=== PATIENT | male | born 1950 | race Caucasian/White ===

== ENCOUNTER 2018-04-01 16:00 | Inpatient (IN) | payer MEDICARE ==
[~2018-04-01] VITALS: Ht 182.9 cm; Wt 113.4 kg
[2018-04-01 19:28] VITALS: BP 130/56; BMI 34.0
--- NOTE | 2018-04-01 21:45 | NUR ---
PATIENT ORDER FOR TRAMADOL FOR PAIN ENTERED. PHARMACIST ADRIEN NOTIFIED OF ORDER. TRAMADOL TO BE PLACED IN PIXIS. NOVOLOG TO BE DELIVERED.
--- NOTE | 2018-04-01 22:15 | NUR ---
PATIENT MEDICATIONS HERE. PATIENT GIVEN TRAMADOL FOR BACK,HANDS & BUTT PAIN. PATIENT HAD SECOND LOOSE BM. PATIENT CLEANED & ORDERED MEDICATION APPLIED TO BUTTOCKS. PATIENT TOLERATED IT WELL. CALL LIGHT WITHIN REACH. WILL CONTINUE TO MONITOR.
--- NOTE | 2018-04-01 23:00 | NUR ---
PATIENT RECEIVED SITTING UP IN BED WATCHING TV. PATIENT ON CONTACT ISOLATION FOR CDIFF. PATIENT ASSESSMENT & VITAL SIGNS DONE. PATIENT ALANIZ CATHETER PATENT WITH DARK YELLOW URINE. PATIENT HAD NO C/O PAIN OR DISTRESS. PATIENT BED LOW. PATIENT HAS LEFT BKA. RIGHT 5 TOES AMPUTATION YEARS AGO. PATIENT ALERT & ORIENTED. PATIENT ABLE TO VOICE HIS NEEDS. WILL CONTINUE TO MONITOR.
--- NOTE | 2018-04-02 02:11 | NUR ---
PATIENT EYES CLOSED. RESPIRATIONS 18 & EVEN. BED LOW. CALL LIGHT WITHIN REACH. WILL CONTINUE TO MONITOR.
--- NOTE | 2018-04-02 02:41 | NUR ---
RESTING IN BED. INCONTINENCE CARE GIVEN. NOTED SHEERING ON BUTTOCKS. ALANIZ PATENT. NO ACUTE DISTRESS NOTED.
[2018-04-02 06:35] LABS: BASOPHILS 0.6 % (0-2); EOSINOPHILS 2.2 % (0-7); HEMATOCRIT 33.3 % (42.0-54.0); HEMOGLOBIN 11.3 g/dL (13.5-17.5); IMMATURE GRANULOCYTES 0.7 % (0-5); LYMPHOCYTES 32.4 % (15-50); MCH 28.5 pg (26.0-34.0); MCHC 33.9 g/dL (31.0-37.0); MCV 83.9 fL (80.0-100.0); MEAN PLATELET VOLUME 8.8 fL (7.4-10.4); NEUTROPHILS 49.1 % (40-80); PLATELET COUNT 190 10x3/uL (130-400); RBC 3.97 10x6/uL (4.20-6.10); RDW 14.2 % (11.5-14.5); WBC 7.1 10x3/uL (4.8-10.8)
[2018-04-02 06:38] LABS: ANION GAP 14.6 mmol/L (8-16); CALCIUM 7.5 mg/dL (8.5-10.1); CARBON DIOXIDE 26.1 mmol/L (21.0-32.0); CREATININE - SERUM 2.5 mg/dL (0.6-1.3); POTASSIUM - SERUM 3.7 mmol/L (3.5-5.1)
--- NOTE | 2018-04-02 07:04 | NUR ---
RESTING QUIETLY IN BED. CALL LIGHT IN REACH. BED IN LOWEST POSITION.
[2018-04-02 07:23] LABS: APPEARANCE TURBID (CLEAR); BACTERIA MANY /hpf (NONE SEEN); BILIRUBIN NEGATIVE (NEGATIVE); COLOR YELLOW (YELLOW); EPITHELIAL CELLS 0-5 /hpf (0-5); GLUCOSE NEGATIVE (NEGATIVE); KETONE NEGATIVE (NEGATIVE); MUCUS <1+ /lpf (NONE SEEN); NITRITE POSITIVE (NEGATIVE); PROTEIN 1+ mg/dL (NEGATIVE); RED CELLS - URINE 0-5 /hpf (0-5); SPECIFIC GRAVITY 1.015 (1.005-1.020); YEAST >1+ /hpf (NONE SEEN)
[2018-04-02 07:24] LABS: AMORPHOUS SEDIMENT <1+ /lpf (NONE SEEN); GRANULAR CAST OCC /lpf (NONE SEEN)
--- NOTE | 2018-04-02 07:38 | NUR ---
PT RESTING QUIETLY. CL IN REACH. NO SIGNS OF DISTRESS OR PAIN. PT ALANIZ INTACT, URINE WNL. PT ON ISOLATION FOR CDIFF. RESP EVEN AND UNLABORED. BED IN LOW POSITION. SIDE RAILS X2. WCTM
[2018-04-02 08:00] VITALS: BP 159/90
--- NOTE | 2018-04-02 10:30 | NUR ---
PT COMPLAINING OF N/V ALL MORNING. ZOFRAN ORDERED. WILL CHECK BACK IN 30 MIN. PT ALSO COMPLAINING OF DIARRHEA. CL IN REACH. PT LYING IN BED. DENIES ANY FURTHER NEEDS.
[2018-04-02 11:59] VITALS: Ht 182.9 cm; Wt 113.4 kg
--- NOTE | 2018-04-02 14:32 | NUR ---
PT ATE SOME LUNCH. INSULIN HELD DUE TO NOT EATING TODAY. PT STILL COMPLAINING OF N/V. CL IN REACH. PT SITTING UP ON SIDE OF BED. WILL CONTINUE TO MONITOR.
--- NOTE | 2018-04-02 17:44 | NUR ---
PT SITTING UP IN BED. CL IN REACH. PT DENIES NEEDS OR PAIN. ZOFRAN HELPED LAST DOSE THAT WAS GIVEN. PT STATES HE FEELS BETTER. INSULIN HAS BEEN HELD ALL DAY DUE TO LACK OF EATING. WILL CONTINUE TO MONITOR.
[2018-04-02 18:45] VITALS: BP 169/79
--- NOTE | 2018-04-02 20:58 | NUR ---
PATIENT STATED THAT HE HASNT HAD ANYTHING TO EAT FOR MOST OF THE DAY. PATIENTS BLOOD SUGAR WAS 153 AND INSULIN WAS HELD DUE TO PATIENT STILL NOT EATING AND HAD EXPERIENCED N/V EARLIER TODAY. WCTM.
--- NOTE | 2018-04-02 21:58 | NUR ---
PATIENTS DRESSING REMOVED AND WOUND ASSESSED AND CLEANED. NEW DRESSING APPLIED USING ADPATIC, 4 X 4"S, CURLIX AND TAPE. PATIENT TOLERATED PROCEDURE. ERICKA.
--- NOTE | 2018-04-02 23:32 | NUR ---
PATIENT CLEANED OF INCONTINENT BM. MEDICATION APPLIED TO BUTTOCKS. PATIENT REPOSITIONED FOR COMFORT. CALL LIGHT IN REACH. BED IN LOWEST POSITION.
--- NOTE | 2018-04-03 00:22 | NUR ---
PATIENT ASLEEP WITH EYES CLOSED. HOB AT 35 DEGREES. RESPIRATIONS EVEN. NO SIGNS OF DISTRESS. CALL LIGHT IN REACH. BED IN LOWEST POSITION.
--- NOTE | 2018-04-03 00:55 | NUR ---
PATIENT CLEANED OF INCONTINENT BM. GENTLY CLEANED PATIENTS BUTTOCKS WITH WARM WIPES AND PATIENT COMPLAINED AND TOLD ME TO JUST NOT WIPE HIM. I EXPLAINED TO PATIENT THAT IT WAS NOT GOOD FOR STOOL TO STAY ON THE SKIN BECAUSE IT CAUSES SKIN BREAKDOWN. PATIENT UNDERSTOOD AND I CONTINUED TO WIPE PATIENTS BUTTOCKS AND FOLLOWED WITH CAMO ON REDDENED AREAS.
--- NOTE | 2018-04-03 01:39 | NUR ---
PATIENT ASLEEP WITH EYES CLOSED LAYING IN SUPINE POSITION. HOB AT 35 DEGREES. RESPIRATIONS EVEN. NO SIGNS OF DISTRESS. CALL LIGHT IN REACH. WCTM.
--- NOTE | 2018-04-03 03:50 | NUR ---
PATIENT CLEANED ON INCONTINENT URINE. COMPLETE LINEN CHANGE. PATIENTS SCROTUM SACK WAS EXTREMELY RED. MOMO APPLIED. PATIENT REPOSITIONED FOR COMFORT. CALL LIGHT IN REACH. BED IN LOWEST POSITION.
--- NOTE | 2018-04-03 04:19 | NUR ---
PATIENT ASLEEP WITH EYES CLOSED. HOB AT 30 DEGREES. RESPIRATIONS EVEN. NO SIGNS OF DISTRESS. CALL LIGHT IN REACH. BED IN LOWEST POSITION. SIDE RAILS UP X 2.
--- NOTE | 2018-04-03 05:41 | NUR ---
WHEN IN PATIENTS ROOM TO CHECK BLOOD SUGAR AND ASK PATIENT HOW HE WAS DOING HE CURSED AT ME AND TOLD " NOT WORTH A GODDAMN BECAUSE I HAVE BEEN LAYING IN SHIT FOR MORE THAN AN HOUR." I ASKED HIM WHY HE DIDNT PRESS HIS CALL LIGHT WHICH WAS ON HIS CHEST? HE REPLIED " IT WOULDNT MATTER IF I CALLED YOU NURSES WOULDNT ANSWER IT ANYWAY." I THEN WENT AND GOT THE CHARGE NURSE TO SEE IF MAYBE SHE COULD MAKE PATIENT HAPPY, SHE WAS NOT ABLE TO MAKE HIM HAPPY EITHER. CLEANED PATIENT OF INCONTINENT BM AND REMINDED HIM IF HE NEEDS HELP TO PLEASE USE THE CALL LIGHT.
[2018-04-03 08:00] VITALS: BP 141/80
--- NOTE | 2018-04-03 08:39 | NUR ---
NURSE IN ROOM. TAKING MEDS. NO CHANGE IN ASSESSMENT.
[2018-04-03 09:24] LABS: BASOPHILS 0.3 % (0-2); EOSINOPHILS 2.1 % (0-7); HEMOGLOBIN 11.6 g/dL (13.5-17.5); IMMATURE GRANULOCYTES 0.8 % (0-5); LYMPHOCYTES 25.6 % (15-50); MCH 28.4 pg (26.0-34.0); MCHC 34.1 g/dL (31.0-37.0); MCV 83.3 fL (80.0-100.0); MEAN PLATELET VOLUME 8.9 fL (7.4-10.4); MONOCYTES 13.4 % (2-11); NEUTROPHILS 57.8 % (40-80); PLATELET COUNT 169 10x3/uL (130-400); RBC 4.08 10x6/uL (4.20-6.10); WBC 6.6 10x3/uL (4.8-10.8)
[2018-04-03 09:33] LABS: CALCIUM 7.2 mg/dL (8.5-10.1); CARBON DIOXIDE 25.2 mmol/L (21.0-32.0); CREATININE - SERUM 2.4 mg/dL (0.6-1.3); POTASSIUM - SERUM 3.2 mmol/L (3.5-5.1)
--- NOTE | 2018-04-03 10:29 | NUR ---
PHYSICAL THERAPIST IN ROOM. WORKING WITH PATIENT IN ROOM. ALL LINENS ON BED CHANGED WHILE PATIENT SITTING UP
--- NOTE | 2018-04-03 15:53 | NUR ---
PATIENT CONTINUES IN CONTACT ISOLATION FOR C-DIFF. PATIENT HAS HAD LOOSE STOOLS X6 TODAY
--- NOTE | 2018-04-03 16:44 | NUR ---
WOUND CARE CONSULT PUT IN FOR RIGHT LEG STASIS ULCERS
--- NOTE | 2018-04-03 19:09 | NUR ---
PATIENT IS RESTING IN HIS BED. HE DENIES ANY NEEDS. BED IS DOWN LOW WITH SIDE RAILS UP X2. CALL LIGHT IS IN REACH.
[2018-04-03 19:30] VITALS: BP 150/78
--- NOTE | 2018-04-03 21:00 | NUR ---
PATIENT IS RESTING IN HIS BED. VITAL SIGNS ARE STABLE. BED IS DOWN LOW WITH SIDE RAILS UP X2. CALL LIGHT IN REACH.
--- NOTE | 2018-04-04 00:05 | NUR ---
PATIENT IS SLEEPING. BED IS DOWN LOW WITH SIDE RAILS UP X2. CALL LIGHT IS IN REACH.
--- NOTE | 2018-04-04 04:07 | NUR ---
PATIENT IS SLEEPING. BED IS DOWN LOW WITH SIDE RAILS UP X2. CALL LIGHT IS IN REACH.
[2018-04-04 08:00] VITALS: BP 133/77; BP 139/75
--- NOTE | 2018-04-04 08:00 | NUR ---
PATIENT REMAINS IN CONTACT ISOLATION FOR C-DIFF. ALERT/ORIENT, CALL LIGHT WITHIN REACH. VOICES NO NEEDS AT THIS TIME. WILL CONTINUE WITH PLAN OF CARE
--- NOTE | 2018-04-04 10:11 | NUR ---
PATIENT INCONT OF STOOL. VERY LOOSE BOWEL MOVEMENT. BOTTOM IS VERY RED, PETER CARE GIVEN AND MOMO CREAM APPLIED. PATIENT HAS A CHRONIC ALANIZ CATH DUE TO RETENTION.
--- NOTE | 2018-04-04 13:00 | NUR ---
PATIENT IS A TOTAL ASST DUE TO LBKA, RIGHT FOOT HAS ALL FIVE TOES AMPUTATED. RIGHT CALF HAS STASIS ULCERS. DRESSING IS C/D/I TO AREA
--- NOTE | 2018-04-04 19:14 | NUR ---
PATIENT IS RESTING IN HIS BED. HE REQUEST SOME COLD APPLESAUCE. NO OTHER NEEDS VOICED. BED IS DOWN LOW WITH SIDE RAILS UP X2. CALL LIGHT IS IN REACH.
--- NOTE | 2018-04-04 20:28 | NUR ---
REST IN BED, CALL LIGHT IN REACH.
[2018-04-04 22:46] VITALS: BP 165/87
--- NOTE | 2018-04-05 02:05 | NUR ---
REST QUIETLY IN BED, CALL LIGHT IN REACH.
[2018-04-05 08:22] VITALS: BP 159/80
--- NOTE | 2018-04-05 08:24 | NUR ---
PATIENT ALERT AND ORIENTED. ATE ONLY 10% OF BREAKFAST. STATES HE IS NOT REALLY HUNGRY. HELD LEVAMIR PER PATIENT REQUEST DUE TO BLOOD GLUCOSE BEING 134. CALMOSEPTINE APPLIED TO EXCORIATED BUTTOCKS. RESTING QUIETLY AT THIS TIME WILL CONTINUE TO MONITOR.
--- NOTE | 2018-04-05 10:13 | NUR ---
PATIENT COMPLAINED OF PAIN TO BACK AND HANDS. MEDICATAED WITH PRN ULTRAM. DR PEREZ ORDERED 2 NEW ANTIBIOTICS AND QUESTRAN. STATES HE DOES NOT WANT TO BE FILLED WITH ANTIBOITICS AND WANTS TO TALK TO DR. PEREZ. REFUSED TO TAKE QUESTRAN BECAUSE HE SAYS IT WILL MAKE HIM THROW UP. WANTS TO WAIT AND START FLAGYL AT 15:00 BECAUSE HE ALREADY TOOK 2 ANTIBIOTICS AND HIS STOMACH IS "CHURNING". NOTE LEFT FOR DR. PEREZ ABOUT ANTIBIOTICS.
--- NOTE | 2018-04-05 12:17 | NUR ---
PATIENT C/O NAUSEA. MEDICATED WITH PRN ZOFRAN BUT DID NOT HELP. PATIENT HAD SMALL EMESIS. NOON MEDS HELD. REFUSED TO EAT LUNCH. SITTING UP IN WHEELCHAIR. STATES "THIS THROWING UP EVERYTIME I MOVE HAS GOT TO STOP." ORDERED STEPHON TAYLOR FROM [employer] PATIENT THINKS THIS MIGHT HELP SETTLE HIS STOMACH.
--- NOTE | 2018-04-05 19:01 | NUR ---
PATIENT C/O NAUSEA. STATES HE CANNOT TAKE ZOFRAN AT THIS TIME. WOULD LIKE TO TRY SOME ICE CUBES. BED IS DOWN LOW WITH SIDE RAILS UP X2. CALL LIGHT IS IN REACH.
[2018-04-05 19:30] VITALS: BP 153/85
--- NOTE | 2018-04-05 19:41 | NUR ---
PATIENT C/O NAUSEA, BEING TOO HOT, FEELING VERTIGO. BLOOD SUGAR AND VITAL SIGNS CHECKED AND ARE STABLE. BED IS DOWN LOW WITH SIDE RAILS UP X2. CALL LIGHT IS IN REACH. PATIENT INFORMED THAT NURSE WILL PAGE MD FOR ANXIETY MED ORDER.
--- NOTE | 2018-04-05 23:40 | NUR ---
PATIENT IS RESTING IN HIS BED. C/O NAUSEA BUT STATES HE CANNOT TAKE ZOFRAN AT THIS TIME. BED IS DOWN LOW WITH SIDE RAILS UP X2. CALL LIGHT IS IN REACH.
--- NOTE | 2018-04-06 00:09 | NUR ---
PATIENT IS SLEEPING. BED IS DOWN LOW WITH SIDE RAILS UP X2. CALL LIGHT IS IN REACH.
--- NOTE | 2018-04-06 04:06 | NUR ---
PATIENT IS SLEEPING. BED IS DOWN LOW WITH SIDE RAILS UP X2. BED ALARM ACTIVATED AND CALL LIGHT IN REACH.
[2018-04-06 07:11] LABS: BASOPHILS 0.8 % (0-2); EOSINOPHILS 2.7 % (0-7); HEMATOCRIT 33.4 % (42.0-54.0); HEMOGLOBIN 11.4 g/dL (13.5-17.5); IMMATURE GRANULOCYTES 1.3 % (0-5); LYMPHOCYTES 36.3 % (15-50); MCH 28.6 pg (26.0-34.0); MCHC 34.1 g/dL (31.0-37.0); MCV 83.7 fL (80.0-100.0); MEAN PLATELET VOLUME 9.3 fL (7.4-10.4); MONOCYTES 15.5 % (2-11); NEUTROPHILS 43.4 % (40-80); PLATELET COUNT 167 10x3/uL (130-400); RBC 3.99 10x6/uL (4.20-6.10); RDW 13.9 % (11.5-14.5); WBC 6.4 10x3/uL (4.8-10.8)
[2018-04-06 07:32] LABS: ANION GAP 13.8 mmol/L (8-16); CALCIUM 7.3 mg/dL (8.5-10.1); CARBON DIOXIDE 27.4 mmol/L (21.0-32.0); POTASSIUM - SERUM 3.2 mmol/L (3.5-5.1)
--- NOTE | 2018-04-06 07:52 | NUR ---
PATIENT AWAKE AND ALERT THIS MORNING. SITTING UP IN BED TRYING TO EAT SOME BREAKFAST. STATES THAT NAUSEA IS STILL PRESENT AND THAT HE HAD A BAD NIGHT. SO FAR ONLY ABLE TO EAT A FEW BITES OF CEREAL.
[2018-04-06 08:00] VITALS: BP 151/83
--- NOTE | 2018-04-06 15:58 | NUR ---
PATIENT AGREED TO GET UP FOR A SHOWER AFTER MUCH ENCOURAGEMENT. STATES HE FEELS ALOT BETTER AFTER SHOWER. NAUSEA IS GONE. ATE SOME APPLESAUCE AND DRANK A SPRITE WITHOUT VOMITING. DR. PEREZ IN TO SEE PATIENT. SAID HE WAS GOING TO HOLD OFF OF FLAGYL FOR NOW BECAUSE HE THOUGHT IT WAS MAKING HIM SICK. PATIENT UP FOR THERAPY AT THIS TIME. WILL CONTINUE TO MONITOR.
[2018-04-06 19:00] VITALS: BP 146/78
--- NOTE | 2018-04-06 19:14 | NUR ---
RESTING IN BED AWAKE AND ALERT. STATES HE HAD A LOT OF NAUSEA TODAY BUT DOESNT HAVE IT NOW. STATES HE DOESNT WANT HS MEDICATIONS. REMAINS ON CONTACT ISOLATION. CALL LIGHT IN REACH.
--- NOTE | 2018-04-07 01:15 | NUR ---
RESTING IN BED WITH EYES CLOSED. NO DISTRESS NOTED. CALL LIGHT IN REACH.
--- NOTE | 2018-04-07 06:02 | NUR ---
RESTING IN BED. CORBIN MOSCOSO. AGREED TO TAKE HIS PROAMITINE THIS AM. BLOOD SUGAR 151, SLIDING SCALE GIVEN. REPOSITIONED FOR COMFORT.
[2018-04-07] MEDS ORDERED: ACIDOPHILUS-PE1 EACH PO (06:23)
[2018-04-07] MEDS ORDERED: XARELTO15 MG PO (06:26)
[2018-04-07] MEDS ORDERED: LEVEMIR IN100 UNITS/ (06:27)
[2018-04-07] MEDS ORDERED: MUPIROCIN22 GM TOPICAL (06:30)
[2018-04-07] MEDS ORDERED: NYSTATIN1 PWD (06:31)
[2018-04-07] MEDS ORDERED: MIDODRINE HCL5 MG (06:33)
[2018-04-07] MEDS ORDERED: ULTRAM50 MG PO (06:34)
[2018-04-07] MEDS ORDERED: XANAX0.5 MG PO (06:35)
--- NOTE | 2018-04-07 07:48 | NUR ---
PT REPOSITIONED AND IS SITTING UP IN BED FOR BREAKFAST, DENIES NEEDS. WCTM.
[2018-04-07 08:00] VITALS: BP 135/68
--- NOTE | 2018-04-07 13:20 | NUR ---
Nutrition Follow Up: Pt stated that his N/V had improved but he was still experiencing some. He said that he felt hungry and had eaten some lunch. Pt requested more soup and milk. Pt refused supplements at this time stating that they gave him diarrhea. RD encouraged pt to increase po intake as able to maintain strength, promote healing, etc. RD ordered pt more soup and milk per his request. Diet: ADA PO Intake: 30% meal avg BM: 04/07/18 Labs reviewed - Glucose continues elevated Meds noted including Questran Rec continue current diet. Will continue to honor food preferences within ADA diet. RD following.
--- NOTE | 2018-04-07 19:47 | NUR ---
AWAKE AND ALERT. TALKING ON PHONE. STATES HE HAD SOME NAUSEA TODAY BUT RIGHT NOW HE FEELS OK. CORBIN MOSCOSO. CONTACT ISOLATION IN PLACE. NO DISTRESS NOTEED.
[2018-04-07 19:49] VITALS: BP 141/79
--- NOTE | 2018-04-08 00:53 | NUR ---
MEDICATED FOR PAIN IN BACK. REPOSITIONED FOR COMFORT.
--- NOTE | 2018-04-08 06:08 | NUR ---
QUIET HOURS. RESTING IN BED WITH NO DISTRESS NOTED. ALANIZ PATENT. REFUSED PO MEDS. ACCUCHECK DONE AND RESULTS 149.
[2018-04-08 07:31] VITALS: BP 138/73
--- NOTE | 2018-04-08 10:44 | NUR ---
LAYING IN BED WATCHING TV. CALL LIGHT IN REACH
--- NOTE | 2018-04-08 14:05 | NUR ---
WORKING WITH THERAPY IN [place].
--- NOTE | 2018-04-08 19:50 | NUR ---
RESTING IN BED. AWAKE AND ALERT. ALANIZ PATENT. DRESSING INTACT TO LLE. RESPIRATIONS UNLABORED. CALL LIGHT IN REACH.
[2018-04-08 19:56] VITALS: BP 134/83
--- NOTE | 2018-04-09 02:16 | NUR ---
RESTING IN BED WITH NO DISTRESS NOTED. CALL LIGHT IN REACH.
[2018-04-09 07:30] VITALS: BP 149/83
[2018-04-09 08:35] LABS: BASOPHILS 0.3 % (0-2); EOSINOPHILS 3.9 % (0-7); HEMATOCRIT 30.6 % (42.0-54.0); HEMOGLOBIN 10.4 g/dL (13.5-17.5); IMMATURE GRANULOCYTES 0.9 % (0-5); LYMPHOCYTES 32.4 % (15-50); MCH 28.6 pg (26.0-34.0); MCV 84.1 fL (80.0-100.0); MEAN PLATELET VOLUME 9.6 fL (7.4-10.4); MONOCYTES 13.1 % (2-11); NEUTROPHILS 49.4 % (40-80); PLATELET COUNT 165 10x3/uL (130-400); RBC 3.64 10x6/uL (4.20-6.10); RDW 14.3 % (11.5-14.5); WBC 5.9 10x3/uL (4.8-10.8)
[2018-04-09 09:04] LABS: ANION GAP 15.4 mmol/L (8-16); CALCIUM 7.6 mg/dL (8.5-10.1); CARBON DIOXIDE 26.2 mmol/L (21.0-32.0); CREATININE - SERUM 1.7 mg/dL (0.6-1.3); POTASSIUM - SERUM 3.6 mmol/L (3.5-5.1)
--- NOTE | 2018-04-09 11:15 | NUR ---
PATIENT ADMITTED TO [facility]HAB FROM [facility]. DISCHARGE PLANS ARE FOR PATIENT TO RETURN HOME HE LIVES WITH HIS MOTHER. WILL CONTINUE TO FOLLOW WITH PATIENT AND WILL ASSIST WITH DISCHARGE NEEDS.
--- NOTE | 2018-04-09 15:33 | NUR ---
RESTING QUIETLY IN BED WATCHING TV. INCONT OF STOOL. NO DIARRHEA NOTED. FC PATENT WITH CLOUDY URINE NOTED. STILL REFUSING MOST OF HIS MEDS.
[2018-04-09 19:41] VITALS: BP 137/78
--- NOTE | 2018-04-09 19:43 | NUR ---
AWAKE AND ALERT. SKIN WARM AND DRY. STATES HE FEELS A LITTLE BETTER TODAY. DRESSING INTACT TO RIGHT LOWER EXTREMITY. DRESSING TO BUTOCKS INTACT. ALANIZ PATENT. CONTINUES CONTACT ISOLATION. NO DISTRESS NOTED.
--- NOTE | 2018-04-10 03:33 | NUR ---
RESTING IN BED WITH NO DISTRESS NOTED. RESPIRATIONS UNLABORED.
[2018-04-10 08:00] VITALS: BP 165/96
--- NOTE | 2018-04-10 10:00 | NUR ---
SITTING UP IN BED WATCHING TV. DENIES NEEDS OR C/O. F/C PATENT WITH CLOUDY URINE. CALL LIGHT IN REACH
--- NOTE | 2018-04-10 16:30 | NUR ---
EYES CLOSED, RESP EFFORT NON LABORED. STAYS ON BACK IN BED. NURSE ENCOURAGES HIM TO LAY ON HIS SIDE AND OR ROLL SIDE/SIDE.
[2018-04-10 19:44] VITALS: BP 146/79
--- NOTE | 2018-04-10 19:44 | NUR ---
GREETED PATIENT AND INTRODUCED MYSELF HIS NURSE FOR THE EVENING. PATIENT STATED THAT HE HAD A BM AND NEEDED TO BE CLEANED UP. PATIENT CLEANED FROM INCONTINENT BM AND NEW MEPIPLEX CUSHION APPLIED TO COCCYX. PATIENT DENIES ANY PAIN OR ANY FURTHER NEEDS AT THIS TIME. CALL LIGHT IN REACH. BED IN LOWEST POSITION.
--- NOTE | 2018-04-10 23:00 | NUR ---
PATIENTS DRESSING REMOVED ON LOWER RIGHT CALF. WOUNDS ASSESSED AND MEDICATION ADMINISTERED PRIOR TO NEW DRESSING. ADAPTIC APPLIED TO WOUNDS AND THEN COVERED WITH 4X4 AND COVERED WITH CURLIX TO SECURE. PATIENT TOLERATED PROCEDURE, BUT DID COMPLAIN THAT THE DRESSING HADNT BEEN CHANGED SINCE LAST THURSDAY. THERE WAS NO INITIAL OR DATE ON OLD DRESSING THAT WAS REMOVED. PATIENT DENIES ANY FURTHER NEEDS AT THIS TIME. CALL LIGHT IN REACH. BED IN LOWEST POSITION.
--- NOTE | 2018-04-11 01:05 | NUR ---
PATIENT CLEANED OF INCONTINENT SOFT FORMED BM. CALL LIGHT IN REACH. BED IN LOWEST POSITION.
--- NOTE | 2018-04-11 02:09 | NUR ---
ADMINISTERED PRN ULTRAM FOR LOWER BACK PAIN 9/10 ON 0-10 PAIN SCALE. LEILA.
--- NOTE | 2018-04-11 02:59 | NUR ---
PATIENT ASLEEP WITH EYES CLOSED LAYING IN SUPINE POSITION. HOB AT 30 DEGREES. CALL LIGHT IN REACH. BED IN LOWEST POSITION. RESPIRATIONS EVEN. NO SIGNS OF DISTRESS.
--- NOTE | 2018-04-11 04:45 | NUR ---
PATIENT AWAKE LAYING IN BED IN SUPINE POSITION. STATES THAT HIS BACK IS STILL HURTING, I EXPLAINED TO HIM THAT HE WOULDNT BE ABLE TO TAKE ANOTHER ULTRAM UNTIL 0607. I ASKED HIM IF HE WOULD LIKE FOR ME TO MAKE A NOTE TO DR. PEREZ ABOUT POSSIBLY CHANGING HIS PAIN MEDICATION, HE REPLIED "NO, IT WILL BE FINE JUST THE WAY IT IS."
--- NOTE | 2018-04-11 10:30 | NUR ---
RESIDENT AWAKE AND ALERT THIS MORNING. NO COMPLAINTS OF PAIN OR DISCOMFORT. ATE 90% OF BREAKFAST. RESTING IN BED, WATCHING TV. WILL CONTINUE TO MONITOR.
[2018-04-11 11:06] VITALS: BP 135/74
--- NOTE | 2018-04-11 13:27 | NUR ---
ATE 100% OF LUNCH. NO C/O NAUSEA AT THIS TIME. WILL CONTINUE TO MONITOR.
[2018-04-11 19:30] VITALS: BP 147/90
--- NOTE | 2018-04-11 19:30 | NUR ---
GREETED PATIENT AND INTRODUCED MYSELF. PATIENT IS LAYING IN BED WATCHING TV. DENIES ANY NEEDS AT THIS TIME.
--- NOTE | 2018-04-11 22:00 | NUR ---
PATIENTS DRESSING REMOVED ON LOWER RIGHT CALF. WOUNDS ASSESSED AND MEDICATION APPLIED PRIOR TO NEW DRESSING. ADAPTIC APPLIED TO COVER WOUNDS, FOLLOWED WITH 4 X 4 AND CURLIX AND TAPE TO SECURE. PATIENT TOLERATED PROCEDURE. PATIENT DENIES ANY FURTHER NEEDS AT THIS TIME. CALL LIGHT IN REACH. BED IN LOWEST POSITION.
--- NOTE | 2018-04-11 23:49 | NUR ---
PATIENT ASLEEP WITH EYES CLOSED LAYING IN SUPINE POSITION. HOB AT 30 DEGREES. RESPIRATIONS EVEN. NO SIGNS OF DISTRESS. CALL LIGHT IN REACH. BED IN LOWEST POSITION.
--- NOTE | 2018-04-12 00:43 | NUR ---
PATIENT CLEANED OF INCONTINENT BM IN ENTIRE SCROTAL, RECTAL & PETER AREA. COMPLETE BED CHANGE WAS NEEDED. USED WARM WATER AND SOAP TO CLEAN PATIENT, WIPES WERE NOT EFFECTIVE. PATIENT MODERATELY UNCOMFORTABLE DURING CLEANING AND WAS MOANING WHILE CLEANING. ERICKA.
--- NOTE | 2018-04-12 02:00 | NUR ---
PATIENT ASLEEP WITH EYES CLOSED. NO SIGNS OF DISTRESS. CALL LIGHT IN REACH
[2018-04-12 07:38] LABS: BASOPHILS 0.6 % (0-2); EOSINOPHILS 3.9 % (0-7); HEMOGLOBIN 10.4 g/dL (13.5-17.5); IMMATURE GRANULOCYTES 0.7 % (0-5); LYMPHOCYTES 27.4 % (15-50); MCH 28.2 pg (26.0-34.0); MCHC 33.5 g/dL (31.0-37.0); MEAN PLATELET VOLUME 9.7 fL (7.4-10.4); MONOCYTES 13.8 % (2-11); NEUTROPHILS 53.6 % (40-80); RBC 3.69 10x6/uL (4.20-6.10); RDW 14.2 % (11.5-14.5); WBC 6.7 10x3/uL (4.8-10.8)
[2018-04-12 07:40] LABS: PLATELET COUNT 204 10x3/uL (130-400)
[2018-04-12 07:46] LABS: ANION GAP 17.2 mmol/L (8-16); CARBON DIOXIDE 22.8 mmol/L (21.0-32.0); CREATININE - SERUM 1.6 mg/dL (0.6-1.3)
[2018-04-12 07:58] VITALS: BP 140/73
--- NOTE | 2018-04-12 10:29 | NUR ---
SITTING UP IN BED WATCHING TV. DENIES PAIN. DSG TO RLE IN PLACE. F/C IN PLACE WITH CLOUDY URINE. CALL LIGHT IN REACH.
--- NOTE | 2018-04-12 12:29 | NUR ---
STATES HE DOES NOT WANT HIS LUNCH, A FEW BITES SOURED ON HIS STOMACH. NO EMESIS NOTED IN BUCKET. DECLINED ANYTHING ELSE TO EAT OR DRINK.
[2018-04-12 19:00] VITALS: BP 136/72
--- NOTE | 2018-04-12 19:27 | NUR ---
RESTING IN BED. RESPIRATIONS UNLABORED. STATES HE HAD AN INCONTINENT BM. REFUSES TO USE BEDPAN. ALANIZ PATENT DRAINING NGHIA URINE. CALL LIGHT IN REACH.
--- NOTE | 2018-04-13 00:07 | NUR ---
RESTING IN BED. INCONTINENCE CARE GIVEN FOR BM. NO ACUTE DISTRESS NOTED.
[2018-04-13 08:00] VITALS: BP 149/86
--- NOTE | 2018-04-13 08:00 | NUR ---
SHIFT ASSMT COMPLETED.BREAKFAST GIVEN.DRSG INTACT TO RT STUMP.CL IN REACH.
--- NOTE | 2018-04-13 14:13 | NUR ---
Nutrition Follow Up: Pt was asleep at the time of RD visit. Interview deferred at this time. Noted pt has previously refused supplements. Diet: ADA PO Intake: 64% meal avg BM: 04/13/18 Labs reviewed - Glucose elevated Meds noted including Questran Rec continue current diet. Will continue to honor food preferences. RD following.
[2018-04-13 20:00] VITALS: BP 157/81
--- NOTE | 2018-04-13 20:05 | NUR ---
RESTING IN BED WITH RESPIRATIONS UNLABORED. NO C/O PAIN. ALANIZ PATENT. NO DISTRESS NOTED.
--- NOTE | 2018-04-14 01:34 | NUR ---
RESTING IN BED WITH NO DISTRESS NOTED. CORBIN PATENT. CALL LIGHT IN REACH.
--- NOTE | 2018-04-14 04:03 | NUR ---
RESTING IN BED WITH NO DISTRESS NOTED. RESPIRATIONS UNLABORED.
--- NOTE | 2018-04-14 06:10 | NUR ---
QUIET HOURS. BLOOD SUGAR 148. NO NEEDS VOICED. NO DISTRESS NOTED.
[2018-04-14 07:35] LABS: BASOPHILS 0.7 % (0-2); EOSINOPHILS 4.5 % (0-7); HEMATOCRIT 30.2 % (42.0-54.0); HEMOGLOBIN 10.4 g/dL (13.5-17.5); IMMATURE GRANULOCYTES 0.9 % (0-5); LYMPHOCYTES 32.6 % (15-50); MCH 29.1 pg (26.0-34.0); MCHC 34.4 g/dL (31.0-37.0); MCV 84.4 fL (80.0-100.0); MEAN PLATELET VOLUME 9.3 fL (7.4-10.4); MONOCYTES 16.6 % (2-11); NEUTROPHILS 44.7 % (40-80); PLATELET COUNT 221 10x3/uL (130-400); RBC 3.58 10x6/uL (4.20-6.10); RDW 14.3 % (11.5-14.5); WBC 6.9 10x3/uL (4.8-10.8)
[2018-04-14 07:51] LABS: ANION GAP 15.1 mmol/L (8-16); CALCIUM 7.9 mg/dL (8.5-10.1); CREATININE - SERUM 1.6 mg/dL (0.6-1.3); POTASSIUM - SERUM 4.1 mmol/L (3.5-5.1)
[2018-04-14 08:00] VITALS: BP 127/69
--- NOTE | 2018-04-14 08:00 | NUR ---
SHIFT ASSMT COMPLETED.DENIES NEEDS.
--- NOTE | 2018-04-14 12:00 | NUR ---
EATING LUNCH.DENIES NEEDS.
--- NOTE | 2018-04-14 16:00 | NUR ---
DEJON THERAPY.CL IN REACH.
[2018-04-14 19:00] VITALS: BP 102/63
--- NOTE | 2018-04-14 19:37 | NUR ---
PATIENT CLEANED OF INCONTINENT BM. CAMO AND NEW MEPILEX CUSHION APPLIED TO REDDENED AREAS. CALL LIGHT IN REACH.
--- NOTE | 2018-04-14 19:45 | NUR ---
GREETED PATIENT AND INTRODUCED MYSELF HIS PATIENT FOR THE EVENING. PATIENT SAID HE HAD WALKED ABOUT 50 FEET TODAY WITH HIS PROTHESIS. I TOLD PATIENT THAT WAS GOOD TO MAKE PROGRESS. DENIES ANY NEEDS AT THIS TIME. CALL LIGHT IN REACH.
--- NOTE | 2018-04-14 19:53 | RHP ---
PATIENT: VIRA HOLLAND MEDICAL RECORD: [id number] ACCOUNT: [id number] LOCATION:[id number] : 54 ADMISSION DATE: 04/01/18 REHABILITATION HISTORY AND PHYSICAL EXAMINATION POST ADMISSION PHYSICIAN EXAMINATION DATE OF ADMISSION: 04/01/2018. ADMITTING DIAGNOSIS: Disuse myopathy. HISTORY OF PRESENT ILLNESS: The patient is a 67-year-old gentleman who is admitted secondary to long medical history of multiple hospitalizations for the last 4-5 months. He has been in the [facility] since 03/10/2018 secondary to sepsis, UTI and C. diff. He has also completed IV antibiotic therapy. He has a remote history of a left BKA with prosthesis. He recently had to have resized and fitted due to weight loss and had improper fitting. He has just, in the past week, felt well enough and strong enough to be getting around his prosthesis and began to ambulate some. He has continued to have increasing bowel movements. He lives at home with his mom, where he has been her caregiver actually in the evenings and she has caregivers during the day. He is moderately independent with mobility and ADLs with the use of prosthesis. He has had a Smith since August secondary to urinary retention that stressed his bladder out. He is able to do all Smith catheter care himself. He currently has proximal muscle weakness with difficulty rising from bed to chair, continues to have multiple BMs daily after completing his medical regimen for CDT. He has got weakness and impaired mobility. He is having some problems with wound care, high fall risk and self-care deficits. These are all barriers to discharge home. Currently mod assist to total assist for mobility and set up for max assist for ADLs. He plans to be able to return home at his prior level of functioning or better if possible. COMORBIDITIES: In this patient include sepsis, C. diff, diabetic, acute kidney injury, chronic AFib, diastolic congestive heart failure, venous stasis, dermatitis, hypertension, and hypokalemia. PAST MEDICAL HISTORY: Significant for AFib, CHF, diabetes, hypertension, MRSA, peripheral neuropathy, tobacco use, and current smokeless tobacco user. PAST SURGICAL HISTORY: Includes amputation of the first, second, and third toes of his right foot, transmetatarsal amputation of his right foot, left BKA, appendectomy, I&D of the skin, skin debridements, excision of pressure ulcers, and right upper arm and elbow pain. ALLERGIES: HYDROCODONE. CURRENT MEDICATIONS: Include Zofran 4 mg q.4 hours p.r.n. nausea and vomiting, Bactroban to apply topically as needed, Xarelto 15 mg daily, Levemir 20 mg with breakfast, potassium 20 mEq daily, triamterene 5 mg t.i.d., tramadol 50 mg q.4 hours p.r.n., sliding scale with Humalog, nystatin powder topically t.i.d., and lactobacillus 1 tab t.i.d. HABITS: Does have a history of tobacco use, mainly smokeless at this time. FAMILY HISTORY: Noncontributory. HISTORY AND PHYSICAL [id number] VIRA HOLLAND SOCIAL HISTORY: The patient hopes to return back home and get back to his prior level of function and be able to take care of his mother in the evenings. REVIEW OF SYSTEMS: GENERAL: Does complain of weakness and fatigue. HEENT: Denies cold, cough, or congestion. CARDIOVASCULAR: Denies chest pain. PHYSICAL EXAMINATION: VITAL SIGNS: Stable, afebrile. GENERAL: An elderly gentleman in no acute distress, alert on exam. HEENT: Normocephalic and atraumatic. Mucosa moist. NECK: Supple. No lymphadenopathy. LUNGS: Clear at this time. HEART: Irregular rate and rhythm. ABDOMEN: Benign. EXTREMITIES: No clubbing, cyanosis or edema. Does have a noted ynria-fry-[id number] amputation and a transmetatarsal amputation of the other foot. NEUROLOGIC: Does have proximal muscle weakness. LABORATORY DATA: His admit UA was 2+ blood, positive for nitrites, many bacteria. His white count 7.1, H&H of 11 and 33, and platelet count is 190. Sodium is 138, potassium 3.7, BUN and creatinine of 20 and 2.5, and blood sugar is noted to be 129. ASSESSMENT: This is a 67-year-old gentleman admitted to the rehab with a working diagnosis of disuse myopathy. The patient has potential to make improvement. We instituted the following multidisciplinary therapies include, but not limited to physical, occupational, respiratory, speech, nutritional services, prosthetics and orthotics. Given his current medical condition, risk of further complications, rehabilitation services cannot be provided at a low level of care such as longterm facility. PLAN: 1. Admit to [facility] rehab for intensive inpatient therapy to include the following disciplines: A. Physical therapy to improve gait, all transfer skills and bed mobility to a modified independent level. B. Occupational therapy to improve activities of daily living to a modified independent level. C. Case management to assist with discharge planning and placement options. D. Nutrition to assist with nutritional needs. E. Rehabilitation nursing to assist with modifying the patient's underlying medical conditions and to assist with any type of bowel or bladder management. 2. The patient's current medication and medical care will be continued. 3. The patient will be placed on standard fall precautions. 4. We will continue on Xarelto for his AFib and place him on some Macrobid until I get his cultures back from his urine. I will see again in the a.m. TRANSINT:[id number] Voice Confirmation ID: [id number] DOCUMENT ID: [id number] 04/12/2018 Edited for raymond HOLGUIN. CHELSIE notes whether there has been none or any medical/functional change since admission: HISTORY AND PHYSICAL [id number] VIRA HOLLAND - No chance since preadmission screen. CHELSIE attests patient continues to be appropriate for IRF: - Continues to be appropriate. YESSENIA PEREZ MD at 1953 CC: [id number] DICTATION DATE: 04/02/18 1054 [address] GENERAL CAR SUPERVISOR: 04/02/18 1140 ADM IN [place] [id number] [place] [address]
--- NOTE | 2018-04-14 23:00 | NUR ---
PATIENT ASLEEP WITH EYES CLOSED. RESPIRATIONS EVEN. NO SIGNS OF DISTRESS. CALL LIGHT IN REACH.
--- NOTE | 2018-04-15 03:54 | NUR ---
PATIENT ASLEEP WITH EYES CLOSED LAYING IN SUPINE POSITION. HOB AT 35 DEGREES. RESPIRATIONS EVEN. NO SIGNS OF DISTRESS. CALL LIGHT IN REACH.
--- NOTE | 2018-04-15 07:45 | NUR ---
SITTING UP BED WATCHING TV. DENIES PAIN OR NEEDS. F/C PATENT WITH CLOUDY URINE NOTED. CALL LIGHT IN REACH.
[2018-04-15 08:00] VITALS: BP 149/70
--- NOTE | 2018-04-15 12:36 | NUR ---
SITTING UP IN BED FOR LUNCH. IS ANXIOUS TO DC TOMORROW. STILL INCONT OF BOWEL. CALL LIGHT IN REACH
--- NOTE | 2018-04-15 15:47 | NUR ---
SITTING UP IN BED WATCHING TV. DSG IN PLACE TO RLE. ENCOURAGED HIM TO STAY OFF HIS BUTTOCKS, SO FAR HE HAS STAYED ON HIS BUTTOCKS MOST OF THE TIME.
[2018-04-15 19:00] VITALS: BP 148/66
--- NOTE | 2018-04-15 20:06 | NUR ---
PT WATCHING BALLGAME, NO NEEDS NOTED FLUIDS AND CALL LIGHT WITHIN REACH
--- NOTE | 2018-04-16 01:12 | NUR ---
PATIENT EYES CLOSED. RESPIRATIONS 18 & EVEN. ALANIZ PATENT WITH DARK YELLOW COLOR URINE. BED LOW. ALARM ON. CALL LIGHT WITHIN REACH. WILL CONTINUE TO MONITOR.
[2018-04-16 06:05] LABS: BASOPHILS 0.8 % (0-2); EOSINOPHILS 4.5 % (0-7); HEMATOCRIT 28.9 % (42.0-54.0); HEMOGLOBIN 9.9 g/dL (13.5-17.5); IMMATURE GRANULOCYTES 0.8 % (0-5); LYMPHOCYTES 36.2 % (15-50); MCH 28.9 pg (26.0-34.0); MCHC 34.3 g/dL (31.0-37.0); MCV 84.5 fL (80.0-100.0); MEAN PLATELET VOLUME 9.3 fL (7.4-10.4); MONOCYTES 15.5 % (2-11); NEUTROPHILS 42.2 % (40-80); PLATELET COUNT 206 10x3/uL (130-400); RBC 3.42 10x6/uL (4.20-6.10); RDW 14.2 % (11.5-14.5); WBC 6.2 10x3/uL (4.8-10.8)
[2018-04-16 06:21] LABS: CALCIUM 8.2 mg/dL (8.5-10.1); CARBON DIOXIDE 22.5 mmol/L (21.0-32.0); CREATININE - SERUM 1.6 mg/dL (0.6-1.3); POTASSIUM - SERUM 4.5 mmol/L (3.5-5.1)
--- NOTE | 2018-04-16 10:55 | NUR ---
SITTING IN WC IN ROOM GATHERING UP ITEMS TO PACK AND GO HOME. DSG CHANGED TO HIS RLE. F/C STILL PRODUCING CLOUDY URINE. CALL LIGHT IN REACH
[2018-04-16 10:58] VITALS: BP 126/63
--- NOTE | 2018-04-16 11:47 | NUR ---
PATIENT DISCHARGING HOME TODAY WITH FAMILY. [facility] WILL RESUME CARE AT HOME. NO NEW DME NEEDED AT THIS TIME. DR. GOMEZ 04/23/18 @ 10:00. PATIENT CHOICE FORM FOR HOME HEALTH AND [facility] FORMS SIGNED AND FILED IN CHART. DISCHARGE INSTRUCTIONS WITH [facility]IM DATA FAXED TO PCP AND TO HOME HEALTH.
--- NOTE | 2018-04-16 13:07 | NUR ---
DC FROM FLOOR WITH ALL PERSONAL BELONGINGS. HE IS CATCHING SCAT BUS AT FRONT OF HOSPITAL TO TAKE HIM HOME. REVIEWED ALL MEDS AND F/U APPTS. WILL CALL HIS MEDS IN TO HIS PHARMACY.
== END 2018-04-16 16:34 | disposition home health service (06) | DRG 91 ==
LOC: D.REHAB 16:00
PROVIDERS: ADMIT Emergency Medicine
DX: G72.89 Other specified myopathies (principal); A41.9 Sepsis, unspecified organism; R65.21 Severe sepsis with septic shock; I50.30 Unspecified diastolic (congestive) heart failure; N17.9 Acute kidney failure, unspecified; I11.0 Hypertensive heart disease with heart failure; B96.89 Other specified bacterial agents as the cause of diseases classified elsewhere; E87.6 Hypokalemia; I87.2 Venous insufficiency (chronic) (peripheral); I48.2 Chronic atrial fibrillation; E11.9 Type 2 diabetes mellitus without complications; Z72.0 Tobacco use; R53.1 Weakness; Z89.512 Acquired absence of left leg below knee; R33.9 Retention of urine, unspecified; I95.9 Hypotension, unspecified

== ENCOUNTER 2019-01-07 13:54 | Outpatient (CLI) | payer MEDICARE ==
[~2019-01-07] VITALS: Ht 182.9 cm; Wt 119.5 kg
[~2019-01-07 13:54] MED LIST: ACIDOPHILUS-PE1 EACH PO; LEVEMIR IN100 UNITS/; MIDODRINE HCL5 MG; MUPIROCIN22 GM TOPICAL; NYSTATIN1 PWD; ULTRAM50 MG PO; XANAX0.5 MG PO; XARELTO15 MG PO
[2019-01-07 15:03] VITALS: BP 116/70; Ht 182.9 cm; Wt 119.5 kg
--- NOTE | 2019-01-07 15:11 | NUR ---
1515 PT ARRIVED IN PERSONAL WHEELCHAIR THAT HAS A HIGH BACK. PT DOES NOT WANT TO BE TRANSFERRED INTO HOSPITAL BED. STATES HE IS COMFORTABLE IN SITTING IN WHEELCHAIR. BEDSIDE TABLE AND CALL LIGHT NEXT TO PATIENT.
--- NOTE | 2019-01-07 16:29 | NUR ---
PATIENT SITTING UP IN WHEELCHAIR, WISHES TO REMAIN IN CHAIR DUE TO DIFFICULTIES WITH TRANSFERRING, RIGHT ARM PICC LINE INFUSING PRBC'S AT 200 CC/HR, RATE INCREASED TO 250 CC/HR AT THIS TIME. DENIES ANY COMPLAINTS OR UNTOWARD SYMPTOMS
== END 2019-01-07 19:16 | disposition home or self-care (01) ==
LOC: D.OPS 13:54
PROVIDERS: ATTEND Family Medicine
DX: D50.9 Iron deficiency anemia, unspecified (principal)

== ENCOUNTER 2019-03-04 14:42 | Inpatient (IN) | payer MEDICARE ==
[~2019-03-04] VITALS: Ht 180.3 cm; Wt 110.2 kg
[2019-03-04] VITALS (7 sets, daily range): BP systolic 89–153; BP diastolic 35–77
--- NOTE | ~2019-03-04 | HEMODYNAMI ---
PATIENT:VIRA HOLLAND MEDICAL RECORD: [id number] : 54 LOCATION:D.[id number] ADMISSION DATE: 03/05/19 Generatedon:03/15/201913:29 Patient name: VIRA HOLLAND Patient #: [id number] SSN: : 1950 Date of study: 03/15/2019 Page: Of Hemodynamic Procedure Report Patient Data Patient Demographics Procedure consent was obtained First Name: VIRA Gender: Male Last Name: : 1950 Patient #: [id number] Age: 68 year(s) Race: Unknown Additional ID: [id number] Contact details [address]: [address] [place] [address] State: [place] City: [place] Zip code: [address] Past Medical History Allergies: No known allergies Admission Admission Data Admission Date: 03/05/2019 Admission Time: 0:44 Room #: 2215 Procedure Procedure Types Cath Procedure Peripheral Cath Diagnostic Procedure Abd/Extremity Extremities Right Lower Ext Arterio Procedure Description Procedure Date Procedure Date: 03/15/2019 Procedure Start Time: 12:07 Procedure Staff Name Function Vic Laboy MD Performing Physician Saniya Adamson RT Monitor Jean Duffy RT Scrub Meli Durant RN Nurse Procedure Data Cath Procedure Fluoroscopy Diagnostic fluoroscopy Total fluoroscopy Time: time: 15.3 min 15.3 min Diagnostic fluoroscopy Total fluoroscopy dose: 706 dose: 706 mGy mGy Contrast Material Contrast Material Type Amount (ml) Isovue 300 165 Diagnostic catheters Device Type Used For End Catheter Placement Merit ULTRA BOLUS FLUSH 5Fr 65CM catheter ([id number]) Merit Impress COBRA 2 5Fr 65CM catheter ([id number]) Procedure Medications Medication Administration Route Dosage Heparin Flush Bag added to field 3 bags (1000units/500ml NS) Lidocaine 1% added to field 20 Versed I.V. 1 mg Fentanyl I.V. 50 mcg Versed I.V. 1 mg Fentanyl I.V. 50 mcg Heparin Bolus I.V. 5000 units Fentanyl I.V. 50 mcg Versed I.V. 1 mg Versed I.V. 1 mg Fentanyl I.V. 50 mcg Hemodynamics Rest Heart Rate: 68 (bpm) Snapshots Pre Cath Intra NCS Post Cath Vital Signs Time Heart Resp SPO2 etCO2 NIBP (mmHg) Rhythm Pain Sedation Rate (ipm) (%) (mmHg) Status Level (bpm) 11:51:20 99 10.6 146/67(106) NSR 0 (11) 10(A) , No pain 11:55:40 68 19 98 1.5 143/77(115) NSR 0 (11) 10(A) , No pain 11:59:58 68 25 99 0 145/80(117) NSR 0 (11) 10(A) , No pain 12:04:18 68 15 99 12.1 143/77(115) NSR 0 (11) 10(A) , No pain 12:08:38 67 16 97 26.5 138/75(117) NSR 0 (11) 8(A) , No pain 12:13:00 68 6 98 21.2 146/64(112) NSR 0 (11) 8(A) , No pain 12:17:23 73 15 95 0 135/72(107) NSR 0 (11) 8(A) , No pain 12:21:37 74 20 96 0 126/73(98) NSR 0 (11) 8(A) , No pain 12:25:55 73 16 97 17.4 123/68(99) NSR 0 (11) 8(A) , No pain 12:30:09 73 18 98 2.2 122/68(95) NSR 0 (11) 8(A) , No pain 12:34:23 73 19 96 0.7 126/67(102) NSR 0 (11) 8(A) , No pain 12:38:41 72 19 96 0.7 121/64(98) NSR 0 (11) 8(A) , No pain 12:42:55 68 19 97 9.8 121/66(100) NSR 0 (11) 8(A) , No pain 12:47:09 70 19 97 10.6 127/69(101) NSR 0 (11) 8(A) , No pain 12:51:25 71 19 97 25 131/69(104) NSR 0 (11) 8(A) , No pain 12:55:41 73 21 96 14.4 134/76(108) NSR 0 (11) 8(A) , No pain 12:59:59 74 20 98 18.9 141/74(113) NSR 0 (11) 8(A) , No pain 13:04:19 73 21 97 13.6 134/75(109) NSR 0 (11) 8(A) , No pain 13:08:35 73 21 97 13.6 133/76(108) NSR 0 (11) 8(A) , No pain 13:12:51 72 20 96 136/75(108) NSR 0 (11) 8(A) , No pain 13:17:50 73 7 97 1.5 Measuring NSR 0 (11) 8(A) , No pain 13:17:56 73 6 96 28.1 142/79(115) NSR 0 (11) 8(A) , No pain 13:22:16 70 10 96 11.3 148/78(113) NSR 0 (11) 8(A) , No pain 13:26:36 70 17 97 0 140/80(111) NSR 0 (11) 8(A) , No pain Medications Time Medication Route Dose Verified Delivered Reason Notes Effe ctiveness by by 12:00:57 Heparin Flush added 3 M J Long M J Long used for Bag to bags MD DE LA CRUZ procedure (1000units/500ml field NS) 12:01:08 Lidocaine 1% added 20ml M J Long M J Long for local to vial MD DE LA CRUZ anesthetic field 12:06:06 Versed I.V. 1 mg M J Long Meli for MD Bhargav RAJAN sedation 12:06:16 Fentanyl I.V. 50 M J Long Meli for magdalene Durant RN sedation 12:09:50 Versed I.V. 1 mg M J Long Meli for MD Bhargav RAJAN sedation 12:09:57 Fentanyl I.V. 50 M J Long Meli for magdalene Durant RN sedation 12:35:25 Heparin Bolus I.V. 5000 M J Long Meli Per units MD Bhargav RAJAN physician 12:37:50 Fentanyl I.V. 50 M J Long Meli for magdalene Durant RN sedation 12:38:01 Versed I.V. 1 mg Vic Garrison for MD Durant RN sedation 13:11:12 Versed I.V. 1 mg Vic Garrison for MD Durant RN sedation 13:11:26 Fentanyl I.V. 50 M Bang Garrison for [facility] [place] Durant RN sedation Procedure Log Time Note 11:22:00 Use device set IR Diagnostic 11:22:02 Tegaderm 4 x 4 (1626W) opened to sterile field. 11:22:03 Sterile Angiographic Pack opened to sterile field. 11:22:04 Bag Decanter (2002S) opened to sterile field. 11:22:04 ACIST Manifold (49927) opened to sterile field. 11:22:05 ACIST Hand Control (65739) opened to sterile field. 11:22:05 ACIST Syringe (69625) opened to sterile field. 11:22:35 DOC .035 wire (Z94892) opened to sterile field. 11:22:36 MICROPUNCTURE 4FR Cook (V09510) opened to sterile field. 11:22:37 SHEATH 5FR Valier (UDP717) opened to sterile field. 11:22:37 TUBING Contrast Injection High Pressure (WMU763W) opened to sterile field. 11:31:29 Time tracking: Regular hours (M-F 7:00 - 5:00) 11:32:26 Plan of Care:Hemodynamics will remain stable., Cardiac rhythm will remain stable., Comfort level will be maintained., Respiratory function will remain adequate., Patient/ family verbilizes understanding of procedure., Procedure tolerated without complication., Recovers from procedure without complications.. 11:32:36 Patient received from Med/Surg to IR Alert and oriented. Tansferred to table in Supine position. 11:32:40 Signed procedure consent form obtained from patient. 11:32:42 Correct patient and procedure confirmed by team. 11:32:48 H&P Date Dictated: 03/15/2019 Within 30 days and on chart.. 11:32:51 Pre-procedure instructions explained to patient. 11:32:51 Pre-op teaching completed and patient verbalized understanding. 11:32:54 Family in waiting room. 11:32:56 Patient NPO since Midnight. 11:33:22 Patient allergic to No known allergies 11:33:30 Is the patient allergic to Iodine/contrast media? No. 11:34:22 Is patient on blood thinner?Yes,D/C ON 03/14/19 11:35:02 Patient diabetic? Yes. 11:35:05 If diabetic: On Metformin? No 11:35:07 - 11:35:08 ----Pre-sedation anethsthesia assessment.---- 11:35:11 Previous problem with sedation/anesthesia? No ? 11:35:13 Snore? Yes 11:35:15 Sleep apnea? No 11:35:19 Deviated septum? No 11:35:22 Opens mouth fully? Yes 11:35:24 Sticks out tongue? Yes 11:35:29 Airway obstruction? No ? 11:35:33 Dentures? No ? 11:35:43 IV patent on arrival in right hand with D5/.45%NaCl at [facility]. 11:35:53 Left groin area was prepped with chlora-prep and draped in sterile fashion 11:49:20 Pre procedure: right dorsailis pedis pulse Doppler 11:49:25 Pre procedure: right posterior tibial pulse Doppler 11:49:29 - 11:49:43 A [employer] ULTRA BOLUS FLUSH 5Fr 65CM catheter ([id number]) was advanced over the wire and used for . 11:50:06 Vital chart was started 12:00:57 Heparin Flush Bag (1000units/500ml NS) 3 bags added to field was administered by Vic Laboy MD; used for procedure; Verbal order read back and verified. 12:01:08 Lidocaine 1% 20ml vial added to field was administered by Vic Laboy MD; for local anesthetic; Verbal order read back and verified. 12:03:31 - 12:03:39 Physician arrived 12:03:40 --------ALL STOP TIME OUT------ 12:03:41 Final Timeout: patient, procedure, and site verified with staff and physician. All members of the team are in agreement. 12:06:06 Versed 1 mg I.V. was administered by Meli Durant RN; for sedation; Verbal order read back and verified. 12:06:16 Fentanyl 50 mcg I.V. was administered by Meli Durant RN; for sedation ; Verbal order read back and verified. 12:06:52 Fire Safety Assessment: A--An alcohol-based skin anteseptic being used preoperatively., C--Open oxygen or nitrous oxide is being used. 12:07:06 2) 60-89 Mildly reduced kidney function, and other findings (as for stage 1) point to kidney disease. 12:07:13 Procedure started. 12:07:13 Full Disclosure recording started 12:07:19 Local anesthetic to left femerol artery with Lidocaine 1% by Vic Laboy MD.INITIAL ACCESS ONLY 12:07:34 Baseline sample Acquired. 12:07:39 - 12:09:50 Versed 1 mg I.V. was administered by Meli Durant RN; for sedation; Verbal order read back and verified. 12:09:57 Fentanyl 50 mcg I.V. was administered by Meli Durant RN; for sedation ; Verbal order read back and verified. 12:12:40 Arterial access obtained using ultrasound guidance. 12:12:59 JONES 260 wire (J54211) opened to sterile field. 12:14:45 TORQUE DEVICE PLASTIC .038 ( TD01) opened to sterile field. 12:14:51 GLIDE WIRE ANGLE 180cm (AP3120) opened to sterile field. 12:16:39 GLIDE CATHETER 5FR COBRA 65cm (CG502) opened to sterile field. 12:21:07 A Merit Impress COBRA 2 5Fr 65CM catheter ([id number]) was advanced over the wire and used for . 12:23:18 SHEATH 6FR Destination (RSR01) opened to sterile field. 12:35:25 Heparin Bolus 5000 units I.V. was administered by Meli Durant RN; Per physician; Verbal order read back and verified. 12:37:20 CHOICE PT Extra Support J 300cm guide wire ([id number]) opened to steril e field. 12:37:39 CXI Catheter 90cm (A23513) opened to sterile field. 12:37:47 Hawkone Medium Atherectomy System (H1-M) opened to sterile field. 12:37:50 Fentanyl 50 mcg I.V. was administered by Meli Durant RN; for sedation ; Verbal order read back and verified. 12:38:01 Versed 1 mg I.V. was administered by Meli Durant RN; for sedation; Verbal order read back and verified. 12:49:43 INFLATOR BasixTOUCH (BK8137) opened to sterile field. 12:50:25 Inflate balloon Inflation number: 1 A IN.PACT Admiral 5 x 80 x 130 DCB Balloon ([id number]) was prepped and advanced across the Undefined1 , then inflated. 12:58:56 Inflate balloon Inflation number: 1 A CHOCOLATE 3.0 x 40 x 150 balloon ([id number]) was prepped and advanced across the Undefined2 , then inflated. 13:11:12 Versed 1 mg I.V. was administered by Meli Durant RN; for sedation; Verbal order read back and verified. 13:11:26 Fentanyl 50 mcg I.V. was administered by Meli Durant RN; for sedation ; Verbal order read back and verified. 13:13:22 SHEATH 6FR Valier (OOV356) opened to sterile field. 13:13:46 EXOSEAL 6Fr (EX600) opened to sterile field. 13:20:10 Procedure ended.(Physican Out) 13:20:29 Fluoroscopy time 15.30 minutes. 13:20:33 Fluoroscopy dose: 706 mGy 13:20:33 Flurop Dose total: 706 13:20:37 Contrast amount:Isovue 300 165ml. 13:20:40 Procedure and supply charges have been captured, reviewed, submitted an d are correct. 13:28:33 Post Procedure Pulses reassessed and unchanged 13:28:38 Report given to Med/Surg. 13:29:05 Vital chart was stopped Intervention Summary Intervention Notes Time ActionType Lesion and Equipment Used Action# Pressure Duration Attributes 12:50:25 Inflate Undefined1 IN.PACT Admiral 5 1 0 00:00 balloon x 80 x 130 DCB Balloon ([id number]) 12:58:56 Inflate Undefined2 CHOCOLATE 3.0 x 1 0 00:00 balloon 40 x 150 balloon ([id number]) Device Usage Item Name Manufacture Quantity Catalog Number Hospital Part Current Minimal Lot# / Charge Number Stock Stock Serial# Code Tegaderm 4 x 4 3M 1 1626W [id number] 413067 344450 5 (1626W) Sterile Cardinal 1 [id number] 182920 401690 5 Angiographic Pack Health Bag Decanter Microtek 1 2001S 300841 56667 756023 5 (2002S) Medical Inc. ACIST Manifold Acist 1 16598 456186 475069 503768 5 (53036) Medical Systems Inc ACIST Hand Acist 1 81068 978246 946056 151439 5 Control (84424) Medical Systems Inc ACIST Syringe Acist 1 62258 949094 468739 502195 20 (79093) Medical Systems Inc DOC .035 wire Cook Medical 1 B76321 402187 194617 5 (Q05432) MICROPUNCTURE 4FR Cook Medical 1 O63425 494452 059390 620213 5 Cook (B41626) SHEATH 5FR Terumo 1 IUK380 944042 718735 531760 5 Valier (JMW040) TUBING Contrast Merit 1 WTY286A 880299 989999 824503 5 Injection High Medical Pressure (AQV502V) Merit ULTRA BOLUS Merit 1 [id number] 984831 629985 5 FLUSH 5Fr 65CM Medical catheter ([id number]) JONES 260 wire Cook Medical 1 T16090 875706 43331 162796 5 (R66877) TORQUE DEVICE Hines 1 TD01 506842 150780 961878 5 PLASTIC .038 ( Scientific TD01) GLIDE WIRE ANGLE Terumo 1 LE2688 351267 627779 280585 5 180cm (DN1184) GLIDE CATHETER Terumo 1 CG502 314276 560609 5 5FR COBRA 65cm (CG502) Merit Impress Merit 1 [id number] 241534 600539 419560 5 COBRA 2 5Fr 65CM Medical catheter ([id number]) SHEATH 6FR Terumo 1 RSR01 431197 90431 981614 5 Destination (RSR01) CHOICE PT Extra Hines 1 [id number] 02987320181005 223077 5 Support J 300cm Scientific guide wire ([id number]) CXI Catheter 90cm Cook Medical 1 L55491 782156 555316 280796 5 (M16000) Hawkone Medium Medtronic 1 H1-M 728890 2856747 3 5 Atherectomy System (H1-M) INFLATOR Merit 1 IZ1307 047016 930287 058886 5 BasixTOUCH Medical (HP9020) IN.PACT Admiral 5 Medtronic 1 [id number] 589811 223694 366806 5 x 80 x 130 DCB Balloon ([id number]) CHOCOLATE 3.0 x Medtronic 1 [id number] 344276 384716 579736 5 40 x 150 balloon O ([id number]) TW SHEATH 6FR Terumo 1 STW227 871423 487666 847227 40 Valier (GXE692) EXOSEAL 6Fr Cardinal 1 EX600 993695 642939 465123 10 (EX600) Health Signature Audit [place] Stage Time Signature Unsigned Intra-Procedure 03/15/2019 Saniya Adamson 1:29:02 PM RT(R) [facility] [address] [place] [address]
[2019-03-04 15:51] LABS: INR 1.64 (0.85-1.17); PROTIME 18.8 SECONDS (11.6-15.0)
[2019-03-04 15:52] LABS: APTT 45.7 SECONDS (22.8-39.4)
[2019-03-04 15:58] LABS: BASOPHILS 0.2 % (0-2); EOSINOPHILS 2.1 % (0-7); HEMATOCRIT 24.5 % (42.0-54.0); HEMOGLOBIN 7.7 g/dL (13.5-17.5); IMMATURE GRANULOCYTES 0.3 % (0-5); LYMPHOCYTES 17.3 % (15-50); MCH 26.6 pg (26.0-34.0); MCHC 31.4 g/dL (31.0-37.0); MCV 84.5 fL (80.0-100.0); MEAN PLATELET VOLUME 8.1 fL (7.4-10.4); MONOCYTES 11.9 % (2-11); NEUTROPHILS 68.2 % (40-80); WBC 8.9 10x3/uL (4.8-10.8)
[2019-03-04 15:59] LABS: PLATELET COUNT 264 10x3/uL (130-400)
[2019-03-04 16:01] LABS: CALC OSMOLALITY 270 mosm/kg (275-300); CARBON DIOXIDE 21.5 mmol/L (21.0-32.0); CHLORIDE - SERUM 104 mmol/L (98-107); GLUCOSE 99 mg/dL (74-106); POTASSIUM - SERUM 4.5 mmol/L (3.5-5.1); SODIUM 134 mmol/L (136-145); UREA NITROGEN 22 mg/dL (7-18); eGFR NON AFRICAN AMERICAN 79 mL/min (90-120)
[2019-03-04 16:08] LABS: KETONE - SERUM NEGATIVE (NEGATIVE)
[2019-03-04 16:17] LABS: ALBUMIN 1.9 g/dL (3.4-5.0); ALKALINE PHOSPHATASE 222 U/L (46-116); ALT (SGPT) 12 U/L (10-68); CKMB 1.4 U/L (0.0-3.6); CREATINE KINASE 82 UL (21-232); PROTEIN - SERUM 5.7 g/dL (6.4-8.2)
[2019-03-04 16:21] LABS: TROPONIN-I < 0.017 ng/mL (0.000-0.060)
--- NOTE | 2019-03-04 18:14 | NUR ---
SKIN BREAKDOWN ON BUTTOCKS, LEE THIGHS, GROIN
--- NOTE | 2019-03-04 18:16 | NUR ---
OCCULT STOOL IS POSITIVE
--- NOTE | 2019-03-04 18:45 | NUR ---
BLOOD CONSENT SIGNED
--- NOTE | 2019-03-04 19:55 | NUR ---
ADMINISTERING BLOOD. CHECKED WITH 2ND RN FLAVIO RAJAN
[2019-03-04 20:03] LABS: HEMOGLOBIN 7.3 g/dL (13.5-17.5)
--- NOTE | 2019-03-04 20:25 | NUR ---
INFORMATION GIVEN TO LATHA AT [facility] CALL CENTER FOR TRANSFER.
--- NOTE | 2019-03-04 22:20 | NUR ---
STARTED 2ND IV ADMINISTRATION
--- NOTE | 2019-03-04 23:14 | NUR ---
BEDSIDE REPORT TO SATINDER MENA
--- NOTE | 2019-03-04 23:55 | NUR ---
BLOOD INFUSION COMPLETE, BLOOD TO BE DRAWN AT 0000 TO RECHECK H&H.
[2019-03-05] VITALS (7 sets, daily range): BP systolic 95–115; BP diastolic 45–59; BMI 33.9
[2019-03-05 00:25] LABS: HEMATOCRIT 27.4 % (42.0-54.0); HEMOGLOBIN 8.7 g/dL (13.5-17.5)
[2019-03-05 06:44] LABS: ALBUMIN 1.7 g/dL (3.4-5.0); ALKALINE PHOSPHATASE 197 U/L (46-116); ALT (SGPT) 9 U/L (10-68); BILIRUBIN - TOTAL 0.83 mg/dL (0.2-1.3); CALC OSMOLALITY 271 mosm/kg (275-300); CALCIUM 7.6 mg/dL (8.5-10.1); CARBON DIOXIDE 19.5 mmol/L (21.0-32.0); CHLORIDE - SERUM 106 mmol/L (98-107); GLUCOSE 80 mg/dL (74-106); POTASSIUM - SERUM 4.3 mmol/L (3.5-5.1); PROTEIN - SERUM 5.4 g/dL (6.4-8.2); SODIUM 135 mmol/L (136-145); UREA NITROGEN 22 mg/dL (7-18); eGFR NON AFRICAN AMERICAN 79 mL/min (90-120)
--- NOTE | 2019-03-05 08:00 | NUR ---
ASSESSMENT PER FLOW SHEET. PT IS WITHOUT DISTRESS.CALL LIGHT IN REACH
[2019-03-05 08:03] LABS: BASOPHILS 0.5 % (0-2); EOSINOPHILS 1.9 % (0-7); HEMATOCRIT 25.6 % (42.0-54.0); HEMOGLOBIN 8.2 g/dL (13.5-17.5); IMMATURE GRANULOCYTES 0.5 % (0-5); LYMPHOCYTES 22.4 % (15-50); MCH 27.2 pg (26.0-34.0); MONOCYTES 12.9 % (2-11); NEUTROPHILS 61.8 % (40-80); PLATELET COUNT 221 10x3/uL (130-400); RBC 3.01 10x6/uL (4.20-6.10); RDW 14.7 % (11.5-14.5); WBC 8.4 10x3/uL (4.8-10.8)
[2019-03-05 12:31] LABS: HEMATOCRIT 26.2 % (42.0-54.0); HEMOGLOBIN 8.4 g/dL (13.5-17.5)
--- NOTE | 2019-03-05 16:42 | NUR ---
PT HAS BEEN YELLING OUT TODAY. HE DOES NOT PUSH CALL BUTTON. YELLS AT STAFF AND VERY DEMANDING.REFUSES TO TURN TO GET OFF BOTTOM.ALSO REFUSED STAT LOCK TO HOLD CATHETER IN PLACE.I SECURED ALANIZ TUBING WITH A PIECE OF PRIMAPORE TAPE.16 ROMANIAN ALANIZ INSERTED WITH NUT ROASTER HELPER.URINE TO LAB ORDERED
[2019-03-05 17:03] LABS: APPEARANCE CLOUDY (CLEAR); BILIRUBIN NEGATIVE (NEGATIVE); COLOR YELLOW (YELLOW); GLUCOSE NEGATIVE (NEGATIVE); KETONE NEGATIVE (NEGATIVE); NITRITE POSITIVE (NEGATIVE); PROTEIN TRACE mg/dL (NEGATIVE); UROBILINOGEN NORMAL (NORMAL)
[2019-03-05 17:04] LABS: BACTERIA MODERATE /hpf (NEGATIVE); RED CELLS - URINE 0-5 /hpf (0-5); WHITE CELLS - URINE 0-5 /hpf (NEGATIVE)
[2019-03-05 17:05] LABS: AMORPHOUS SEDIMENT <1+ /lpf (NONE SEEN)
--- NOTE | 2019-03-05 19:15 | NUR ---
BEDSIDE REPORT RECEIVED. PATIENT RESTING WITH EYES CLOSED WHEN ENTERING THE ROOM. NOT WEARING NASAL CANNULA, REAPPLIED. PATIENT DENIES PAIN AT THIS TIME. LEFT LOWER EXTREMETY AMPUTATION, DRESSED. RIGHT SIDE AMPUTATION, DRESSED. BED SORES AND OTHER CHRONIC ISSUES NOTED IN ASSESSMENT. DIMINISHED LUNG SOUNDS IN BILATERAL LOWER LOBES. RIGHT AC THAT IS SALINE LOCKED. LEFT FOREARM SALINE LOCKED. CALL LIGHT IN REACH. DENIES FURTHER NEEDS AT THIS TIME. CPOC.
--- NOTE | 2019-03-05 21:00 | NUR ---
ADMINISTERED HS MEDICATIONS. PROVIDED PUDDING HS SNACK. DENIES FURTHER NEEDS. CALL LIGHT IN REACH. CPOC.
[2019-03-06 00:30] VITALS: BP 126/56
--- NOTE | 2019-03-06 02:19 | NUR ---
RESTING WITH NO SIGNS OR SYMPTOMS OF DISTRESS AT THIS TIME. CPOC.
--- NOTE | 2019-03-06 03:00 | NUR ---
I have reviewed this patient and I concur with the Shift Assessment completed by the Licensed Practical Nurse today this shift.
[2019-03-06 05:16] VITALS: BP 110/58
[2019-03-06 05:57] LABS: BASOPHILS 0.6 % (0-2); EOSINOPHILS 3.7 % (0-7); HEMATOCRIT 26.7 % (42.0-54.0); HEMOGLOBIN 8.7 g/dL (13.5-17.5); IMMATURE GRANULOCYTES 0.7 % (0-5); LYMPHOCYTES 27.3 % (15-50); MCH 27.5 pg (26.0-34.0); MCHC 32.6 g/dL (31.0-37.0); MCV 84.5 fL (80.0-100.0); MEAN PLATELET VOLUME 8.2 fL (7.4-10.4); MONOCYTES 13.9 % (2-11); NEUTROPHILS 53.8 % (40-80); PLATELET COUNT 213 10x3/uL (130-400); RBC 3.16 10x6/uL (4.20-6.10); RDW 14.8 % (11.5-14.5)
[2019-03-06 06:16] LABS: ALBUMIN 1.5 g/dL (3.4-5.0); ANION GAP 14.4 mmol/L (8-16); BILIRUBIN - TOTAL 0.46 mg/dL (0.2-1.3); CALCIUM 7.5 mg/dL (8.5-10.1); CARBON DIOXIDE 19.9 mmol/L (21.0-32.0); CREATININE - SERUM 1.1 mg/dL (0.6-1.3); POTASSIUM - SERUM 4.3 mmol/L (3.5-5.1); PROTEIN - SERUM 5.4 g/dL (6.4-8.2)
--- NOTE | 2019-03-06 07:20 | NUR ---
PT IS RESTING IN BED WITH EYES CLOSED. RESPIRATIONS ARE EVEN AND UNLABORED. PT IS EASILY AROUSED WITH VERBAL STIMULATION. PT IS AAO X 4 UPON AROUSAL. PT DENIES PRESENCE OF PAIN/N/V AT THIS TIME. MULTIPLE WOUNDS NOTED TO COCCYX/BUTTOCKS/SCROTUM. DRESSINGS TO BILATERAL LOWER EXTREMITIES WITH MODERATE AMOUNT OF GREEN DRAINAGE NOTED. LOWER EXTREMITY WOUNDS ARE MALODOROUS. ALANIZ CATHETER NOTED AND DRAINING WITHOUT DIFFICULTY. PT IS REFUSING TO REPOSITION IN BED. PT IS REFUSING AN ATTEMPT FOR AIRBED. PT IS REFUSING A EGG CRATE PADDING AT THIS TIME. PIV TO RIGHT AC IS SALINE LOCKED AND FLUSHES WITHOUT DIFFICULTY. PIV TO LEFT FA IS SALINE LOCKED AND FLUSHES WITHOUT DIFFICULTY. PT WITH RIGHT TOE AMPUTATION X 5. PT WITH LEFT BKA. BED IS IN THE LOWEST POSITION. CALL LIGHT AND BEDSIDE TABLE ARE WITHIN REACH. SIDE RAILS X 2. PT DENIES FURTHER NEEDS. WILL CONT TO MONITOR.
[2019-03-06 08:40] VITALS: BP 130/63
--- NOTE | 2019-03-06 09:40 | NUR ---
PT ENCOURAGED TO REPOSITION IN BED. PT IS REFUSING REPOSITIONING AT THIS TIME. PT IS REFUSING ATTEMPT FORTO REQUEST AIR MATTRESS. PT IS REFUSING EGG CRATE MATTRESS PADDING AT THIS TIME. PT INFORMED OF IMPORTANCE OF REPOSITIONING IN BED TO ASSIST WITH WOUND HEALING. PT VERBALIZES UNDERSTANDING. PT DENIES FURTHER NEEDS. BED IS IN THE LOWEST POSITION. CALL LIGHT AND BEDSIDE TABLE ARE WITHINR EACH. SIDE RAILS X 2. WILL CONT TO MONITOR.
--- NOTE | 2019-03-06 11:39 | NUR ---
PT ENCOURAGED TO REPOSITION IN BED. PT IS REFUSING REPOSITIONING AT THIS TIME. PT IS REFUSING ATTEMPT FORTO REQUEST AIR MATTRESS. PT IS REFUSING EGG CRATE MATTRESS PADDING AT THIS TIME. PT INFORMED OF IMPORTANCE OF REPOSITIONING IN BED TO ASSIST WITH WOUND HEALING. PT VERBALIZES UNDERSTANDING. PT DENIES FURTHER NEEDS. BED IS IN THE LOWEST POSITION. CALL LIGHT AND BEDSIDE TABLE ARE WITIHN REACH. SIDE RAILS X 2. WILL CONT TO MONITOR.
[2019-03-06 13:49] VITALS: BP 126/60
--- NOTE | 2019-03-06 14:20 | NUR ---
DAVI HARP APRN AT BEDSIDE. VERBAL ORDERS RECD ARE TRAMADOL 50MG PO Q4 HOURS PRN FOR PAIN. CHANGE DRESSINGS TO BILATERAL LOWER EXTREMITIES Q SHIFT AND PRN. PLACE PT ON EGG CRATE MATTRESS PAD AND CONTINUE TO ATTEMPT REPOSITIONING. ALLOW FOR PAIN MEDICATION TO TAKE EFFECT PRIOR TO REDRESSING WOUNDS. WILL PLACE ORDERS AND ADMINISTER ANALGESIA. SEE EMAR.
--- NOTE | 2019-03-06 15:41 | NUR ---
PT C/O PAIN TO LEFT STUMP DESCRIBED SHARP AND SHOOTING. DAVI HARP APRN NOTIFIED. TELEPHONE ORDERS RECD ARE FOR MORPHINE 2MG IV Q4 HOURS PRN. WILL PLACE ORDERS.
--- NOTE | 2019-03-06 16:20 | NUR ---
BILATERAL LOWER EXTREMITY DRESSINGS CHANGED PER ORDER FROM DAVI HARP APRN. PT WITH PAIN 10/10 AND DID NOT TOLERATE DRESSING CHANGE WELL. PT STATES "I CANT HANDLE ANY MORE AT ALL. JUST FINISH AND STOP". BIALTERAL LOWER EXTREMITY WOUNDS ARE MALODOROUS. ADAPTIQ AND 4X4 AND KERLIX USED FOR DRESSING CHANGE. PT ENCOURAGED TO REPOSITION IN BED. PT IS REFUSING AT THIS TIME. BED IS IN THE LOWEST POSITION. CALL LIGHT AND BEDSIDE TABLE ARE WITHIN REACH. SIDE RAILS X 2. PT DENIES FURTHER NEEDS. WILL CONT TO MONITOR.
--- NOTE | 2019-03-06 19:15 | NUR ---
PATIENT ALERT AND ORIENTED. COMPLAINTS OF PAIN TO BOTTOM. REFUSES REPOSITIONING. ASKING FOR TRAMADOL AND MORPHINE. PROVIDED WITH TRAMAOL AT THIS TIME. ADMINISTERED WITH NO PROBLEMS. CALL LIGHT IN REACH.
[2019-03-06 19:30] VITALS: BP 130/54
--- NOTE | 2019-03-06 19:30 | NUR ---
ASSESSMENT PER FLOWSHEET.
--- NOTE | 2019-03-06 21:00 | NUR ---
PROVIDED WITH HS SNACK. TOLERATED WELL.
[2019-03-07 00:30] VITALS: BP 126/57
--- NOTE | 2019-03-07 01:55 | NUR ---
REQUESTED PAIN MEDICINE SEEVRAL TIMES THROUGH NIGHT SO FAR. ADMINSITERED PER ORDER. PATIENT SLEEPING WITH NO DISTRESS NOTED AT THIS TIME. CPOC.
--- NOTE | 2019-03-07 03:00 | NUR ---
I have reviewed this patient and I concur with the Shift Assessment completed by the Licensed Practical Nurse today this shift.
[2019-03-07 05:00] VITALS: BP 120/54
[2019-03-07 06:17] LABS: ALBUMIN 1.5 g/dL (3.4-5.0); ALKALINE PHOSPHATASE 220 U/L (46-116); BILIRUBIN - TOTAL 0.42 mg/dL (0.2-1.3); CALC OSMOLALITY 270 mosm/kg (275-300); CALCIUM 7.6 mg/dL (8.5-10.1); CARBON DIOXIDE 20.4 mmol/L (21.0-32.0); CHLORIDE - SERUM 105 mmol/L (98-107); GLUCOSE 133 mg/dL (74-106); POTASSIUM - SERUM 4.2 mmol/L (3.5-5.1); PROTEIN - SERUM 5.5 g/dL (6.4-8.2); SODIUM 133 mmol/L (136-145); UREA NITROGEN 22 mg/dL (7-18); eGFR NON AFRICAN AMERICAN 79 mL/min (90-120)
[2019-03-07 06:18] LABS: ALT (SGPT) 14 U/L (10-68)
[2019-03-07 06:26] LABS: BASOPHILS 0.5 % (0-2); EOSINOPHILS 5.8 % (0-7); HEMATOCRIT 26.1 % (42.0-54.0); HEMOGLOBIN 8.3 g/dL (13.5-17.5); IMMATURE GRANULOCYTES 0.6 % (0-5); LYMPHOCYTES 29.1 % (15-50); MCHC 31.8 g/dL (31.0-37.0); MEAN PLATELET VOLUME 8.5 fL (7.4-10.4); MONOCYTES 13.6 % (2-11); NEUTROPHILS 50.4 % (40-80); RBC 3.07 10x6/uL (4.20-6.10); RDW 14.8 % (11.5-14.5)
[2019-03-07 06:30] LABS: PLATELET COUNT 262 10x3/uL (130-400)
[2019-03-07 08:45] VITALS: BP 136/76
--- NOTE | 2019-03-07 11:36 | NUR ---
MEDICATED WIOOTH PRN PAIM MEDS FOR C/O GENERALIZED PAIN. C/L IN REACH AT BEDSIDE
[2019-03-07 13:23] VITALS: BP 107/63
--- NOTE | 2019-03-07 14:38 | NUR ---
I have reviewed this patient and I concur with the Shift Assessment completed by the Licensed Practical Nurse today this shift.
[2019-03-07 16:46] VITALS: BP 114/58
[2019-03-07 19:30] VITALS: BP 130/68
--- NOTE | 2019-03-07 19:30 | NUR ---
PT SITTING UP IN BED WITHOUT DISTRESS, AOX4. DENIES PAIN OR NEEDS. CL IN REACH, WILL CTM
--- NOTE | 2019-03-07 20:34 | NUR ---
OT NOTE: PT COMPLETED POSITIONIN WITH MAX A FOR LE. PT COMPLETED BUE AROM AXS. THANK YOU, BEVERLEY MALAGON
--- NOTE | 2019-03-07 21:30 | NUR ---
FSBS 122, NO COVERAGE PER SS. OFFERED SNACK, PT GIVEN SUGAR FREE ICE CREAM AND OVIDIO CRACKERS. DENIES OTHER NEEDS. WILL CTM
[2019-03-08 00:30] VITALS: BP 131/71
[2019-03-08 05:00] VITALS: BP 153/79
[2019-03-08 07:32] LABS: EOSINOPHILS 8.3 % (0-7); HEMATOCRIT 27.9 % (42.0-54.0); HEMOGLOBIN 8.9 g/dL (13.5-17.5); LYMPHOCYTES 27.2 % (15-50); MCH 27.2 pg (26.0-34.0); MCHC 31.9 g/dL (31.0-37.0); MCV 85.3 fL (80.0-100.0); MEAN PLATELET VOLUME 7.8 fL (7.4-10.4); NEUTROPHILS 51.5 % (40-80); PLATELET COUNT 253 10x3/uL (130-400); RBC 3.27 10x6/uL (4.20-6.10); RDW 14.6 % (11.5-14.5)
[2019-03-08 07:44] LABS: ALBUMIN 1.6 g/dL (3.4-5.0); ALKALINE PHOSPHATASE 285 U/L (46-116); BILIRUBIN - TOTAL 0.41 mg/dL (0.2-1.3); CALC OSMOLALITY 276 mosm/kg (275-300); CALCIUM 8.3 mg/dL (8.5-10.1); CHLORIDE - SERUM 107 mmol/L (98-107); CREATININE - SERUM 0.8 mg/dL (0.6-1.3); GLUCOSE 121 mg/dL (74-106); POTASSIUM - SERUM 4.7 mmol/L (3.5-5.1); PROTEIN - SERUM 5.9 g/dL (6.4-8.2); SODIUM 137 mmol/L (136-145); UREA NITROGEN 18 mg/dL (7-18); eGFR NON AFRICAN AMERICAN > 90 mL/min (90-120)
[2019-03-08 07:45] LABS: ALT (SGPT) 18 U/L (10-68)
[2019-03-08 07:53] LABS: WBC 5.9 10x3/uL (4.8-10.8)
[2019-03-08 08:05] VITALS: BP 125/69
--- NOTE | 2019-03-08 11:15 | NUR ---
PATIENT WOUNDS NOTED AND CLEANED UP AT THIS TIME BY RN, WCN, AND INSTALLATION SUPERVISOR. PATIENT TOLERATED WITH MODERATE PAIN. DOESNT WANT PAIN MEDS AT THIS TIME. WOUNDS TO BUTTOCKS CLEANED WITH WOUND GRANITE BLOCK PAVER AND BUTTPASTE PLACED, ALSO ON TESTICLES ANDHIPS. RLE CLEANED AND DRESSED PER WOUND CARE NURSE. ASSISTED ON DRESSING AT THIS TIME. PATIENT BED CHANGED AND NEW GOWN PLACED. CALL LIGHT WITHIN REACH.
--- NOTE | 2019-03-08 11:53 | NUR ---
Admitted to [facility] with numerous skin issues. He was "recently" discharged from rehab at [facility]. 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 Right and left buttocks and coccyx have many red raw areas (stage 2 pressure injuries) and the left hip has several stage 2 pressure injuries. The scrotum has raw open areas. Pt states that he has been using boudroux's butt cream on all of these areas including perineal area. The entire circumference of the right lower leg is red, peeling and raw. Skin is macerated and has a large serous drainage with musty odor. All toes on right foot have been amputated. Left BKA (approx 1 year ago) has a 7cm x 7cm red/raw area on tip. Large amount of serous drainage noted. Recommendations: Daily cleaning with MicroK wound cleanser to all open areas. Calmoseptine cream for perineal area, buttocks, hips and coccyx. Right lower leg and left stump - after cleansing with Micro K, pat dry and cover with adaptic, abd pads and secure with kerlix. Turn/reposition q 2 hours. Keep right leg elevated and heel bridged. Wound care will continue monitoring.
[2019-03-08 12:27] VITALS: BP 136/72
--- NOTE | 2019-03-08 14:40 | MORECARE ---
CASE MANAGEMENT DISCHARGE SUMMARY PATIENT: VIRA HOLLAND UNIT: [id number] ADM DATE: 03/05/19 AGE: 68 : 52 SEX: M ROOM/BED: D.2215 AUTHOR: DAVIDA ORTEGA PHYSICIAN: REFERRING PHYSICIAN: BRUNILDA STARR MD DATE OF SERVICE: 03/08/19 Discharge Plan Patient Name: VIRA HOLLAND [facility] [facility] 1950 Planned Disposition: Fpc Facility Anticipated Discharge Date: Discharge Date: Expected LOS: Initial Reviewer: [email or web address] Initial Review Date: 03/04/2019 Generated: 03/08/19 3:39 pm Patient Name: VIRA HOLLAND Page [phone] at 1440 All edits/amendments must be made on the electronic document DICTATION DATE: 03/08/191438 GEL COAT SPRAYER: TEGAN 03/08/19 143 RPT#: [id number] DC DATE: STATUS: ADM IN [facility] [address] [place] [address] END OF REPORT
--- NOTE | 2019-03-08 14:49 | MORECARE ---
CASE MANAGEMENT DISCHARGE SUMMARY PATIENT: VIRA HOLLAND UNIT: [id number] ADM DATE: 03/05/19 AGE: 68 : 52 SEX: M ROOM/BED: D.2215 AUTHOR: JORDANDOC PHYSICIAN: REFERRING PHYSICIAN: BRUNILDA STARR MD DATE OF SERVICE: 03/08/19 Discharge Plan Patient Name: VIRA HOLLAND Facility: [facility]:[place] : 1950 Planned Disposition: Usp Facility Anticipated Discharge Date: Discharge Date: Expected LOS: Initial Reviewer: [email or web address] Initial Review Date: 03/04/2019 Generated: 03/08/19 3:49 pm Comments DCP- Discharge Planning Updated by [email or web address]: Sita Mcneill on 03/08/19 1:[address] Patient Name: VIRA HOLLAND Admission Status: ER Accout number: [id number] Admission Date: 03-05-2019 : 1950 Admission Diagnosis: Attending: TAPAN Current LOS: 3 Anticipated DC Date: Planned Disposition: Usp Facility Primary Insurance: MEDICARE A & B Discharge Planning Comments: CM met with patient to complete initial dc planning assessment. CM educated patient on the CM role and verbal consent given by patient to complete assessment. Patient lives at home . At discharge patient would like to go back to [facility] and feels this is a safe discharge. CM discussed availability of home health, rehab services, and medical equipment. He stated that he is current wit [facility]. He has a [facility], hospital bed with a trapeze bar, wheelchair, at home. He also stated that he was just discharged from [facility] not too long ago and stated that he has already contacted them. LORENZO obtained for [facility] for DME. Placed in chart. I will send the referral to [facility] to see if he could be accepted again. Patient denied known discharge needs at this time. CM will continue to follow and will assist as needed with dc plans/needs. Facing Cutting Machine Operator: Sita Mcneill DCPIA - Discharge Planning Initial Assessment Updated by [id number]: Sita Mcneill on 03/08/19 2:39 pm * Is the patient Alert and Oriented? Yes * How many steps to enter\exit or inside your home? * PCP DR GOMEZ * Pharmacy [facility] [address] * Preadmission Environment Home Alone * ADLs Independent * Equipment Bedside Commode Hospital Bed Trapeze Wheelchair Wound Supplies * List name and contact numbers for known caregivers / representatives who currently or will assist patient after discharge: JOCELINE HOLLAND (SISTER) [phone] * Verbal permission to speak to the caregivers and representatives has been obtained from the patient. N/A * Community resources currently utilized Home Health * Please name any agencies selected above. [facility] * Additional services required to return to the preadmission environment? Yes * Can the patient safely return to the preadmission environment? No * Has this patient been hospitalized within the prior 30 days at any hospital? Yes Coverage Notice Reviewer: [email or web address] Soren Mcneill Notice Issued Date-Time: 03/08/2019 9:25 Notice Type: Patient Choice Letter Notice Delivered To: Patient Relationship to Patient: Crm Analyst Name: Delivery Method: HAND - Hand Delivered Dee Days: Prior Verbal Notification: Recipient Understood Notice: Yes Recipient Signature: Yes Med Rec Note Co-signed by Attending: Coverage Notice Comment: [facility] D[facility] Last DP export: 03/08/19 1:40 p Patient Name: VIRA HOLLAND Page [phone] at 1449 All edits/amendments must be made on the electronic document DICTATION DATE: 03/08/191447 PRODUCT MANAGEMENT SPECIALIST: TEGAN 03/08/191447 RPT#: [id number] DC DATE: STATUS: ADM IN [facility] [address] [place] [address] END OF REPORT
--- NOTE | 2019-03-08 14:58 | MORECARE ---
CASE MANAGEMENT DISCHARGE SUMMARY PATIENT: VIRA HOLLAND UNIT: [id number] ADM DATE: 03/05/19 AGE: 68 : 52 SEX: M ROOM/BED: D.2215 AUTHOR: JORDANDOC PHYSICIAN: REFERRING PHYSICIAN: BRUNILDA STARR MD DATE OF SERVICE: 03/08/19 Discharge Plan Patient Name: VIRA HOLLAND Facility: [facility]:[place] : 1950 Planned Disposition: Residential Facility Anticipated Discharge Date: Discharge Date: Expected LOS: Initial Reviewer: [email or web address] Initial Review Date: 03/04/2019 Generated: 03/08/19 3:58 pm Comments DCP- Discharge Planning Updated by [email or web address]: Sita Mcneill on 03/08/19 1:[address] Patient Name: VIRA HOLLAND Admission Status: ER Accout number: [id number] Admission Date: 03-05-2019 : 1950 Admission Diagnosis: Attending: TAPAN Current LOS: 3 Anticipated DC Date: Planned Disposition: Residential Facility Primary Insurance: MEDICARE A & B Discharge Planning Comments: CM met with patient to complete initial dc planning assessment. CM educated patient on the CM role and verbal consent given by patient to complete assessment. Patient lives at home . At discharge patient would like to go back to [facility] and feels this is a safe discharge. CM discussed availability of home health, rehab services, and medical equipment. He stated that he is current wit [facility]. He has a [facility], hospital bed with a trapeze bar, wheelchair, at home. He also stated that he was just discharged from [facility] not too long ago and stated that he has already contacted them. LORENZO obtained for [facility] for DME. Placed in chart. I will send the referral to [facility] to see if he could be accepted again. Patient denied known discharge needs at this time. CM will continue to follow and will assist as needed with dc plans/needs. Crm Dynamics Developer: Sita Mcneill DCPIA - Discharge Planning Initial Assessment Updated by [email or web address]: Sita Mcneill on 03/08/19 2:39 pm * Is the patient Alert and Oriented? Yes * How many steps to enter\exit or inside your home? * PCP DR GOMEZ * Pharmacy [facility] [address] * Preadmission Environment Home Alone * ADLs Independent * Equipment Bedside Commode Hospital Bed Trapeze Wheelchair Wound Supplies * List name and contact numbers for known caregivers / representatives who currently or will assist patient after discharge: JOCELINE HOLLAND (SISTER) [phone] * Verbal permission to speak to the caregivers and representatives has been obtained from the patient. N/A * Community resources currently utilized Home Health * Please name any agencies selected above. [facility] * Additional services required to return to the preadmission environment? Yes * Can the patient safely return to the preadmission environment? No * Has this patient been hospitalized within the prior 30 days at any hospital? Yes External Providers External Provider: [facility] Next Contact Date: Service Request Date: Service Type: Resolution: Reviewer: Comments: Coverage Notice Reviewer: [id number] Soren Mcneill Notice Issued Date-Time: 03/08/2019 9:25 Notice Type: Patient Choice Letter Notice Delivered To: Patient Relationship to Patient: Group Work Program Aide Name: Delivery Method: HAND - Hand Delivered Dee Days: Prior Verbal Notification: Recipient Understood Notice: Yes Recipient Signature: Yes Med Rec Note Co-signed by Attending: Coverage Notice Comment: [facility] DME Last DP export: 03/08/19 1:49 p Patient Name: VIRA HOLLAND Page [phone] at 1458 All edits/amendments must be made on the electronic document DICTATION DATE: 03/08/191457 RETAIL SALES PROFESSIONAL: TEGAN 03/08/198 RPT#: [id number] DC DATE: STATUS: ADM IN [facility] [address] [place] [address] END OF REPORT
--- NOTE | 2019-03-08 15:40 | MORECARE ---
CASE MANAGEMENT DISCHARGE SUMMARY PATIENT: VIRA HOLLAND UNIT: [id number] ADM DATE: 03/05/19 AGE: 68 : 52 SEX: M ROOM/BED: D.2215 AUTHOR: JORDANDOC PHYSICIAN: REFERRING PHYSICIAN: BRUNILDA STARR MD DATE OF SERVICE: 03/08/19 Discharge Plan Patient Name: VIRA HOLLAND Facility: [facility]:[place] : 1950 Planned Disposition: Long-Term Facility Anticipated Discharge Date: Discharge Date: Expected LOS: Initial Reviewer: [email or web address] Initial Review Date: 03/04/2019 Generated: 03/08/19 4:39 pm Comments DCP- Discharge Planning Updated by [email or web address]: Sita Mcneill on 03/08/19 2:[address] REFERRAL SENT TO [facility] SPOKE WITH BETTY DCP- Discharge Planning Updated by [email or web address]: Sita Mcneill on 03/08/19 1:[address] Patient Name: VIRA HOLLAND Admission Status: ER Accout number: [id number] Admission Date: 03-05-2019 : 1950 Admission Diagnosis: Attending: TAPAN Current LOS: 3 Anticipated DC Date: Planned Disposition: Long-Term Facility Primary Insurance: MEDICARE A & B Discharge Planning Comments: CM met with patient to complete initial dc planning assessment. CM educated patient on the CM role and verbal consent given by patient to complete assessment. Patient lives at home . At discharge patient would like to go back to [facility] and feels this is a safe discharge. CM discussed availability of home health, rehab services, and medical equipment. He stated that he is current wit [facility]. He has a [facility], hospital bed with a trapeze bar, wheelchair, at home. He also stated that he was just discharged from [facility] not too long ago and stated that he has already contacted them. LORENZO obtained for [facility] for DME. Placed in chart. I will send the referral to [facility] to see if he could be accepted again. Patient denied known discharge needs at this time. CM will continue to follow and will assist as needed with dc plans/needs. Automobile Service Station Mechanic: Sita Mcneill DCPIA - Discharge Planning Initial Assessment Updated by [email or web address]: Sita Mcneill on 03/08/19 2:39 pm * Is the patient Alert and Oriented? Yes * How many steps to enter\exit or inside your home? * PCP DR GOMEZ * Pharmacy [facility] [address] * Preadmission Environment Home Alone * ADLs Independent * Equipment Bedside Commode Hospital Bed Trapeze Wheelchair Wound Supplies * List name and contact numbers for known caregivers / representatives who currently or will assist patient after discharge: JOCELINE HOLLAND (SISTER) [phone] * Verbal permission to speak to the caregivers and representatives has been obtained from the patient. N/A * Community resources currently utilized Home Health * Please name any agencies selected above. [facility] * Additional services required to return to the preadmission environment? Yes * Can the patient safely return to the preadmission environment? No * Has this patient been hospitalized within the prior 30 days at any hospital? Yes Coverage Notice Reviewer: [id number] - Sita Mcneill Notice Issued Date-Time: 03/08/2019 9:25 Notice Type: Patient Choice Letter Notice Delivered To: Patient Relationship to Patient: Polishing Machine Operator Name: Delivery Method: HAND - Hand Delivered Dee Days: Prior Verbal Notification: Recipient Understood Notice: Yes Recipient Signature: Yes Med Rec Note Co-signed by Attending: Coverage Notice Comment: [facility]EP[facility] DME Last DP export: 03/08/19 1:58 p Patient Name: VIRA HOLLAND Page [phone] at 1540 All edits/amendments must be made on the electronic document DICTATION DATE: 03/08/19 153 SLURRY BLENDER: TEGAN 03/08/19 153 RPT#: [id number] DC DATE: STATUS: ADM IN [facility] [address] [place] [address] END OF REPORT
[2019-03-08 16:03] VITALS: BP 129/77
--- NOTE | 2019-03-08 18:45 | NUR ---
PATIENT IN BED WITH IV INTACT. NO COMPLAINTS OR SIGNS OF DISTRESS. CALL LIGHT WITHIN REACH.
[2019-03-08 19:30] VITALS: BP 159/73
--- NOTE | 2019-03-08 19:40 | NUR ---
PT SITTING UP IN BED WITHOUT DISTRESS, AOX4. IV RIGHT HAND SL. REQUESTED AND GIVEN MORPHINE FOR PAIN IN BUTTOCKS AND LEGS. DENIES OTHER NEEDS. CL IN REACH, WILL CTM
[2019-03-09 00:30] VITALS: BP 164/71
[2019-03-09 05:00] VITALS: BP 160/64
[2019-03-09 05:01] LABS: BASOPHILS 0.5 % (0-2); EOSINOPHILS 8.2 % (0-7); HEMATOCRIT 28.9 % (42.0-54.0); HEMOGLOBIN 9.1 g/dL (13.5-17.5); IMMATURE GRANULOCYTES 0.9 % (0-5); LYMPHOCYTES 30.5 % (15-50); MCH 26.8 pg (26.0-34.0); MCHC 31.5 g/dL (31.0-37.0); MCV 85.3 fL (80.0-100.0); MONOCYTES 13.7 % (2-11); NEUTROPHILS 46.2 % (40-80); PLATELET COUNT 260 10x3/uL (130-400); RBC 3.39 10x6/uL (4.20-6.10); RDW 14.7 % (11.5-14.5); WBC 5.7 10x3/uL (4.8-10.8)
[2019-03-09 05:07] LABS: ALBUMIN 1.6 g/dL (3.4-5.0); ALKALINE PHOSPHATASE 279 U/L (46-116); ALT (SGPT) 16 U/L (10-68); BILIRUBIN - TOTAL 0.39 mg/dL (0.2-1.3); CALC OSMOLALITY 278 mosm/kg (275-300); CALCIUM 7.8 mg/dL (8.5-10.1); CARBON DIOXIDE 22.8 mmol/L (21.0-32.0); CHLORIDE - SERUM 106 mmol/L (98-107); CREATININE - SERUM 0.9 mg/dL (0.6-1.3); GLUCOSE 126 mg/dL (74-106); POTASSIUM - SERUM 4.4 mmol/L (3.5-5.1); SODIUM 138 mmol/L (136-145); UREA NITROGEN 14 mg/dL (7-18); eGFR NON AFRICAN AMERICAN 90 mL/min (90-120)
--- NOTE | 2019-03-09 08:00 | NUR ---
PATIENT IN BED WITH EYES CLOSED RESTING QUIETLY. CALL LIGHT WITHIN REACH.
[2019-03-09 08:11] VITALS: BP 131/69
--- NOTE | 2019-03-09 10:00 | NUR ---
WAS TOLD BY CANE BURNER PATIENTS IV NEEDS REMOVED. STATED SHE WOULD LET ME KNOW IF NEW ONE NEEDS TO BE RESTARTED. PATIENT ONLY RECIEVING MORPHINE IV AND MAYBE GOING TO A FACILITY TODAY.
--- NOTE | 2019-03-09 10:08 | NUR ---
NUTRITION F/U PT TOLERATING DIABETIC DIET WITH 100% INTAKE BREAKFAST THIS AM. WILL CONTINUE TO PROVIDE DIET, MONITOR PO INTAKE. RD FOLLOWING
--- NOTE | 2019-03-09 11:00 | NUR ---
PATIENT IV REMOVED WITH CATH TIP INTACT.
[2019-03-09 12:15] VITALS: BP 148/88
--- NOTE | 2019-03-09 14:00 | NUR ---
PATIENT DOPPLER COMPLETE DRESSING TO RLE CHANGED ORDERED. WOUND CARE TO BUTTOCKS AND HIP DONE EARLIER. PATIENT TOLERATED WITH SMALL AMOUNT OF PAIN. WENT AND SPOKE WITH TAMI AGAIN ABOUT PATIENTS PAIN MEDS AND ABOUT IV. NEW ORDERS RECIEVED AND CARRIED OUT.
--- NOTE | 2019-03-09 14:10 | NUR ---
Dressing to right lower leg removed for Dr. Locke's assessment. The wounds are less macerated and there is no odor present. Leg still has edema. Dr. Locke has ordered a doppler and a surgical consult. Wound care will continue monitoring.
[2019-03-09 16:09] VITALS: BP 143/81
--- NOTE | 2019-03-09 18:45 | NUR ---
PATIENT ASKED WHEN CAN HAVE PAIN AGAIN. EXPLAINED HE COULD HAVE NORCO AT 2000 AND ULTRAM ANY TIME. STATED HE WOULD WAIT FOR NORCO. IN BED WITH CALL LIGHT WITHIN REACH. CORBIN MCHUGH. REPORT GIVEN TO NIGHT NURSE.
[2019-03-09 20:02] VITALS: Ht 180.3 cm; Wt 110.2 kg
[2019-03-09 21:57] VITALS: BP 110/67
--- NOTE | 2019-03-09 23:30 | NUR ---
RESUMED CARE OF THIS PT AT THIS TIME. PT LYING IN BED. ALERT AND ORIENTED X4. RESP EVEN AND NONLABORED. TELEMETRY SHOWS AFIB WITH RATE OF 114. REQUESTS ICE CREAM. SR ELEVATED X2. CL IN REACH. NO DISTRESS.
[2019-03-10 02:42] VITALS: BP 88/52
[2019-03-10 06:49] VITALS: BP 120/71
[2019-03-10 07:18] LABS: ALBUMIN 1.6 g/dL (3.4-5.0); ALKALINE PHOSPHATASE 298 U/L (46-116); ALT (SGPT) 16 U/L (10-68); BILIRUBIN - TOTAL 0.32 mg/dL (0.2-1.3); CALC OSMOLALITY 275 mosm/kg (275-300); CALCIUM 8.1 mg/dL (8.5-10.1); CARBON DIOXIDE 22.4 mmol/L (21.0-32.0); CHLORIDE - SERUM 106 mmol/L (98-107); CREATININE - SERUM 0.9 mg/dL (0.6-1.3); GLUCOSE 160 mg/dL (74-106); POTASSIUM - SERUM 4.3 mmol/L (3.5-5.1); PROTEIN - SERUM 5.9 g/dL (6.4-8.2); SODIUM 136 mmol/L (136-145); UREA NITROGEN 15 mg/dL (7-18); eGFR NON AFRICAN AMERICAN 90 mL/min (90-120)
--- NOTE | 2019-03-10 08:13 | NUR ---
LYING IN BED,WITHOUT NEEDS. CONG HAS GIVEN PAIN MEDS ORDERED.DOOR OPEN
--- NOTE | 2019-03-10 08:37 | NUR ---
PERFOR MED PT CARE AND CLEANED PT UP, APPLIED BACTROBAN OINTMENT TO BACKSIDE WELL BUTT PASTE, PT IS VERY EXCORIATED ALL OVER BACK END. CONMTINUE WITH PLAN OF CARE
[2019-03-10 08:38] LABS: HEMATOCRIT 28.8 % (42.0-54.0); HEMOGLOBIN 9.5 g/dL (13.5-17.5); MCH 27.6 pg (26.0-34.0); MCV 83.7 fL (80.0-100.0); MEAN PLATELET VOLUME 7.9 fL (7.4-10.4); PLATELET COUNT 261 10x3/uL (130-400); RBC 3.44 10x6/uL (4.20-6.10); WBC 6.3 10x3/uL (4.8-10.8)
[2019-03-10 09:32] VITALS: BP 119/66
--- NOTE | 2019-03-10 10:00 | NUR ---
PAGEYareli AND SPOKE TO DR COLON IN REGARDS TO ORDER FOR STANDING REFLUX EXAMINATION PER DR COLON IF UNABLE TO DO OK TO CANCEL. PT HAS LEFT BKA ND RT UKLCERS AND DRESSINGS UNABLE TO STAND PT IS A TOTAL. CONTINUE WITH PLAN OF CARE
[2019-03-10 14:02] VITALS: BP 117/63
[2019-03-10 14:39] LABS: ANISOCYTOSIS OCC; EOSINOPHILS 3 % (0-7); LYMPHOCYTES 25 % (15-50); MONOCYTES 18 % (2-11); NEUTROPHILS 53 % (40-80); PLATELET ESTIMATE NORMAL
[2019-03-10 18:48] VITALS: BP 111/60
[2019-03-10 20:00] VITALS: BP 128/69
--- NOTE | 2019-03-10 23:45 | NUR ---
PT RESTING IN BED. EYES CLOSED. NO SIGNS OF DISTRESS. BREATHING EVEN AND UNLABORED. NO IV SITE. LUNG SOUNDS CLEAR. BOWEL SOUNDS ACTIVE. BUTTOCKS GROIN REDDNESS SCABS ABD SORES. OPEN TO AIR. OLD LT BKA. RT LEG SCABS SORES. DRESSING CLEAN DRY AND INTACT. WILL CONTINUE PLAN OF CARE. CALL LIGHT IN REACH. BED LOWERED AND LOCKED. BED RAILS UP X2.
[2019-03-11] VITALS: BP 126/65
--- NOTE | 2019-03-11 02:09 | NUR ---
I have reviewed this patient and I concur with the Shift Assessment completed by the Licensed Practical Nurse today this shift.
[2019-03-11 04:00] VITALS: BP 124/69
[2019-03-11 07:07] LABS: CALC OSMOLALITY 283 mosm/kg (275-300); CALCIUM 7.8 mg/dL (8.5-10.1); CARBON DIOXIDE 24.6 mmol/L (21.0-32.0); CHLORIDE - SERUM 109 mmol/L (98-107); CREATININE - SERUM 0.9 mg/dL (0.6-1.3); GLUCOSE 132 mg/dL (74-106); POTASSIUM - SERUM 4.2 mmol/L (3.5-5.1); SODIUM 141 mmol/L (136-145); UREA NITROGEN 15 mg/dL (7-18); eGFR NON AFRICAN AMERICAN 90 mL/min (90-120)
[2019-03-11 07:23] LABS: BASOPHILS 0.7 % (0-2); EOSINOPHILS 7.7 % (0-7); HEMATOCRIT 27.6 % (42.0-54.0); HEMOGLOBIN 8.7 g/dL (13.5-17.5); IMMATURE GRANULOCYTES 1.5 % (0-5); LYMPHOCYTES 34.1 % (15-50); MCH 26.8 pg (26.0-34.0); MCHC 31.5 g/dL (31.0-37.0); MCV 84.9 fL (80.0-100.0); MEAN PLATELET VOLUME 8.2 fL (7.4-10.4); PLATELET COUNT 250 10x3/uL (130-400); RBC 3.25 10x6/uL (4.20-6.10); RDW 14.5 % (11.5-14.5); WBC 6.1 10x3/uL (4.8-10.8)
--- NOTE | 2019-03-11 07:33 | NUR ---
ALERT AND ORIENTED. LUNGS CLEAR BILATERALLY. HEART SOUNDS S1 AND S2 HEARD IN ALL MCCANN. BOWEL SOUNDS ACTIVE X 4. LEFT BKA NOTED. DRSG TO STUMP C/D/I. MULTIPLE STAGE 2 PU NOTED TO BUTTOCKS. RLE WOUND WITH DRSG C/D/I. TELEMETRY IN PLACE. BED LOW. CALL BRAVO AND PERSONAL ITEMS IN REACH. WILL CONTINUE TO MONITOR.
--- NOTE | 2019-03-11 07:52 | NUR ---
PATIENT REFUSING TO BE TURNED TO HAVE WOUND CARE PERFORMED TO BOTTOM D/T "THROWING UP." VOMITING NOT WITNESSED BY NURSE. ALSO REFUSING IV AT THIS TIME FOR CT. STATES "I WILL LET YOU KNOW WHEN I'M READY." FARHAN NORMAN NOTIFIED. FARHAN ALSO STATES OK TO CHANGE PATIENT'S ZOFRAN TO PO. ATTEMPTED TO CALL CT TWICE WITH NO ANSWER.
--- NOTE | 2019-03-11 08:09 | NUR ---
SPOKE WITH LETICIA TRAINING AND DEVELOPMENT MANAGER WHO STATES PATIENT HR CURRENTLY 140 SINUS TACH. FARHAN NORMAN NOTIFIED.
[2019-03-11 08:12] VITALS: BP 120/72
--- NOTE | 2019-03-11 09:00 | NUR ---
PATIENT REFUSES DRSG CHANGES AT THIS TIME. WILL ATTEMPT LATER TODAY.
[2019-03-11 09:01] LABS: CKMB 0.4 U/L (0.0-3.6); CREATINE KINASE 17 UL (21-232); MAGNESIUM - SERUM 1.3 mg/dL (1.8-2.4); THYROID STIMULATING HORMONE 4.36 uIU/mL (0.36-3.74); TROPONIN-I < 0.017 ng/mL (0.000-0.060)
--- NOTE | 2019-03-11 09:11 | NUR ---
WOUND CARE PERFORMED TO BUTTOCKS AND PATIENT CLEANED FROM BM. IV SITED TO LEFT WRIST WITH 20 GUAGE AND ONE ATTEMPT.
--- NOTE | 2019-03-11 10:01 | NUR ---
DIGOXIN AND BETAPACE GIVEN PER ORDER. HR 143. WILL CONTINUE TO MONITOR.
--- NOTE | 2019-03-11 10:15 | NUR ---
HR DECREASED TO 110.
--- NOTE | 2019-03-11 10:50 | NUR ---
PATIENT GIVEN PRN XANAX PER REQUEST PRIOR TO CT. TAKEN FOR CT.
--- NOTE | 2019-03-11 11:25 | NUR ---
IV INFILTRATED DURING CT TO LEFT WRIST. PATIENT REFUSES NEW IV.
--- NOTE | 2019-03-11 11:27 | NUR ---
PATIENT HR 90.
--- NOTE | 2019-03-11 11:42 | NUR ---
PATIENT REFUSES NEW IV TO GET SECOND DOSE OF DIGOXIN. EKG SHOWS [address] FANNY AVILEZ[address] FARHAN NORMAN NOTIFIED.
--- NOTE | 2019-03-11 11:56 | NUR ---
SPOKE WITH DR ECSOBEDO WHO STATES WILL PUT IN PO HEART RATE MEDICATION D/T REFUSING IV.
--- NOTE | 2019-03-11 12:46 | NUR ---
ORDER IN FOR BETAPACE 120MG BID D/T BY DR ESCOBEDO D/T PATIENT REFUSING IV FOR IV DIGOXIN. ALREADY GAVE PATIENT 80MG BETAPACE THIS MORNING AT 0956. SPOKE WITH JULIO IN DR ESCOBEDO'S OFFICE TO ASK IF SHOULD START NEXT DOSE OR GIVE 120MG BETAPACE. STATES GIVE 120MG BETAPACE NOW.
--- NOTE | 2019-03-11 13:07 | NUR ---
IN BED EATING LUNCH. DENIES NEEDS. WILL CONTINUE TO MONITOR.
[2019-03-11 13:11] VITALS: BP 111/58
--- NOTE | 2019-03-11 14:57 | NUR ---
DRESSING TO RIGHT LEG REMOVED. WOUNDS CLEANSED WITH MICRO CLEANSE AND COVERED WITH ADAPTIC, ABD PADS AND WRAPPED WITH KERLIX. LEFT STUMP CLEANSED WITH MICROCLEANSE AND COVERED WITH ADAPTIC, ABD PAD AND WRAPPED WITH KERLIX. RIGHT LEG IS LESS EDEMATOUS TODAY AND PT IS NOT COMPLAINING OF MUCH PAIN. WOUND CARE CONTINUES TO MONITOR.
--- NOTE | 2019-03-11 15:31 | MORECARE ---
CASE MANAGEMENT DISCHARGE SUMMARY PATIENT: VIRA HOLLAND UNIT: [id number] ADM DATE: 03/05/19 AGE: 68 : 52 SEX: M ROOM/BED: D.2215 AUTHOR: JORDANDOC PHYSICIAN: REFERRING PHYSICIAN: BRUNILDA STARR MD DATE OF SERVICE: 03/11/19 Discharge Plan Patient Name: VIRA HOLLAND Facility: [facility]:[place] : 1950 Planned Disposition: [facility]sp Facility Anticipated Discharge Date: Discharge Date: Expected LOS: Initial Reviewer: [email or web address] Initial Review Date: 03/04/2019 Generated: 03/11/19 4:31 pm Comments DCP- Discharge Planning Updated by [email or web address]: Sita Mcneill on 03/11/19 2:[address] [facility]IENT [facility] WHEN HE IS STABLE FOR DISCHARGE. I SPOKE WITH BETTY DCP- Discharge Planning Updated by [id number]: Sita Mcneill on 03/08/19 2:[address] REFERRAL SENT TO [facility] SPOKE WITH BETTY DCP- Discharge Planning Updated by [email or web address]: Sita Mcneill on 03/08/19 1:[address] Patient Name: VIRA HOLLAND Admission Status: ER Accout number: [id number] Admission Date: 03-05-2019 : 1950 Admission Diagnosis: Attending: TAPAN Current LOS: 3 Anticipated DC Date: Planned Disposition: [facility] Facility Primary Insurance: MEDICARE A & B Discharge Planning Comments: CM met with patient to complete initial dc planning assessment. CM educated patient on the CM role and verbal consent given by patient to complete assessment. Patient lives at home . At discharge patient would like to go back to [place] and feels this is a safe discharge. CM discussed availability of home health, rehab services, and medical equipment. He stated that he is current wit [facility]. He has a [facility], hospital bed with a trapeze bar, wheelchair, at home. He also stated that he was just discharged from [facility] not too long ago and stated that he has already contacted them. LORENZO obtained for [facility] for DME. Placed in chart. I will send the referral to [facility] to see if he could be accepted again. Patient denied known discharge needs at this time. CM will continue to follow and will assist as needed with dc plans/needs. Monitor Car Operator: Sita Mcneill DCPIA - Discharge Planning Initial Assessment Updated by [email or web address]: Sita Mcneill on 03/08/19 2:39 pm * Is the patient Alert and Oriented? Yes * How many steps to enter\exit or inside your home? * PCP DR GOMEZ * Pharmacy [facility] [address] * Preadmission Environment Home Alone * ADLs Independent * Equipment Bedside [facility] Bed Trapeze Wheelchair Wound Supplies * List name and contact numbers for known caregivers / representatives who currently or will assist patient after discharge: JOCELINE HOLLAND (SISTER) [phone] * Verbal permission to speak to the caregivers and representatives has been obtained from the patient. N/A * Community resources currently utilized Home Health * Please name any agencies selected above. [facility] * Additional services required to return to the preadmission environment? Yes * Can the patient safely return to the preadmission environment? No * Has this patient been hospitalized within the prior 30 days at any hospital? Yes Coverage Notice Reviewer: [id number] - Sita Mcneill Notice Issued Date-Time: 03/08/2019 9:25 Notice Type: Patient Choice Letter Notice Delivered To: Patient Relationship to Patient: Sales Secretary Name: Delivery Method: HAND - Hand Delivered Dee Days: Prior Verbal Notification: Recipient Understood Notice: Yes Recipient Signature: Yes Med Rec Note Co-signed by Attending: Coverage Notice Comment: [facility] ZEPEDA DME Last DP export: 03/08/19 2:40 p Patient Name: VIRA HOLLAND Page [phone] at 1531 All edits/amendments must be made on the electronic document DICTATION DATE: 03/11/191530 BEEF CATTLE GRAZIER: TEGAN 03/11/191530 RPT#: [id number] DC DATE: STATUS: ADM IN [facility] [address] [place] [address] END OF REPORT
--- NOTE | 2019-03-11 19:15 | NUR ---
PATIENT ALERT AND ORIENTED WHEN ENTERING THE ROOM. PATIENT HAS A LEFT WRIST IV THAT IS CURRENTLY SALINE LOCKED. APPEARS PATENT UPON INSPECTION WITHOUT REDNESS OR SWELLING TO THE INSERTION SITE. PATIENT WEARING TELE MONITOR. CURRENTLY SINUS RHYTHM. BILATERAL LUNG SOUNDS CLEAR TO AUSCULTATION. ASSISTED CLIENT WITH BOWEL MOVEMENT. PATIENT PASSED VERY LARGE BOWEL MOVEMENT. APPLIED OINTMENT TO BUTTOCKS WELL BARRIER CREAM. PATIENT DENIES FURTHER NEEDS AT THIS TIME. CPOC.
[2019-03-11 20:00] VITALS: BP 93/59
--- NOTE | 2019-03-11 21:45 | NUR ---
HS SNACK PROVIDED. DENIES OVIDIO CRACKERS BUT REQUESTS VANILLA PUDDING. PROVIDED.
[2019-03-12] VITALS: BP 97/54
[2019-03-12 04:00] VITALS: BP 119/60
--- NOTE | 2019-03-12 04:29 | NUR ---
I have reviewed this patient and I concur with the Shift Assessment completed by the Licensed Practical Nurse today this shift.
[2019-03-12 05:02] LABS: BASOPHILS 0.6 % (0-2); EOSINOPHILS 7.6 % (0-7); HEMATOCRIT 29.2 % (42.0-54.0); HEMOGLOBIN 9.2 g/dL (13.5-17.5); IMMATURE GRANULOCYTES 1.1 % (0-5); LYMPHOCYTES 28.8 % (15-50); MCH 26.9 pg (26.0-34.0); MCHC 31.5 g/dL (31.0-37.0); MCV 85.4 fL (80.0-100.0); MEAN PLATELET VOLUME 7.9 fL (7.4-10.4); MONOCYTES 9.6 % (2-11); NEUTROPHILS 52.3 % (40-80); PLATELET COUNT 215 10x3/uL (130-400); RBC 3.42 10x6/uL (4.20-6.10); RDW 14.6 % (11.5-14.5); WBC 6.6 10x3/uL (4.8-10.8)
[2019-03-12 05:24] LABS: CALC OSMOLALITY 277 mosm/kg (275-300); CALCIUM 7.9 mg/dL (8.5-10.1); CARBON DIOXIDE 25.7 mmol/L (21.0-32.0); CHLORIDE - SERUM 105 mmol/L (98-107); GLUCOSE 153 mg/dL (74-106); MAGNESIUM - SERUM 1.3 mg/dL (1.8-2.4); POTASSIUM - SERUM 4.6 mmol/L (3.5-5.1); SODIUM 137 mmol/L (136-145); UREA NITROGEN 16 mg/dL (7-18); eGFR NON AFRICAN AMERICAN 79 mL/min (90-120)
--- NOTE | 2019-03-12 06:10 | NUR ---
PATIENT HAS DONE WELL THROUGH OUT NIGHT. REMAINED FEVER FREE AND ON ROOM AIR WITH NO SUPPLEMENTAL OXYGEN NEEDED. LUNG SOUNDS WITH ONLY SLIGHT WHEEZING BILATERALLY. IMPROVEMENT FROM BEGINNING OF SHIFT. PATIENT HAS HAD MORE CONGESTION THIS AM THAN BEGINNING OF SHIFT BUT RESOLVES EASILY WITH NASAL SUCTIONING. PATIENT TOLERATES WELL. DOES NOT APPEAR TO DISTRESS IN ANY. VITAL SIGNS REMAIN STABLE. MOTHER REMAINS IN ROOM. CONTINUOUS MONITORING REMAINS IN EFFECT. CPOC.
--- NOTE | 2019-03-12 08:00 | NUR ---
PT RESTING IN BED. NO SIGNS OF DISTRESS. IV TO LEFT WRIST PATENT NO REDNESS OR TENDERNESS. ON TELEMETRY 65 SR. HAS ALANIZ NO KINKS PATENT. HAS SORES TO BUTTOCKS/ COCCYX. WOUNDS TO BOTH LOWER EXTERMETIES STUMPS. MEDICATIONS APPLIED TO AREA. DENIES ANY FURTHER NEED AT THIS TIME. CALL LIGHT IN REACH. BED LOW POSITION. NO FAMILY AT BEDSIDE AT THIS TIME.
[2019-03-12 08:18] VITALS: BP 97/70
[2019-03-12 13:11] VITALS: BP 111/56
[2019-03-12 17:09] VITALS: BP 125/63
--- NOTE | 2019-03-12 18:00 | NUR ---
I have reviewed this patient and I concur with the Shift Assessment completed by the Licensed Practical Nurse today this shift.
[2019-03-12 20:00] VITALS: BP 105/47
[2019-03-13] VITALS: BP 121/57
[2019-03-13 04:00] VITALS: BP 116/64
[2019-03-13 06:44] LABS: BASOPHILS 0.5 % (0-2); EOSINOPHILS 8.6 % (0-7); HEMOGLOBIN 9.1 g/dL (13.5-17.5); IMMATURE GRANULOCYTES 1.2 % (0-5); LYMPHOCYTES 33.4 % (15-50); MCH 26.6 pg (26.0-34.0); MCHC 31.4 g/dL (31.0-37.0); MCV 84.8 fL (80.0-100.0); MEAN PLATELET VOLUME 8.2 fL (7.4-10.4); MONOCYTES 11.1 % (2-11); NEUTROPHILS 45.2 % (40-80); PLATELET COUNT 232 10x3/uL (130-400); RBC 3.42 10x6/uL (4.20-6.10); RDW 14.5 % (11.5-14.5); WBC 5.9 10x3/uL (4.8-10.8)
[2019-03-13 06:55] LABS: CALC OSMOLALITY 279 mosm/kg (275-300); CALCIUM 8.2 mg/dL (8.5-10.1); CHLORIDE - SERUM 107 mmol/L (98-107); GLUCOSE 137 mg/dL (74-106); POTASSIUM - SERUM 4.4 mmol/L (3.5-5.1); SODIUM 138 mmol/L (136-145); UREA NITROGEN 19 mg/dL (7-18); eGFR NON AFRICAN AMERICAN 79 mL/min (90-120)
--- NOTE | 2019-03-13 07:10 | NUR ---
PT RESTING IN BED. NO SIGNS OF DISTRESS. IV TO LEFT WRIST PATENT NO REDNESS OR TENDERNESS. HAS ALANIZ NO KINKS PATENT. ON TELEMETRY 64 SR. HAS SORES TO BOTTOM AND PERNIAL AREA ALONG WITH SORES ON LOWER EXT. DRESSING CLEAN AND INTACT. DENIES ANY FURTHER NEED AT THIS TIME. CALL LIGHT IN REACH. BED LOW POSITION. NO FAMILY AT BEDSIDE AT THIS TIME.
[2019-03-13 08:04] VITALS: BP 127/64
[2019-03-13 12:28] VITALS: BP 137/71
--- NOTE | 2019-03-13 14:51 | NUR ---
I have reviewed this patient and I concur with the Shift Assessment completed by the Licensed Practical Nurse today this shift.
[2019-03-13 16:57] VITALS: BP 147/83
--- NOTE | 2019-03-13 19:30 | NUR ---
PT HAD LARGE LOOSE STOOL IN BEDPAN DURING ROUNDS. ASSISTED XIOMY COLLIER IN CLEANING PT AND CHANGING PADS. APPLIED BARRIER CREAM TO EXCORIATED BUTTOCKS AND SCROTUM. NO OTHER NEEDS. WILL REASSESS AND CONTINUE TO MONITOR.
[2019-03-13 20:00] VITALS: BP 137/71
--- NOTE | 2019-03-14 00:30 | NUR ---
DRESSING TO LEFT STUMP CAME OFF DURING REPOSITIONING. REDRESSED WITH ADAPTIC AND KERLIX. NO OTHER NEEDS. WILL CONTINUE TO MONITOR.
[2019-03-14 04:00] VITALS: BP 115/61
[2019-03-14 06:04] LABS: BASOPHILS 0.8 % (0-2); EOSINOPHILS 7.6 % (0-7); HEMATOCRIT 28.3 % (42.0-54.0); IMMATURE GRANULOCYTES 0.8 % (0-5); LYMPHOCYTES 33.7 % (15-50); MCH 26.9 pg (26.0-34.0); MCHC 31.8 g/dL (31.0-37.0); MCV 84.5 fL (80.0-100.0); MEAN PLATELET VOLUME 8.4 fL (7.4-10.4); MONOCYTES 10.2 % (2-11); NEUTROPHILS 46.9 % (40-80); PLATELET COUNT 225 10x3/uL (130-400); RBC 3.35 10x6/uL (4.20-6.10); RDW 14.4 % (11.5-14.5); WBC 5.9 10x3/uL (4.8-10.8)
[2019-03-14 06:14] LABS: CALC OSMOLALITY 283 mosm/kg (275-300); CALCIUM 7.5 mg/dL (8.5-10.1); CHLORIDE - SERUM 107 mmol/L (98-107); CREATININE - SERUM 0.9 mg/dL (0.6-1.3); GLUCOSE 175 mg/dL (74-106); POTASSIUM - SERUM 4.5 mmol/L (3.5-5.1); SODIUM 139 mmol/L (136-145); UREA NITROGEN 17 mg/dL (7-18); eGFR NON AFRICAN AMERICAN 90 mL/min (90-120)
--- NOTE | 2019-03-14 07:10 | NUR ---
PT RESTING IN BED. NO SIGNS OF DISTRESS. IV TO LEFT WRIST PATENT NO REDNESS OR TENDERNESS. HAS REDENDED AREA TO BUTTOCKS, PERINAL AREA, AND BOTH LEGS. DRESSING CLEAN AND INTACT. DENIES ANY FURTHER NEED AT THIS TIME. CALL LIGHT IN REACH. BED LOW POSITION. NO FAMILY AT BEDSIDE AT THIS TIME.
[2019-03-14 08:27] VITALS: BP 123/65
[2019-03-14 12:03] VITALS: BP 112/58
--- NOTE | 2019-03-14 12:51 | NUR ---
I have reviewed this patient and I concur with the Shift Assessment completed by the Licensed Practical Nurse today this shift.
[2019-03-14 17:04] VITALS: BP 113/61; BP 120/52
[2019-03-15] VITALS (12 sets, daily range): BP systolic 117–150; BP diastolic 62–78
--- NOTE | 2019-03-15 02:13 | NUR ---
PT RESTING IN BED. EYES CLOSED. NO SIGNS OF DISTRESS. BREATHING EVEN AND UNLABORED. LUNG SOUNDS CLEAR. BOWEL SOUNDS ACTIVE. GROIN AREA REDNESS. BUTTOCKS STAGE 2 WOUNDS. REDNESS. LT LEG BKA. RT LEG DRESSING CLEAN DRY AND INTACT. ALANIZ IN PLACE. CLEAN DRY AND INTACT. WILL CONTINUE PLAN OF CARE. CALL LIGHT IN REACH. BED LOWERED AND LOCKED. BED RAILS UPX2.
--- NOTE | 2019-03-15 05:49 | NUR ---
I have reviewed this patient and I concur with the Shift Assessment completed by the Licensed Practical Nurse today this shift.
[2019-03-15 06:25] LABS: BASOPHILS 0.9 % (0-2); EOSINOPHILS 7.5 % (0-7); HEMATOCRIT 29.8 % (42.0-54.0); HEMOGLOBIN 9.4 g/dL (13.5-17.5); IMMATURE GRANULOCYTES 1.2 % (0-5); LYMPHOCYTES 34.8 % (15-50); MCH 26.8 pg (26.0-34.0); MCHC 31.5 g/dL (31.0-37.0); MCV 84.9 fL (80.0-100.0); MONOCYTES 9.6 % (2-11); PLATELET COUNT 246 10x3/uL (130-400); RBC 3.51 10x6/uL (4.20-6.10); RDW 14.5 % (11.5-14.5); WBC 5.8 10x3/uL (4.8-10.8)
[2019-03-15 06:34] LABS: CALC OSMOLALITY 281 mosm/kg (275-300); CALCIUM 8.1 mg/dL (8.5-10.1); CARBON DIOXIDE 24.7 mmol/L (21.0-32.0); CHLORIDE - SERUM 108 mmol/L (98-107); GLUCOSE 132 mg/dL (74-106); POTASSIUM - SERUM 4.9 mmol/L (3.5-5.1); SODIUM 139 mmol/L (136-145); UREA NITROGEN 18 mg/dL (7-18); eGFR NON AFRICAN AMERICAN 79 mL/min (90-120)
[2019-03-15 06:37] LABS: APTT 45.3 SECONDS (22.8-39.4); INR 1.14 (0.85-1.17); PROTIME 14.1 SECONDS (11.6-15.0)
--- NOTE | 2019-03-15 06:50 | NUR ---
ALERT AND ORIENTED, RESTING IN BED WITH EYES OPEN. NO C/O PAIN. NO S/S OF ACUTE DISTRESS NOTED. NPO AT THIS TIME, SCHEDULED FOR ARTERIOGRAM THIS AM. WOUNDS TO BLE AND BUTTOCKS, DRESSING C/D/I. LEFT BKA, OLD WITH DRESSING C/D/I. ACHS. ALANIZ CATHETER, CHRONIC. ON TELEMETRY SR. DENIES ANY NEEDS AT THIS TIME. CALL LIGHT IN REACH. WILL CONTINUE TO MONITOR.
--- NOTE | 2019-03-15 11:55 | NUR ---
I have reviewed this patient and I concur with the Shift Assessment completed by the Licensed Practical Nurse today this shift.
--- NOTE | 2019-03-15 13:40 | NUR ---
Nutrition follow-up: Pt NPO for procedure today PO intake has been ~75% of most meals Labs reviewed Wt: 243# +BM RDN will continue to monitor patients progress. Following.
--- NOTE | 2019-03-15 13:51 | NUR ---
RECEIVED PATIENT FROM IR. DRESSING TO LEFT GROIN. VITALS STABLE. NO C/O PAIN. NO S/S OF ACUTE DISTRESS NOTED. DENIES ANY NEEDS AT THIS TIME. CALL LIGHT IN REACH. WILL CONTINUE TO MONITOR.
--- NOTE | 2019-03-15 17:49 | NUR ---
ALERT AND ORIENTED, SITTING UP IN BED EATING SUPPER. NO C/O PAIN. NO S/S OF ACUTE DISTRESS NOTED. DENIES ANY NEEDS AT THIS TIME. CALL LIGHT IN REACH. WILL CONTINUE TO MONITOR.
--- NOTE | 2019-03-15 21:00 | NUR ---
FSBS 167 PT REFUSED INSULIN AT THIS TIME.
[2019-03-16] VITALS: BP 115/62
--- NOTE | 2019-03-16 01:30 | NUR ---
PT RESTING IN BED. EYES CLOSED. NO SIGNS OF DISTRESS. BREATHING EVEN AND UNLABORED. IV SITE LT FA DRESSING CLEAN DRY AND INTACT. NO SIGNS OF INFECTION OR INFULTRATION. BOWEL SOUNDS ACTIVE. LUNG SOUNDS CLEAR. TEL MONITOR ON 63 NORMAL SINUS. LT BKA DRESSING CLEAN DRY AND INTACT. RT LEG DRESSING CLEAN DRY AND INTACT. ALANIZ IN PLACE. REDDNESS TO GROIN AND BUTTOCKS. RT FOOT TOES AMPUTATED. WILL CONTINUE PLAN OF CARE. CALL LIGHT IN REACH. BED LOWERED AND LOCKED. BED RAILS UPX1.
[2019-03-16 04:00] VITALS: BP 116/64
[2019-03-16 04:43] LABS: BASOPHILS 0.7 % (0-2); EOSINOPHILS 6.5 % (0-7); HEMATOCRIT 28.4 % (42.0-54.0); IMMATURE GRANULOCYTES 1.2 % (0-5); MCH 26.7 pg (26.0-34.0); MCHC 31.7 g/dL (31.0-37.0); MCV 84.3 fL (80.0-100.0); MEAN PLATELET VOLUME 8.3 fL (7.4-10.4); MONOCYTES 11.1 % (2-11); NEUTROPHILS 47.5 % (40-80); PLATELET COUNT 235 10x3/uL (130-400); RBC 3.37 10x6/uL (4.20-6.10); RDW 14.5 % (11.5-14.5); WBC 5.9 10x3/uL (4.8-10.8)
[2019-03-16 05:05] LABS: ALBUMIN 1.8 g/dL (3.4-5.0); ALKALINE PHOSPHATASE 283 U/L (46-116); ALT (SGPT) 23 U/L (10-68); BILIRUBIN - TOTAL 0.32 mg/dL (0.2-1.3); CALC OSMOLALITY 276 mosm/kg (275-300); CALCIUM 7.9 mg/dL (8.5-10.1); CARBON DIOXIDE 25.9 mmol/L (21.0-32.0); CHLORIDE - SERUM 105 mmol/L (98-107); GLUCOSE 120 mg/dL (74-106); POTASSIUM - SERUM 4.4 mmol/L (3.5-5.1); SODIUM 137 mmol/L (136-145); UREA NITROGEN 17 mg/dL (7-18); eGFR NON AFRICAN AMERICAN 79 mL/min (90-120)
--- NOTE | 2019-03-16 07:10 | NUR ---
ALERT AND ORIENTED, RESTING IN BED. NO C/O PAIN. NO S/S OF ACUTE DISTRESS NOTED. POD #1 ARTERIOGRAM, DRESSING C/D/I. ALANIZ CATHETER PRESENT. DRESSING TO BLE, C/D/I. ON TELEMETRY 65 SR. IV TO RIGHT HAND, SL. SITE PATENT WITHOUT REDNESS OR SWELLING. DENIES ANY NEEDS AT THIS TIME. CALL LIGHT IN REACH. WILL CONTINUE TO MONITOR.
--- NOTE | 2019-03-16 07:29 | NUR ---
I have reviewed this patient and I concur with the Shift Assessment completed by the Licensed Practical Nurse today this shift.
[2019-03-16 09:48] VITALS: BP 96/51
--- NOTE | 2019-03-16 11:01 | NUR ---
I have reviewed this patient and I concur with the Shift Assessment completed by the Licensed Practical Nurse today this shift.
[2019-03-16 13:23] VITALS: BP 114/61
--- NOTE | 2019-03-16 13:52 | NUR ---
REMOVED DRESSINGS TO BLE. APPLIED ADAPTIC, ABD PAD, AND WRAPPED WITH KERLEX TO LLE. CLEANED WOUND TO RLE, APPLIED ADAPTIC, ABD PAD, AND WRAPPED WITH KERLEX. PER PHYSICIAN ORDER ON WOUND CARE.
[2019-03-16 16:59] VITALS: BP 102/56
--- NOTE | 2019-03-16 20:00 | NUR ---
ALERT RESTING IN BED, DENIES PAIN OR NEEDS AT THIS TIME, HAD LARGE BM X 2 WITHIN LAST 30 MIN, SEE ASSESSMENT, CALL LIGHT IN REACH
[2019-03-16 21:19] VITALS: BP 102/51
[2019-03-17 01:43] VITALS: BP 135/58
[2019-03-17 06:35] VITALS: BP 119/63
[2019-03-17 06:42] LABS: BASOPHILS 0.8 % (0-2); EOSINOPHILS 6.6 % (0-7); HEMATOCRIT 28.9 % (42.0-54.0); HEMOGLOBIN 9.1 g/dL (13.5-17.5); LYMPHOCYTES 34.9 % (15-50); MCH 26.6 pg (26.0-34.0); MCHC 31.5 g/dL (31.0-37.0); MCV 84.5 fL (80.0-100.0); MEAN PLATELET VOLUME 8.5 fL (7.4-10.4); MONOCYTES 12.4 % (2-11); NEUTROPHILS 44.3 % (40-80); PLATELET COUNT 247 10x3/uL (130-400); RBC 3.42 10x6/uL (4.20-6.10); RDW 14.8 % (11.5-14.5); WBC 5.9 10x3/uL (4.8-10.8)
[2019-03-17 07:13] LABS: ALBUMIN 1.8 g/dL (3.4-5.0); ALKALINE PHOSPHATASE 275 U/L (46-116); ALT (SGPT) 22 U/L (10-68); BILIRUBIN - TOTAL 0.34 mg/dL (0.2-1.3); CALC OSMOLALITY 281 mosm/kg (275-300); CALCIUM 8.2 mg/dL (8.5-10.1); CARBON DIOXIDE 26.6 mmol/L (21.0-32.0); CHLORIDE - SERUM 108 mmol/L (98-107); GLUCOSE 122 mg/dL (74-106); POTASSIUM - SERUM 4.3 mmol/L (3.5-5.1); PROTEIN - SERUM 6.1 g/dL (6.4-8.2); SODIUM 140 mmol/L (136-145); UREA NITROGEN 19 mg/dL (7-18); eGFR NON AFRICAN AMERICAN 79 mL/min (90-120)
--- NOTE | 2019-03-17 08:00 | NUR ---
ASSESSMENT PER FLOW SHEET. PT IS WITHOUT DISTRESS.CALL LIGHT IN REACH
[2019-03-17 08:40] VITALS: BP 102/73
--- NOTE | 2019-03-17 10:40 | EC ---
PATIENT:VIRA HOLLAND DATE OF SERVICE: 03/05/19 SEX: M MEDICAL RECORD: [id number] DATE OF : [birth year] LOCATION:D.MS [facility] AGE OF PATIENT: 68 ADMISSION DATE: 03/05/19 REFERRING PHYSICIAN: INTERPRETING PHYSICIAN: REJI BRADFORD MD ECHOCARDIOGRAM REPORT ECHO CHARGES 4 ECHO COMPLETE Date: 03/11/19 CLINICAL DIAGNOSIS: A-FIB ECHOCARDIOGRAPHIC MEASUREMENTS (adult normal given) AC root (d.<3.7cm) 3.8 cm LV Septum d (<1.2 cm> 1.2 cm Valve Excursion 1.3 cm LV Septum (systole) 1.6 cm Left Atria (s.<4.0cm> 5.0 cm LVPW d(<1.2cm) 1.2 cm RV (d.<2.3cm) 3.9 cm LVPW (sytole) 1.7 cm LV diastole(<5.6CM) 5.9 cm MV E-F(>70mm/sec) cm LV systole 4.2 cm LVOT Diameter 2.1 cm MV exc.(>10mm) cm Est.ejection fraction (50-75%) % DOPPLER: LVIT cm/sec A 52.0 cm/sec E 79.0 cm/sec LA cm/sec RVSP 35.2 mmHg LVOT 91.0 cm/sec AOP1/2T m/s Asc. Ao 122 cm/sec RVOT 64.0 cm/sec RA cm/sec PA 121 cm/sec AV Gradient Peak 6.0 mmHg AV Mean 2.8 mmHg AV Area 2.3 cm MV Gradient Peak 3.5 mmHg MV Mean 1.2 mmHg MV Area cm COMMENTS: Sports Writer: Sunni CRUZ Electromechanical Assembly Technician: 1 Dr. Bradford TAPE# PACS Pericardial Effusion N DATE OF SERVICE: 03/11/2019 FINDINGS: 1. Left ventricular chamber size is mildly dilated. Left ventricular systolic function is mildly reduced in the 40% range. 2. Left atrium is enlarged at 5.0 cm. Right atrium and right ventricular chamber sizes are moderately dilated. 3. Valvular structures have normal structure and motion. 4. Doppler interrogation reveals trace mitral regurgitation, moderate tricuspid regurgitation, no other valvular insufficiency or stenosis. Pulmonary systolic ECHOCARDIOGRAM REPORT [id number] VIRA HOLLAND pressure is estimated at 35 mmHg. 5. No evidence of pericardial effusion or left ventricular thrombus. TRANSINT:[id number] Voice Confirmation ID: [id number] DOCUMENT ID: [id number] REJI BRADFORD MD at 1040 CC: [id number] DICTATION DATE: 03/11/191656 TUBE ROOM SUPERVISOR: 03/11/192035 ADM IN [facility] [address] [place] [address]
[2019-03-17] MEDS ORDERED: BETAPACE 120 M120 MG PO (11:46)
[2019-03-17] MEDS ORDERED: FLORAJEN3 CAPS460 MG PO (11:47)
[2019-03-17] MEDS ORDERED: PROTONIX40 MG PO (11:47)
[2019-03-17] MEDS ORDERED: MUCINEX600 MG PO (11:47)
[2019-03-17] MEDS ORDERED: CALMOSEPTINE OI71 GM TOPICAL (11:47)
[2019-03-17] MEDS ORDERED: TESSALON PERLE100 MG PO (11:47)
--- NOTE | 2019-03-17 12:19 | MORECARE ---
CASE MANAGEMENT DISCHARGE SUMMARY PATIENT: VIRA HOLLAND UNIT: [id number] ADM DATE: 03/05/19 AGE: 68 : 52 SEX: M ROOM/BED: D.2215 AUTHOR: DAVIDA ORTEGA PHYSICIAN: REFERRING PHYSICIAN: BRUNILDA STARR MD DATE OF SERVICE: 03/17/19 Discharge Plan Patient Name: VIRA HOLLAND Facility: [facility]:[place] : 1950 Planned Disposition: Senior Care Facility Anticipated Discharge Date: Discharge Date: Expected LOS: Initial Reviewer: [email or web address] Initial Review Date: 03/04/2019 Generated: 03/17/19 1:19 pm Comments DCP- Discharge Planning Updated by [email or web address]: Sita Mcneill on 03/17/19 11:[address] PATIENT TO BE DICHARGED TODAY TO [facility] IN A SKILLED BED. THEY WILL PROVIDE TRANSPORTATION. IMM SERVED AND EXPLAINED. BRUNILDA WITH [facility] WILL CALL ME BACK WITH A FRONT END WEB DESIGNER TIME DCP- Discharge Planning Updated by [email or web address]: Sita Mcneill on 03/11/19 2:[address] PATIENT WILL BE ACCEPTED BACK TO [facility] WHEN HE IS STABLE FOR DISCHARGE. I SPOKE WITH BETTY DCP- Discharge Planning Updated by [email or web address]: Sita Mcneill on 03/08/19 2:[address] REFERRAL SENT TO [facility] SPOKE WITH BETTY DCP- Discharge Planning Updated by [id number]: Sita Mcneill on 03/08/19 1:[address] Patient Name: VIRA HOLLAND Admission Status: ER Accout number: [id number] Admission Date: 03-05-2019 : 1950 Admission Diagnosis: Attending: TAPAN Current LOS: 3 Anticipated DC Date: Planned Disposition: Senior Care Facility Primary Insurance: MEDICARE A & B Discharge Planning Comments: CM met with patient to complete initial dc planning assessment. CM educated patient on the CM role and verbal consent given by patient to complete assessment. Patient lives at home . At discharge patient would like to go back to [facility] and feels this is a safe discharge. CM discussed availability of home health, rehab services, and medical equipment. He stated that he is current wit [facility]. He has a [facility], hospital bed with a trapeze bar, wheelchair, at home. He also stated that he was just discharged from [facility] not too long ago and stated that he has already contacted them. LORENZO obtained for [facility] for DME. Placed in chart. I will send the referral to [facility] to see if he could be accepted again. Patient denied known discharge needs at this time. CM will continue to follow and will assist as needed with dc plans/needs. Staff Attorney: Sita Mcneill DCPIA - Discharge Planning Initial Assessment Updated by [id number]: Sita Mcneill on 03/08/19 2:39 pm * Is the patient Alert and Oriented? Yes * How many steps to enter\exit or inside your home? * PCP DR GOMEZ * Pharmacy [facility] [address] * Preadmission Environment Home Alone * ADLs Independent * Equipment Bedside [employer] Hospital Bed Trapeze Wheelchair Wound Supplies * List name and contact numbers for known caregivers / representatives who currently or will assist patient after discharge: JOCELINE HOLLAND (SISTER) [phone] * Verbal permission to speak to the caregivers and representatives has been obtained from the patient. N/A * Community resources currently utilized Home Health * Please name any agencies selected above. [employer] [facility], [facility] * Additional services required to return to the preadmission environment? Yes * Can the patient safely return to the preadmission environment? No * Has this patient been hospitalized within the prior 30 days at any hospital? Yes Coverage Notice Reviewer: [id number] Soren Mcneill Notice Issued Date-Time: 03/08/2019 9:25 Notice Type: Patient Choice Letter Notice Delivered To: Patient Relationship to Patient: Steel Hanger Name: Delivery Method: HAND - Hand Delivered Dee Days: Prior Verbal Notification: Recipient Understood Notice: Yes Recipient Signature: Yes Med Rec Note Co-signed by Attending: Coverage Notice Comment: LORENZO ZEPEDA DME Reviewer: [id number] Soren Mcneill Notice Issued Date-Time: 03/17/2019 12:10 Notice Type: IM Discharge Notice Notice Delivered To: Patient Relationship to Patient: Steel Hanger Name: Delivery Method: HAND - Hand Delivered Dee Days: Prior Verbal Notification: Recipient Understood Notice: Yes Recipient Signature: Yes Med Rec Note Co-signed by Attending: Coverage Notice Comment: Last DP export: 03/11/19 2:31 p Patient Name: VIRA HOLLAND Page [phone] at 1219 All edits/amendments must be made on the electronic document DICTATION DATE: 03/17/191218 PIPE PULLER: TEGAN 03/17/191218 RPT#: [id number] DC DATE: STATUS: ADM IN [facility] [address] [place] [address] END OF REPORT
[2019-03-17] MEDS ORDERED: HYDROCODON-ACE1 EA10 PO (12:26)
[2019-03-17 13:00] VITALS: BP 127/67
--- NOTE | 2019-03-17 13:35 | MORECARE ---
CASE MANAGEMENT DISCHARGE SUMMARY PATIENT: VIRA HOLLAND UNIT: [id number] ADM DATE: 03/05/19 AGE: 68 : 52 SEX: M ROOM/BED: D.2215 AUTHOR: DAVIDA ORTEGA PHYSICIAN: REFERRING PHYSICIAN: BRUNILDA STARR MD DATE OF SERVICE: 03/17/19 Discharge Plan Patient Name: VIRA HOLLAND Facility: [facility]:[place] : 1950 Planned Disposition: Jail Facility Anticipated Discharge Date: Discharge Date: Expected LOS: Initial Reviewer: [email or web address] Initial Review Date: 03/04/2019 Generated: 03/17/19 2:35 pm Comments DCP- Discharge Planning Updated by [id number]: Sita Mcneill on 03/17/19 12:[address] PER DISCHARGE ORDERS, PATIENT WILL BE TRANSPORTED VIA EMS DCP- Discharge Planning Updated by [id number]: Sita Mcneill on 03/17/19 11:[address] PATIENT TO BE DICHARGED TODAY TO [facility] IN A SKILLED BED. THEY WILL PROVIDE TRANSPORTATION. IMM SERVED AND EXPLAINED. BRUNILDA WITH [facility] WILL CALL ME BACK WITH A EYELET RIVETER TIME DCP- Discharge Planning Updated by [id number]: Sita Mcneill on 03/11/19 2:[address] PATIENT WILL BE ACCEPTED BACK TO [facility] WHEN HE IS STABLE FOR DISCHARGE. I SPOKE WITH BETTY DCP- Discharge Planning Updated by [id number]: Sita Mcneill on 03/08/19 2:[address] REFERRAL SENT TO [facility] SPOKE WITH BETTY DCP- Discharge Planning Updated by [id number]: Sita Mcneill on 03/08/19 1:[address] Patient Name: VIRA HOLLAND Admission Status: ER Accout number: [id number] Admission Date: 03-05-2019 : 1950 Admission Diagnosis: Attending: TAPAN Current LOS: 3 Anticipated DC Date: Planned Disposition: Jail Facility Primary Insurance: MEDICARE A & B Discharge Planning Comments: CM met with patient to complete initial dc planning assessment. CM educated patient on the CM role and verbal consent given by patient to complete assessment. Patient lives at home . At discharge patient would like to go back to [facility] and feels this is a safe discharge. CM discussed availability of home health, rehab services, and medical equipment. He stated that he is current wit [facility]. He has a [facility], hospital bed with a trapeze bar, wheelchair, at home. He also stated that he was just discharged from [facility] not too long ago and stated that he has already contacted them. LORENZO obtained for [facility] for DME. Placed in chart. I will send the referral to [facility] to see if he could be accepted again. Patient denied known discharge needs at this time. CM will continue to follow and will assist as needed with dc plans/needs. Media Reconciliation Specialist: Sita Mcneill DCPIA - Discharge Planning Initial Assessment Updated by [email or web address]: Sita Mcneill on 03/08/19 2:39 pm * Is the patient Alert and Oriented? Yes * How many steps to enter\exit or inside your home? * PCP DR GOMEZ * Pharmacy [facility] [address] * Preadmission Environment Home Alone * ADLs Independent * Equipment [facility] Bed Trapeze Wheelchair Wound Supplies * List name and contact numbers for known caregivers / representatives who currently or will assist patient after discharge: JOCELINE HOLLAND (SISTER) [phone] * Verbal permission to speak to the caregivers and representatives has been obtained from the patient. N/A * Community resources currently utilized Home Health * Please name any agencies selected above. [facility] * Additional services required to return to the preadmission environment? Yes * Can the patient safely return to the preadmission environment? No * Has this patient been hospitalized within the prior 30 days at any hospital? Yes Coverage Notice Reviewer: [email or web address] Soren Mcneill Notice Issued Date-Time: 03/08/2019 9:25 Notice Type: Patient Choice Letter Notice Delivered To: Patient Relationship to Patient: Academic Support Specialist Name: Delivery Method: HAND - Hand Delivered Dee Days: Prior Verbal Notification: Recipient Understood Notice: Yes Recipient Signature: Yes Med Rec Note Co-signed by Attending: Coverage Notice Comment: LORENZO ZEPEDA DME Reviewer: [id number] Soren Mcneill Notice Issued Date-Time: 03/17/2019 12:10 Notice Type: IM Discharge Notice Notice Delivered To: Patient Relationship to Patient: Academic Support Specialist Name: Delivery Method: HAND - Hand Delivered Dee Days: Prior Verbal Notification: Recipient Understood Notice: Yes Recipient Signature: Yes Med Rec Note Co-signed by Attending: Coverage Notice Comment: Last DP export: 03/17/19 11:19 Patient Name: VIRA HOLLAND Page [phone] at 1335 All edits/amendments must be made on the electronic document DICTATION DATE: 03/17/191334 BALANCER: TEGAN 03/17/19 1335 RPT#: [id number] DC DATE: STATUS: ADM IN [facility] [address] [place] [address] END OF REPORT
--- NOTE | 2019-03-17 15:52 | NUR ---
REPORT TO [facility].
--- NOTE | 2019-03-17 16:30 | NUR ---
[facility] BECAUSE IT WILL BE TO LATE FOR HIM TO ARRIVE. WAIT ON [facility] TRANSPORT 2-3 HOURS .
[2019-03-17 16:45] VITALS: BP 133/63
--- NOTE | 2019-03-17 19:25 | NUR ---
RESTING IN BED WITH TELEVISION ON, ABLE TO VOICE ALL NEEDS. DRESSING TO RLE IS CLEAN DRY AND INTACT. DRESSING TO LEFT GROIN IS INTACT. ALANIZ IS PATENT WITH DARK YELLOW URINE DRAINING TO CDS. SHOWS NO S/S OF ANY ACUTE DISTRESS. WILL NOTE ANY CHANGE.
[2019-03-17 20:00] VITALS: BP 116/70
--- NOTE | 2019-03-18 00:38 | NUR ---
COMPLAINTS OF HEADACHE, NURSE ATTEMPTED TO CHANGE ENVIRONMENT WITH LIGHTING AND NOISE, WOULD NOT COMPLY, PAIN MEDICATION GIVEN. WILL NOTE ANY CHANGE.
[2019-03-18 04:00] VITALS: BP 125/66
[2019-03-18 04:48] LABS: BASOPHILS 1.1 % (0-2); EOSINOPHILS 6.3 % (0-7); HEMATOCRIT 28.6 % (42.0-54.0); HEMOGLOBIN 9.1 g/dL (13.5-17.5); IMMATURE GRANULOCYTES 1.1 % (0-5); LYMPHOCYTES 37.1 % (15-50); MCH 26.7 pg (26.0-34.0); MCHC 31.8 g/dL (31.0-37.0); MCV 83.9 fL (80.0-100.0); MEAN PLATELET VOLUME 8.3 fL (7.4-10.4); MONOCYTES 10.3 % (2-11); NEUTROPHILS 44.1 % (40-80); PLATELET COUNT 239 10x3/uL (130-400); RBC 3.41 10x6/uL (4.20-6.10); RDW 14.7 % (11.5-14.5); WBC 5.5 10x3/uL (4.8-10.8)
[2019-03-18 05:31] LABS: ALBUMIN 1.9 g/dL (3.4-5.0); ANION GAP 11.5 mmol/L (8-16); BILIRUBIN - TOTAL 0.3 mg/dL (0.2-1.3); CALCIUM 8.3 mg/dL (8.5-10.1); CARBON DIOXIDE 24.7 mmol/L (21.0-32.0); CREATININE - SERUM 1.1 mg/dL (0.6-1.3); POTASSIUM - SERUM 4.2 mmol/L (3.5-5.1); PROTEIN - SERUM 6.2 g/dL (6.4-8.2)
[2019-03-18 08:02] VITALS: BP 119/64
--- NOTE | 2019-03-18 09:00 | NUR ---
LEFT UNIT WITH [facility] FOR TRANSPORT TO [facility]
--- NOTE | 2019-03-18 10:10 | MORECARE ---
CASE MANAGEMENT DISCHARGE SUMMARY PATIENT: VIRA HOLLAND UNIT: [id number] ADM DATE: 03/05/19 AGE: 68 : 52 SEX: M ROOM/BED: D.2215 AUTHOR: JORDAN,DOC PHYSICIAN: REFERRING PHYSICIAN: BRUNILDA STARR MD DATE OF SERVICE: 03/18/19 Discharge Plan Patient Name: VIRA HOLLAND Facility: [facility]:[place] : 1950 Planned Disposition: Long-Term Facility Anticipated Discharge Date: Discharge Date: 03/18/2019 Expected LOS: Initial Reviewer: [id number] Initial Review Date: 03/04/2019 Generated: 03/18/19 11:10 am Comments DCP- Discharge Planning Updated by [id number]: Sita Mcneill on 03/18/19 9:[address] Patient did not discharge on 03/17 as expected. [facility] was too busy and could not get to him till the evening. [facility] called and stated that they would not accept him that late and to arrange transportation for AM. Patient was discharged today to [facility] this morning to a skilled bed via [facility] DCP- Discharge Planning Updated by [id number]: Sita Mcneill on 03/17/19 12:[address] PER DISCHARGE ORDERS, PATIENT WILL BE TRANSPORTED VIA EMS DCP- Discharge Planning Updated by [email or web address]: Sita Mcneill on 03/17/19 11:[address] PATIENT TO BE DICHARGED TODAY TO [facility] IN A SKILLED BED. THEY WILL PROVIDE TRANSPORTATION. IMM SERVED AND EXPLAINED. BRUNILDA WITH [facility] WILL CALL ME BACK WITH A WELLNESS GUIDE TIME DCP- Discharge Planning Updated by [id number]: Sita Mcneill on 03/11/19 2:[address] PATIENT WILL BE ACCEPTED BACK TO [facility] WHEN HE IS STABLE FOR DISCHARGE. I SPOKE WITH BETTY DCP- Discharge Planning Updated by [id number]: Sita Mcneill on 03/08/19 2:[address] REFERRAL SENT TO [facility] SPOKE WITH BETTY DCP- Discharge Planning Updated by [email or web address]: Sita Mcneill on 03/08/19 1:[address] Patient Name: VIRA HOLLAND Admission Status: ER Accout number: [id number] Admission Date: 03-05-2019 : 1950 Admission Diagnosis: Attending: TAPAN Current LOS: 3 Anticipated DC Date: Planned Disposition: Long-Term Facility Primary Insurance: MEDICARE A & B Discharge Planning Comments: CM met with patient to complete initial dc planning assessment. CM educated patient on the CM role and verbal consent given by patient to complete assessment. Patient lives at home . At discharge patient would like to go back to [facility] and feels this is a safe discharge. CM discussed availability of home health, rehab services, and medical equipment. He stated that he is current wit [facility]. He has a [facility], hospital bed with a trapeze bar, wheelchair, at home. He also stated that he was just discharged from [facility] not too long ago and stated that he has already contacted them. LORENZO obtained for [facility] for DME. Placed in chart. I will send the referral to [facility] to see if he could be accepted again. Patient denied known discharge needs at this time. CM will continue to follow and will assist as needed with dc plans/needs. Canceling Machine Operator: Sita Mcneill DCPIA - Discharge Planning Initial Assessment Updated by [id number]: Sita Mcneill on 03/08/19 2:39 pm * Is the patient Alert and Oriented? Yes * How many steps to enter\exit or inside your home? * PCP DR GOMEZ * Pharmacy [facility] [address] * Preadmission Environment Home Alone * ADLs Independent * Equipment [facility] Trapeze Wheelchair Wound Supplies * List name and contact numbers for known caregivers / representatives who currently or will assist patient after discharge: JOCELINE HOLLAND (SISTER) [phone] * Verbal permission to speak to the caregivers and representatives has been obtained from the patient. N/A * Community resources currently utilized Home Health * Please name any agencies selected above. [employer] [facility] * Additional services required to return to the preadmission environment? Yes * Can the patient safely return to the preadmission environment? No * Has this patient been hospitalized within the prior 30 days at any hospital? Yes Coverage Notice Reviewer: [id number] - Sita Mcneill Notice Issued Date-Time: 03/08/2019 9:25 Notice Type: Patient Choice Letter Notice Delivered To: Patient Relationship to Patient: Thermit Welding Machine Operator Name: Delivery Method: HAND - Hand Delivered Dee Days: Prior Verbal Notification: Recipient Understood Notice: Yes Recipient Signature: Yes Med Rec Note Co-signed by Attending: Coverage Notice Comment: [facility]ANIT[facility] Reviewer: [id number] Soren Mcneill Notice Issued Date-Time: 03/17/2019 12:10 Notice Type: IM Discharge Notice Notice Delivered To: Patient Relationship to Patient: Thermit Welding Machine Operator Name: Delivery Method: HAND - Hand Delivered Dee Days: Prior Verbal Notification: Recipient Understood Notice: Yes Recipient Signature: Yes Med Rec Note Co-signed by Attending: Coverage Notice Comment: Last DP export: 03/17/19 12:35 Patient Name: VIRA HOLLAND Page [phone] at 1010 All edits/amendments must be made on the electronic document DICTATION DATE: 03/18/19 1010 DENTURE WAXER: TEGAN 03/18/19 1010 RPT#: [id number] DC DATE:03/18/19 STATUS: DIS IN [facility] [address] [place] [address] END OF REPORT
--- NOTE | 2019-03-20 13:51 | MORECARE ---
CASE MANAGEMENT DISCHARGE SUMMARY PATIENT: VIRA HOLLAND UNIT: [id number] ADM DATE: 03/05/19 AGE: 68 : [birth year] SEX: M ROOM/BED: D.2215 AUTHOR: JORDAN,DOC PHYSICIAN: REFERRING PHYSICIAN: BRUNILDA STARR MD DATE OF SERVICE: 03/20/19 Discharge Plan Patient Name: VIRA HOLLAND Facility: [facility]:[place] : 1950 Planned Disposition: Detention Facility Anticipated Discharge Date: Discharge Date: 03/18/2019 Expected LOS: Initial Reviewer: [id number] Initial Review Date: 03/04/2019 Generated: 03/20/19 2:51 pm Comments DCP- Discharge Planning Updated by [id number]: Sita Mcneill on 03/18/19 9:[address] Patient did not discharge on 03/17 as expected. [facility] was too busy and could not get to him till the evening. [facility] called and stated that they would not accept him that late and to arrange transportation for AM. Patient was discharged today to [facility] this morning to a skilled bed via [facility] DCP- Discharge Planning Updated by [email or web address]: Sita Mcneill on 03/17/19 12:[address] PER DISCHARGE ORDERS, PATIENT WILL BE TRANSPORTED VIA EMS DCP- Discharge Planning Updated by [id number]: Sita Mcneill on 03/17/19 11:[address] PATIENT TO BE DICHARGED TODAY TO [facility] IN A SKILLED BED. THEY WILL PROVIDE TRANSPORTATION. IMM SERVED AND EXPLAINED. BRUNILDA WITH [facility] WILL CALL ME BACK WITH A CLINICAL BIOSTATISTICS DIRECTOR TIME DCP- Discharge Planning Updated by [email or web address]: Sita Mcneill on 03/11/19 2:[address] PATIENT WILL BE ACCEPTED BACK TO [facility] WHEN HE IS STABLE FOR DISCHARGE. I SPOKE WITH BETTY DCP- Discharge Planning Updated by [id number]: Sita Mcneill on 03/08/19 2:[address] REFERRAL SENT TO [facility] SPOKE WITH BETTY DCP- Discharge Planning Updated by [id number]: Sita Mcneill on 03/08/19 1:[address] Patient Name: VIRA HOLLAND Admission Status: ER Accout number: [id number] Admission Date: 03-05-2019 : 1950 Admission Diagnosis: Attending: TAPAN Current LOS: 3 Anticipated DC Date: Planned Disposition: Detention Facility Primary Insurance: MEDICARE A & B Discharge Planning Comments: CM met with patient to complete initial dc planning assessment. CM educated patient on the CM role and verbal consent given by patient to complete assessment. Patient lives at home . At discharge patient would like to go back to [facility] and feels this is a safe discharge. CM discussed availability of home health, rehab services, and medical equipment. He stated that he is current wit [facility]. He has a [facility], hospital bed with a trapeze bar, wheelchair, at home. He also stated that he was just discharged from [facility] not too long ago and stated that he has already contacted them. LORENZO obtained for [facility] for DME. Placed in chart. I will send the referral to [facility] to see if he could be accepted again. Patient denied known discharge needs at this time. CM will continue to follow and will assist as needed with dc plans/needs. Glass Or Mirror Inspector: Sita Mcneill DCPIA - Discharge Planning Initial Assessment Updated by [email or web address]: Sita Mcneill on 03/08/19 2:39 pm * Is the patient Alert and Oriented? Yes * How many steps to enter\exit or inside your home? * PCP DR GOMEZ * Pharmacy [facility] [address] * Preadmission Environment Home Alone * ADLs Independent * [facility] Bed Trapeze Wheelchair Wound Supplies * List name and contact numbers for known caregivers / representatives who currently or will assist patient after discharge: JOCELINE HOLLAND (SISTER) [phone] * Verbal permission to speak to the caregivers and representatives has been obtained from the patient. N/A * Community resources currently utilized Home Health * Please name any agencies selected above. [facility] * Additional services required to return to the preadmission environment? Yes * Can the patient safely return to the preadmission environment? No * Has this patient been hospitalized within the prior 30 days at any hospital? Yes Coverage Notice Reviewer: [id number] - Sita Mcneill Notice Issued Date-Time: 03/08/2019 9:25 Notice Type: Patient Choice Letter Notice Delivered To: Patient Relationship to Patient: Corn Breeder Name: Delivery Method: HAND - Hand Delivered Dee Days: Prior Verbal Notification: Recipient Understood Notice: Yes Recipient Signature: Yes Med Rec Note Co-signed by Attending: Coverage Notice Comment: LORENZO SEEMAKIKE SANFORD DUANE DANITZA Reviewer: [id number] Soren Mcneill Notice Issued Date-Time: 03/17/2019 12:10 Notice Type: IM Discharge Notice Notice Delivered To: Patient Relationship to Patient: Corn Breeder Name: Delivery Method: HAND - Hand Delivered Dee Days: Prior Verbal Notification: Recipient Understood Notice: Yes Recipient Signature: Yes Med Rec Note Co-signed by Attending: Coverage Notice Comment: Last DP export: 03/18/19 9:10 Patient Name: VIRA HOLLAND Page [phone] at 1351 All edits/amendments must be made on the electronic document DICTATION DATE: 03/20/19 1351 JUNIOR SYSTEMS ENGINEER: TEGAN 03/20/19 1351 RPT#: [id number] DC DATE:03/18/19 STATUS: DIS IN [facility] [address] [place] [address] END OF REPORT
== END 2019-03-18 09:07 | DRG 981 ==
LOC: D.ER 14:42 → D.MS 18:22
PROVIDERS: Emergency Medicine; Family Medicine; Internal Medicine Nephrology; Radiology Vascular & Interventional Radiology; ADMIT Family Medicine; ATTEND Family Medicine
PROC: 04CM3ZZ Extirpation of Matter from Right Popliteal Artery, Percutaneous Approach (ICD-10-PCS; 2019-03-15)
PROC: 047K3Z1 Dilation of Right Femoral Artery using Drug-Coated Balloon, Percutaneous Approach (ICD-10-PCS; 2019-03-15)
PROC: 047M3Z1 Dilation of Right Popliteal Artery using Drug-Coated Balloon, Percutaneous Approach (ICD-10-PCS; 2019-03-15)
PROC: 047P3Z1 Dilation of Right Anterior Tibial Artery using Drug-Coated Balloon, Percutaneous Approach (ICD-10-PCS; 2019-03-15)
PROC: 047T3Z1 Dilation of Right Peroneal Artery using Drug-Coated Balloon, Percutaneous Approach (ICD-10-PCS; 2019-03-15)
PROC: 04CK3ZZ Extirpation of Matter from Right Femoral Artery, Percutaneous Approach (ICD-10-PCS; principal; 2019-03-15 11:30)
DX: D64.9 Anemia, unspecified (principal); E43 Unspecified severe protein-calorie malnutrition; R53.2 Functional quadriplegia; T83.511A Infection and inflammatory reaction due to indwelling urethral catheter, initial encounter; I48.20 Chronic atrial fibrillation, unspecified; R19.7 Diarrhea, unspecified; B96.89 Other specified bacterial agents as the cause of diseases classified elsewhere; E86.0 Dehydration; E11.65 Type 2 diabetes mellitus with hyperglycemia; I95.9 Hypotension, unspecified; Z79.01 Long term (current) use of anticoagulants; M19.90 Unspecified osteoarthritis, unspecified site; M54.9 Dorsalgia, unspecified; E66.9 Obesity, unspecified; Z68.33 Body mass index [BMI] 33.0-33.9, adult; N40.0 Benign prostatic hyperplasia without lower urinary tract symptoms; R19.5 Other fecal abnormalities; Z89.512 Acquired absence of left leg below knee; E11.51 Type 2 diabetes mellitus with diabetic peripheral angiopathy without gangrene; E11.622 Type 2 diabetes mellitus with other skin ulcer; I83.019 Varicose veins of right lower extremity with ulcer of unspecified site

== ENCOUNTER 2019-04-16 04:16 | Inpatient (IN) | payer MEDICARE ==
[2019-04-16] VITALS (17 sets, daily range): BP systolic 84–100; BP diastolic 42–57
[~2019-04-16] VITALS: Ht 180.3 cm; Wt 117.2 kg
--- NOTE | ~2019-04-16 | CN ---
PATIENT NAME:VIRA HOLLAND MEDICAL RECORD: [id number] : [birth year] LOCATION:[facility].[id number] ADMIT DATE: 04/16/19 ACCOUNT: [id number] CONSULTING PHYSICIAN: CHRIS CRAFT MD REFERRING PHYSICIAN: ROCIO FAITH MD DATE OF CONSULTATION: 04/16/2019 CONSULT REQUESTING PHYSICIAN: Dr. Faith. REASON FOR CONSULTATION: Septic shock, mental status changes. HISTORY OF PRESENT ILLNESS: Mr. Holland is a 68-year-old gentleman who was recently discharged from the hospital. He is living alone. The EMS was called for the severe pain. Now, the patient is very lethargic and confused. The history was taken by talking to the nursing staff as well as to Dr. Faith. On evaluation in the ER, it was found out the patient is hypotensive, leukocytosis and he has a pressure sore and he is in teued-fz-keblxxl renal failure. The patient was admitted to the ICU. Now, he is very lethargic. The patient does respond, but he is confused. REVIEW OF SYSTEMS: As in history of present illness. PAST MEDICAL HISTORY: 1. Diabetes mellitus. 2. Peripheral vascular disease. 3. Arthritis. 4. History of diarrhea. 5. History of urinary tract infection. 6. Chronic back pain. PAST SURGICAL HISTORY: 1. He has appendectomy. 2. Amputation of right toes, left below-knee amputation. 3. Urinary retention status post catheter placement. ALLERGIES: No known drug allergy. MEDICATIONS: On [employer] is reviewed. PERSONAL AND SOCIAL HISTORY: The patient is an ex-smoker. He is a nondrinker. FAMILY HISTORY: Significant for diabetes and hypertension. PHYSICAL EXAMINATION: GENERAL: Now, the patient is lying in bed. He is not in acute distress. VITAL SIGNS: The blood pressure is 92 to 114/51, pulse is 85, respiration is 24, temperature 98.4, and SPO2 is 93% on 4 liters nasal cannula. HEENT: Conjunctivae are pink. Sclerae are not icteric. NECK: Supple, no JVD. CHEST: There are bibasilar crackles. No wheezing. HEART: Rate and rhythm is regular, normal sound, no murmur. ABDOMEN: Soft. Bowel sounds present. No hepatosplenomegaly. RECTAL: Deferred. EXTREMITIES: He has a below-knee amputation. He has amputation of the right toes. He has severe cellulitis bilaterally. He is also having perianal CONSULT REPORT [id number] VIRA HOLLAND cellulitis. CENTRAL NERVOUS SYSTEM: There is no obvious cranial nerve abnormality, but the patient is very weak and lethargic. IMAGING: Chest radiograph, there is a worsening of bilateral lower lobe airspace disease, possible atelectasis, possible pneumonia. LABORATORY DATA: CBC; the WBC 15.4, hemoglobin 8.5, hematocrit 26.4, the platelet count 304. Chemistry; sodium 132, potassium 4.8, BUN is 59, creatinine 1.8, glucose 152. AST is 27, ALT is 18, alkaline phosphatase 229. Troponin is less than 0.017. CK is 52, albumin is 2.6. ABG; the pH is 7.36, pCO2 is 39.5, the pO2 is 64, bicarbonate of 22.3. IMPRESSION: 1. Acute hypoxic respiratory failure. 2. Bilateral pneumonia, most likely hospital-acquired pneumonia with recent hospitalization. 3. Congestive heart failure with chronic systolic dysfunction. 4. Septic shock. 5. Urinary tract infection. 6. Hypotension. 7. Leukocytosis. 8. Acute kidney injury secondary to acute tubular necrosis. 9. Severe grade III pressure sore. 10. Cellulitis of the lower extremity. 11. Ex-smoker, suspect chronic obstructive pulmonary disease. 12. Acute mental status changes most likely secondary to metabolic encephalopathy and sepsis. 13. Hypoalbuminemia. 14. Chronic atrial fibrillation, on Xarelto. 15. Hyponatremia. RECOMMENDATION: 1. Gentle IV fluid resuscitation. 2. Levophed to keep the systolic blood pressure above 90. 3. Start vancomycin, Zosyn and Levaquin to cover for gram-positive as well as gram-negative bacteremia. 4. Central line placement. 5. Albuterol/ipratropium nebulizer. 6. Supplemental oxygen. 7. BiPAP if required. 8. Surgery consult. 9. Wound care consult. Discussed in length with Dr. Faith and nursing staff. Thank you for involving me in the care of Mr. Holland. The critical care time is 55 minutes. TRANSINT:[id number] Voice Confirmation ID: [id number] DOCUMENT ID: [id number] CONSULT REPORT [id number] VIRA HOLLAND MUSHTAQ MD CC: [id number] DICTATION DATE: 04/16/19 1254 CAN SLIDER: 04/16/19 1537 ADM IN [facility] [address] [place] [id number]
[~2019-04-16 04:16] MED LIST changes: +BETAPACE 120 M120 MG PO; +CALMOSEPTINE OI71 GM TOPICAL; +FLORAJEN3 CAPS460 MG PO; +HYDROCODON-ACE1 EA10 PO; +MUCINEX600 MG PO; +PROTONIX40 MG PO; +TESSALON PERLE100 MG PO
[2019-04-16 04:58] LABS: BASOPHILS 0.3 % (0-2); EOSINOPHILS 0.6 % (0-7); HEMATOCRIT 26.4 % (42.0-54.0); HEMOGLOBIN 8.5 g/dL (13.5-17.5); IMMATURE GRANULOCYTES 0.3 % (0-5); LYMPHOCYTES 11.8 % (15-50); MCH 25.3 pg (26.0-34.0); MCHC 32.2 g/dL (31.0-37.0); MCV 78.6 fL (80.0-100.0); MEAN PLATELET VOLUME 8.2 fL (7.4-10.4); MONOCYTES 10.4 % (2-11); NEUTROPHILS 76.6 % (40-80); RBC 3.36 10x6/uL (4.20-6.10); WBC 15.4 10x3/uL (4.8-10.8)
[2019-04-16 05:01] LABS: PLATELET COUNT 304 10x3/uL (130-400)
[2019-04-16 05:07] LABS: INR 1.71 (0.85-1.17); PROTIME 19.9 SECONDS (11.6-15.0)
[2019-04-16 05:08] LABS: APTT 38.4 SECONDS (22.8-39.4)
[2019-04-16 05:20] LABS: CALC OSMOLALITY 284 mosm/kg (275-300); CALCIUM 8.5 mg/dL (8.5-10.1); CARBON DIOXIDE 23.1 mmol/L (21.0-32.0); CHLORIDE - SERUM 99 mmol/L (98-107); CREATININE - SERUM 1.8 mg/dL (0.6-1.3); GLUCOSE 152 mg/dL (74-106); POTASSIUM - SERUM 4.8 mmol/L (3.5-5.1); SODIUM 132 mmol/L (136-145); UREA NITROGEN 59 mg/dL (7-18); eGFR NON AFRICAN AMERICAN 40 mL/min (90-120)
[2019-04-16 05:29] LABS: ALBUMIN 2.6 g/dL (3.4-5.0); ALKALINE PHOSPHATASE 229 U/L (46-116); ALT (SGPT) 18 U/L (10-68); BILIRUBIN - TOTAL 0.94 mg/dL (0.2-1.3); CREATINE KINASE 52 UL (21-232); LIPASE 200 U/L (73-393); PRO BNP 4991 pg/mL (0-125); PROTEIN - SERUM 7.1 g/dL (6.4-8.2); THYROID STIMULATING HORMONE 2.67 uIU/mL (0.36-3.74)
[2019-04-16 05:33] LABS: C-REACTIVE PROTEIN 19.5 mg/dL (0.0-0.9); TROPONIN-I < 0.017 ng/mL (0.000-0.060)
[2019-04-16 05:45] LABS: APPEARANCE CLOUDY (CLEAR); COLOR YELLOW (YELLOW)
[2019-04-16 05:46] LABS: BACTERIA MANY /hpf (NEGATIVE); BILIRUBIN NEGATIVE (NEGATIVE); EPITHELIAL CELLS RARE /hpf (0-5); GLUCOSE NEGATIVE (NEGATIVE); KETONE NEGATIVE (NEGATIVE); NITRITE NEGATIVE (NEGATIVE); PROTEIN 1+ mg/dL (NEGATIVE); RED CELLS - URINE 25-50 /hpf (0-5); UROBILINOGEN NORMAL (NORMAL); WHITE CELLS - URINE >50 /hpf (NEGATIVE)
--- NOTE | 2019-04-16 06:03 | NUR ---
BRITTANIE BOOT REMOVED TO RLE WOUND TO LATERAL LE 3X8CM NOTED STAGE 2. REPORT GIVEN TO LE SUN RN
--- NOTE | 2019-04-16 07:00 | NUR ---
BEDSIDE REPORT RECEIVED. SHIFT ASSESSMENT COMPLETED, ADMISSION ASSESSMENT COMPLETED. NOTIFIED ABOUT HYPOTENSION, NEW ORDERS RECEIVED. UNABLE TO GET ADMISSION HISTORY FROM PT, PT CONFUSED. WILL CONT TO MONITOR.
--- NOTE | 2019-04-16 09:00 | NUR ---
NEW ORDERS RECEIVED FROM . WILL CONT TO MONITOR.
--- NOTE | 2019-04-16 11:00 | NUR ---
REASSESSMENT COMPLETED PER FLOWSHEET, SEE FLOWSHEET FOR INFORMATION. AT BEDSIDE, NO NEW ORDERS RECEIVED. WILL CONT TO MONITOR.
--- NOTE | 2019-04-16 13:00 | NUR ---
PT IN BED RESTING WITH EYES CLOSED. WILL CONT TO MONITOR.
--- NOTE | 2019-04-16 15:00 | NUR ---
RESSESSMENT COMPLETED PER FLOWSHEET, SEE FLOWSHEET FOR INFORMATION. AT BEDSIDE INSERTING CVL. PT TOLERATED WELL. WILL CONT TO MONITOR.
--- NOTE | 2019-04-16 17:00 | NUR ---
CALLED PHARMACY TO GET TRIPLE ABX OINTMENT AT 1620, NO OINTMENT RECEIVED. WILL CONT TO MONITOR.
--- NOTE | 2019-04-16 18:00 | NUR ---
PT REFUSED WOUND CLEANING AND TO LET ME ASSESS CATHETER. PT STATED "LEAVE MY LEGS AND MY PETER ALONE" ASHKAN RAJAN WITNESSED. REPLACED LINEN UNDER PT BECAUSE HE HAD A BM, PT WOULD NOT LET ME DRESS PRESSURE ULCER ON BUTTOCK. PT ALSO REFUSED A NEW GOWN STATING "THATS ONE LESS THING I HAVE TO DEAL WITH" WILL CONT TO MONITOR.
--- NOTE | 2019-04-16 19:00 | NUR ---
PT IS RESTING IN BED WITH EYES CLOSED. VITAL SIGNS ARE STABLE. BED IS LOW, SIDE RAILX2, CALL LIGHT IS WITHIN REACH. WILL CONITNUE TO MONITOR
--- NOTE | 2019-04-16 20:52 | NUR ---
VISITED WITH PT AND INFOMRED HIM THAT I HAVE ORDERS TO OBTAIN WOUND CULTURES FROM HIS BOTTOM, GROIN, AND LEG. I TOLD HIM THIS MEANS I HAVE TO USE A STICK LIKE A COTTON SWAB AND SWAB THE AREAS. HE SHOCK HIS HEAD AND SAID OK. I ASKED IF HE WOULD LIKE ME TO GIVE HIM HIS MORPHINE ORDERED FOR PAIN BEFORE I DO THIS TO HELP PREVENT PAIN. HE VOCALIZED "PLEASE YES". WILL GET MED ORDERED. PT VITALS ARE STABLE AT THIS TIME. BED IS LOW,SIDE RAILSX2,CALL LIGHT WIHTIN REACH. WILL CONITNUE TO MONITOR
--- NOTE | 2019-04-16 21:30 | NUR ---
WENT INTO PATIENT ROOM TO ADMINISTER ANTIBIOTIC OITMENT TO WOUNDS ORDERED. I ALSO NOTICED AT THIS TIME THAT HIS ALANIZ CATHETOR BAG WAS EMPTY. WHEN PULLED BACK PT COVERS, HIS SHEET AND GOWN WAS SATURATED IN URINE ALONG WITH HIS GROIN AREA. I IRRIGATED CATHETOR WITH 3X10ML FLUSHED ONE AT A TIME. AFTER 3RD FLUSH HIS TUBE STARTED DRANING HEAVY SEDAMENT DARK YELLOW URINE. PT DID NOT C/O OF PAIN DURING IRRIGATION. I DABBED GROIN AREA WITH CLEANGIN WIPES DUE TO SEVERE EXCOREATION AND PLACED MOISTURE WICKING DRESSING BETWEEN GROIN AND SCROTOM BILAT. PT TOLERATED THIS WELL. I ALSO ROLLED PT AND REPLACED CHUCKS PAD UNDERNEATH PT. I TOO PROPPED RIGHT LEG ONTO TWO PILLOWS AND ELEVATED THE RIGHT HEAL OFF THE BED. PT TOLERATED ALL OF THIS WELL DUE TO GIVING HIM PAIN MEDICATION BEFORE HAND. VITALS ARE STABLE AT THIS TIME. BED IS LOW,SIDE RAILSX2,CALL LIGHT WIHTIN REACH. WILL CONTINUE TO MONITOR
--- NOTE | 2019-04-16 22:32 | NUR ---
PT IS RESTING IN BED WITH EYES CLOSED. VITAL SIGNS ARE STBALE. BED IS LOW,SIDE RAILSX2,CALL LIGHT WIHTIN REACH.WILL CONTINUE TO MONITOR
[2019-04-17] VITALS (23 sets, daily range): BP systolic 88–111; BP diastolic 49–70
--- NOTE | 2019-04-17 00:39 | NUR ---
PT IS RESTING IN BED WITH EYES CLOSED. VITAL SIGNS ARE STABLE. BED IS LOW,SIDE RAILSX2,CALL LIGHT WITHIN REACH. WILL CONITNUE TO MONITOR
--- NOTE | 2019-04-17 02:30 | NUR ---
WHILE CHECKING ON PT, PT IS AWAKE AND ASK IF HE CAN HAVE A "SPRIT". I VOCALIZED YES I WILL GET YOU ONE. AT THIS TIME I ALSO REPLACED MOISTURE WICKING DRESSING BETWEEN PT GROIN AND LEGS BILAT. PT TOLERATED WELL. ALANIZ CATHETOR SHOW NO S/S OF LEAKING AROUND THE MEATUS AND IS DRAINING FINE. I ALSO ASKED IF I COULD PROP HIS RIGHT LEG DIFFERENTLY, HE VOCALIZED "YES". WHEN TRYING TO REPOSTION HE YELLED OUT IN PAIN "NO NO NO, STOP THAT". I STOPED. I ASKED IF I GAVE HIM SOME PAIN MEDICINE AND LET IT HAVE SOME TIME TO WORK IF I COULD TRY AGAIN. HE VOCALIZED "YES". WILL GIVE PAIN MEDICATION ORDERED FOR PAIN PRN. CHECK MAR. BED IS LOW, SIDE RAILSX2, CALL LIGHT WITHIN REACH. WILL CONITNUE TO MONITOR
--- NOTE | 2019-04-17 03:23 | NUR ---
RESUMED TO SEE IF PT WAS READY TO ALLOW ME TO REPOSITION HIS RIGHT LEG. HE VOCALIZED "YES". I USED A WEDGE PILLOW TO BRACE RIGHT OUTER KNEE AND UPPER LEG TO HOLD LEG UP STRAIGHT, BC HIS LEG NATURALLY FALLS TO THE LATER PART. THIS IS WHERE HIS 3X8CM PRESSURE ULCER IS. I THEN PROPPED HIS FOOT UP WITH A ROLLED BLANKET ON THE LATERAL PARK OF THE RIGHT FOOT. HIS LEG HAS A PILLOW UNDERNEATH IT ALLOWING THE RIGHT HEAL TO BE ELEVATED OFF THE BED. THIS POSITION HAS ALLOWED FOR HIS RIGHT LATERAL LEG TO BE FREE OF TOUCHING THE BED. PT TOLERATED WELL AND VOCALIZED"IT WASNT BAD, THANK YOU FOR TAKING SO MUCH CARE OF ME, YOU HAVE DONE SUCH A BETTER JOB THAN EARLY TODAYS SHIFT, I APPRECIATE YOU". I VOCALIZED I WAS HAPPY TO HELP HIM GET BETTER AND I AM GLAD ID DID NOT HURT SO BADLY AND THAT THIS WILL HELP HIS LEG HEAL. PT ALSO VOCALIZED AT THIS TIME IF HE COULD HAVE SOME ICE. I PROVIDED HIM WITH A CUP OF ICE. NO OTHER NEEDS AT THIS TIME. VITAL ARE STABLE. BED IS LOW,SIDE RAILSX2, CALL LIGHT WIHTIN REACH. WILL CONTINUE TO MONITOR
[2019-04-17 05:15] LABS: BASOPHILS 0.2 % (0-2); EOSINOPHILS 0.7 % (0-7); HEMATOCRIT 25.5 % (42.0-54.0); IMMATURE GRANULOCYTES 0.2 % (0-5); LYMPHOCYTES 9.5 % (15-50); MCH 24.6 pg (26.0-34.0); MCHC 31.4 g/dL (31.0-37.0); MCV 78.5 fL (80.0-100.0); MEAN PLATELET VOLUME 7.9 fL (7.4-10.4); MONOCYTES 9.2 % (2-11); NEUTROPHILS 80.2 % (40-80); PLATELET COUNT 244 10x3/uL (130-400); RBC 3.25 10x6/uL (4.20-6.10); WBC 10.8 10x3/uL (4.8-10.8)
[2019-04-17 05:25] LABS: ALBUMIN 2.3 g/dL (3.4-5.0); BILIRUBIN - TOTAL 0.87 mg/dL (0.2-1.3); CALCIUM 8.2 mg/dL (8.5-10.1); CARBON DIOXIDE 24.4 mmol/L (21.0-32.0); CREATININE - SERUM 1.6 mg/dL (0.6-1.3); PROTEIN - SERUM 6.5 g/dL (6.4-8.2)
--- NOTE | 2019-04-17 05:25 | NUR ---
NOTICED THAT PT HR IS A.FIB WITH RVR. NOTIFIED AT THIS TIME. HE VOCALIZED TO GIVE SOTALOL 80MG PO AT THIS TIME AND IF NOT CONVERTED IN 30 MINUTES TO CALL BACK.
[2019-04-17 05:35] LABS: ANION GAP 11.6 mmol/L (8-16)
--- NOTE | 2019-04-17 05:37 | NUR ---
CALLED MECHANIC AND WELDER TO INFORM HER THAT WE DO NOT HAVE SOTALOL IN OUR PIKSIS ORDERED NOW BY DR.SKETAS Main. SHE VOCALIZED SHE WOULD HAVE TO SEE WHAT PIKSIS IT IS IN AND BRING IT TO ME
--- NOTE | 2019-04-17 05:48 | NUR ---
CHEMIST BIOLOGICAL BROUGHT SOTALOL AT THIS TIME
--- NOTE | 2019-04-17 06:22 | NUR ---
CALLED BACK AT THIS TIME ORDERED. PT IS STILL IN A.FIB C RVR AND SYMPTOMATIC STATING "I FEEL LIKE I CANT BREATH". OXYGEN SATUTAION IS 96% ON 6L HIGH FLOW. T.O. TO GIVE 10MG OF CARDIAZEM AND TITRATE NEEDED. T.O. READ BACK CORRECT. WILL START THIS NO ORDERED.
--- NOTE | 2019-04-17 06:50 | NUR ---
ASKED PT HOW HE IS FEELING, VOCALIZES "IM FEELING BETTER". HR IS AT 115 A.FIB WITH RVR STILL. BP IS 109/63. CARDIAZEM DRIP IS GOING AT 10MG/H AT THIS TIME. WILLCONTINUE TO MONITOR. NO OTHER DISCOMFORTS VOICED AT THIS TIME. BED IS LOW,SIDE RAILSX2, CALL LIGHT WIHTIN REACH.
--- NOTE | 2019-04-17 08:10 | NUR ---
PT REFUSED BREAKFAST STATING HE WAS NOT HUNGRY AND THAT HE ONLY WANTED SPRITE AND WATER. WILL CONTINUE TO ALSO OFFER DIET. VSS. WILL CONTINUE PLAN OF CARE.
--- NOTE | 2019-04-17 08:20 | NUR ---
PT USED CALL LIGHT STATING HE FELT LIKE HE WAS HAVING TROUBLE BREATHING. OXYGEN SATURATION NOTED 93-96% ON 6L VIA HIGH FLOW NC. HEART RATE TRENDING 104-121 AFIB. PT PALE IN COLOR TO FACE. DR FAITH ON UNIT ROUNDING ON PT. ORDERS RECIEVED. WILL CONTINUE TO CLOSELY OBSERVE.
[2019-04-17 09:10] LABS: CKMB 0.7 U/L (0.0-3.6); CREATINE KINASE 74 UL (21-232); TROPONIN-I < 0.017 ng/mL (0.000-0.060)
--- NOTE | 2019-04-17 10:10 | NUR ---
WILL ADMIN DIGOXIN WHEN RECIEVE CLARIFICATION FROM CORN DETASSELER MACHINE OPERATOR.
--- NOTE | 2019-04-17 10:39 | NUR ---
PT COMPLAINT OF FEELING BURNING AT URINARY CATHETER SITE. ALANIZ FLUSHED USING SALINE ALSO NOTED THERE IS NO LEAKING OF URINE AT CATHETER SITE. ALANIZ CARE PROVIDED. DR FAITH NOTIFIED OF THIS, ORDERS RECIEVED. VSS. WILL CONTINUE PLAN OF CARE.
--- NOTE | 2019-04-17 12:26 | NUR ---
UP IN BED AWAKE AT THIS TIME. VSS. NO ACUTE DISTRESS NOTED. WILL CONTINUE PLAN OF CARE.
--- NOTE | 2019-04-17 14:03 | NUR ---
PT C/O FEELING ANXIOUS STATING HE TAKES XANAX AT HOME AND REQUESTS THAT TO BE RESTARTED. DR FAITH NOTIFIED. ORDERS RECEIVED.
--- NOTE | 2019-04-17 16:26 | NUR ---
PT COMPLAINT OF DISCOMFORT AT THIS TIME STATING HE WANTED TO HEAD OF BED ELEVATED. ATTEMPTED TO TURN PT, HE REFUSED STATING HE DID NOT WANT US TO TURN HIM AT ALL. PT ALSO REFUSED [facility] BATH STATED "I DO NOT WANT TO BE MESSED WITH." WILL CONTINUE TO OFFER PT TO BE CLEANED UP AND REPOSITIONINGS. WILL CONTINUE PLAN OF CARE.
[2019-04-17 17:08] LABS: ANION GAP 13.1 mmol/L (8-16); CALCIUM 8.1 mg/dL (8.5-10.1); CARBON DIOXIDE 23.6 mmol/L (21.0-32.0); CREATININE - SERUM 1.7 mg/dL (0.6-1.3); POTASSIUM - SERUM 3.7 mmol/L (3.5-5.1)
--- NOTE | 2019-04-17 18:47 | NUR ---
NO ACUTE DISTRESS NOTED. PT REFUSED REPOSITIONING AND BATH. VSS. CALL LIGHT IN REACH. WILL CONTINUE PLAN OF CARE.
[2019-04-18] VITALS (17 sets, daily range): BP systolic 91–124; BP diastolic 53–73; BMI 35.4
[2019-04-18 05:56] LABS: % SATURATION 7 % (15-55); IRON 12 ug/dl (35-150); TOTAL IRON BIND CAPACITY 160 ug/dl (260-445); UNSAT IRON BIND CAPACITY 148 ug/dl (150-375)
[2019-04-18 06:12] LABS: BASOPHILS 0.3 % (0-2); EOSINOPHILS 2.1 % (0-7); HEMATOCRIT 22.7 % (42.0-54.0); IMMATURE GRANULOCYTES 0.3 % (0-5); LYMPHOCYTES 17.5 % (15-50); MCH 24.8 pg (26.0-34.0); MCHC 32.2 g/dL (31.0-37.0); MCV 77.2 fL (80.0-100.0); MEAN PLATELET VOLUME 8.2 fL (7.4-10.4); MONOCYTES 11.3 % (2-11); NEUTROPHILS 68.5 % (40-80); PLATELET COUNT 279 10x3/uL (130-400); RBC 2.94 10x6/uL (4.20-6.10); RDW 14.1 % (11.5-14.5); WBC 9.2 10x3/uL (4.8-10.8)
[2019-04-18 06:15] LABS: ALBUMIN 2.4 g/dL (3.4-5.0); ANION GAP 13.6 mmol/L (8-16); BILIRUBIN - TOTAL 0.63 mg/dL (0.2-1.3); CALCIUM 8.1 mg/dL (8.5-10.1); CARBON DIOXIDE 23.9 mmol/L (21.0-32.0); CREATININE - SERUM 1.8 mg/dL (0.6-1.3); POTASSIUM - SERUM 3.5 mmol/L (3.5-5.1); PROTEIN - SERUM 6.4 g/dL (6.4-8.2)
[2019-04-18 06:18] LABS: HEMOGLOBIN 7.3 g/dL (13.5-17.5)
--- NOTE | 2019-04-18 07:00 | NUR ---
PT RESTING IN BED, VSS AND WNL. BED ALARM ON. DENIES ANY NEEDS AT THIS TIME, PT ANSWERS ALL QUESTIONS AT THIS TIME, WILL CONT TO FOLLOW POC
--- NOTE | 2019-04-18 09:00 | NUR ---
PT RESTING IN BED, VSS AND WNL. BED ALARM ON. PT ANSWERS ALL QUESTIONS. CALL LIGHT WITHIN REACH. DENIES ANY NEEDS AT THIS TIME, WILL CONT TO FOLLOW POC
--- NOTE | 2019-04-18 10:11 | NUR ---
HERE AND GAVE ORDER TO CHANGE CARDIZEM GTT TO 5ML/HR. PER , PT CAN TRANSFER TO FLOOR. WILL NOTIFY PRIMARY
--- NOTE | 2019-04-18 12:00 | NUR ---
PT RESTING IN BED, VSS AND WNL. BED ALARM ON. CALL LIGHT WITHIN REACH. PT REPOSITIONED. DENIES ANY NEEDS AT THIS TIME, WILL CONT TO FOLLOW POC
--- NOTE | 2019-04-18 12:18 | CN ---
PATIENT NAME:VIRA HOLLAND MEDICAL RECORD: [id number] : 54 LOCATION:[id number] ADMIT DATE: 04/16/19 ACCOUNT: [id number] CONSULTING PHYSICIAN: ROCIO GUERRERO MD REFERRING PHYSICIAN: ROCIO FAITH MD DATE OF CONSULTATION: 04/17/2019 HISTORY OF PRESENT ILLNESS: A 68-year-old gentleman with a history of cardiomyopathy, most recent EF 40%. She has a history of chronic atrial fibrillation, diabetes, status post left BKA with chronic Smith, admitted with probable urosepsis, noted to be in atrial fibrillation with rates quite elevated, started on Cardizem drip. Her rates are improving with hydration and improvement in other sepsis parameters, we were asked to see him with regard to his cardiovascular status. PAST MEDICAL HISTORY: Includes, 1. History of hypertension. 2. Peripheral vascular disease. 3. Cardiomyopathy, last EF 40%. 4. Diabetes mellitus. 5. Gastroesophageal reflux disease. 6. Urinary retention with chronic indwelling Smith. ALLERGIES: None known. MEDICATIONS: Upon admission here include Xarelto 15 mg p.o. every day, sotalol 120 b.i.d., Xanax 0.5 every day, [place] 10/325 q. 4 hours p.r.n., Toradol 50 mg p.o. q. 6 hours p.r.n., Protonix 40 mg every day, insulin per scale. PHYSICAL EXAMINATION: GENERAL: Currently somewhat somnolent, in no acute distress, appears stated age. VITAL SIGNS: Blood pressure 109/63, pulse 115 and irregular. HEENT: Normocephalic, atraumatic. NECK: No bruits are noted. HEART: Irregular, somewhat tachycardic. LUNGS: Prolonged expiratory phase with expiratory wheezes. ABDOMEN: Soft, nontender. EXTREMITIES: Well-healing scar on the left. IMPRESSION: Atrial fibrillation with rapid ventricular response, related to sepsis and current underlying illness. currently on diltiazem drip. We will add digoxin 1 dose IV as well. Check echocardiographic studies to make sure LV function does not worsen. Further recommendations based on above. TRANSINT:[id number] Voice Confirmation ID: [id number] DOCUMENT ID: [id number] CONSULT REPORT [id number] VIRA HOLLAND ROCIO GUERRERO MD at 1218 CC: [id number] DICTATION DATE: 04/17/19 1118 SUPERVISOR MACHINE SETTER: 04/17/19 2139 ADM IN [place] [address] [place] [address]
--- NOTE | 2019-04-18 12:18 | EC ---
PATIENT:VIRA HOLLAND DATE OF SERVICE: 04/16/19 SEX: M MEDICAL RECORD: [id number] DATE OF : 54 LOCATION:[facility] AGE OF PATIENT: 68 ADMISSION DATE: 04/16/19 REFERRING PHYSICIAN: INTERPRETING PHYSICIAN: ROCIO GUERRERO MD ECHOCARDIOGRAM REPORT ECHO CHARGES 5 ECHO LIMITED Date: 04/16/19 CLINICAL DIAGNOSIS: AFIB ECHOCARDIOGRAPHIC MEASUREMENTS (adult normal given) AC root (d.<3.7cm) 0 cm LV Septum d (<1.2 cm> 0 cm Valve Excursion 0 cm LV Septum (systole) 0 cm Left Atria (s.<4.0cm> 0 cm LVPW d(<1.2cm) 0 cm RV (d.<2.3cm) 0 cm LVPW (sytole) 0 cm LV diastole(<5.6CM) 0 cm MV E-F(>70mm/sec) 0 cm LV systole 0 cm LVOT Diameter 0 cm MV exc.(>10mm) 0 cm Est.ejection fraction (50-75%) % DOPPLER: LVIT cm/sec A 0 cm/sec E 0 cm/sec LA 0 cm/sec RVSP 31.7 mmHg LVOT 0 cm/sec AOP1/2T m/s Asc. Ao 0 cm/sec RVOT 0 cm/sec RA 0 cm/sec PA 0 cm/sec AV Gradient Peak 0 mmHg AV Mean 0 mmHg AV Area 0 cm MV Gradient Peak 0 mmHg MV Mean 0 mmHg MV Area cm COMMENTS: Artificial Stone Applicator: James ZAIDA RICCO Bi Application Developer: 3 Dr. Garcia TAPE# PACS Pericardial Effusion N DATE OF SERVICE: Technically limited study includes 2D and color flow Grossly LVH appears present. LV internal dimension is normal. LV mildly globally hypo with EF appears preserved, although mildly reduced at 45% to 50%. Aortic valve is tricuspid. No evidence of stenosis by Doppler interrogation. Left atrium appears mildly dilated. Mitral valve shows no more than trace MR. Right-sided chamber grossly normal. Mild TR. ECHOCARDIOGRAM REPORT [id number] VIRA HOLLAND TRANSINT:[id number] Voice Confirmation ID: [id number] DOCUMENT ID: [id number] ROCIO GUERRERO MD at 1218 CC: [id number] DICTATION DATE: 04/17/19 1140 AUDIOVISUAL AIDS TECHNICIAN: 04/17/19 2323 ADM IN [facility] [address] [id number]
--- NOTE | 2019-04-18 13:08 | NUR ---
Pt has numerous skin issues. 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 He has a left BKA and all toes on right foot have been amputated. Right and left buttocks and coccyx have numerous stage 2 pressure injuries. On the right posterior upper thigh the skin is red and excoriated. Perineal area is red and excoriated as is groin. Right lower leg is red, macerated and has open wounds. This area has a large serous drainage. Current treatment to right leg wounds includes daily cleansing with wound fur dry cleaner hand, patting dry, covering open areas with Adaptic, 4x4s and wrapping with kerlix. Pt uses zinc oxide paste on buttocks, coccyx, perineal area and groin. Wound care recommendations include: -Turning/repositioning every 2 hours -Elevating right leg on pillows with heel bridged. Wound care will continue monitoring.
--- NOTE | 2019-04-18 13:22 | NUR ---
HERE AND TOLD NURSE TO SWITCH PT FROM CARDIZEM GTT TO PO AND PT CAN TRANSFER TO CARDIAC BED ON MED 2.
--- NOTE | 2019-04-18 13:23 | NUR ---
PT RESTING IN BED, VSS AND WNL. BED ALARM ON. PT ANSWERS ALL QUESTIONS. ALANIZ CATHETER NOTED WITH STAT LOCK IN PLACE. DENIES ANY NEEDS AT THIS TIME, WILL CONT TO FOLLOW POC
--- NOTE | 2019-04-18 13:51 | NUR ---
BLOOD CONSENT OBTAINED FROM PT WITH SECOND NURSE WITNESS. 1 UNIT PRBC STARTED. WILL CONT TO FOLLOW POC
--- NOTE | 2019-04-18 15:20 | NUR ---
PT RESTING IN BED, VSS AND WNL. BED ALARM ON. PT ANSWERS ALL QUESTIONS. ALANIZ CATH IN PLACE AND DRAINING. DENIES ANY NEEDS AT THIS TIME, CALL LIGHT WITHIN REACH. WILL CONT TO FOLLOW POC
--- NOTE | 2019-04-18 16:58 | NUR ---
1 UNIT OF PRBC FINISHED INFUSING. VSS. HERE AND SPOKE WITH PT ABOUT PLACING A SUPRA PUBIC CATHETER. PT AGREED. WILL OBTAIN CONSENT. DENIES ANY NEEDS AT THIS TIME, WILL CONT TO FOLLOW POC
--- NOTE | 2019-04-18 18:48 | NUR ---
CONSENTS FOR SUPRAPUBIC CATHETER SIGNED WITH SECOND NURSE WITNESS. ALL QUESTIONS ANSWERED. WILL CONT TO FOLLOW POC
[2019-04-19] VITALS (7 sets, daily range): BP systolic 96–135; BP diastolic 60–80
[2019-04-19 07:13] LABS: BASOPHILS 0.5 % (0-2); EOSINOPHILS 3.4 % (0-7); HEMATOCRIT 26.1 % (42.0-54.0); HEMOGLOBIN 8.3 g/dL (13.5-17.5); IMMATURE GRANULOCYTES 0.8 % (0-5); LYMPHOCYTES 18.4 % (15-50); MCH 24.7 pg (26.0-34.0); MCHC 31.8 g/dL (31.0-37.0); MCV 77.7 fL (80.0-100.0); MEAN PLATELET VOLUME 8.2 fL (7.4-10.4); MONOCYTES 12.9 % (2-11); PLATELET COUNT 292 10x3/uL (130-400); RBC 3.36 10x6/uL (4.20-6.10); RDW 14.2 % (11.5-14.5); WBC 8.4 10x3/uL (4.8-10.8)
[2019-04-19 07:51] LABS: ALBUMIN 2.6 g/dL (3.4-5.0); ANION GAP 12.9 mmol/L (8-16); BILIRUBIN - TOTAL 0.74 mg/dL (0.2-1.3); CARBON DIOXIDE 25.3 mmol/L (21.0-32.0); CREATININE - SERUM 1.8 mg/dL (0.6-1.3); POTASSIUM - SERUM 3.2 mmol/L (3.5-5.1); PROTEIN - SERUM 6.6 g/dL (6.4-8.2)
--- NOTE | 2019-04-19 08:50 | NUR ---
PATIENTS BACKSIDE BUTTOCKS AND UPPERBACK SIGNIFICANTLY BROKEDOWN, RED AND CRUSTY, FLAKEY, OOZING AREAS, DR DRAKE NOTIFIED OF THIS, ALSO FRONT BILATERAL GROIN AREAS BROWN FLAKEY AREAS THAT PEELED OFF UPON CLEANING PATIENT, ALSO NOTED SEVERE BREAKDOWN LEFT BUTTOCK, JAVIER.
--- NOTE | 2019-04-19 09:53 | OP ---
PATIENT NAME: VIRA HOLLAND MEDICAL RECORD: [id number] :54 LOCATION:D. D.2123 ADMISSION DATE:04/16/19 SURGEON: JOY DRAKE MD DATE OF OPERATION: 04/19/2019 SURGEON: Joy Drake MD ANESTHESIA: TIVA by Naomi Webb CRNA DIAGNOSES: Chronic urinary retention, urinary tract infection, urethral erosion. PROCEDURES: Cystoscopy, suprapubic catheter insertion 16-Sao Tomean. FINDINGS: The buttocks, sacral region and perineum are contaminated with feces. His old Smith catheter is encased in feces. There is skin breakdown on the buttocks and the sacrum. There is urethral erosion to the mid urethra. On cystoscopy, the prostate is mildly obstructive. He has single ureteral orifices bilaterally. There are no bladder tumors seen. PROCEDURE: Cystoscopy, suprapubic catheter insertion, 16-Sao Tomean. BLOOD LOSS: None. CLINICAL HISTORY: This is a 68-year-old male with diabetes mellitus and severe cardiovascular disease. He has had bilateral leg amputations, he has had below the knee amputations. He is admitted for urosepsis. Urine is growing Gram-negative rods. He has been in chronic urinary retention since 3 years ago. He was seen by Dr. Marciano Bhakta at [facility]. Dr. Bhakta has been treating him with an indwelling Smith catheter, which is changed monthly by home care nurses. The indwelling catheter has eroded his urethra to the mid urethral level. I discussed the situation with the patient. He comes now to have a suprapubic tube inserted so that the least we can stop further erosion of the urethra. He is already on IV antibiotics on the floor. He was not given any further antibiotics here in the OR. DESCRIPTION OF PROCEDURE: The patient was transferred to the OR table. He was placed into lithotomy position. He was given IV sedation. The skin was in horrible shape. He was cleaned up as best as we could. However, the skin will slough off easily due to inflammation and excoriation. A 17-Sao Tomean cystoscope with 30-degree lens was used for visualization. The prostate is not obstructive. His bladder was entered into. The bladder was distended using normal saline. By palpating on the suprapubic region, I could see with cystoscopy where the anterior bladder wall was going to be targeted. At this point, the skin overlying this point was infiltrated with 1% lidocaine with epinephrine. A stab incision was made using a #11 blade. The trocar and sheath for the suprapubic catheter insertion kit was then inserted. Under direct visualization, we could see the trocar enter into the anterior wall of the bladder. The trocar was then removed, leaving the sheath in place. Through the sheath, we inserted a 16-Sao Tomean catheter. When the catheter was visibly within the bladder, the Smith balloon was inflated. The trocar sheath was then peeled away and removed entirely. We will place a StatLock on the abdomen where the skin is still intact. The patient was then brought back to the recovery room. TRANSINT:[id number] Voice Confirmation ID: [id number] DOCUMENT ID: [id number] OPERATIVE REPORT [id number] VIRA HOLLAND, JOY Larsen MD at 0953 CC: [id number] DICTATION DATE: 04/19/19928 VEGETABLE VENDOR: 04/19/19 0944 ADM IN [facility] [address] [id number]
--- NOTE | 2019-04-19 14:05 | OP ---
PATIENT NAME: VIRA HOLLAND MEDICAL RECORD: [id number] :54 LOCATION:D.M2 D.2123 ADMISSION DATE:04/16/19 SURGEON: RAVINDRA COLON MD DATE OF OPERATION: 04/16/2019 PREOPERATIVE DIAGNOSES: 1. Need for IV access. 2. Sepsis. 3. Sacral decubitus. 4. Peripheral vascular disease, status post bilateral lower extremity amputations. 5. Diabetes mellitus. 6. Congestive heart failure, undifferentiated. 7. Chronic renal insufficiency. POSTOPERATIVE DIAGNOSES: 1. Need for IV access. 2. Sepsis. 3. Sacral decubitus. 4. Peripheral vascular disease, status post bilateral lower extremity amputations. 5. Diabetes mellitus. 6. Congestive heart failure, undifferentiated. 7. Chronic renal insufficiency. PROCEDURE: Right subclavian vein triple-lumen central venous line placement. SURGEON: Ravindra Colon MD REPORT OF PROCEDURE: The patient's right chest was prepped and draped in sterile fashion. A 5 mL of 1% lidocaine was infused into the subcutaneous tissues. A needle was used to cannulate the right subclavian vein. A guidewire was advanced with ease. Over this wire, a dilator was placed followed by the triple lumen catheter. The catheter aspirated nonpulsatile dark blood and flushed easily in all 3 ports. This was sutured into place with 3-0 silk ties and dressed appropriately. COMPLICATIONS: None. CONDITION: Stable. ANESTHESIA: Local. BLOOD LOSS: Minimal. Procedure done in the ICU at the bedside. TRANSINT:[id number] Voice Confirmation ID: [id number] DOCUMENT ID: [id number] OPERATIVE REPORT [id number] JORGEYISELSUSANVIRARAVINDRA GRAHAM MD at 1405 CC: [id number] DICTATION DATE: 04/16/19 1544 STEEL TIER: 04/16/19 1811 ADM IN [address] [place] [address] [place] [address]
--- NOTE | 2019-04-19 18:36 | NUR ---
WITHOUT CHANGES OR DISTRESS NOTED AT THIS TIME.
--- NOTE | 2019-04-19 21:26 | NUR ---
HS MEDS GIVEN WITH FRESH ICE WATER. DRSG TO RIGHT LEG CHANGED USING DANKINS W/D. CLEANSED WOUNDS ON BUTTOCKS, PT DID NOT WANT DANKINS APPLIED TO BUTTOM, STATED THAT IT WOULD STING TOO BAD. LINENS CHANGED, REPOSITIONED IN BED FOR COMFORT, BED LOW, CL IN REACH.
[2019-04-20 01:05] VITALS: BP 105/63
--- NOTE | 2019-04-20 04:36 | NUR ---
RERTING WITH EYES CLOSED, RESPERATIONS EVEN, NO S/S DISTRESS NOTED.
[2019-04-20 04:45] VITALS: BP 105/61
[2019-04-20 06:05] LABS: BASOPHILS 0.4 % (0-2); EOSINOPHILS 4.1 % (0-7); HEMATOCRIT 25.9 % (42.0-54.0); HEMOGLOBIN 8.2 g/dL (13.5-17.5); IMMATURE GRANULOCYTES 1.2 % (0-5); MCH 24.7 pg (26.0-34.0); MCHC 31.7 g/dL (31.0-37.0); MEAN PLATELET VOLUME 8.3 fL (7.4-10.4); NEUTROPHILS 57.3 % (40-80); PLATELET COUNT 273 10x3/uL (130-400); RBC 3.32 10x6/uL (4.20-6.10); RDW 14.2 % (11.5-14.5); WBC 7.2 10x3/uL (4.8-10.8)
[2019-04-20 06:50] LABS: ALBUMIN 2.7 g/dL (3.4-5.0); ANION GAP 12.4 mmol/L (8-16); BILIRUBIN - TOTAL 0.66 mg/dL (0.2-1.3); CARBON DIOXIDE 25.6 mmol/L (21.0-32.0); CREATININE - SERUM 1.5 mg/dL (0.6-1.3); PROTEIN - SERUM 6.6 g/dL (6.4-8.2)
--- NOTE | 2019-04-20 09:52 | MORECARE ---
CASE MANAGEMENT DISCHARGE SUMMARY PATIENT: VIRA HOLLAND UNIT: [id number] ADM DATE: 04/16/19 AGE: 68 : 52 SEX: M ROOM/BED: D.211 AUTHOR: JORDAN,DOC PHYSICIAN: REFERRING PHYSICIAN: ROCIO FAITH MD DATE OF SERVICE: 04/20/19 Discharge Plan Patient Name: VIRA HOLLAND Facility: [facility]:[place] : 1950 Planned Disposition: Home with Home Health Anticipated Discharge Date: Discharge Date: Expected LOS: Initial Reviewer: [email or web address] Initial Review Date: 04/20/2019 Generated: 04/20/19 10:51 am DCPIA - Discharge Planning Initial Assessment Updated by RADHA: Arley Lund on 04/20/19 9:48 am * Is the patient Alert and Oriented? Yes * How many steps to enter\exit or inside your home? RAMP * PCP DR. GOMEZ * Pharmacy [facility] * Preadmission Environment Home Alone * ADLs Independent * Equipment Bedside [facility] Bed Power Chair or Electric Scooter Trapeze Wheelchair * Other Equipment NO MEDICAL EQUIPMENT PROVIDER PREFERENCE * List name and contact numbers for known caregivers / representatives who currently or will assist patient after discharge: JOCELINE HOLLAND, SISTER, * Verbal permission to speak to the caregivers and representatives has been obtained from the patient. N/A * Community resources currently utilized Home Health * Please name any agencies selected above. [facility] REPORTS HAVING WOUND CARE SCHEDULED OUTPATIENT AT [facility]. * Additional services required to return to the preadmission environment? No * Can the patient safely return to the preadmission environment? Yes * Has this patient been hospitalized within the prior 30 days at any hospital? Yes Coverage Notice Reviewer: [email or web address] Lund Notice Issued Date-Time: 04/20/2019 9:00 Notice Type: IM Discharge Notice Notice Delivered To: Patient Relationship to Patient: Barrel Painter Name: Delivery Method: HAND - Hand Delivered Dee Days: Prior Verbal Notification: Recipient Understood Notice: Yes Recipient Signature: Yes Med Rec Note Co-signed by Attending: Coverage Notice Comment: Reviewer: RADHA Lund Notice Issued Date-Time: 04/20/2019 9:00 Notice Type: Patient Choice Letter Notice Delivered To: Patient Relationship to Patient: Barrel Painter Name: Delivery Method: HAND - Hand Delivered Dee Days: Prior Verbal Notification: Recipient Understood Notice: Yes Recipient Signature: Yes Med Rec Note Co-signed by Attending: Coverage Notice Comment: [facility] REFUSES SENIOR CARE / [facility] FACILITY Patient Name: VIRA HOLLAND Page [phone] at 0952 All edits/amendments must be made on the electronic document DICTATION DATE: 04/20/19950 SKIVER SOCK LININGS: TEGAN 04/20/19950 RPT#: [id number] DC DATE: STATUS: ADM IN [facility] [address] [place] [address] END OF REPORT
--- NOTE | 2019-04-20 10:05 | MORECARE ---
CASE MANAGEMENT DISCHARGE SUMMARY PATIENT: VIRA HOLLAND UNIT: [id number] ADM DATE: 04/16/19 AGE: 68 : 52 SEX: M ROOM/BED: D.2111 AUTHOR: JORDAN,DOC PHYSICIAN: REFERRING PHYSICIAN: ROCIO FAITH MD DATE OF SERVICE: 04/20/19 Discharge Plan Patient Name: VIRA HOLLAND Facility: [facility]:[place] : 1950 Planned Disposition: Home with Home Health Anticipated Discharge Date: Discharge Date: Expected LOS: Initial Reviewer: [email or web address] Initial Review Date: 04/20/2019 Generated: 04/20/19 11:04 am Comments DCP- Discharge Planning Updated by [email or web address]: Arley Lund on 04/20/19 8:[address] Patient Name: VIRA HOLLAND Admission Status: ER Accout number: [id number] Admission Date: 04-16-2019 : 1950 Admission Diagnosis:SEPSIS, UNSPECIFIED ORGANISM Attending: IRINEO Current LOS: 4 Anticipated DC Date: Planned Disposition: Home with Home Health Primary Insurance: MEDICARE A & B PLANNED EXTERNAL PROVIDER: [facility] Discharge Planning Comments: CM RECEIVED NOTICE IN MULTIDICIPLINARY TEAM MEETING 04-19-19 THAT PT NEEDS PLACEMENT. CM MET WITH PT IN ROOM TO DISCUSS DISCHARGE PLANNING AND NEEDS. PT REPORTS LIVING AT HOME INDEPENDENTLY AND ALONE; PT REPORTS HIS SISTER LIVES [place]OSS [place] [address] FROM HIS HOME AND HE HAS HELP AT HOME ANY TIME HE NEEDS IT. PT HAS HOSPOITAL BED WITH TRAPEZE, BEDSIDE COMMODE, WALKER, ELECTRIC AND STANDARD WHEELCHAIR. PT HAS NO MEDICAL EQUIPMENT PROVIDER PREFERENCE. PT HAS HOME HEALTH FOR NURSING AND PHYSICAL THERAPY FROM [facility] AND ALSO IS SCHEDULED FOR OUTPATIENT WOUND CARE AT THE [facility] IN [place] ON [address]. CM DISCUSSED DOCTORS OPINION THAT PT IS UNABLE TO CARE FOR HIMSELF AT HOME ALONE AND NEEDS PLACEMENT. PT FEELS HE CAN CONTINUE TO CARE FOR HIMSELF AND CALL HIS SISTER IF ANY NEEDS [place]. PT FEELS THIS IS SAFE AND REFUSED ANY SNF PLACEMENT. CM DISCUSSED POSSIBLE REHAB. PT STATES HE RECENTLY GOT OUT OF [facility] AND IF HE EVER GOES ANYWHERE, IT WILL BE [facility] BUT HE IS NOT GOING ANYWHERE BUT HOME WHEN HE LEAVES THE HOSPITAL. CM DISCUSSED AVAILABILITY OF HOME HEALTH, REHAB SERVICES AND MEDICAL EQUIPMENT. PT DENIES DISCHARGE NEEDS OTHER THAN HOME HEALTH RESUMPTION WITH [facility]. CHOICE SIGNED. PT REPORTS HIS SISTER IS BRINGING PT'S WHEELCHAIR TO HOSPITAL TOMORROW SO THAT PT CAN GET UP AND OUT OF BED WHILE HERE. PT WILL NEED SCAT BUS (MEDICAID) TRANSPORT DO DISCHARGE HOME, PT STATES HE HAS ALREADY TAKEN CARE OF THAT ALSO. IMPORTANT MESSAGE FROM MEDICARE PROVIDED AND EXPLAINED. CM FAXED UPDATE TO [facility] AT [phone]. PT DECLINED PLACEMENT, SNF AND DETENTION FACILITY. PT DENIES NEED OF REHAB PLACEMENT. PT PLANS TO RETURN HOME ALONE WITH FAMILY ASSISTANCE IF NEEDED AND WITH [facility] RESUMPTION. FOR DISCHARGE HOME, FAX DISCHARGE INFORMATION TO [facility] AT [phone], NOTIFY [facility] AT [phone]. CM TO CONTINUE TO FOLLOW AND ASSIST NEEDED. Assembly Line Upholsterer: Arley Lund DCPIA - Discharge Planning Initial Assessment Updated by [email or web address]: Arley Lund on 04/20/19 9:48 am * Is the patient Alert and Oriented? Yes * How many steps to enter\exit or inside your home? RAMP * PCP DR. GOMEZ * Pharmacy [facility] * Preadmission Environment Home Alone * ADLs Independent * Equipment Bedside [facility] Bed Power Chair or Electric Scooter Trapeze Wheelchair * Other Equipment NO MEDICAL EQUIPMENT PROVIDER PREFERENCE * List name and contact numbers for known caregivers / representatives who currently or will assist patient after discharge: JOCELINE HOLLAND, SISTER, * Verbal permission to speak to the caregivers and representatives has been obtained from the patient. N/A * Community resources currently utilized Home Health * Please name any agencies selected above. [facility] REPORTS HAVING WOUND CARE SCHEDULED OUTPATIENT AT [facility] ON [address]. * Additional services required to return to the preadmission environment? No * Can the patient safely return to the preadmission environment? Yes * Has this patient been hospitalized within the prior 30 days at any hospital? Yes Coverage Notice Reviewer: [id number] - Arley Lund Notice Issued Date-Time: 04/20/2019 9:00 Notice Type: IM Discharge Notice Notice Delivered To: Patient Relationship to Patient: Software Support Engineer Name: Delivery Method: HAND - Hand Delivered Dee Days: Prior Verbal Notification: Recipient Understood Notice: Yes Recipient Signature: Yes Med Rec Note Co-signed by Attending: Coverage Notice Comment: Reviewer: [id number] - Arley Lund Notice Issued Date-Time: 04/20/2019 9:00 Notice Type: Patient Choice Letter Notice Delivered To: Patient Relationship to Patient: Software Support Engineer Name: Delivery Method: HAND - Hand Delivered Dee Days: Prior Verbal Notification: Recipient Understood Notice: Yes Recipient Signature: Yes Med Rec Note Co-signed by Attending: Coverage Notice Comment: [facility] REFUSES SNF / DETENTION FACILITY Last DP export: 04/20/19 8:52 a Patient Name: VIRA HOLLAND Page [phone] at 1005 All edits/amendments must be made on the electronic document DICTATION DATE: 04/20/19 1004 NETWORK PRICING CONSULTANT: TEGAN 04/20/19 1004 RPT#: [id number] DC DATE: STATUS: ADM IN [facility] [address] [place] [address] END OF REPORT
--- NOTE | 2019-04-20 10:11 | MORECARE ---
CASE MANAGEMENT DISCHARGE SUMMARY PATIENT: VIRA HOLLAND UNIT: [id number] ADM DATE: 04/16/19 AGE: 68 : 52 SEX: M ROOM/BED: D.2111 AUTHOR: JORDAN,DOC PHYSICIAN: REFERRING PHYSICIAN: ROCIO FAITH MD DATE OF SERVICE: 04/20/19 Discharge Plan Patient Name: VIRA HOLLAND Facility: [facility]:[place] : 1950 Planned Disposition: Home with Home Health Anticipated Discharge Date: Discharge Date: Expected LOS: Initial Reviewer: [email or web address] Initial Review Date: 04/20/2019 Generated: 04/20/19 11:11 am Comments DCP- Discharge Planning Updated by [id number]: Arley Lund on 04/20/19 8:[address] Patient Name: VIRA HOLLAND Admission Status: ER Accout number: [id number] Admission Date: 04-16-2019 : 1950 Admission Diagnosis:SEPSIS, UNSPECIFIED ORGANISM Attending: IRINEO Current LOS: 4 Anticipated DC Date: Planned Disposition: Home with Home Health Primary Insurance: MEDICARE A & B PLANNED EXTERNAL PROVIDER: [facility] Discharge Planning Comments: CM RECEIVED NOTICE IN MULTIDICIPLINARY TEAM MEETING 04-19-19 THAT PT NEEDS PLACEMENT. CM MET WITH PT IN ROOM TO DISCUSS DISCHARGE PLANNING AND NEEDS. PT REPORTS LIVING AT HOME INDEPENDENTLY AND ALONE; PT REPORTS HIS SISTER LIVES [place] [address] FROM HIS HOME AND HE HAS HELP AT HOME ANY TIME HE NEEDS IT. PT HAS HOSPOITAL BED WITH TRAPEZE, BEDSIDE COMMODE, WALKER, ELECTRIC AND STANDARD WHEELCHAIR. PT HAS NO MEDICAL EQUIPMENT PROVIDER PREFERENCE. PT HAS HOME HEALTH FOR NURSING AND PHYSICAL THERAPY FROM [facility] AND ALSO IS SCHEDULED FOR OUTPATIENT WOUND CARE AT THE [facility] IN [place] ON [address]. CM DISCUSSED DOCTORS OPINION THAT PT IS UNABLE TO CARE FOR HIMSELF AT HOME ALONE AND NEEDS PLACEMENT. PT FEELS HE CAN CONTINUE TO CARE FOR HIMSELF AND CALL HIS SISTER IF ANY NEEDS [place]. PT FEELS THIS IS SAFE AND REFUSED ANY SNF PLACEMENT. CM DISCUSSED POSSIBLE REHAB. PT STATES HE RECENTLY GOT OUT OF [facility] AND IF HE EVER GOES ANYWHERE, IT WILL BE [facility] BUT HE IS NOT GOING ANYWHERE BUT HOME WHEN HE LEAVES THE HOSPITAL. CM DISCUSSED AVAILABILITY OF HOME HEALTH, REHAB SERVICES AND MEDICAL EQUIPMENT. PT DENIES DISCHARGE NEEDS OTHER THAN HOME HEALTH RESUMPTION WITH [facility]. CHOICE SIGNED. PT REPORTS HIS SISTER IS BRINGING PT'S WHEELCHAIR TO HOSPITAL TOMORROW SO THAT PT CAN GET UP AND OUT OF BED WHILE HERE. PT WILL NEED SCAT BUS (MEDICAID) TRANSPORT DO DISCHARGE HOME, PT STATES HE HAS ALREADY TAKEN CARE OF THAT ALSO. IMPORTANT MESSAGE FROM MEDICARE PROVIDED AND EXPLAINED. CM FAXED UPDATE TO [facility] AT [phone]. PT DECLINED PLACEMENT, SNF AND HALFWAY FACILITY. PT DENIES NEED OF REHAB PLACEMENT. PT PLANS TO RETURN HOME ALONE WITH FAMILY ASSISTANCE IF NEEDED AND WITH [facility] RESUMPTION. FOR DISCHARGE HOME, FAX DISCHARGE INFORMATION TO [facility] AT [phone], NOTIFY [facility] AT [phone]. CM TO CONTINUE TO FOLLOW AND ASSIST NEEDED. Plant Equipment Engineer: Arley Lund DCPIA - Discharge Planning Initial Assessment Updated by [email or web address]: Arley Lund on 04/20/19 9:48 am * Is the patient Alert and Oriented? Yes * How many steps to enter\exit or inside your home? RAMP * PCP DR. GOMEZ * Pharmacy [facility] ON [address] * Preadmission Environment Home Alone * ADLs Independent * Equipment Bedside [facility] Bed Power Chair or Electric Scooter Trapeze Wheelchair * Other Equipment NO MEDICAL EQUIPMENT PROVIDER PREFERENCE * List name and contact numbers for known caregivers / representatives who currently or will assist patient after discharge: JOCELINE HOLLAND, SISTER, * Verbal permission to speak to the caregivers and representatives has been obtained from the patient. N/A * Community resources currently utilized Home Health * Please name any agencies selected above. [facility] REPORTS HAVING WOUND CARE SCHEDULED OUTPATIENT AT [facility] ON [address]. * Additional services required to return to the preadmission environment? No * Can the patient safely return to the preadmission environment? Yes * Has this patient been hospitalized within the prior 30 days at any hospital? Yes External Providers External Provider: [facility] Next Contact Date: 04/20/2019 Service Request Date: Service Type: Resolution: Reviewer: Comments: Coverage Notice Reviewer: [id number] - Arley Lund Notice Issued Date-Time: 04/20/2019 9:00 Notice Type: IM Discharge Notice Notice Delivered To: Patient Relationship to Patient: Senior Principal Process Engineer Name: Delivery Method: HAND - Hand Delivered Dee Days: Prior Verbal Notification: Recipient Understood Notice: Yes Recipient Signature: Yes Med Rec Note Co-signed by Attending: Coverage Notice Comment: Reviewer: [id number] Soren Lund Notice Issued Date-Time: 04/20/2019 9:00 Notice Type: Patient Choice Letter Notice Delivered To: Patient Relationship to Patient: Senior Principal Process Engineer Name: Delivery Method: HAND - Hand Delivered Dee Days: Prior Verbal Notification: Recipient Understood Notice: Yes Recipient Signature: Yes Med Rec Note Co-signed by Attending: Coverage Notice Comment: [facility] REFUSES SNF / HALFWAY FACILITY Last DP export: 04/20/19 9:05 a Patient Name: VIRA HOLLAND Page [phone] at 1011 All edits/amendments must be made on the electronic document DICTATION DATE: 04/20/19 1011 AUTO DEALERSHIP PORTER: TEGAN 04/20/19 1011 RPT#: [id number] DC DATE: STATUS: ADM IN [facility] [address] [place] [address] END OF REPORT
[2019-04-20 10:38] VITALS: BP 107/56
--- NOTE | 2019-04-20 11:08 | NUR ---
CENTRAL LINE DRESSING CHANGE DONE ORDERED USING STERILE TECHNIQUE. ALL LINES FLUSHED WITH NS USING PULSATING TECHNIQUE. BIOPATCH INTACT, DRSG ADHERED TO SKIN. PT DENIES ANY CURRENT PAIN OR NEEDS CL IN REACH, BED IN LOWEST, SIDE RAILS X2. WILL CTM.
--- NOTE | 2019-04-20 12:33 | NUR ---
PT VERY AGITATED BECAUSE IT WAS DISCUSSED HE MAY BE DISCHARGED. PT STATES "I CANT GO TODAY IT MUST BE THURSDAY OR NOT AT ALL" PT STATES HE CAN TAKE CARE OF HIMSELF BUT NOT UNTIL THURSDAY. HOWEVER EVERYTIME I GO IN HIS ROOM HE STATES HE CANT DO ANYTHING FOR HIMSELF AND HAS BEEN INCONTINENT AND VERY DEPENDENT IN EVERY WAY. PT TALKED TO MANUFACTURING MECHANIC AND WE WILL CONTINUE WITH CURRENT PLAN OF CARE BUT PT IS REFUSING ANY ASSISTANCE OTHER THAN HOME HEALTH BUT STATES HE WILL NOT LEAVE UNTIL THURSDAY.
--- NOTE | 2019-04-20 13:00 | NUR ---
REPLACED PTS POTASSIUM PER ELECTROLYTE PROTOCOL. REDRAW DONE WELL AND SENT TO LAB. WILL AWAIT LAB AND TREAT AGAIN IF NEEDED.
--- NOTE | 2019-04-20 14:49 | NUR ---
Nutrition Follow-up: Pt with multiple wounds. Diet: Regular PO intake: 100% yesterday per record Wt: 254# (04/18) Last BM: 04/20 Labs noted: K+ 3.0, Glu 149, Ca 8.0, Alb 2.7 Meds noted: Reglan, Pepcid, Lasix, Albumin -Change to diabetic diet. -+Glucerna with meals. -Need new wt; noted daily wts ordered. -RD following.
[2019-04-20 15:26] VITALS: BP 113/69
--- NOTE | 2019-04-20 15:48 | NUR ---
PTS REDRAW POTASSIUM 3.5 AND HE WILL NEED TREATED AGAIN PER PROTOCOL HOWEVER HE IS REFUSING STATING THE PILLS ARE GROSS, WHEN I OFFERED VIA IV HE STATES "NO, JUST LEAVE ME ALONE" WILL CONTINUE TEACHING AND TRY TO GET HIM TO TAKE THEM.
--- NOTE | 2019-04-20 17:46 | NUR ---
PT HAS REFUSED TO EAT ALL DAY AND STATES EVERYTHING IS MAKING HIM SICK WITHOUT EVEN TRYING. RAYMOND OFFERED SEVERAL TIMES TO ORDER ANYTHING HE WOULD LIKE AND HE HAS REFUSED. PT FINALLY AGREES TO TRY A GRILLED CHEESE SO I HAVE ORDERED IT AND WILL SEE. NO CURRENT NEEDS.
[2019-04-20 18:25] VITALS: BP 112/64
--- NOTE | 2019-04-20 18:29 | MORECARE ---
CASE MANAGEMENT DISCHARGE SUMMARY PATIENT: VIRA HOLLAND UNIT: [id number] ADM DATE: 04/16/19 AGE: 68 : 52 SEX: M ROOM/BED: D.2111 AUTHOR: JORDAN,DOC PHYSICIAN: REFERRING PHYSICIAN: ROCIO FAITH MD DATE OF SERVICE: 04/20/19 Discharge Plan Patient Name: VIRA HOLLAND Facility: [facility]:[place] : 1950 Planned Disposition: Home with Home Health Anticipated Discharge Date: Discharge Date: Expected LOS: Initial Reviewer: [id number] Initial Review Date: 04/20/2019 Generated: 04/20/19 7:29 pm Comments DCP- Discharge Planning Updated by [email or web address]: Arley Lund on 04/20/19 5:[address] Patient Name: VIRA HOLLAND Encounter No: [id number] : 1950 Primary Insurance: MEDICARE A & B Anticipated DC Date: Planned Disposition: Home DCP follow-up note: CM RECEIVED CALLF CAROL CINTRON FROM [employer], THEY HAVE CONSIDERED PT'S RESUMPTION AND HAVE DECIDED THEY CANNOT RESUME PT'S SITUATION HOME ALONE IS NOT SAFE. THEY HAVE NOT CALLED ADULT PROTECTIVE SERVICES. BEDSIDE NURSE EXPLAINED THIS TO PT WHO STATES "THEY GOT CAUGHT". PT STILL REFUSED ANY PLACEMENT OUTSIDE HIS HOME. PT HAS REPORTED THAT FAMILY WILL BRING WHEELCHAIR FOR HIM TO TAKE THE [facility] MEDICAID BUS HOME AND THEY SHOULD BRING WHEELCHAIR TONIGHT. CM TO CALL [facility] ADULT PROTECTIVE SERVICES. PT PLANS TO RETURN HOME ALONE, MEDICAID BUS TRANPSPORT. HOME HEALTH WILL NOT ACCEPT PT. Arley Lund, CASE MANAGEMENT DCP- Discharge Planning Updated by [email or web address]: Arley Lund on 04/20/19 8:[address] Patient Name: VIRA HOLLAND Admission Status: ER Accout number: [id number] Admission Date: 04-16-2019 : 1950 Admission Diagnosis:SEPSIS, UNSPECIFIED ORGANISM Attending: IRINEO Current LOS: 4 Anticipated DC Date: Planned Disposition: Home with Home Health Primary Insurance: MEDICARE A & B PLANNED EXTERNAL PROVIDER: [employer] Discharge Planning Comments: CM RECEIVED NOTICE IN MULTIDICIPLINARY TEAM MEETING 1-14-20 THAT PT NEEDS PLACEMENT. CM MET WITH PT IN ROOM TO DISCUSS DISCHARGE PLANNING AND NEEDS. PT REPORTS LIVING AT HOME INDEPENDENTLY AND ALONE; PT REPORTS HIS SISTER LIVES [place]OSS [place] [address] FROM HIS HOME AND HE HAS HELP AT HOME ANY TIME HE NEEDS IT. PT HAS HOSPOITAL BED WITH TRAPEZE, BEDSIDE COMMODE, WALKER, ELECTRIC AND STANDARD WHEELCHAIR. PT HAS NO MEDICAL EQUIPMENT PROVIDER PREFERENCE. PT HAS HOME HEALTH FOR NURSING AND PHYSICAL THERAPY FROM [facility] AND ALSO IS SCHEDULED FOR OUTPATIENT WOUND CARE AT THE [facility] IN [place] ON [address]. CM DISCUSSED DOCTORS OPINION THAT PT IS UNABLE TO CARE FOR HIMSELF AT HOME ALONE AND NEEDS PLACEMENT. PT FEELS HE CAN CONTINUE TO CARE FOR HIMSELF AND CALL HIS SISTER IF ANY NEEDS ARISE. PT FEELS THIS IS SAFE AND REFUSED ANY PENITENTIARY PLACEMENT. CM DISCUSSED POSSIBLE REHAB. PT STATES HE RECENTLY GOT OUT OF [place] AND IF HE EVER GOES ANYWHERE, IT WILL BE [place] BUT HE IS NOT GOING ANYWHERE BUT HOME WHEN HE LEAVES THE HOSPITAL. CM DISCUSSED AVAILABILITY OF HOME HEALTH, REHAB SERVICES AND MEDICAL EQUIPMENT. PT DENIES DISCHARGE NEEDS OTHER THAN HOME HEALTH RESUMPTION WITH [facility]. CHOICE SIGNED. PT REPORTS HIS SISTER IS BRINGING PT'S WHEELCHAIR TO HOSPITAL TOMORROW SO THAT PT CAN GET UP AND OUT OF BED WHILE HERE. PT WILL NEED SCAT BUS (MEDICAID) TRANSPORT DO DISCHARGE HOME, PT STATES HE HAS ALREADY TAKEN CARE OF THAT ALSO. IMPORTANT MESSAGE FROM MEDICARE PROVIDED AND EXPLAINED. CM FAXED UPDATE TO [facility] AT [phone]. PT DECLINED PLACEMENT, PENITENTIARY AND SENIOR LIVING FACILITY. PT DENIES NEED OF REHAB PLACEMENT. PT PLANS TO RETURN HOME ALONE WITH FAMILY ASSISTANCE IF NEEDED AND WITH [facility] [employer] [facility] RESUMPTION. FOR DISCHARGE HOME, FAX DISCHARGE INFORMATION TO [facility] [facility] AT [phone], NOTIFY [facility] AT [phone]. CM TO CONTINUE TO FOLLOW AND ASSIST NEEDED. Director Of Spa And Guest Experience: Arley Lund DCPIA - Discharge Planning Initial Assessment Updated by [email or web address]: Arley Lund on 04/20/19 9:48 am * Is the patient Alert and Oriented? Yes * How many steps to enter\\exit or inside your home? RAMP * PCP DR. GOMEZ * Pharmacy [facility] ON [address] * Preadmission Environment Home Alone * ADLs Independent * Equipment Bedside Commode Hospital Bed Power Chair or Electric Scooter Trapeze Wheelchair * Other Equipment NO MEDICAL EQUIPMENT PROVIDER PREFERENCE * List name and contact numbers for known caregivers / representatives who currently or will assist patient after discharge: JOCELINE HOLLAND, SISTER, * Verbal permission to speak to the caregivers and representatives has been obtained from the patient. N/A * Community resources currently utilized Home Health * Please name any agencies selected above. [facility] REPORTS HAVING WOUND CARE SCHEDULED OUTPATIENT AT [facility] ON [address]. * Additional services required to return to the preadmission environment? No * Can the patient safely return to the preadmission environment? Yes * Has this patient been hospitalized within the prior 30 days at any hospital? Yes Coverage Notice Reviewer: [id number] Lund Notice Issued Date-Time: 04/20/2019 9:00 Notice Type: IM Discharge Notice Notice Delivered To: Patient Relationship to Patient: Household Assistant Name: Delivery Method: HAND - Hand Delivered Dee Days: Prior Verbal Notification: Recipient Understood Notice: Yes Recipient Signature: Yes Med Rec Note Co-signed by Attending: Coverage Notice Comment: Reviewer: [id number] Lund Notice Issued Date-Time: 04/20/2019 9:00 Notice Type: Patient Choice Letter Notice Delivered To: Patient Relationship to Patient: Household Assistant Name: Delivery Method: HAND - Hand Delivered Dee Days: Prior Verbal Notification: Recipient Understood Notice: Yes Recipient Signature: Yes Med Rec Note Co-signed by Attending: Coverage Notice Comment: [facility] REFUSES PENITENTIARY / SENIOR LIVING FACILITY Last DP export: 04/20/19 9:11 a Patient Name: VIRA HOLLAND Page [phone] at 1829 All edits/amendments must be made on the electronic document DICTATION DATE: 04/20/191828 CONFIGURATION MANAGER: TEGAN 04/20/191828 RPT#: [id number] DC DATE: STATUS: ADM IN [facility] [address] [place] [address] END OF REPORT
[2019-04-20 21:32] VITALS: BP 115/59
[2019-04-21 03:55] VITALS: BP 103/72
--- NOTE | 2019-04-21 04:06 | NUR ---
I have reviewed this patient and I concur with the Shift Assessment completed by the Licensed Practical Nurse today this shift.
[2019-04-21 05:52] LABS: BASOPHILS 0.3 % (0-2); EOSINOPHILS 5.4 % (0-7); HEMOGLOBIN 8.2 g/dL (13.5-17.5); IMMATURE GRANULOCYTES 1.9 % (0-5); LYMPHOCYTES 23.7 % (15-50); MCH 24.9 pg (26.0-34.0); MCHC 31.5 g/dL (31.0-37.0); MEAN PLATELET VOLUME 8.5 fL (7.4-10.4); MONOCYTES 13.3 % (2-11); NEUTROPHILS 55.4 % (40-80); PLATELET COUNT 246 10x3/uL (130-400); RBC 3.29 10x6/uL (4.20-6.10); RDW 14.5 % (11.5-14.5); WBC 7.4 10x3/uL (4.8-10.8)
[2019-04-21 06:26] LABS: ALBUMIN 2.8 g/dL (3.4-5.0); ANION GAP 13.8 mmol/L (8-16); BILIRUBIN - TOTAL 0.49 mg/dL (0.2-1.3); CALCIUM 8.1 mg/dL (8.5-10.1); CARBON DIOXIDE 23.7 mmol/L (21.0-32.0); CREATININE - SERUM 1.5 mg/dL (0.6-1.3); POTASSIUM - SERUM 3.5 mmol/L (3.5-5.1); PROTEIN - SERUM 6.5 g/dL (6.4-8.2)
--- NOTE | 2019-04-21 07:54 | MORECARE ---
CASE MANAGEMENT DISCHARGE SUMMARY PATIENT: VIRA HOLLAND UNIT: [id number] ADM DATE: 04/16/19 AGE: 68 : 52 SEX: M ROOM/BED: D.2111 AUTHOR: JORDAN,DOC PHYSICIAN: REFERRING PHYSICIAN: ROCIO FAITH MD DATE OF SERVICE: 04/21/19 Discharge Plan Patient Name: VIRA HOLLAND Facility: [facility]:[place] : 1950 Planned Disposition: Home with Home Health Anticipated Discharge Date: Discharge Date: Expected LOS: Initial Reviewer: [id number] Initial Review Date: 04/20/2019 Generated: 04/21/19 8:53 am Comments DCP- Discharge Planning Updated by [id number]: Arley Lund on 04/20/19 5:[address] Patient Name: VIRA HOLLAND Encounter No: [id number] : 1950 Primary Insurance: MEDICARE A & B Anticipated DC Date: Planned Disposition: Home DCP follow-up note: CM RECEIVED CALLF CAROL CINTRON FROM [employer], THEY HAVE CONSIDERED PT'S RESUMPTION AND HAVE DECIDED THEY CANNOT RESUME PT'S SITUATION HOME ALONE IS NOT SAFE. THEY HAVE NOT CALLED ADULT PROTECTIVE SERVICES. BEDSIDE NURSE EXPLAINED THIS TO PT WHO STATES "THEY GOT CAUGHT". PT STILL REFUSED ANY PLACEMENT OUTSIDE HIS HOME. PT HAS REPORTED THAT FAMILY WILL BRING WHEELCHAIR FOR HIM TO TAKE THE [facility] MEDICAID BUS HOME AND THEY SHOULD BRING WHEELCHAIR TONIGHT. CM TO CALL [facility] ADULT PROTECTIVE SERVICES. PT PLANS TO RETURN HOME ALONE, MEDICAID BUS TRANPSPORT. HOME HEALTH WILL NOT ACCEPT PT. Arley Lund, CASE MANAGEMENT DCP- Discharge Planning Updated by [id number]: Arley Lund on 04/20/19 8:[address] Patient Name: VIRA HOLLAND Admission Status: ER Accout number: [id number] Admission Date: 04-16-2019 : 1950 Admission Diagnosis:SEPSIS, UNSPECIFIED ORGANISM Attending: IRINEO Current LOS: 4 Anticipated DC Date: Planned Disposition: Home with Home Health Primary Insurance: MEDICARE A & B PLANNED EXTERNAL PROVIDER: [employer] Discharge Planning Comments: CM RECEIVED NOTICE IN MULTIDICIPLINARY TEAM MEETING 1-14-20 THAT PT NEEDS PLACEMENT. CM MET WITH PT IN ROOM TO DISCUSS DISCHARGE PLANNING AND NEEDS. PT REPORTS LIVING AT HOME INDEPENDENTLY AND ALONE; PT REPORTS HIS SISTER LIVES [place] [address] FROM HIS HOME AND HE HAS HELP AT HOME ANY TIME HE NEEDS IT. PT HAS HOSPOITAL BED WITH TRAPEZE, BEDSIDE COMMODE, WALKER, ELECTRIC AND STANDARD WHEELCHAIR. PT HAS NO MEDICAL EQUIPMENT PROVIDER PREFERENCE. PT HAS HOME HEALTH FOR NURSING AND PHYSICAL THERAPY FROM [facility] AND ALSO IS SCHEDULED FOR OUTPATIENT WOUND CARE AT THE [facility] IN [place] ON [address]. CM DISCUSSED DOCTORS OPINION THAT PT IS UNABLE TO CARE FOR HIMSELF AT HOME ALONE AND NEEDS PLACEMENT. PT FEELS HE CAN CONTINUE TO CARE FOR HIMSELF AND CALL HIS SISTER IF ANY NEEDS ARISE. PT FEELS THIS IS SAFE AND REFUSED ANY LONG TERM PLACEMENT. CM DISCUSSED POSSIBLE REHAB. PT STATES HE RECENTLY GOT OUT OF [place] AND IF HE EVER GOES ANYWHERE, IT WILL BE [place] BUT HE IS NOT GOING ANYWHERE BUT HOME WHEN HE LEAVES THE HOSPITAL. CM DISCUSSED AVAILABILITY OF HOME HEALTH, REHAB SERVICES AND MEDICAL EQUIPMENT. PT DENIES DISCHARGE NEEDS OTHER THAN HOME HEALTH RESUMPTION WITH [facility]. CHOICE SIGNED. PT REPORTS HIS SISTER IS BRINGING PT'S WHEELCHAIR TO HOSPITAL TOMORROW SO THAT PT CAN GET UP AND OUT OF BED WHILE HERE. PT WILL NEED SCAT BUS (MEDICAID) TRANSPORT DO DISCHARGE HOME, PT STATES HE HAS ALREADY TAKEN CARE OF THAT ALSO. IMPORTANT MESSAGE FROM MEDICARE PROVIDED AND EXPLAINED. CM FAXED UPDATE TO [facility] AT [phone]. PT DECLINED PLACEMENT, LONG TERM AND INTERMEDIATE FACILITY. PT DENIES NEED OF REHAB PLACEMENT. PT PLANS TO RETURN HOME ALONE WITH FAMILY ASSISTANCE IF NEEDED AND WITH [facility] RESUMPTION. FOR DISCHARGE HOME, FAX DISCHARGE INFORMATION TO [facility] AT [phone], NOTIFY [facility] AT [phone]. CM TO CONTINUE TO FOLLOW AND ASSIST NEEDED. Strainer Tender: Arley Lund DCPIA - Discharge Planning Initial Assessment Updated by [email or web address]: Arley Lund on 04/20/19 9:48 am * Is the patient Alert and Oriented? Yes * How many steps to enter\\exit or inside your home? RAMP * PCP DR. GOMEZ * Pharmacy [facility] ON [address] * Preadmission Environment Home Alone * ADLs Independent * Equipment Bedside Commode Hospital Bed Power Chair or Electric Scooter Trapeze Wheelchair * Other Equipment NO MEDICAL EQUIPMENT PROVIDER PREFERENCE * List name and contact numbers for known caregivers / representatives who currently or will assist patient after discharge: JOCELINE HOLLAND, SISTER, * Verbal permission to speak to the caregivers and representatives has been obtained from the patient. N/A * Community resources currently utilized Home Health * Please name any agencies selected above. [facility] REPORTS HAVING WOUND CARE SCHEDULED OUTPATIENT AT [facility] ON [address]. * Additional services required to return to the preadmission environment? No * Can the patient safely return to the preadmission environment? Yes * Has this patient been hospitalized within the prior 30 days at any hospital? Yes Coverage Notice Reviewer: [id number] Lund Notice Issued Date-Time: 04/20/2019 9:00 Notice Type: IM Discharge Notice Notice Delivered To: Patient Relationship to Patient: Solution Lead Name: Delivery Method: HAND - Hand Delivered Dee Days: Prior Verbal Notification: Recipient Understood Notice: Yes Recipient Signature: Yes Med Rec Note Co-signed by Attending: Coverage Notice Comment: Reviewer: [id number] Lund Notice Issued Date-Time: 04/20/2019 9:00 Notice Type: Patient Choice Letter Notice Delivered To: Patient Relationship to Patient: Solution Lead Name: Delivery Method: HAND - Hand Delivered Dee Days: Prior Verbal Notification: Recipient Understood Notice: Yes Recipient Signature: Yes Med Rec Note Co-signed by Attending: Coverage Notice Comment: [facility] REFUSES LONG TERM / INTERMEDIATE FACILITY Last DP export: 04/20/19 5:29 p Patient Name: VIRA HOLLAND Page [id number] at 0754 All edits/amendments must be made on the electronic document DICTATION DATE: 04/21/19 075 NAIL TECHNICIAN TEACHER: TEGAN 04/21/19 075 RPT#: [id number] DC DATE: STATUS: ADM IN [facility] [address] [place] [address] END OF REPORT
--- NOTE | 2019-04-21 08:01 | NUR ---
PATIENT IS SITTING UP IN BED, WITH THE LIGHT ON. HE HAS PUSHED THE CALL LIGHT 12 TIMES IN THE LAST 20 MINITUES. WHEN ASKED WHAT HE NEEDS, IT IS SMALL ADJUSTMENTS, HE WILL ASK TO MOVE THE IV POLE TO THE LEFT , OR A LITTLE TO THE RIGHT. HE REPORTS ANXIETY. MONITORING CLOSELY. VITAL SIGNS ARE STABLE. HE IS SITTING UP EATTING BREAKFAST AT THIS TIME.
[2019-04-21 09:48] VITALS: BP 101/59
--- NOTE | 2019-04-21 11:09 | NUR ---
CHANGED DRESSING ON RIGHT CALF FOLLOWING ORDERS WET TO DRY USING DAKINS. CLEANED BEDING THAT WAS SOILED, CHANGED PAD UNDER PATIENT CLEANED BUTTOCK AND APPLIED CALMOSEPTINE. PATIENT IS REPORTING DISCOMFORT. HE WANTS TO TALK WITH THE DR AND WALL SCRAPER ABOUT HIS DISCHARGE. HE STATES " I NEED SOME ONE TO TAKE CARE OF ME ALL THE TIME. I WILL NOT BE COMFORTABLE TO GO HOME. " MEDICATIONS INFUSING ORDERED THROUGH HIS RIGHT SUBCLAVIAN CVL.
--- NOTE | 2019-04-21 12:51 | MORECARE ---
CASE MANAGEMENT DISCHARGE SUMMARY PATIENT: VIRA HOLLAND UNIT: [id number] ADM DATE: 04/16/19 AGE: 68 : [birth year] SEX: M ROOM/BED: D.2111 AUTHOR: JORDAN,DOC PHYSICIAN: REFERRING PHYSICIAN: ROCIO FAITH MD DATE OF SERVICE: 04/21/19 Discharge Plan Patient Name: VIRA HOLLAND Facility: [facility]:[place] : 1950 Planned Disposition: Care Home Facility Anticipated Discharge Date: Discharge Date: Expected LOS: Initial Reviewer: [id number] Initial Review Date: 04/20/2019 Generated: 04/21/19 1:50 pm Comments DCP- Discharge Planning Updated by [id number]: Arley Lund on 04/20/19 5:[address] Patient Name: VIRA HOLLAND Encounter No: [id number] : 1950 Primary Insurance: MEDICARE A & B Anticipated DC Date: Planned Disposition: Home DCP follow-up note: CM RECEIVED CALLF CAROL CINTRON FROM [employer], THEY HAVE CONSIDERED PT'S RESUMPTION AND HAVE DECIDED THEY CANNOT RESUME PT'S SITUATION HOME ALONE IS NOT SAFE. THEY HAVE NOT CALLED ADULT PROTECTIVE SERVICES. BEDSIDE NURSE EXPLAINED THIS TO PT WHO STATES "THEY GOT CAUGHT". PT STILL REFUSED ANY PLACEMENT OUTSIDE HIS HOME. PT HAS REPORTED THAT FAMILY WILL BRING WHEELCHAIR FOR HIM TO TAKE THE [place] MED[place] BUS HOME AND THEY SHOULD BRING WHEELCHAIR TONIGHT. CM TO CALL [facility] ADULT PROTECTIVE SERVICES. PT PLANS TO RETURN HOME ALONE, MEDICAID BUS TRANPSPORT. HOME HEALTH WILL NOT ACCEPT PT. Arley Lund, CASE MANAGEMENT DCP- Discharge Planning Updated by [id number]: Arley Lund on 04/20/19 8:[address] Patient Name: VIRA HOLLAND Admission Status: ER Accout number: [id number] Admission Date: 04-16-2019 : 1950 Admission Diagnosis:SEPSIS, UNSPECIFIED ORGANISM Attending: IRINEO Current LOS: 4 Anticipated DC Date: Planned Disposition: Home with Home Health Primary Insurance: MEDICARE A & B PLANNED EXTERNAL PROVIDER: [employer] Discharge Planning Comments: CM RECEIVED NOTICE IN MULTIDICIPLINARY TEAM MEETING 04-19-19 THAT PT NEEDS PLACEMENT. CM MET WITH PT IN ROOM TO DISCUSS DISCHARGE PLANNING AND NEEDS. PT REPORTS LIVING AT HOME INDEPENDENTLY AND ALONE; PT REPORTS HIS SISTER LIVES [place] [address] FROM HIS HOME AND HE HAS HELP AT HOME ANY TIME HE NEEDS IT. PT HAS HOSPOITAL BED WITH TRAPEZE, BEDSIDE COMMODE, WALKER, ELECTRIC AND STANDARD WHEELCHAIR. PT HAS NO MEDICAL EQUIPMENT PROVIDER PREFERENCE. PT HAS HOME HEALTH FOR NURSING AND PHYSICAL THERAPY FROM [facility] AND ALSO IS SCHEDULED FOR OUTPATIENT WOUND CARE AT THE [facility] IN [place] ON [address]. CM DISCUSSED DOCTORS OPINION THAT PT IS UNABLE TO CARE FOR HIMSELF AT HOME ALONE AND NEEDS PLACEMENT. PT FEELS HE CAN CONTINUE TO CARE FOR HIMSELF AND CALL HIS SISTER IF ANY NEEDS ARISE. PT FEELS THIS IS SAFE AND REFUSED ANY RESIDENTIAL PLACEMENT. CM DISCUSSED POSSIBLE REHAB. PT STATES HE RECENTLY GOT OUT OF [place] AND IF HE EVER GOES ANYWHERE, IT WILL BE [place] BUT HE IS NOT GOING ANYWHERE BUT HOME WHEN HE LEAVES THE HOSPITAL. CM DISCUSSED AVAILABILITY OF HOME HEALTH, REHAB SERVICES AND MEDICAL EQUIPMENT. PT DENIES DISCHARGE NEEDS OTHER THAN HOME HEALTH RESUMPTION WITH [facility] [employer]. CHOICE SIGNED. PT REPORTS HIS SISTER IS BRINGING PT'S WHEELCHAIR TO HOSPITAL TOMORROW SO THAT PT CAN GET UP AND OUT OF BED WHILE HERE. PT WILL NEED SCAT BUS (MEDICAID) TRANSPORT DO DISCHARGE HOME, PT STATES HE HAS ALREADY TAKEN CARE OF THAT ALSO. IMPORTANT MESSAGE FROM MEDICARE PROVIDED AND EXPLAINED. CM FAXED UPDATE TO [facility] AT [phone]. PT DECLINED PLACEMENT, RESIDENTIAL AND ASSISTED FACILITY. PT DENIES NEED OF REHAB PLACEMENT. PT PLANS TO RETURN HOME ALONE WITH FAMILY ASSISTANCE IF NEEDED AND WITH [facility] [facility] RESUMPTION. FOR DISCHARGE HOME, FAX DISCHARGE INFORMATION TO [facility] [facility] AT [phone], NOTIFY [employer] AT [phone]. CM TO CONTINUE TO FOLLOW AND ASSIST NEEDED. Fur Cutting Machine Operator: Arley Lund DCPIA - Discharge Planning Initial Assessment Updated by [email or web address]: Arley Lund on 04/20/19 9:48 am * Is the patient Alert and Oriented? Yes * How many steps to enter\\exit or inside your home? RAMP * PCP DR. GOMEZ * Pharmacy [facility] ON [address] * Preadmission Environment Home Alone * ADLs Independent * Equipment Bedside Commode Hospital Bed Power Chair or Electric Scooter Trapeze Wheelchair * Other Equipment NO MEDICAL EQUIPMENT PROVIDER PREFERENCE * List name and contact numbers for known caregivers / representatives who currently or will assist patient after discharge: JOCELINE HOLLAND, SISTER, * Verbal permission to speak to the caregivers and representatives has been obtained from the patient. N/A * Community resources currently utilized Home Health * Please name any agencies selected above. [facility] REPORTS HAVING WOUND CARE SCHEDULED OUTPATIENT AT [facility] ON [address]. * Additional services required to return to the preadmission environment? No * Can the patient safely return to the preadmission environment? Yes * Has this patient been hospitalized within the prior 30 days at any hospital? Yes Coverage Notice Reviewer: [id number] Lund Notice Issued Date-Time: 04/20/2019 9:00 Notice Type: IM Discharge Notice Notice Delivered To: Patient Relationship to Patient: Water Resource Engineering Specialist Name: Delivery Method: HAND - Hand Delivered Dee Days: Prior Verbal Notification: Recipient Understood Notice: Yes Recipient Signature: Yes Med Rec Note Co-signed by Attending: Coverage Notice Comment: Reviewer: RADHA Lund Notice Issued Date-Time: 04/20/2019 9:00 Notice Type: Patient Choice Letter Notice Delivered To: Patient Relationship to Patient: Water Resource Engineering Specialist Name: Delivery Method: HAND - Hand Delivered Dee Days: Prior Verbal Notification: Recipient Understood Notice: Yes Recipient Signature: Yes Med Rec Note Co-signed by Attending: Coverage Notice Comment: [facility] REFUSES RESIDENTIAL / ASSISTED FACILITY Last DP export: 04/21/19 6:54 a Patient Name: VIRA HOLLAND Page [phone] at 1251 All edits/amendments must be made on the electronic document DICTATION DATE: 04/21/19 1250 ENGRAVER WOOD: TEGAN 04/21/19 1250 RPT#: [id number] DC DATE: STATUS: ADM IN [facility] [address] [place] [address] END OF REPORT
--- NOTE | 2019-04-21 12:58 | MORECARE ---
CASE MANAGEMENT DISCHARGE SUMMARY PATIENT: VIRA HOLLAND UNIT: [id number] ADM DATE: 04/16/19 AGE: 68 : [birth year] SEX: M ROOM/BED: D.2111 AUTHOR: JORDAN,DOC PHYSICIAN: REFERRING PHYSICIAN: ROCIO FAITH MD DATE OF SERVICE: 04/21/19 Discharge Plan Patient Name: VIRA HOLLAND Facility: [facility]:[place] : 1950 Planned Disposition: Assisted Facility Anticipated Discharge Date: Discharge Date: Expected LOS: Initial Reviewer: [id number] Initial Review Date: 04/20/2019 Generated: 04/21/19 1:57 pm Comments DCP- Discharge Planning Updated by [id number]: Arley Lund on 04/21/19 11:[address] Patient Name: VIRA HOLLAND Encounter No: [id number] : 1950 Primary Insurance: MEDICARE A & B Anticipated DC Date: Planned Disposition: Assisted Facility External Planned Provider: [facility], MEDICARE REHAB BED DCP follow-up note: CM RECEIVED REQUEST TO SPEAK TO PT IN ROOM. PT STATES HE IS CONSIDERING HIS OPTIONS AND KNOWS HE NEEDS HELP IN CARING FOR HIM. PT IS CONSIDERING GOING TO [facility] FOR SKILLED REHAB AND POSSIBLE QC LAB TECHNICIAN CARE. CM ASKED PT TO SIGN CONSENT FOR [facility], PT REFUSED AND STATES HE IS JUST THINKING ABOUT IT RIGHT NOW AND WILL LET CM KNOW WHEN HE MAKES A DECISION. CM ADVISED PT THAT CM WILL BE CALLING ADULT PROTECTIVE SERVICES IF PT DOES DECIDE TO GO HOME. PT STATES HE UNDERSTANDS EVERYONE'S CONCERN AND STATES AGAIN THAT HE IS CONSIDERING OPTIONS. PT IS CONSIDERING GOING TO [facility] NURSING AND REHAB AT DISCHARGE. HE IS REFUSING CONSENT TO SEND REFERRAL AT THIS TIME. IF PT GOES HOME, CM WILL CALL ADULT PROTECTIVE SERVICES. MAURICE Kenny DCP- Discharge Planning Updated by [id number]: Arley Lund on 04/20/19 5:[address] Patient Name: VIRA HOLLAND Encounter No: [id number] : 1950 Primary Insurance: MEDICARE A & B Anticipated DC Date: Planned Disposition: Home DCP follow-up note: CM RECEIVED CALLF CAROL CINTRON FROM [email or web address], THEY HAVE CONSIDERED PT'S RESUMPTION AND HAVE DECIDED THEY CANNOT RESUME PT'S SITUATION HOME ALONE IS NOT SAFE. THEY HAVE NOT CALLED ADULT PROTECTIVE SERVICES. BEDSIDE NURSE EXPLAINED THIS TO PT WHO STATES "THEY GOT CAUGHT". PT STILL REFUSED ANY PLACEMENT OUTSIDE HIS HOME. PT HAS REPORTED THAT FAMILY WILL BRING WHEELCHAIR FOR HIM TO TAKE THE [place] MEDICAID BUS HOME AND THEY SHOULD BRING WHEELCHAIR TONIGHT. CM TO CALL [facility] ADULT PROTECTIVE SERVICES. PT PLANS TO RETURN HOME ALONE, MEDICAID BUS TRANPSPORT. HOME HEALTH WILL NOT ACCEPT PT. Arley Lund, CASE MANAGEMENT DCP- Discharge Planning Updated by [id number]: Arley Lund on 04/20/19 8:[address] Patient Name: VIRA HOLLAND Admission Status: ER Accout number: [id number] Admission Date: 04-16-2019 : 1950 Admission Diagnosis:SEPSIS, UNSPECIFIED ORGANISM Attending: IRINEO Current LOS: 4 Anticipated DC Date: Planned Disposition: Home with Home Health Primary Insurance: MEDICARE A & B PLANNED EXTERNAL PROVIDER: [facility] Discharge Planning Comments: CM RECEIVED NOTICE IN MULTIDICIPLINARY TEAM MEETING 04-19-19 THAT PT NEEDS PLACEMENT. CM MET WITH PT IN ROOM TO DISCUSS DISCHARGE PLANNING AND NEEDS. PT REPORTS LIVING AT HOME INDEPENDENTLY AND ALONE; PT REPORTS HIS SISTER LIVES ACROSS THE [address] FROM HIS HOME AND HE HAS HELP AT HOME ANY TIME HE NEEDS IT. PT HAS HOSPOITAL BED WITH TRAPEZE, BEDSIDE COMMODE, WALKER, ELECTRIC AND STANDARD WHEELCHAIR. PT HAS NO MEDICAL EQUIPMENT PROVIDER PREFERENCE. PT HAS HOME HEALTH FOR NURSING AND PHYSICAL THERAPY FROM [facility] AND ALSO IS SCHEDULED FOR OUTPATIENT WOUND CARE AT THE [facility] IN [place] ON [address]. CM DISCUSSED DOCTORS OPINION THAT PT IS UNABLE TO CARE FOR HIMSELF AT HOME ALONE AND NEEDS PLACEMENT. PT FEELS HE CAN CONTINUE TO CARE FOR HIMSELF AND CALL HIS SISTER IF ANY NEEDS ARISE. PT FEELS THIS IS SAFE AND REFUSED ANY [facility] PLACEMENT. CM DISCUSSED POSSIBLE REHAB. PT STATES HE RECENTLY GOT OUT OF [facility] AND IF HE EVER GOES ANYWHERE, IT WILL BE [facility] BUT HE IS NOT GOING ANYWHERE BUT HOME WHEN HE LEAVES THE HOSPITAL. CM DISCUSSED AVAILABILITY OF HOME HEALTH, REHAB SERVICES AND MEDICAL EQUIPMENT. PT DENIES DISCHARGE NEEDS OTHER THAN HOME HEALTH RESUMPTION WITH [facility]. CHOICE SIGNED. PT REPORTS HIS SISTER IS BRINGING PT'S WHEELCHAIR TO HOSPITAL TOMORROW SO THAT PT CAN GET UP AND OUT OF BED WHILE HERE. PT WILL NEED SCAT BUS (MEDICAID) TRANSPORT DO DISCHARGE HOME, PT STATES HE HAS ALREADY TAKEN CARE OF THAT ALSO. IMPORTANT MESSAGE FROM MEDICARE PROVIDED AND EXPLAINED. CM FAXED UPDATE TO [facility] AT [phone]. PT DECLINED PLACEMENT, [facility] AND [facility]. PT DENIES NEED OF REHAB PLACEMENT. PT PLANS TO RETURN HOME ALONE WITH FAMILY ASSISTANCE IF NEEDED AND WITH [facility] RESUMPTION. FOR DISCHARGE HOME, FAX DISCHARGE INFORMATION TO [facility] AT [phone], NOTIFY [facility] AT [phone]. CM TO CONTINUE TO FOLLOW AND ASSIST NEEDED. Child Care Sitter: Arley Lund DCPIA - Discharge Planning Initial Assessment Updated by RADHA: Arley Lund on 04/20/19 9:48 am * Is the patient Alert and Oriented? Yes * How many steps to enter\\exit or inside your home? RAMP * PCP DR. GOMEZ * Pharmacy [facility] ON [facility] * Preadmission Environment Home Alone * ADLs Independent * Equipment Bedside [facility] Bed Power Chair or Electric Scooter Trapeze Wheelchair * Other Equipment NO MEDICAL EQUIPMENT PROVIDER PREFERENCE * List name and contact numbers for known caregivers / representatives who currently or will assist patient after discharge: JOCELINE HOLLAND, SISTER, * Verbal permission to speak to the caregivers and representatives has been obtained from the patient. N/A * Community resources currently utilized Home Health * Please name any agencies selected above. [facility] REPORTS HAVING WOUND CARE SCHEDULED OUTPATIENT AT [facility] [facility]. * Additional services required to return to the preadmission environment? No * Can the patient safely return to the preadmission environment? Yes * Has this patient been hospitalized within the prior 30 days at any hospital? Yes Coverage Notice Reviewer: [id number] Lund Notice Issued Date-Time: 04/20/2019 9:00 Notice Type: IM Discharge Notice Notice Delivered To: Patient Relationship to Patient: Reach Lift Truck Driver Name: Delivery Method: HAND - Hand Delivered Dee Days: Prior Verbal Notification: Recipient Understood Notice: Yes Recipient Signature: Yes Med Rec Note Co-signed by Attending: Coverage Notice Comment: Reviewer: RADHA Lund Notice Issued Date-Time: 04/20/2019 9:00 Notice Type: Patient Choice Letter Notice Delivered To: Patient Relationship to Patient: Reach Lift Truck Driver Name: Delivery Method: HAND - Hand Delivered Dee Days: Prior Verbal Notification: Recipient Understood Notice: Yes Recipient Signature: Yes Med Rec Note Co-signed by Attending: Coverage Notice Comment: [facility] REFUSES [facility] Last DP export: 04/21/19 11:51 a Patient Name: VIRA HOLLAND Page [phone] at 1258 All edits/amendments must be made on the electronic document DICTATION DATE: 04/21/19 1257 FISHERIES OFFICER: TEGAN 04/21/19 1257 RPT#: [id number] DC DATE: STATUS: ADM IN [facility] [address] [place] [address] END OF REPORT
[2019-04-21 13:44] VITALS: BP 95/46
[2019-04-21 17:09] VITALS: BP 98/60
--- NOTE | 2019-04-21 19:30 | NUR ---
PT A/O X4 SITTING UP IN BED. NO S/S OF DISTRESS. VSS. BED LOW CALL LIGHT W/IN REACH. WILL CONTINUE TO MONITOR.
[2019-04-21 20:00] VITALS: BP 133/63
[2019-04-22] VITALS: BP 126/62
[2019-04-22 04:00] VITALS: BP 114/59
--- NOTE | 2019-04-22 04:29 | NUR ---
I have reviewed this patient and I concur with the Shift Assessment completed by the Licensed Practical Nurse today this shift.
--- NOTE | 2019-04-22 08:38 | NUR ---
PATIENT IS AWAKE AND ALERT AND REFUSED TO KEEP HIS OXYGEN ON, EVEN THOUGH HE IS ONLY AT 88% O2 SATURATION. HE IS LOOKING A LITTLE YELLOW TODAY. CALLED [facility] TO REPORT HIS COLOR. HIS SUPRAPUBIC IS STILL DRAINING RUST COLORED URINE. HE HAS SEVERE BREAK DOWN ON HIS COCCYX AND BUTTOCK. THE WOUND ON HIS RIGHT CALF IS DRAINING AND DRESSING CHANGE IS DUE THIS MORNING.
[2019-04-22 09:23] LABS: APTT 50.1 SECONDS (22.8-39.4); INR 1.23 (0.85-1.17); PROTIME 15.4 SECONDS (11.6-15.0)
[2019-04-22 09:24] LABS: ALBUMIN 2.8 g/dL (3.4-5.0); ANION GAP 11.5 mmol/L (8-16); BILIRUBIN - TOTAL 0.48 mg/dL (0.2-1.3); CALCIUM 8.1 mg/dL (8.5-10.1); CARBON DIOXIDE 23.8 mmol/L (21.0-32.0); CREATININE - SERUM 1.4 mg/dL (0.6-1.3); POTASSIUM - SERUM 3.3 mmol/L (3.5-5.1); PROTEIN - SERUM 6.7 g/dL (6.4-8.2)
[2019-04-22 09:46] VITALS: BP 121/76
[2019-04-22 11:12] LABS: BASOPHILS 0.5 % (0-2); EOSINOPHILS 4.6 % (0-7); HEMATOCRIT 26.3 % (42.0-54.0); HEMOGLOBIN 8.3 g/dL (13.5-17.5); IMMATURE GRANULOCYTES 2.6 % (0-5); LYMPHOCYTES 23.1 % (15-50); MCHC 31.6 g/dL (31.0-37.0); MCV 79.2 fL (80.0-100.0); MEAN PLATELET VOLUME 8.6 fL (7.4-10.4); MONOCYTES 12.9 % (2-11); NEUTROPHILS 56.3 % (40-80); PLATELET COUNT 230 10x3/uL (130-400); RBC 3.32 10x6/uL (4.20-6.10); RDW 14.8 % (11.5-14.5); WBC 8.1 10x3/uL (4.8-10.8)
--- NOTE | 2019-04-22 12:23 | NUR ---
CHANGED LININ FROM INCONTINENT BM. APPLIED CREAM AND CLEANSED GROIN AND BUTTOCK . APPLIED MEDIPOR FOAM DRESSING OVER WOUND ON LEFT INNER THIGH BY SCROTAL AREA. JANNETTE WOUND CARE NURSE ASSESSED WOUND AND AGREED TO APPLY THE FOAM DRESSING TO PROTECT THE AREA. CLEANSE WITH WOUND SPRAY BEFORE APPLYING CREAMS AND DRESSING. PATIENT IS EATTING FISH NOW AND WANTS A SECONDTRAY. HE REFUSED THE GLUCERNA AGAIN BECAUSE HE STATES THAT IT GIVES HIM DIARREHA.
--- NOTE | 2019-04-22 13:40 | NUR ---
Nutrition Follow-up: Per chart, PO intake fluctuating but nurse reports pt requested additional lunch tray today; ate 100% this AM. Refusing Glucerna because he says it gives him diarrhea. Noted HOSE OPERATOR geo ordered. Diet: Diabetic, Glucerna TID Wt: 243# (04/22); 241.4# (04/21); 254.2# (04/17) Last BM: 04/22 Labs noted: K+ 3.3, Glu 191, Ca 8.1, Alb 2.8 Meds noted: Lasix, Albumin -D/c Glucerna with meals; continue to offer PRN. -May consider Roger for wound healing. -Monitor wt; noted daily wts ordered. -RD following.
--- NOTE | 2019-04-22 14:30 | NUR ---
DRESSING ON CALF CHANGED. PATIENT TOLERATED.
[2019-04-22 14:56] VITALS: BP 108/64
--- NOTE | 2019-04-22 15:19 | NUR ---
Pt continues to have numerous skin issues. Dr. Grullon has ordered wet to dry dressings using Dakins solution on right leg and buttocks. Pt has not allowed nursing to apply wet to dry dressings on his bottom because "it stings", so calmoseptine cream is being applied for his comfort. The right posterior upper thigh/perineal area is being covered with a mepilex foam dressing for protection and comfort. Pt is on an air overlay mattress. He is being turned/repositioned when he will allow. Personal care is being provided with each incontinent episode. Wound care continues to monitor.
[2019-04-22 16:00] VITALS: BP 89/56
[2019-04-22 20:00] VITALS: BP 114/40
[2019-04-23] VITALS: BP 119/48
[2019-04-23 04:00] VITALS: BP 107/53
--- NOTE | 2019-04-23 07:06 | NUR ---
I have reviewed this patient and I concur with the Shift Assessment completed by the Licensed Practical Nurse today this shift.
[2019-04-23 08:13] LABS: ANION GAP 12.6 mmol/L (8-16); CALCIUM 7.8 mg/dL (8.5-10.1); CARBON DIOXIDE 24.5 mmol/L (21.0-32.0); CREATININE - SERUM 1.4 mg/dL (0.6-1.3); POTASSIUM - SERUM 3.1 mmol/L (3.5-5.1)
[2019-04-23 08:16] LABS: BASOPHILS 0.5 % (0-2); HEMATOCRIT 24.1 % (42.0-54.0); HEMOGLOBIN 7.6 g/dL (13.5-17.5); IMMATURE GRANULOCYTES 2.6 % (0-5); LYMPHOCYTES 26.5 % (15-50); MCH 24.8 pg (26.0-34.0); MCHC 31.5 g/dL (31.0-37.0); MCV 78.5 fL (80.0-100.0); MEAN PLATELET VOLUME 8.3 fL (7.4-10.4); MONOCYTES 10.8 % (2-11); NEUTROPHILS 54.6 % (40-80); PLATELET COUNT 212 10x3/uL (130-400); RBC 3.07 10x6/uL (4.20-6.10); RDW 15.2 % (11.5-14.5); WBC 8.4 10x3/uL (4.8-10.8)
[2019-04-23 08:54] VITALS: BP 105/62
[2019-04-23 12:00] VITALS: BP 126/64
[2019-04-23 16:00] VITALS: BP 104/53
[2019-04-23 17:08] LABS: AEROBE ID Final report (()); RESULT 1 Proteus mirabilis (())
--- NOTE | 2019-04-23 17:42 | NUR ---
PATIENT IS HAVING DRAINAGE FROM HIS BUTTOCK WOUND. DOES NOT TO APPEAR TO BE HIS PENIS. THE LEFT BUTTOCK WOUND IS HEALING NOW THAT WE HAVE BEEN KEEPING THE FOAM DRESSING OVER IT. THE PATIENT WILL ALLOW US TO CHANGE THE DRESSING ON HIS LEG ONLY WHEN HE IS READY. THE SKIN AROUND HIS GROIN AND BUTTOCK ARE GREATLY IMPROVED IN THE LAST THREE DAYS WITH THE USE OF CALMOSEPTINE AND NYSTATIN. HE WILL NOT ALLOW US TO KEEP HIM TURNED OFF HIS BUTT. THE DRAINAGE OFF THE WOUND IS LIGHT YELLOW AND RED. WHEN HE HAS A BM, IT IS LOOSE AND THERE IS NO BLOOD IN THE STOOL. THE DRAINAGE FROM HIS SUPRAPUBIC CATHETER IS BLOODY.
[2019-04-23 20:16] VITALS: BP 104/59
--- NOTE | 2019-04-23 20:54 | NUR ---
INITIAL ROUNDS COMPLETED AT 1915 HRS. NO DISTRESS NOTED. ASSESSMENT COMPLETED AT 2005 HRS. SR PER CM HR 73. ALERT AND ORIENTED TO PERSON, PLACE AND TIME. [place]. LTLSC WITH NS GOING AT TKO. O2 2LNC. LUNGS DIMINISHED IN BASES BILAT. SUPRAPUBIC CATHETER DRAINING BLOODY URINE. SUBRAPUBIC SITE CLEAN,DRY AND INTACT. DAKINS DRESSING TO R CALF COMPLETED AT 1820 HRS. PER DAY SHIFT. SITE CLEAN AND DRY. PATIAL AMPUTATION OF R FOOT NOTED. LBKA NOTED. GROIN AREA RED. SCROTUM SWOLLEN. PT INCONTINENT OF STOOL. INCONTINENT CARE DONE. STAGE 2 TO L INNER BUTTOCKS APPROX 1.5CM X 5CM. AREA CLEANED WITH WOUND DIRECTOR OF INTELLIGENCE AND NEW DRESSING APPLIED. PT REFUSED TO BE TURNED. SPOKE WITH PT AT LENGHT ABOUT NEED TO TURN TO PREVENT ANY FURTHER DECUBITI AND TO ALLOW SORES TO HEAL. PT STILL REFUSED. SR UP X2, CALL LIGHT WITHIN REACH.
--- NOTE | 2019-04-23 22:37 | NUR ---
[facility] CALLED AT 2205 HRS. Praneeth CORADO APN RETURNS CALL AT 2215HRS. INFORMED Praneeth LUCAS APN OF GROSS HEMATURIA WITH CLOTS FROM SUPRAPUBIC CATHETER, DX, OPEN WOUNDS, LAST H&H AND ORDER FOR LOVENOX THIS PM. ORDER RECEIVED TO HOLD PM LOVENOX. CLOT NOTED TO CATHETER ABOVE TUBING FOR ALANIZ BAG. CATHETER FLUSHED WITH 60CC OF STERILE NS WITH PINK URINE RETURN. PT TOLERATED ACTIVITY WELL. WILL CONTINUE TO MONITOR ALANIZ STATUS.
--- NOTE | 2019-04-23 22:57 | NUR ---
PT DECLINES TO BE TURNED AT THIS TIME.
--- NOTE | 2019-04-23 23:54 | NUR ---
PT READJUSTED IN BED. REFUSES TO HAVE PILLOW OR WEDGE UNDERNEATH HIM. ALANIZ DRAINING BLOODY URINE. CALL LIGHT WITHIN REACH.
[2019-04-24 00:12] VITALS: BP 110/58
--- NOTE | 2019-04-24 01:16 | NUR ---
PT RESTING WITH EYES CLOSED. RESP EVEN AND REGULAR. ALANIZ DRAINING SMALL AMOUNTS OF BLOODY URINE. SR UP X2, CALL LIGHT WITHIN REACH.
[2019-04-24 04:03] VITALS: BP 105/54
--- NOTE | 2019-04-24 04:18 | NUR ---
ALANIZ EMPTIED OF 700CC OF BLOODY URINE. PT RESTING WITH EYES CLOSED. RESP EVEN AND REGULAR. SR UP X2, CALL LIGHT WITHIN REACH.
--- NOTE | 2019-04-24 06:15 | NUR ---
VSS THROUGHOUT NIGHT. SR PER CM. PT REFUSED TO BE TURNED THIS AM. REFUSED TO BE TURNED DURING SHIFT. NEEDS MET; WILL CONTINUE TO MONITOR.
[2019-04-24 06:46] LABS: BASOPHILS 0.7 % (0-2); EOSINOPHILS 5.8 % (0-7); IMMATURE GRANULOCYTES 2.3 % (0-5); LYMPHOCYTES 28.7 % (15-50); MCH 24.9 pg (26.0-34.0); MCHC 31.4 g/dL (31.0-37.0); MCV 79.4 fL (80.0-100.0); MEAN PLATELET VOLUME 8.4 fL (7.4-10.4); MONOCYTES 11.8 % (2-11); NEUTROPHILS 50.7 % (40-80); PLATELET COUNT 208 10x3/uL (130-400); RBC 2.77 10x6/uL (4.20-6.10); RDW 15.6 % (11.5-14.5)
[2019-04-24 07:19] LABS: ANION GAP 13.7 mmol/L (8-16); CALCIUM 8.1 mg/dL (8.5-10.1); CARBON DIOXIDE 24.7 mmol/L (21.0-32.0); CREATININE - SERUM 1.4 mg/dL (0.6-1.3); HEMOGLOBIN 6.9 g/dL (13.5-17.5); POTASSIUM - SERUM 3.4 mmol/L (3.5-5.1)
--- NOTE | 2019-04-24 10:11 | NUR ---
PT SP ALANIZ BLEEDING SINCE PRIOR SHIFT. ALANIZ DRAINING NOW BUT DARK BLOODY. LOVENOX HELD WAITING FOR ORDERS. HE HAS BEEN HAVING LEAKAGE EITHER AROUND ALANIZ OR OUT FROM PENIS BECAUSE SHEETS ARE WET.
[2019-04-24 10:48] VITALS: BP 105/54
--- NOTE | 2019-04-24 12:00 | NUR ---
PT STILL WITH BLOODY URINE OUTPUT, SOME CLOTS NOTED. ALSO PER LAB, SPECIMEN FOR CHLAMYDIA/GONHORIA WONT BE SENT OUT TILL THURSDAY EVENING SO THEY DONT WANT SAMPLE TILL TOMORROW.
[2019-04-24 14:25] VITALS: BP 109/56
--- NOTE | 2019-04-24 15:36 | NUR ---
PT'S LINENE CHANGED, DRESSING CHANGED TO RLE, BLOOD TRANSFUSION INITIATED.
--- NOTE | 2019-04-24 19:20 | NUR ---
CONTACT [facility] OBSERVED BED LOW AND LOCKED GAVE PT HIS CALL LIGHT BACK AND NO OTHER NEEDS NOTED BED IS LOW AND LOCKED
[2019-04-24 20:00] VITALS: BP 108/61
[2019-04-25 04:00] VITALS: BP 101/57
[2019-04-25 04:48] LABS: BASOPHILS 0.5 % (0-2); EOSINOPHILS 4.8 % (0-7); HEMATOCRIT 24.9 % (42.0-54.0); HEMOGLOBIN 7.8 g/dL (13.5-17.5); IMMATURE GRANULOCYTES 1.4 % (0-5); LYMPHOCYTES 27.5 % (15-50); MCH 25.3 pg (26.0-34.0); MCHC 31.3 g/dL (31.0-37.0); MCV 80.8 fL (80.0-100.0); MEAN PLATELET VOLUME 8.1 fL (7.4-10.4); MONOCYTES 11.5 % (2-11); NEUTROPHILS 54.3 % (40-80); PLATELET COUNT 167 10x3/uL (130-400); RBC 3.08 10x6/uL (4.20-6.10); RDW 16.1 % (11.5-14.5); WBC 6.6 10x3/uL (4.8-10.8)
--- NOTE | 2019-04-25 04:59 | NUR ---
I have reviewed this patient and I concur with the Shift Assessment completed by the Licensed Practical Nurse today this shift.
[2019-04-25 05:31] LABS: ANION GAP 11.6 mmol/L (8-16); CALCIUM 8.2 mg/dL (8.5-10.1); CARBON DIOXIDE 25.3 mmol/L (21.0-32.0); CREATININE - SERUM 1.3 mg/dL (0.6-1.3); POTASSIUM - SERUM 3.9 mmol/L (3.5-5.1)
[2019-04-25 11:31] LABS: % SATURATION 31 % (15-55); IRON 45 ug/dl (35-150); TOTAL IRON BIND CAPACITY 145 ug/dl (260-445); UNSAT IRON BIND CAPACITY 100 ug/dl (150-375)
[2019-04-25 12:01] VITALS: BP 108/64
--- NOTE | 2019-04-25 13:15 | NUR ---
PT CLEANED AND LINENS CHANGED. DRESSING TO BUTTOCKS AND RLE ALSO CHANGED. STILL NEEDING STOOL SAMPLE. PT POSITIONED FOR COMFORT.
[2019-04-25 16:24] VITALS: Ht 180.3 cm; Wt 117.2 kg
--- NOTE | 2019-04-25 19:11 | NUR ---
RESTING WITH EYES CLOSED RESP EVEN AND UNLOBERED BED LOW AND LOCKED CALL LIGHT WITH PT SP ALANIZ TO GRAVITY STILL BLOODY
[2019-04-25 20:16] VITALS: BP 121/60
[2019-04-26 04:50] LABS: BASOPHILS 0.7 % (0-2); EOSINOPHILS 4.8 % (0-7); HEMATOCRIT 27.5 % (42.0-54.0); HEMOGLOBIN 8.6 g/dL (13.5-17.5); IMMATURE GRANULOCYTES 1.8 % (0-5); LYMPHOCYTES 23.1 % (15-50); MCH 25.8 pg (26.0-34.0); MCHC 31.3 g/dL (31.0-37.0); MCV 82.6 fL (80.0-100.0); MEAN PLATELET VOLUME 8.3 fL (7.4-10.4); MONOCYTES 11.8 % (2-11); NEUTROPHILS 57.8 % (40-80); PLATELET COUNT 177 10x3/uL (130-400); RBC 3.33 10x6/uL (4.20-6.10); RDW 16.5 % (11.5-14.5); WBC 7.4 10x3/uL (4.8-10.8)
[2019-04-26 05:24] LABS: ANION GAP 12.7 mmol/L (8-16); CALCIUM 8.4 mg/dL (8.5-10.1); CARBON DIOXIDE 26.3 mmol/L (21.0-32.0); CREATININE - SERUM 1.2 mg/dL (0.6-1.3)
[2019-04-26 05:30] VITALS: BP 117/55
--- NOTE | 2019-04-26 09:59 | MORECARE ---
CASE MANAGEMENT DISCHARGE SUMMARY PATIENT: VIRA HOLLAND UNIT: [id number] ADM DATE: 04/16/19 AGE: 68 : [birth year] SEX: M ROOM/BED: D.2111 AUTHOR: JORDAN,DOC PHYSICIAN: REFERRING PHYSICIAN: ROCIO FAITH MD DATE OF SERVICE: 04/26/19 Discharge Plan Patient Name: VIRA HOLLAND Facility: [facility]:[place] : 1950 Planned Disposition: Prison Facility Anticipated Discharge Date: Discharge Date: Expected LOS: Initial Reviewer: [id number] Initial Review Date: 04/20/2019 Generated: 04/26/19 10:59 am DCP- Discharge Planning Updated by [id number]: Arley Lund on 04/21/19 11:[address] Patient Name: VIRA HOLLAND Encounter No: [id number] : 1950 Primary Insurance: MEDICARE A & B Anticipated DC Date: Planned Disposition: Prison Facility External Planned Provider: [facility], MEDICARE REHAB BED DCP follow-up note: CM RECEIVED REQUEST TO SPEAK TO PT IN ROOM. PT STATES HE IS CONSIDERING HIS OPTIONS AND KNOWS HE NEEDS HELP IN CARING FOR HIM. PT IS CONSIDERING GOING TO [facility] FOR SKILLED REHAB AND POSSIBLE CUSTODIAL CARE. CM ASKED PT TO SIGN CONSENT FOR [facility], PT REFUSED AND STATES HE IS JUST THINKING ABOUT IT RIGHT NOW AND WILL LET CM KNOW WHEN HE MAKES A DECISION. CM ADVISED PT THAT CM WILL BE CALLING ADULT PROTECTIVE SERVICES IF PT DOES DECIDE TO GO HOME. PT STATES HE UNDERSTANDS EVERYONE'S CONCERN AND STATES AGAIN THAT HE IS CONSIDERING OPTIONS. PT IS CONSIDERING GOING TO [facility] NURSING AND REHAB AT DISCHARGE. HE IS REFUSING CONSENT TO SEND REFERRAL AT THIS TIME. IF PT GOES HOME, CM WILL CALL ADULT PROTECTIVE SERVICES. MAURICE Kenny DCP- Discharge Planning Updated by [id number]: Arley Lund on 04/20/19 5:[address] Patient Name: VIRA HOLLAND Encounter No: [id number] : 1950 Primary Insurance: MEDICARE A & B Anticipated DC Date: Planned Disposition: Home DCP follow-up note: CM RECEIVED CALLF CAROL CINTRON FROM [employer], THEY HAVE CONSIDERED PT'S RESUMPTION AND HAVE DECIDED THEY CANNOT RESUME PT'S SITUATION HOME ALONE IS NOT SAFE. THEY HAVE NOT CALLED ADULT PROTECTIVE SERVICES. BEDSIDE NURSE EXPLAINED THIS TO PT WHO STATES "THEY GOT CAUGHT". PT STILL REFUSED ANY PLACEMENT OUTSIDE HIS HOME. PT HAS REPORTED THAT FAMILY WILL BRING WHEELCHAIR FOR HIM TO TAKE THE [place] MEDICAID BUS HOME AND THEY SHOULD BRING WHEELCHAIR TONIGHT. CM TO CALL [facility] ADULT PROTECTIVE SERVICES. PT PLANS TO RETURN HOME ALONE, MEDICAID BUS TRANPSPORT. HOME HEALTH WILL NOT ACCEPT PT. Arley Lund, CASE MANAGEMENT DCP- Discharge Planning Updated by [email or web address]: Arley Lund on 04/20/19 8:[address] Patient Name: VIRA HOLLAND Admission Status: ER Accout number: [id number] Admission Date: 04-16-2019 : 1950 Admission Diagnosis:SEPSIS, UNSPECIFIED ORGANISM Attending: IIRNEO Current LOS: 4 Anticipated DC Date: Planned Disposition: Home with Home Health Primary Insurance: MEDICARE A & B PLANNED EXTERNAL PROVIDER: [facility] Discharge Planning Comments: CM RECEIVED NOTICE IN MULTIDICIPLINARY TEAM MEETING 04-19-19 THAT PT NEEDS PLACEMENT. CM MET WITH PT IN ROOM TO DISCUSS DISCHARGE PLANNING AND NEEDS. PT REPORTS LIVING AT HOME INDEPENDENTLY AND ALONE; PT REPORTS HIS SISTER LIVES [place]OSS [place] [address] FROM HIS HOME AND HE HAS HELP AT HOME ANY TIME HE NEEDS IT. PT HAS HOSPOITAL BED WITH TRAPEZE, BEDSIDE COMMODE, WALKER, ELECTRIC AND STANDARD WHEELCHAIR. PT HAS NO MEDICAL EQUIPMENT PROVIDER PREFERENCE. PT HAS HOME HEALTH FOR NURSING AND PHYSICAL THERAPY FROM [facility] AND ALSO IS SCHEDULED FOR OUTPATIENT WOUND CARE AT THE [facility] IN [place] ON [address]. CM DISCUSSED DOCTORS OPINION THAT PT IS UNABLE TO CARE FOR HIMSELF AT HOME ALONE AND NEEDS PLACEMENT. PT FEELS HE CAN CONTINUE TO CARE FOR HIMSELF AND CALL HIS SISTER IF ANY NEEDS ARISE. PT FEELS THIS IS SAFE AND REFUSED ANY LONGTERM PLACEMENT. CM DISCUSSED POSSIBLE REHAB. PT STATES HE RECENTLY GOT OUT OF [facility] AND IF HE EVER GOES ANYWHERE, IT WILL BE [facility] BUT HE IS NOT GOING ANYWHERE BUT HOME WHEN HE LEAVES THE HOSPITAL. CM DISCUSSED AVAILABILITY OF HOME HEALTH, REHAB SERVICES AND MEDICAL EQUIPMENT. PT DENIES DISCHARGE NEEDS OTHER THAN HOME HEALTH RESUMPTION WITH [facility]. CHOICE SIGNED. PT REPORTS HIS SISTER IS BRINGING PT'S WHEELCHAIR TO HOSPITAL TOMORROW SO THAT PT CAN GET UP AND OUT OF BED WHILE HERE. PT WILL NEED SCAT BUS (MEDICAID) TRANSPORT DO DISCHARGE HOME, PT STATES HE HAS ALREADY TAKEN CARE OF THAT ALSO. IMPORTANT MESSAGE FROM MEDICARE PROVIDED AND EXPLAINED. CM FAXED UPDATE TO [facility] AT [phone]. PT DECLINED PLACEMENT, LONGTERM AND [facility] FACILITY. PT DENIES NEED OF REHAB PLACEMENT. PT PLANS TO RETURN HOME ALONE WITH FAMILY ASSISTANCE IF NEEDED AND WITH [facility] RESUMPTION. FOR DISCHARGE HOME, FAX DISCHARGE INFORMATION TO [facility] AT [phone], NOTIFY [facility] AT [phone]. CM TO CONTINUE TO FOLLOW AND ASSIST NEEDED. Maintenance Machinist: Arley Lund DCPIA - Discharge Planning Initial Assessment Updated by [id number]: Arley Lund on 04/20/19 9:48 am * Is the patient Alert and Oriented? Yes * How many steps to enter\\exit or inside your home? RAMP * PCP DR. GOMEZ * Pharmacy [facility] ON [facility] * Preadmission Environment Home Alone * ADLs Independent * Equipment Bedside [facility] Bed Power Chair or Electric Scooter Trapeze Wheelchair * Other Equipment NO MEDICAL EQUIPMENT PROVIDER PREFERENCE * List name and contact numbers for known caregivers / representatives who currently or will assist patient after discharge: JOCELINE HOLLAND, SISTER, * Verbal permission to speak to the caregivers and representatives has been obtained from the patient. N/A * Community resources currently utilized Home Health * Please name any agencies selected above. [facility] REPORTS HAVING WOUND CARE SCHEDULED OUTPATIENT AT [facility]. * Additional services required to return to the preadmission environment? No * Can the patient safely return to the preadmission environment? Yes * Has this patient been hospitalized within the prior 30 days at any hospital? Yes External Providers External Provider: [facility] Next Contact Date: 04/26/2019 Service Request Date: Service Type: Resolution: Reviewer: Comments: Coverage Notice Reviewer: [id number] Soren Lund Notice Issued Date-Time: 04/20/2019 9:00 Notice Type: IM Discharge Notice Notice Delivered To: Patient Relationship to Patient: Inspector Insulation Name: Delivery Method: HAND - Hand Delivered Dee Days: Prior Verbal Notification: Recipient Understood Notice: Yes Recipient Signature: Yes Med Rec Note Co-signed by Attending: Coverage Notice Comment: Reviewer: [id number] - Arley Lund Notice Issued Date-Time: 04/20/2019 9:00 Notice Type: Patient Choice Letter Notice Delivered To: Patient Relationship to Patient: Inspector Insulation Name: Delivery Method: HAND - Hand Delivered Dee Days: Prior Verbal Notification: Recipient Understood Notice: Yes Recipient Signature: Yes Med Rec Note Co-signed by Attending: Coverage Notice Comment: [facility] REFUSES LONGTERM / [facility] FACILITY Last DP export: 04/21/19 11:58 a Patient Name: VIRA HOLLAND Page [phone] at 0959 All edits/amendments must be made on the electronic document DICTATION DATE: 04/26/19958 MOTORCYCLE RACER: TEGAN 04/26/19958 RPT#: [id number] DC DATE: STATUS: ADM IN [facility] [address] [place] [address] END OF REPORT
[2019-04-26 10:47] VITALS: BP 103/59
--- NOTE | 2019-04-26 11:00 | NUR ---
RIGHT LEG DRESSING CHANGED PER WOUND CARE ORDERS. TOOK OFF MEPILEX ON BUTTOCK TO APPLY CALMOSEPTINE.
--- NOTE | 2019-04-26 11:13 | NUR ---
CALLED AND SPOKE WITH NNAMDI FROM PHARMACY AND STATED TO HER PT NEEDS MORE DAKINS AND NYSTATIN POWDER. SHE VERBALIZED UNDERSTANDING.
--- NOTE | 2019-04-26 11:53 | MORECARE ---
CASE MANAGEMENT DISCHARGE SUMMARY PATIENT: VIRA HOLLAND UNIT: [id number] ADM DATE: 04/16/19 AGE: 68 : 52 SEX: M ROOM/BED: D.211 AUTHOR: JORDAN,DOC PHYSICIAN: REFERRING PHYSICIAN: ROCIO FAITH MD DATE OF SERVICE: 04/26/19 Discharge Plan Patient Name: VIRA HOLLAND Facility: [facility]:[place] : 1950 Planned Disposition: [facility] Facility Anticipated Discharge Date: Discharge Date: Expected LOS: Initial Reviewer: [id number] Initial Review Date: 04/20/2019 Generated: 04/26/19 12:53 pm Comments DCP- Discharge Planning Updated by [email or web address]: Arley Yoder on 04/26/19 10:[address] Patient Name: VIRA HOLLAND Encounter No: [id number] : 1950 Primary Insurance: MEDICARE A & B Anticipated DC Date: Planned Disposition: [facility] Facility External Planned Provider: [facility], MEDICARE REHAB BED DISCHARGE PLANNING NOTE: CM MET WITH PT IN ROOM TO DISCUSS DISCHARGE NEEDS AND PLANNING. PT HAS DECIDED THAT HE CANNOT SAFELY RETURN HOME AND WANTS REFERRAL TO [facility]. CHOICE SIGNED. PT STATES HE IS WILLING TO PARTICIPATE WITH THERAPY. CM FAXED REFERRALINFORMATION TO [facility] AT [phone]. CM NOTIFIED GILL AT [facility] AT [phone]. CM NOTIFIED NATALIA BURCIAGA OF [facility] WHO WILL VISIT WITH PT AND EVALUATE TODAY. CM WAITING MEDICAL STABILITY AND ADMISSION DETERMINATION FROM [facility]. ARLEY YODER CASE MANAGEMENT DCP- Discharge Planning Updated by [id number]: Arley Yoder on 04/21/19 11:[address] Patient Name: VIRA HOLLAND Encounter No: [id number] : 1950 Primary Insurance: MEDICARE A & B Anticipated DC Date: Planned Disposition: Mcfp Facility External Planned Provider: [facility], MEDICARE REHAB BED DCP follow-up note: CM RECEIVED REQUEST TO SPEAK TO PT IN ROOM. PT STATES HE IS CONSIDERING HIS OPTIONS AND KNOWS HE NEEDS HELP IN CARING FOR HIM. PT IS CONSIDERING GOING TO [facility] FOR SKILLED REHAB AND POSSIBLE CUSTODIAL CARE. CM ASKED PT TO SIGN CONSENT FOR [facility], PT REFUSED AND STATES HE IS JUST THINKING ABOUT IT RIGHT NOW AND WILL LET CM KNOW WHEN HE MAKES A DECISION. CM ADVISED PT THAT CM WILL BE CALLING ADULT PROTECTIVE SERVICES IF PT DOES DECIDE TO GO HOME. PT STATES HE UNDERSTANDS EVERYONE'S CONCERN AND STATES AGAIN THAT HE IS CONSIDERING OPTIONS. PT IS CONSIDERING GOING TO [facility] AT DISCHARGE. HE IS REFUSING CONSENT TO SEND REFERRAL AT THIS TIME. IF PT GOES HOME, CM WILL CALL ADULT PROTECTIVE SERVICES. Arley Yoder CASE MANAGEMENT DCP- Discharge Planning Updated by [id number]: Arley Yoder on 04/20/19 5:[address] Patient Name: VIRA HOLLAND Encounter No: [id number] : 1950 Primary Insurance: MEDICARE A & B Anticipated DC Date: Planned Disposition: Home DCP follow-up note: CM RECEIVED CALLF CAROL CINTRON FROM [facility], THEY HAVE CONSIDERED PT'S RESUMPTION AND HAVE DECIDED THEY CANNOT RESUME PT'S SITUATION HOME ALONE IS NOT SAFE. THEY HAVE NOT CALLED ADULT PROTECTIVE SERVICES. BEDSIDE NURSE EXPLAINED THIS TO PT WHO STATES "THEY GOT CAUGHT". PT STILL REFUSED ANY PLACEMENT OUTSIDE HIS HOME. PT HAS REPORTED THAT FAMILY WILL BRING WHEELCHAIR FOR HIM TO TAKE THE [facility] MEDICAID BUS HOME AND THEY SHOULD BRING WHEELCHAIR TONIGHT. CM TO CALL [facility] ADULT PROTECTIVE SERVICES. PT PLANS TO RETURN HOME ALONE, MEDICAID BUS TRANPSPORT. HOME HEALTH WILL NOT ACCEPT PT. MAURICE Kenny DCP- Discharge Planning Updated by [id number]: Arley Yoder on 04/20/19 8:[address] Patient Name: VIRA HOLLAND Admission Status: ER Accout number: [id number] Admission Date: 04-16-2019 : 1950 Admission Diagnosis:SEPSIS, UNSPECIFIED ORGANISM Attending: IRINEO Current LOS: 4 Anticipated DC Date: Planned Disposition: Home with Home Health Primary Insurance: MEDICARE A & B PLANNED EXTERNAL PROVIDER: [facility] Discharge Planning Comments: CM RECEIVED NOTICE IN MULTIDICIPLINARY TEAM MEETING 04-19-19 THAT PT NEEDS PLACEMENT. CM MET WITH PT IN ROOM TO DISCUSS DISCHARGE PLANNING AND NEEDS. PT REPORTS LIVING AT HOME INDEPENDENTLY AND ALONE; PT REPORTS HIS SISTER LIVES [place]OSS [address] FROM HIS HOME AND HE HAS HELP AT HOME ANY TIME HE NEEDS IT. PT HAS HOSPOITAL BED WITH TRAPEZE, BEDSIDE COMMODE, WALKER, ELECTRIC AND STANDARD WHEELCHAIR. PT HAS NO MEDICAL EQUIPMENT PROVIDER PREFERENCE. PT HAS HOME HEALTH FOR NURSING AND PHYSICAL THERAPY FROM [facility] AND ALSO IS SCHEDULED FOR OUTPATIENT WOUND CARE AT THE [facility] IN [place] ON [address]. CM DISCUSSED DOCTORS OPINION THAT PT IS UNABLE TO CARE FOR HIMSELF AT HOME ALONE AND NEEDS PLACEMENT. PT FEELS HE CAN CONTINUE TO CARE FOR HIMSELF AND CALL HIS SISTER IF ANY NEEDS ARISE. PT FEELS THIS IS SAFE AND REFUSED ANY PRISON PLACEMENT. CM DISCUSSED POSSIBLE REHAB. PT STATES HE RECENTLY GOT OUT OF [facility] AND IF HE EVER GOES ANYWHERE, IT WILL BE [facility] BUT HE IS NOT GOING ANYWHERE BUT HOME WHEN HE LEAVES THE HOSPITAL. CM DISCUSSED AVAILABILITY OF HOME HEALTH, REHAB SERVICES AND MEDICAL EQUIPMENT. PT DENIES DISCHARGE NEEDS OTHER THAN HOME HEALTH RESUMPTION WITH [facility]. CHOICE SIGNED. PT REPORTS HIS SISTER IS BRINGING PT'S WHEELCHAIR TO HOSPITAL TOMORROW SO THAT PT CAN GET UP AND OUT OF BED WHILE HERE. PT WILL NEED SCAT BUS (MEDICAID) TRANSPORT DO DISCHARGE HOME, PT STATES HE HAS ALREADY TAKEN CARE OF THAT ALSO. IMPORTANT MESSAGE FROM MEDICARE PROVIDED AND EXPLAINED. CM FAXED UPDATE TO [facility] AT [phone]. PT DECLINED PLACEMENT, PRISON AND ASSISTED FACILITY. PT DENIES NEED OF REHAB PLACEMENT. PT PLANS TO RETURN HOME ALONE WITH FAMILY ASSISTANCE IF NEEDED AND WITH [facility] RESUMPTION. FOR DISCHARGE HOME, FAX DISCHARGE INFORMATION TO [facility] AT [phone], NOTIFY [facility] AT [phone]. CM TO CONTINUE TO FOLLOW AND ASSIST NEEDED. Police Lieutenant Precinct: Arley Yoder DCPIA - Discharge Planning Initial Assessment Updated by [id number]: Arley Yoder on 04/20/19 9:48 am * Is the patient Alert and Oriented? Yes * How many steps to enter\\exit or inside your home? RAMP * PCP DR. GOMEZ * Pharmacy [facility] ON [address] * Preadmission Environment Home Alone * ADLs Independent * Equipment Bedside Com[facility] Hospital Bed Power Chair or Electric Scooter Trapeze Wheelchair * Other Equipment NO MEDICAL EQUIPMENT PROVIDER PREFERENCE * List name and contact numbers for known caregivers / representatives who currently or will assist patient after discharge: JOCELINE HOLLAND, SISTER, * Verbal permission to speak to the caregivers and representatives has been obtained from the patient. N/A * Community resources currently utilized Home Health * Please name any agencies selected above. [facility] REPORTS HAVING WOUND CARE SCHEDULED OUTPATIENT AT [facility] ON [address]. * Additional services required to return to the preadmission environment? No * Can the patient safely return to the preadmission environment? Yes * Has this patient been hospitalized within the prior 30 days at any hospital? Yes Coverage Notice Reviewer: [id number] Yoder Notice Issued Date-Time: 04/20/2019 9:00 Notice Type: IM Discharge Notice Notice Delivered To: Patient Relationship to Patient: Registered Nurse Step Down Name: Delivery Method: HAND - Hand Delivered Dee Days: Prior Verbal Notification: Recipient Understood Notice: Yes Recipient Signature: Yes Med Rec Note Co-signed by Attending: Coverage Notice Comment: Reviewer: RADHA Yoder Notice Issued Date-Time: 04/20/2019 9:00 Notice Type: Patient Choice Letter Notice Delivered To: Patient Relationship to Patient: Registered Nurse Step Down Name: Delivery Method: HAND - Hand Delivered Dee Days: Prior Verbal Notification: Recipient Understood Notice: Yes Recipient Signature: Yes Med Rec Note Co-signed by Attending: Coverage Notice Comment: [facility] REFUSES PRISON / ASSISTED FACILITY Reviewer: [id number] Yoder Notice Issued Date-Time: 04/26/2019 9:50 Notice Type: Patient Choice Letter Notice Delivered To: Patient Relationship to Patient: Registered Nurse Step Down Name: Delivery Method: HAND - Hand Delivered Dee Days: Prior Verbal Notification: Recipient Understood Notice: Yes Recipient Signature: Yes Med Rec Note Co-signed by Attending: Coverage Notice Comment: Last DP export: 04/26/19 8:59 a Patient Name: VIRA HOLLAND Page [id number] at 1153 All edits/amendments must be made on the electronic document DICTATION DATE: 04/26/19 1153 CONVEYOR INSTALLER: TEGAN 04/26/19 1153 RPT#: [id number] DC DATE: STATUS: ADM IN [facility] [address] [place] [address] END OF REPORT
[2019-04-26 12:41] VITALS: BP 128/68
--- NOTE | 2019-04-26 13:12 | NUR ---
Nutrition Follow-up: Eating well. Awaiting placement. Diet: Diabetic PO intake: 100% x last 9 meals Wt: 244.7# (04/26); 243# (04/22) Last BM: 04/25 per chart Labs noted: Glu 197, Ca 8.4 Meds noted: Lasix, Albumin -Continue current diet as tolerated. -Offer Glucerna with meals. -Monitor wt; noted daily wts ordered. -RD following.
--- NOTE | 2019-04-26 15:02 | MORECARE ---
CASE MANAGEMENT DISCHARGE SUMMARY PATIENT: VIRA HOLLAND UNIT: [id number] ADM DATE: 04/16/19 AGE: 68 : 52 SEX: M ROOM/BED: D.2110 AUTHOR: JORDAN,DOC PHYSICIAN: REFERRING PHYSICIAN: ROCIO FAITH MD DATE OF SERVICE: 04/26/19 Discharge Plan Patient Name: VIRA HOLLAND Facility: [facility]:[place] : 1950 Planned Disposition: [facility] Facility Anticipated Discharge Date: Discharge Date: Expected LOS: Initial Reviewer: [id number] Initial Review Date: 04/20/2019 Generated: 04/26/19 4:02 pm Comments DCP- Discharge Planning Updated by [id number]: Fatou Bernal on 04/26/19 1:[address] Patient Name: VIRA HOLLAND Encounter No: [id number] : 1950 Primary Insurance: MEDICARE A & B Principal Electrical Engineer: : LON Note: 04/26 -- AFVSS, no complaints. Labs reviewed Hemoglobin 8.6 status post 2 unit PRBC ( total of 3 units this admission ) Dr. Jenkins following, supportive transfusions at this time, iron supplementation, and will need bone marrow in the future. Appreciate Dr. Jenkins Stool for Occult Blood -negative He has hematuria, doubt that is the source of anemia, but may need cysto STD specimens obtained -and will follow-up results Add cipro (levaquin due to formulary, but prefer cipro on DC) Will to go to [facility] for SNF. Will need 10 days of IV-Vanc total and 14 days of oral Cipro Check Labs in AM -- CBC w/diff and BMP. Fatou Bernal DCP- Discharge Planning Updated by [id number]: Arley Lund on 04/26/19 10:[address] Patient Name: VIRA HOLLAND Encounter No: [id number] : 1950 Primary Insurance: MEDICARE A & B Anticipated DC Date: Planned Disposition: [facility] Facility External Planned Provider: [facility], MEDICARE REHAB BED DISCHARGE PLANNING NOTE: CM MET WITH PT IN ROOM TO DISCUSS DISCHARGE NEEDS AND PLANNING. PT HAS DECIDED THAT HE CANNOT SAFELY RETURN HOME AND WANTS REFERRAL TO [facility]. CHOICE SIGNED. PT STATES HE IS WILLING TO PARTICIPATE WITH THERAPY. CM FAXED REFERRALINFORMATION TO [facility] AT [phone]. CM NOTIFIED GILL AT [facility] AT [phone]. CM NOTIFIED NATALIA BURCIAGA OF [facility] WHO WILL VISIT WITH PT AND EVALUATE TODAY. CM WAITING MEDICAL STABILITY AND ADMISSION DETERMINATION FROM [facility]. MAURICE HUTCHINSON DCP- Discharge Planning Updated by [id number]: Arley Lund on 04/21/19 11:[address] Patient Name: VIRA HOLLAND Encounter No: [id number] : 1950 Primary Insurance: MEDICARE A & B Anticipated DC Date: Planned Disposition: [facility] Facility External Planned Provider: [facility], MEDICARE REHAB BED DCP follow-up note: CM RECEIVED REQUEST TO SPEAK TO PT IN ROOM. PT STATES HE IS CONSIDERING HIS OPTIONS AND KNOWS HE NEEDS HELP IN CARING FOR HIM. PT IS CONSIDERING GOING TO [facility] FOR SKILLED REHAB AND POSSIBLE NURSING HOME CARE. CM ASKED PT TO SIGN CONSENT FOR [facility], PT REFUSED AND STATES HE IS JUST THINKING ABOUT IT RIGHT NOW AND WILL LET CM KNOW WHEN HE MAKES A DECISION. CM ADVISED PT THAT CM WILL BE CALLING ADULT PROTECTIVE SERVICES IF PT DOES DECIDE TO GO HOME. PT STATES HE UNDERSTANDS EVERYONE'S CONCERN AND STATES AGAIN THAT HE IS CONSIDERING OPTIONS. PT IS CONSIDERING GOING TO [facility] AT DISCHARGE. HE IS REFUSING CONSENT TO SEND REFERRAL AT THIS TIME. IF PT GOES HOME, CM WILL CALL ADULT PROTECTIVE SERVICES. MAURICE Hutchinson DCP- Discharge Planning Updated by [id number]: Arley Lund on 04/20/19 5:[address] Patient Name: VIRA HOLLAND Encounter No: [id number] : 1950 Primary Insurance: MEDICARE A & B Anticipated DC Date: Planned Disposition: Home DCP follow-up note: CM RECEIVED CALLF CAROL CINTRON FROM [facility], THEY HAVE CONSIDERED PT'S RESUMPTION AND HAVE DECIDED THEY CANNOT RESUME PT'S SITUATION HOME ALONE IS NOT SAFE. THEY HAVE NOT CALLED ADULT PROTECTIVE SERVICES. BEDSIDE NURSE EXPLAINED THIS TO PT WHO STATES "THEY GOT CAUGHT". PT STILL REFUSED ANY PLACEMENT OUTSIDE HIS HOME. PT HAS REPORTED THAT FAMILY WILL BRING WHEELCHAIR FOR HIM TO TAKE THE [employer] MEDICA[employer] BUS HOME AND THEY SHOULD BRING WHEELCHAIR TONIGHT. CM TO CALL [facility] ADULT PROTECTIVE SERVICES. PT PLANS TO RETURN HOME ALONE, MEDICAID BUS TRANPSPORT. HOME HEALTH WILL NOT ACCEPT PT. Arley Lund, CASE MANAGEMENT DCP- Discharge Planning Updated by [id number]: Arley Lund on 04/20/19 8:[address] Patient Name: VIRA HOLLAND Admission Status: ER Accout number: [id number] Admission Date: 04-16-2019 : 1950 Admission Diagnosis:SEPSIS, UNSPECIFIED ORGANISM Attending: IRINEO Current LOS: 4 Anticipated DC Date: Planned Disposition: Home with Home Health Primary Insurance: MEDICARE A & B PLANNED EXTERNAL PROVIDER: [facility] Discharge Planning Comments: CM RECEIVED NOTICE IN MULTIDICIPLINARY TEAM MEETING 04-19-19 THAT PT NEEDS PLACEMENT. CM MET WITH PT IN ROOM TO DISCUSS DISCHARGE PLANNING AND NEEDS. PT REPORTS LIVING AT HOME INDEPENDENTLY AND ALONE; PT REPORTS HIS SISTER LIVES [place]OSS [place] [address] FROM HIS HOME AND HE HAS HELP AT HOME ANY TIME HE NEEDS IT. PT HAS HOSPOITAL BED WITH TRAPEZE, BEDSIDE COMMODE, WALKER, ELECTRIC AND STANDARD WHEELCHAIR. PT HAS NO MEDICAL EQUIPMENT PROVIDER PREFERENCE. PT HAS HOME HEALTH FOR NURSING AND PHYSICAL THERAPY FROM [facility] AND ALSO IS SCHEDULED FOR OUTPATIENT WOUND CARE AT THE [facility] IN [place] ON [address]. CM DISCUSSED DOCTORS OPINION THAT PT IS UNABLE TO CARE FOR HIMSELF AT HOME ALONE AND NEEDS PLACEMENT. PT FEELS HE CAN CONTINUE TO CARE FOR HIMSELF AND CALL HIS SISTER IF ANY NEEDS ARISE. PT FEELS THIS IS SAFE AND REFUSED ANY SNF PLACEMENT. CM DISCUSSED POSSIBLE REHAB. PT STATES HE RECENTLY GOT OUT OF [facility] AND IF HE EVER GOES ANYWHERE, IT WILL BE [facility] BUT HE IS NOT GOING ANYWHERE BUT HOME WHEN HE LEAVES THE HOSPITAL. CM DISCUSSED AVAILABILITY OF HOME HEALTH, REHAB SERVICES AND MEDICAL EQUIPMENT. PT DENIES DISCHARGE NEEDS OTHER THAN HOME HEALTH RESUMPTION WITH [facility]. CHOICE SIGNED. PT REPORTS HIS SISTER IS BRINGING PT'S WHEELCHAIR TO HOSPITAL TOMORROW SO THAT PT CAN GET UP AND OUT OF BED WHILE HERE. PT WILL NEED [place] BUS (MEDICAID) TRANSPORT DO DISCHARGE HOME, PT STATES HE HAS ALREADY TAKEN CARE OF THAT ALSO. IMPORTANT MESSAGE FROM MEDICARE PROVIDED AND EXPLAINED. CM FAXED UPDATE TO [facility] AT [phone]. PT DECLINED PLACEMENT, SNF AND DETENTION FACILITY. PT DENIES NEED OF REHAB PLACEMENT. PT PLANS TO RETURN HOME ALONE WITH FAMILY ASSISTANCE IF NEEDED AND WITH [facility] RESUMPTION. FOR DISCHARGE HOME, FAX DISCHARGE INFORMATION TO [facility] AT [phone], NOTIFY [facility] AT [phone]. CM TO CONTINUE TO FOLLOW AND ASSIST NEEDED. Principal Electrical Engineer: Arley Lund DCPIA - Discharge Planning Initial Assessment Updated by RADHA: Arley Lund on 04/20/19 9:48 am * Is the patient Alert and Oriented? Yes * How many steps to enter\\exit or inside your home? RAMP * PCP DR. GOMEZ * Pharmacy [facility] * Preadmission Environment Home Alone * ADLs Independent * Equipment Bedside [facility] Bed Power Chair or Electric Scooter Trapeze Wheelchair * Other Equipment NO MEDICAL EQUIPMENT PROVIDER PREFERENCE * List name and contact numbers for known caregivers / representatives who currently or will assist patient after discharge: JOCELINE HOLLAND, SISTER, * Verbal permission to speak to the caregivers and representatives has been obtained from the patient. N/A * Community resources currently utilized [facility] * Please name any agencies selected above. [facility] REPORTS HAVING WOUND CARE SCHEDULED OUTPATIENT AT [facility]. * Additional services required to return to the preadmission environment? No * Can the patient safely return to the preadmission environment? Yes * Has this patient been hospitalized within the prior 30 days at any hospital? Yes Coverage Notice Reviewer: [id number] Soren Lund Notice Issued Date-Time: 04/20/2019 9:00 Notice Type: IM Discharge Notice Notice Delivered To: Patient Relationship to Patient: Base Wad Operator Adjuster Name: Delivery Method: HAND - Hand Delivered Dee Days: Prior Verbal Notification: Recipient Understood Notice: Yes Recipient Signature: Yes Med Rec Note Co-signed by Attending: Coverage Notice Comment: Reviewer: [id number] Soren Lund Notice Issued Date-Time: 04/20/2019 9:00 Notice Type: Patient Choice Letter Notice Delivered To: Patient Relationship to Patient: Base Wad Operator Adjuster Name: Delivery Method: HAND - Hand Delivered Dee Days: Prior Verbal Notification: Recipient Understood Notice: Yes Recipient Signature: Yes Med Rec Note Co-signed by Attending: Coverage Notice Comment: [facility] REFUSES SNF / DETENTION FACILITY Reviewer: [id number] Soren Lund Notice Issued Date-Time: 04/26/2019 9:50 Notice Type: Patient Choice Letter Notice Delivered To: Patient Relationship to Patient: Base Wad Operator Adjuster Name: Delivery Method: HAND - Hand Delivered Dee Days: Prior Verbal Notification: Recipient Understood Notice: Yes Recipient Signature: Yes Med Rec Note Co-signed by Attending: Coverage Notice Comment: Last DP export: 04/26/19 10:53 a Patient Name: VIRA HOLLAND Page [id number] at 1502 All edits/amendments must be made on the electronic document DICTATION DATE: 04/26/19 150 FILLING LAYER UP: TEGAN 04/26/19 1502 RPT#: [id number] DC DATE: STATUS: ADM IN [facility] [address] [place] [address] END OF REPORT
[2019-04-26 16:00] VITALS: BP 130/67
--- NOTE | 2019-04-26 16:32 | MORECARE ---
CASE MANAGEMENT DISCHARGE SUMMARY PATIENT: VIRA HOLLAND UNIT: [id number] ADM DATE: 04/16/19 AGE: 68 : [birth year] SEX: M ROOM/BED: D.2111 AUTHOR: JORDAN,DOC PHYSICIAN: REFERRING PHYSICIAN: ROCIO FAITH MD DATE OF SERVICE: 04/26/19 Discharge Plan Patient Name: VIRA HOLLAND [facility] [facility] 1950 Planned Disposition: Inpatient Rehab Anticipated Discharge Date: Discharge Date: Expected LOS: Initial Reviewer: [id number] Initial Review Date: 04/20/2019 Generated: 04/26/19 5:31 pm Comments DCP- Discharge Planning Updated by [id number]: Tg Yoder on 04/26/19 3:[address] Patient Name: VIRA HOLLAND Encounter No: [id number] : 1950 Primary Insurance: MEDICARE A & B Anticipated DC Date: Planned Disposition: Inpatient Rehab External Planned Provider: [facility] DCP follow-up note: CM RECEIVED CALL FROM NATALIA BARBOSA [facility], THEY WILL NOT ACCEPT PT, OFFERED TO REFER TO [facility]. CM SPOKE TO PT IN ROOM, PT PROVIDED WITH LISTING OF LONG TERM FACILITY PROVIDERS IN [facility]. PT REVIEWED FOR OVER ONE HOUR, CALLED CM BACK TO ROOM AND REQUESTED REHAB AT [facility]. PT IN THE MEANTIME WILL DISCUSS OTHER LONG TERM FACILITY OPTIONS AND LET CM KNOW. PT ENSURES CM THAT HE WILL PARTICIPATE FULLY WITH THERAPY EVERY DAY AND KNOWS THE PROGRAM HE HAS BEEN THERE BEFORE. PT REQUESTING REHAB AT [facility]. CM WAITING INPATIENT REHAB PRESCREENING. Tg Yoder, CASE MANAGEMENT DCP- Discharge Planning Updated by [email or web address]: Fatou Bernal on 04/26/19 1:[address] Patient Name: VIRA HOLLAND Encounter No: [id number] : 1950 Primary Insurance: MEDICARE A & B Concrete Block Maker: : LON Note: 04/26 -- AFVSS, no complaints. Labs reviewed Hemoglobin 8.6 status post 2 unit PRBC ( total of 3 units this admission ) Dr. Jenkins following, supportive transfusions at this time, iron supplementation, and will need bone marrow in the future. Appreciate Dr. Jenkins Stool for Occult Blood -negative He has hematuria, doubt that is the source of anemia, but may need cysto STD specimens obtained -and will follow-up results Add cipro (levaquin due to formulary, but prefer cipro on DC) Will to go to [place] for SNF. Will need 10 days of IV-Vanc total and 14 days of oral Cipro Check Labs in AM -- CBC w/diff and BMP. Fatou Bernal DCP- Discharge Planning Updated by [id number]: Tg Yoder on 04/26/19 10:[address] Patient Name: VIRA HOLLAND Encounter No: [id number] : 1950 Primary Insurance: MEDICARE A & B Anticipated DC Date: Planned Disposition: Long-Term Facility External Planned Provider: [facility], MEDICARE REHAB BED DISCHARGE PLANNING NOTE: CM MET WITH PT IN ROOM TO DISCUSS DISCHARGE NEEDS AND PLANNING. PT HAS DECIDED THAT HE CANNOT SAFELY RETURN HOME AND WANTS REFERRAL TO [facility]. CHOICE SIGNED. PT STATES HE IS WILLING TO PARTICIPATE WITH THERAPY. CM FAXED REFERRALINFORMATION TO [facility] AT [phone]. CM NOTIFIED GILL AT [facility] AT [phone]. CM NOTIFIED NATALIA [facility]CIAGA [facility] WHO WILL VISIT WITH PT AND EVALUATE TODAY. CM WAITING MEDICAL STABILITY AND ADMISSION DETERMINATION FROM [facility]. TG YODER, CASE MANAGEMENT DCP- Discharge Planning Updated by [email or web address]: Tg Yoder on 04/21/19 11:[address] Patient Name: VIRA HOLLAND Encounter No: [id number] : 1950 Primary Insurance: MEDICARE A & B Anticipated DC Date: Planned Disposition: Long-Term Facility External Planned Provider: [facility], MEDICARE REHAB BED DCP follow-up note: CM RECEIVED REQUEST TO SPEAK TO PT IN ROOM. PT STATES HE IS CONSIDERING HIS OPTIONS AND KNOWS HE NEEDS HELP IN CARING FOR HIM. PT IS CONSIDERING GOING TO [facility] FOR SKILLED REHAB AND POSSIBLE [facility] CARE. CM ASKED PT TO SIGN CONSENT FOR [facility], PT REFUSED AND STATES HE IS JUST THINKING ABOUT IT RIGHT NOW AND WILL LET CM KNOW WHEN HE MAKES A DECISION. CM ADVISED PT THAT CM WILL BE CALLING ADULT PROTECTIVE SERVICES IF PT DOES DECIDE TO GO HOME. PT STATES HE UNDERSTANDS EVERYONE'S CONCERN AND STATES AGAIN THAT HE IS CONSIDERING OPTIONS. PT IS CONSIDERING GOING TO [facility] AT DISCHARGE. HE IS REFUSING CONSENT TO SEND REFERRAL AT THIS TIME. IF PT GOES HOME, CM WILL CALL ADULT PROTECTIVE SERVICES. Tg Yoder CASE MANAGEMENT DCP- Discharge Planning Updated by [id number]: Tg Yoder on 04/20/19 5:[address] Patient Name: VIRA HOLLAND Encounter No: [id number] : 1950 Primary Insurance: MEDICARE A & B Anticipated DC Date: Planned Disposition: Home DCP follow-up note: CM RECEIVED CALLF CAROL CINTRON FROM [facility], THEY HAVE CONSIDERED PT'S RESUMPTION AND HAVE DECIDED THEY CANNOT RESUME PT'S SITUATION HOME ALONE IS NOT SAFE. THEY HAVE NOT CALLED ADULT PROTECTIVE SERVICES. BEDSIDE NURSE EXPLAINED THIS TO PT WHO STATES "THEY GOT CAUGHT". PT STILL REFUSED ANY PLACEMENT OUTSIDE HIS HOME. PT HAS REPORTED THAT FAMILY WILL BRING WHEELCHAIR FOR HIM TO TAKE THE [facility] MEDICAID BUS HOME AND THEY SHOULD BRING WHEELCHAIR TONIGHT. CM TO CALL [facility] ADULT PROTECTIVE SERVICES. PT PLANS TO RETURN HOME ALONE, MEDICAID BUS TRANPSPORT. HOME HE[facility] WILL NOT ACCEPT PT. MAURICE Kenny DCP- Discharge Planning Updated by [email or web address]: Tg Yoder on 04/20/19 8:[address] Patient Name: VIRA HOLLAND Admission Status: ER Accout number: [id number] Admission Date: 04-16-2019 : 1950 Admission Diagnosis:SEPSIS, UNSPECIFIED ORGANISM Attending: IRINEO Current LOS: 4 Anticipated DC Date: Planned Disposition: Home with Home Health Primary Insurance: MEDICARE A & B PLANNED EXTERNAL PROVIDER: [facility] Discharge Planning Comments: CM RECEIVED NOTICE IN MULTIDICIPLINARY TEAM MEETING 04-19-19 THAT PT NEEDS PLACEMENT. CM MET WITH PT IN ROOM TO DISCUSS DISCHARGE PLANNING AND NEEDS. PT REPORTS LIVING AT HOME INDEPENDENTLY AND ALONE; PT REPORTS HIS SISTER LIVES ACROSS [address] FROM HIS HOME AND HE HAS HELP AT HOME ANY TIME HE NEEDS IT. PT HAS HOSPOITAL BED WITH TRAPEZE, BEDSIDE COMMODE, WALKER, ELECTRIC AND STANDARD WHEELCHAIR. PT HAS NO MEDICAL EQUIPMENT PROVIDER PREFERENCE. PT HAS HOME HEALTH FOR NURSING AND PHYSICAL THERAPY FROM [facility] AND ALSO IS SCHEDULED FOR OUTPATIENT WOUND CARE AT THE [facility] IN [place] ON [address]. CM DISCUSSED DOCTORS OPINION THAT PT IS UNABLE TO CARE FOR HIMSELF AT HOME ALONE AND NEEDS PLACEMENT. PT FEELS HE CAN CONTINUE TO CARE FOR HIMSELF AND CALL HIS SISTER IF ANY NEEDS ARISE. PT FEELS THIS IS SAFE AND REFUSED ANY LONG TERM PLACEMENT. CM DISCUSSED POSSIBLE REHAB. PT STATES HE RECENTLY GOT OUT OF [place] AND IF HE EVER GOES ANYWHERE, IT WILL BE [place] BUT HE IS NOT GOING ANYWHERE BUT HOME WHEN HE LEAVES THE HOSPITAL. CM DISCUSSED AVAILABILITY OF HOME HEALTH, REHAB SERVICES AND MEDICAL EQUIPMENT. PT DENIES DISCHARGE NEEDS OTHER THAN HOME HEALTH RESUMPTION WITH [facility]. CHOICE SIGNED. PT REPORTS HIS SISTER IS BRINGING PT'S WHEELCHAIR TO HOSPITAL TOMORROW SO THAT PT CAN GET UP AND OUT OF BED WHILE HERE. PT WILL NEED [place] BUS (MEDICAID) TRANSPORT DO DISCHARGE HOME, PT STATES HE HAS ALREADY TAKEN CARE OF THAT ALSO. IMPORTANT MESSAGE FROM MEDICARE PROVIDED AND EXPLAINED. CM FAXED UPDATE TO [facility] AT [phone]. PT DECLINED PLACEMENT, LONG TERM AND LONG TERM FACILITY. PT DENIES NEED OF REHAB PLACEMENT. PT PLANS TO RETURN HOME ALONE WITH FAMILY ASSISTANCE IF NEEDED AND WITH [facility] RESUMPTION. FOR DISCHARGE HOME, FAX DISCHARGE INFORMATION TO [facility] AT [phone], NOTIFY [facility] AT [phone]. CM TO CONTINUE TO FOLLOW AND ASSIST NEEDED. Concrete Block Maker: Tg Yoder DCPIA - Discharge Planning Initial Assessment Updated by [id number]: Tg Yoder on 04/20/19 9:48 am * Is the patient Alert and Oriented? Yes * How many steps to enter\\exit or inside your home? RAMP * PCP DR. GOMEZ * Pharmacy [facility] ON [address] * Preadmission Environment Home Alone * ADLs Independent * Equipment Bedside Commode Hospital Bed Power Chair or Electric Scooter Trapeze Wheelchair * Other Equipment NO MEDICAL EQUIPMENT PROVIDER PREFERENCE * List name and contact numbers for known caregivers / representatives who currently or will assist patient after discharge: JOCELINE HOLLAND, SISTER, * Verbal permission to speak to the caregivers and representatives has been obtained from the patient. N/A * Community resources currently utilized Home Health * Please name any agencies selected above. [facility] REPORTS HAVING WOUND CARE SCHEDULED OUTPATIENT AT [facility] ON [address]. * Additional services required to return to the preadmission environment? No * Can the patient safely return to the preadmission environment? Yes * Has this patient been hospitalized within the prior 30 days at any hospital? Yes Coverage Notice Reviewer: [id number] Yoder Notice Issued Date-Time: 04/20/2019 9:00 Notice Type: IM Discharge Notice Notice Delivered To: Patient Relationship to Patient: Telecommunication Engineer Name: Delivery Method: HAND - Hand Delivered Dee Days: Prior Verbal Notification: Recipient Understood Notice: Yes Recipient Signature: Yes Med Rec Note Co-signed by Attending: Coverage Notice Comment: Reviewer: RADHA Yoder Notice Issued Date-Time: 04/20/2019 9:00 Notice Type: Patient Choice Letter Notice Delivered To: Patient Relationship to Patient: Telecommunication Engineer Name: Delivery Method: HAND - Hand Delivered Dee Days: Prior Verbal Notification: Recipient Understood Notice: Yes Recipient Signature: Yes Med Rec Note Co-signed by Attending: Coverage Notice Comment: [facility] REFUSES LONG TERM / LONG TERM FACILITY Reviewer: [id number] Yoder Notice Issued Date-Time: 04/26/2019 9:50 Notice Type: Patient Choice Letter Notice Delivered To: Patient Relationship to Patient: Telecommunication Engineer Name: Delivery Method: HAND - Hand Delivered Dee Days: Prior Verbal Notification: Recipient Understood Notice: Yes Recipient Signature: Yes Med Rec Note Co-signed by Attending: Coverage Notice Comment: Last DP export: 04/26/19 2:02 p Patient Name: VIRA HOLLAND Page [id number] at 1632 All edits/amendments must be made on the electronic document DICTATION DATE: 04/26/19 1631 CLOTHING PATTERNMAKER: TEGAN 04/26/19 1631 RPT#: [id number] DC DATE: STATUS: ADM IN [facility] [address] [place] [address] END OF REPORT
--- NOTE | 2019-04-26 16:38 | NUR ---
I have reviewed this patient and I concur with the Shift Assessment completed by the Licensed Practical Nurse today this shift.
--- NOTE | 2019-04-26 17:21 | NUR ---
Rehab Note- Acute Inpatient Rehab prescreen order received. The patient would have to be in agreeance to the required 3hrs/day of therapy for acute inpatient rehab. Will continue to follow at this time. Thank you for this referral! Alyson Leung RN Clinical Liaison, [facility] Rehab
--- NOTE | 2019-04-26 19:30 | NUR ---
REPORT RECEIVED, WILL CONTINUE POC. PATIENT IS AAOX4, LYING IN SEMI-FOLWERS POSITION. NO S/S OF DISTRESS OBSERVED AT THIS TIME, RR EVEN AND UNLABORED ON 2L O2 VIA NC. SHERBERT ICE CREAM GIVEN UPON REQUEST. PATIENT DENIES FURTHER NEEDS AT THIS TIME. RT SUBCLAVIAN CVL INFUSING NS @KVO, DRSG C/D/I. SUPRAPUBIC ALANIZ DRAINING BLOODY URINE TO RT SIDE OF BED, PATENT. CL IN REACH, BED LOCKED AND LOWERED. CONTACT PRECAUTIONS MAINTAINED AND FOLLOWED. WILL CTM.
[2019-04-26 21:20] VITALS: BP 121/67
--- NOTE | 2019-04-26 22:50 | NUR ---
ASSISTED DOCUMENT ADVISOR WITH COMPLETE LINEN CHANGED. CLEANSED BUTTOCKS AND PETER-AREA WITH DAKIN'S, APPLIED CALMOSEPTINE AND NYSTATIN POWDER TO APPROPRIATE AREAS PER ORDERS. PATIENT HAD LARGE LOOSE BM WELL THE PAD BEING SATURATED WITH BLOODY URINE. FLUSHED SUPRAPUBIC ALANIZ TO ENSURE PATENTCY. ALANIZ FLUSHED WITH NO RESISTANCE AND ALANIZ BACK HAS APPROXIMATELY 400ML OF BLOODY URINE IN IT. REPOSITIONED PATIENT FOR COMFORT. PATIENT DENIES FURTHER NEEDS AT THIS TIME. CL IN REACH, BED LOCKED AND LOWERED. WILL CTM.
[2019-04-27] VITALS: BP 110/60
[2019-04-27 05:01] VITALS: BP 101/53
[2019-04-27 05:20] LABS: BASOPHILS 0.4 % (0-2); EOSINOPHILS 5.2 % (0-7); HEMATOCRIT 27.6 % (42.0-54.0); HEMOGLOBIN 8.6 g/dL (13.5-17.5); IMMATURE GRANULOCYTES 1.6 % (0-5); LYMPHOCYTES 24.3 % (15-50); MCH 25.5 pg (26.0-34.0); MCHC 31.2 g/dL (31.0-37.0); MCV 81.9 fL (80.0-100.0); MEAN PLATELET VOLUME 8.1 fL (7.4-10.4); MONOCYTES 11.5 % (2-11); PLATELET COUNT 182 10x3/uL (130-400); RBC 3.37 10x6/uL (4.20-6.10); WBC 8.2 10x3/uL (4.8-10.8)
[2019-04-27 05:28] LABS: CALC OSMOLALITY 284 mosm/kg (275-300); CALCIUM 8.4 mg/dL (8.5-10.1); CARBON DIOXIDE 26.5 mmol/L (21.0-32.0); CHLORIDE - SERUM 101 mmol/L (98-107); GLUCOSE 211 mg/dL (74-106); POTASSIUM - SERUM 3.8 mmol/L (3.5-5.1); SODIUM 136 mmol/L (136-145); UREA NITROGEN 31 mg/dL (7-18); eGFR NON AFRICAN AMERICAN 79 mL/min (90-120)
--- NOTE | 2019-04-27 06:30 | NUR ---
DRESSING CHANGED TO LOWER RIGHT LEG.
[2019-04-27 10:22] VITALS: BP 101/51
--- NOTE | 2019-04-27 11:21 | MORECARE ---
CASE MANAGEMENT DISCHARGE SUMMARY PATIENT: VIRA HOLLAND UNIT: [id number] ADM DATE: 04/16/19 AGE: 68 : [birth year] SEX: M ROOM/BED: D.2111 AUTHOR: JORDAN,DOC PHYSICIAN: REFERRING PHYSICIAN: ROCIO FAITH MD DATE OF SERVICE: 04/27/19 Discharge Plan Patient Name: VIRA HOLLAND Facility[facility]:[place] : 1950 Planned Disposition: Retirement Facility Anticipated Discharge Date: Discharge Date: Expected LOS: Initial Reviewer: [id number] Initial Review Date: 04/20/2019 Generated: 04/27/19 12:21 pm Comments DCP- Discharge Planning Updated by [id number]: Arley Lund on 04/27/19 10:[address] Patient Name: VIRA HOLLAND Encounter No: [id number] : 1950 Primary Insurance: MEDICARE A & B Anticipated DC Date: Planned Disposition: Retirement Facility External Planned Provider: [facility], MEDICARE REHAB BED DCP follow-up note: CM SPOKE TO TREATMENT TEAM AT MULTIDICIPLINARY TEAM MEETING. MONUMENT SETTER REPORTS THAT PT IS NOT APPROPRIATE FOR INPATIENT REHAB AND WOULD BE APPROPRIATE FOR HALFWAY OR FPC CARE. [facility] OF INPATIENT REHAB INFORMED TEAM THAT INPATIENT REHAB DECLINES PT. CM NOTIFIED NATALIA BURCIAGA OF [facility], , WHO WILL FORWARD REFERRAL TO [facility]. CM FAXED UPDATE TO NATALIA AT [phone]. CM WAITING ADMISSION DETERMINATION FROM [facility]. MAURICE Hutchinson DCP- Discharge Planning Updated by [id number]: Arley Lund on 04/26/19 3:[address] Patient Name: VIRA HOLLAND Encounter No: [id number] : 1950 Primary Insurance: MEDICARE A & B Anticipated DC Date: Planned Disposition: Inpatient Rehab External Planned Provider: [facility] DCP follow-up note: CM RECEIVED CALL FROM NATALIA BARBOSA [facility], THEY WILL NOT ACCEPT PT, OFFERED TO REFER TO [facility]. CM SPOKE TO PT IN ROOM, PT PROVIDED WITH LISTING OF HALFWAY FACILITY PROVIDERS IN [facility]. PT REVIEWED FOR OVER ONE HOUR, CALLED CM BACK TO ROOM AND REQUESTED REHAB AT [facility]. PT IN THE MEANTIME WILL DISCUSS OTHER HALFWAY FACILITY OPTIONS AND LET CM KNOW. PT ENSURES CM THAT HE WILL PARTICIPATE FULLY WITH THERAPY EVERY DAY AND KNOWS THE PROGRAM HE HAS BEEN THERE BEFORE. PT REQUESTING REHAB AT [facility] IN[facility]. CM WAITING INPATIENT REHAB PRESCREENING. Arley Lund, CASE MANAGEMENT DCP- Discharge Planning Updated by [id number]: Fatou Bernal on 04/26/19 1:[address] Patient Name: VIRA HOLLAND Encounter No: [id number] : 1950 Primary Insurance: MEDICARE A & B Accounting Supervisor: : LON Note: 04/26 -- AFVSS, no complaints. Labs reviewed Hemoglobin 8.6 status post 2 unit PRBC ( total of 3 units this admission ) Dr. Jenkins following, supportive transfusions at this time, iron supplementation, and will need bone marrow in the future. Appreciate Dr. Jenkins Stool for Occult Blood -negative He has hematuria, doubt that is the source of anemia, but may need cysto STD specimens obtained -and will follow-up results Add cipro (levaquin due to formulary, but prefer cipro on DC) Will to go to [place] for SNF. Will need 10 days of IV-Vanc total and 14 days of oral Cipro Check Labs in AM -- CBC w/diff and BMP. Fatou Bernal DCP- Discharge Planning Updated by [id number]: Arley Lund on 04/26/19 10:[address] Patient Name: VIRA HOLLAND Encounter No: [id number] : 1950 Primary Insurance: MEDICARE A & B Anticipated DC Date: Planned Disposition: Retirement Facility External Planned Provider: [facility], MEDICARE REHAB BED DISCHARGE PLANNING NOTE: CM MET WITH PT IN ROOM TO DISCUSS DISCHARGE NEEDS AND PLANNING. PT HAS DECIDED THAT HE CANNOT SAFELY RETURN HOME AND WANTS REFERRAL TO [facility]. CHOICE SIGNED. PT STATES HE IS WILLING TO PARTICIPATE WITH THERAPY. CM FAXED REFERRALINFORMATION TO [facility] AT [phone]. CM NOTIFIED GILL AT [facility] AT [phone]. CM NOTIFIED NATALIA BURCIAGA OF [facility] WHO WILL VISIT WITH PT AND EVALUATE TODAY. CM WAITING MEDICAL STABILITY AND ADMISSION DETERMINATION FROM [facility]. MAURICE HUTCHINSON DCP- Discharge Planning Updated by [id number]: Arley Lund on 04/21/19 11:[address] Patient Name: VIRA HOLLAND Encounter No: [id number] : 1950 Primary Insurance: MEDICARE A & B Anticipated DC Date: Planned Disposition: Retirement Facility External Planned Provider: [facility], MEDICARE REHAB BED DCP follow-up note: CM RECEIVED REQUEST TO SPEAK TO PT IN ROOM. PT STATES HE IS CONSIDERING HIS OPTIONS AND KNOWS HE NEEDS HELP IN CARING FOR HIM. PT IS CONSIDERING GOING TO [facility] FOR SKILLED REHAB AND POSSIBLE INDUSTRIAL NURSE CARE. CM ASKED PT TO SIGN CONSENT FOR [facility], PT REFUSED AND STATES HE IS JUST THINKING ABOUT IT RIGHT NOW AND WILL LET CM KNOW WHEN HE MAKES A DECISION. CM ADVISED PT THAT CM WILL BE CALLING ADULT PROTECTIVE SERVICES IF PT DOES DECIDE TO GO HOME. PT STATES HE UNDERSTANDS EVERYONE'S CONCERN AND STATES AGAIN THAT HE IS CONSIDERING OPTIONS. PT IS CONSIDERING GOING TO [facility] AT DISCHARGE. HE IS REFUSING CONSENT TO SEND REFERRAL AT THIS TIME. IF PT GOES HOME, CM WILL CALL ADULT PROTECTIVE SERVICES. MAURICE Hutchinson DCP- Discharge Planning Updated by [id number]: Arley Lund on 04/20/19 5:[address] Patient Name: VIRA HOLLAND Encounter No: [id number] : 1950 Primary Insurance: MEDICARE A & B Anticipated DC Date: Planned Disposition: Home DCP follow-up note: CM RECEIVED CALLF CAROL CINTRON FROM [facility], THEY HAVE CONSIDERED PT'S RESUMPTION AND HAVE DECIDED THEY CANNOT RESUME PT'S SITUATION HOME ALONE IS NOT SAFE. THEY HAVE NOT CALLED ADULT PROTECTIVE SERVICES. BEDSIDE NURSE EXPLAINED THIS TO PT WHO STATES "THEY GOT CAUGHT". PT STILL REFUSED ANY PLACEMENT OUTSIDE HIS HOME. PT HAS REPORTED THAT FAMILY WILL BRING WHEELCHAIR FOR HIM TO TAKE THE [place] MED[place] BUS HOME AND THEY SHOULD BRING WHEELCHAIR TONIGHT. CM TO CALL [facility] ADULT PROTECTIVE SERVICES. PT PLANS TO RETURN HOME ALONE, MEDICAID BUS TRANPSPORT. [facility] WILL NOT ACCEPT PT. Arley Kevon, CASE MANAGEMENT DCP- Discharge Planning Updated by [id number]: Arley Whitakerwell on 04/20/19 8:[address] Patient Name: VIRA HOLLAND Admission Status: ER Accout number: [id number] Admission Date: 04-16-2019 : 1950 Admission Diagnosis:SEPSIS, UNSPECIFIED ORGANISM Attending: IRINEO Current LOS: 4 Anticipated DC Date: Planned Disposition: Home with Home Health Primary Insurance: MEDICARE A & B PLANNED EXTERNAL PROVIDER: [facility] Discharge Planning Comments: CM RECEIVED NOTICE IN MULTIDICIPLINARY TEAM MEETING 04-19-19 THAT PT NEEDS PLACEMENT. CM MET WITH PT IN ROOM TO DISCUSS DISCHARGE PLANNING AND NEEDS. PT REPORTS LIVING AT HOME INDEPENDENTLY AND ALONE; PT REPORTS HIS SISTER LIVES [place]CROSS [place] [address] FROM HIS HOME AND HE HAS HELP AT HOME ANY TIME HE NEEDS IT. PT HAS HOSPOITAL BED WITH TRAPEZE, BEDSIDE COMMODE, WALKER, ELECTRIC AND STANDARD WHEELCHAIR. PT HAS NO MEDICAL EQUIPMENT PROVIDER PREFERENCE. PT HAS HOME HEALTH FOR NURSING AND PHYSICAL THERAPY FROM [facility] AND ALSO IS SCHEDULED FOR OUTPATIENT WOUND CARE AT THE [facility] IN [place] ON [address]. CM DISCUSSED DOCTORS OPINION THAT PT IS UNABLE TO CARE FOR HIMSELF AT HOME ALONE AND NEEDS PLACEMENT. PT FEELS HE CAN CONTINUE TO CARE FOR HIMSELF AND CALL HIS SISTER IF ANY NEEDS ARISE. PT FEELS THIS IS SAFE AND REFUSED ANY CUSTODIAL PLACEMENT. CM DISCUSSED POSSIBLE REHAB. PT STATES HE RECENTLY GOT OUT OF [place] AND IF HE EVER GOES ANYWHERE, IT WILL BE [facility] BUT HE IS NOT GOING ANYWHERE BUT HOME WHEN HE LEAVES THE HOSPITAL. CM DISCUSSED AVAILABILITY OF HOME HEALTH, REHAB SERVICES AND MEDICAL EQUIPMENT. PT DENIES DISCHARGE NEEDS OTHER THAN HOME HEALTH RESUMPTION WITH [facility]. CHOICE SIGNED. PT REPORTS HIS SISTER IS BRINGING PT'S WHEELCHAIR TO HOSPITAL TOMORROW SO THAT PT CAN GET UP AND OUT OF BED WHILE HERE. PT WILL NEED [place] BUS (MEDICAID) TRANSPORT DO DISCHARGE HOME, PT STATES HE HAS ALREADY TAKEN CARE OF THAT ALSO. IMPORTANT MESSAGE FROM MEDICARE PROVIDED AND EXPLAINED. CM FAXED UPDATE TO [facility] AT [phone]. PT DECLINED PLACEMENT, CUSTODIAL AND HALFWAY FACILITY. PT DENIES NEED OF REHAB PLACEMENT. PT PLANS TO RETURN HOME ALONE WITH FAMILY ASSISTANCE IF NEEDED AND WITH [facility] RESUMPTION. FOR DISCHARGE HOME, FAX DISCHARGE INFORMATION TO [facility] AT [phone], NOTIFY [facility] AT [phone]. CM TO CONTINUE TO FOLLOW AND ASSIST NEEDED. Accounting Supervisor: Arley Lund DCPIA - Discharge Planning Initial Assessment Updated by RADHA: Arley Lund on 04/20/19 9:48 am * Is the patient Alert and Oriented? Yes * How many steps to enter\\exit or inside your home? RAMP * PCP DR. GOMEZ * Pharmacy [facility] ON [address] * Preadmission Environment Home Alone * ADLs Independent * [facility] Power [facility] or Electric Scooter Trapeze Wheelchair * Other Equipment NO MEDICAL EQUIPMENT PROVIDER PREFERENCE * List name and contact numbers for known caregivers / representatives who currently or will assist patient after discharge: JOCELINE HOLLAND, SISTER, * Verbal permission to speak to the caregivers and representatives has been obtained from the patient. N/A * Community resources currently utilized Home Health * Please name any agencies selected above. [facility] REPORTS HAVING WOUND CARE SCHEDULED OUTPATIENT AT [facility]. * Additional services required to return to the preadmission environment? No * Can the patient safely return to the preadmission environment? Yes * Has this patient been hospitalized within the prior 30 days at any hospital? Yes External Providers External Provider: [facility] Next Contact Date: 04/27/2019 Service Request Date: Service Type: Resolution: Reviewer: Comments: Coverage Notice Reviewer: [id number] Lund Notice Issued Date-Time: 04/20/2019 9:00 Notice Type: IM Discharge Notice Notice Delivered To: Patient Relationship to Patient: Email Marketing Manager Name: Delivery Method: HAND - Hand Delivered Dee Days: Prior Verbal Notification: Recipient Understood Notice: Yes Recipient Signature: Yes Med Rec Note Co-signed by Attending: Coverage Notice Comment: Reviewer: [id number] Lund Notice Issued Date-Time: 04/20/2019 9:00 Notice Type: Patient Choice Letter Notice Delivered To: Patient Relationship to Patient: Email Marketing Manager Name: Delivery Method: HAND - Hand Delivered Dee Days: Prior Verbal Notification: Recipient Understood Notice: Yes Recipient Signature: Yes Med Rec Note Co-signed by Attending: Coverage Notice Comment: [facility] REFUSES CUSTODIAL / HALFWAY FACILITY Reviewer: RADHA Lund Notice Issued Date-Time: 04/26/2019 9:50 Notice Type: Patient Choice Letter Notice Delivered To: Patient Relationship to Patient: Email Marketing Manager Name: Delivery Method: HAND - Hand Delivered Dee Days: Prior Verbal Notification: Recipient Understood Notice: Yes Recipient Signature: Yes Med Rec Note Co-signed by Attending: Coverage Notice Comment: Last DP export: 04/26/19 3:32 p Patient Name: VIRA HOLLAND Page [id number] at 1121 All edits/amendments must be made on the electronic document DICTATION DATE: 04/27/19 112 MELT SUPERVISOR: TEGAN 04/27/19 1121 RPT#: [id number] DC DATE: STATUS: ADM IN [facility] [address] [place] [address] END OF REPORT
--- NOTE | 2019-04-27 11:47 | MORECARE ---
CASE MANAGEMENT DISCHARGE SUMMARY PATIENT: VIRA HOLLAND UNIT: [id number] ADM DATE: 04/16/19 AGE: 68 : [birth year] SEX: M ROOM/BED: D.2111 AUTHOR: JORDAN,DOC PHYSICIAN: REFERRING PHYSICIAN: ROCIO FAITH MD DATE OF SERVICE: 04/27/19 Discharge Plan Patient Name: VIRA HOLLAND Facility: [facility]:[place] : 1950 Planned Disposition: [facility] Facility Anticipated Discharge Date: Discharge Date: Expected LOS: Initial Reviewer: [id number] Initial Review Date: 04/20/2019 Generated: 04/27/19 12:46 pm Comments DCP- Discharge Planning Updated by [id number]: Arley Lund on 04/27/19 10:[address] Patient Name: VIRA HOLLAND Encounter No: [id number] : 1950 Primary Insurance: MEDICARE A & B Anticipated DC Date: Planned Disposition: [facility] Facility External Planned Provider: [facility], MEDICARE REHAB BED DCP follow-up note: CM SPOKE TO TREATMENT TEAM AT MULTIDICIPLINARY TEAM MEETING. END MATCHER REPORTS THAT PT IS NOT APPROPRIATE FOR INPATIENT REHAB AND WOULD BE APPROPRIATE FOR [facility] OR DETENTION CARE. [facility] OF INPATIENT REHAB INFORMED TEAM THAT INPATIENT REHAB DECLINES PT. CM NOTIFIED NAT[facility]IA BURCIAGA [facility], , WHO WILL FORWARD REFERRAL TO [facility]. CM FAXED UPDATE TO NATALIA AT [phone]. PT HAS PREVIOUSLY SIGNED CHOICE FOR [facility] AND [facility]. CM WAITING ADMISSION DETERMINATION FROM [facility]. Arley Lund, CASE MANAGEMENT DCP- Discharge Planning Updated by [id number]: Arley Lund on 04/26/19 3:[address] Patient Name: VIRA HOLLAND Encounter No: [id number] : 1950 Primary Insurance: MEDICARE A & B Anticipated DC Date: Planned Disposition: Inpatient Rehab External Planned Provider: [facility] DCP follow-up note: CM RECEIVED CALL FROM NATALIA [facility], THEY WILL NOT ACCEPT PT, OFFERED TO REFER TO [facility]. CM SPOKE TO PT IN ROOM, PT PROVIDED WITH LISTING OF [facility] FACILITY PROVID[place] [facility] [place] [facility] [place]. PT REVIEWED FOR OVER ONE HOUR, CALLED CM BACK TO ROOM AND REQUESTED REHAB AT [facility]. PT IN THE MEANTIME WILL DISCUSS OTHER [facility] FACILITY OPTIONS AND LET CM KNOW. PT ENSURES CM THAT HE WILL PARTICIPATE FULLY WITH THERAPY EVERY DAY AND KNOWS THE PROGRAM HE HAS BEEN THERE BEFORE. PT REQUESTING REHAB AT [facility] INPATIENT RE[facility]. CM WAITING INPATIENT REHAB PRESCREENING. Arley Lund, CASE MANAGEMENT DCP- Discharge Planning Updated by [id number]: Fatou Bernal on 04/26/19 1:[address] Patient Name: VIRA HOLLAND Encounter No: [id number] : 1950 Primary Insurance: MEDICARE A & B Guidance Adviser: : LON Note: 04/26 -- AFVSS, no complaints. Labs reviewed Hemoglobin 8.6 status post 2 unit PRBC ( total of 3 units this admission ) Dr. Jenkins following, supportive transfusions at this time, iron supplementation, and will need bone marrow in the future. Appreciate Dr. Jenkins Stool for Occult Blood -negative He has hematuria, doubt that is the source of anemia, but may need cysto STD specimens obtained -and will follow-up results Add cipro (levaquin due to formulary, but prefer cipro on DC) Will to go to [place] for SNF. Will need 10 days of IV-Vanc total and 14 days of oral Cipro Check Labs in AM -- CBC w/diff and BMP. Fatou Bernal DCP- Discharge Planning Updated by [id number]: Arley Lund on 04/26/19 10:[address] Patient Name: VIRA HOLLAND Encounter No: [id number] : 1950 Primary Insurance: MEDICARE A & B Anticipated DC Date: Planned Disposition: [facility] Facility External Planned Provider: [facility], MEDICARE REHAB BED DISCHARGE PLANNING NOTE: CM MET WITH PT IN ROOM TO DISCUSS DISCHARGE NEEDS AND PLANNING. PT HAS DECIDED THAT HE CANNOT SAFELY RETURN HOME AND WANTS [facility]ERRAL TO [facility]. CHOICE SIGNED. PT STATES HE IS WILLING TO PARTICIPATE WITH THERAPY. CM FAXED REFERRALINFORMATION TO [facility] AT [phone]. CM NOTIFIED [facility] AT [facility] AT [phone]. CM NOTIFIED NATALIA BURCIAGA OF [facility] WHO WILL VISIT WITH PT AND EVALUATE TODAY. CM WAITING MEDICAL STABILITY AND ADMISSION DETERMINATION FROM [facility]. MAURICE HUTCHINSON MANAGEMENT DCP- Discharge Planning Updated by [id number]: Arley Lund on 04/21/19 11:[address] Patient Name: VIRA HOLLAND Encounter No: [id number] : 1950 Primary Insurance: MEDICARE A & B Anticipated DC Date: Planned Disposition: [facility] Facility External Planned Provider: [facility], MEDICARE REHAB BED DCP follow-up note: CM RECEIVED REQUEST TO SPEAK TO PT IN ROOM. PT STATES HE IS CONSIDERING HIS OPTIONS AND KNOWS HE NEEDS HELP IN CARING FOR HIM. PT IS CONSIDERING GOING TO [facility] FOR SKILLED REHAB AND POSSIBLE RELISH BLENDER CARE. CM ASKED PT TO SIGN CONSENT FOR [facility], PT REFUSED AND STATES HE IS JUST THINKING ABOUT IT RIGHT NOW AND WILL LET CM KNOW WHEN HE MAKES A DECISION. CM ADVISED PT THAT CM WILL BE CALLING ADULT PROTECTIVE SERVICES IF PT DOES DECIDE TO GO HOME. PT STATES HE UNDERSTANDS EVERYONE'S CONCERN AND STATES AGAIN THAT HE IS CONSIDERING OPTIONS. PT IS CONSIDERING GOING TO [facility] AT DISCHARGE. HE IS REFUSING CONSENT TO SEND REFERRAL AT THIS TIME. IF PT GOES HOME, CM WILL CALL [facility] PROT[facility]IVE SERVICES. Arley Lund CASE MERCEDEZ DCP- Discharge Planning Updated by [id number]: Arley Lund on 04/20/19 5:[address] Patient Name: VIRA HOLLAND Encounter No: [id number] : 1950 Primary Insurance: MEDICARE A & B Anticipated DC Date: Planned Disposition: Home DCP follow-up note: CM RECEIVED CALLF CAROL CINTRON FROM [facility], THEY HAVE CONSIDERED PT'S RESUMPTION AND HAVE DECIDED THEY CANNOT RESUME PT'S SITUATION HOME ALONE IS NOT SAFE. THEY HAVE NOT CALLED ADULT PROTECTIVE SERVICES. BEDSIDE NURSE EXPLAINED THIS TO PT WHO STATES "THEY GOT CAUGHT". PT STILL REFUSED ANY PLACEMENT OUTSIDE HIS HOME. PT HAS REPORTED THAT FAMILY WILL BRING WHEELCHAIR FOR HIM TO TAKE THE [place] MEDICA[place] BUS HOME AND THEY SHOULD BRING WHEELCHAIR TONIGHT. CM TO CALL [facility] ADULT PROTECTIVE SERVICES. PT PLANS TO RETURN HOME ALONE, MEDICAID BUS TRANPSPORT. HOME HEALTH WILL NOT ACCEPT PT. Arley Lund, CASE MANAGEMENT DCP- Discharge Planning Updated by [id number]: Arley Kevon on 04/20/19 8:[address] Patient Name: VIRA HOLLAND Admission Status: ER Accout number: [id number] Admission Date: 04-16-2019 : 1950 Admission Diagnosis:SEPSIS, UNSPECIFIED ORGANISM Attending: IRINEO Current LOS: 4 Anticipated DC Date: Planned Disposition: Home with Home Health Primary Insurance: MEDICARE A & B PLANNED EXTERNAL PROVIDER: [facility] Discharge Planning Comments: CM RECEIVED NOTICE IN MULTIDICIPLINARY TEAM MEETING 04-19-19 THAT PT NEEDS PLACEMENT. CM MET WITH PT IN ROOM TO DISCUSS DISCHARGE PLANNING AND NEEDS. PT REPORTS LIVING AT HOME INDEPENDENTLY AND ALONE; PT REPORTS HIS SISTER LIVES [place]OSS [address] FROM HIS HOME AND HE HAS HELP AT HOME ANY TIME HE NEEDS IT. PT HAS HOSPOITAL BED WITH TRAPEZE, BEDSIDE COMMODE, WALKER, ELECTRIC AND STANDARD WHEELCHAIR. PT HAS NO MEDICAL EQUIPMENT PROVIDER PREFERENCE. PT HAS HOME HEALTH FOR NURSING AND PHYSICAL THERAPY FROM [facility] AND ALSO IS SCHEDULED FOR OUTPATIENT WOUND CARE AT THE [facility] IN [place] ON [address]. CM DISCUSSED DOCTORS OPINION THAT PT IS UNABLE TO CARE FOR HIMSELF AT HOME ALONE AND NEEDS PLACEMENT. PT FEELS HE CAN CONTINUE TO CARE FOR HIMSELF AND CALL HIS SISTER IF ANY NEEDS ARISE. PT FEELS THIS IS SAFE AND REFUSED ANY CORRECTION PLACEMENT. CM DISCUSSED POSSIBLE REHAB. PT STATES HE RECENTLY GOT OUT OF [facility] AND IF HE EVER GOES ANYWHERE, IT WILL BE [facility] BUT HE IS NOT GOING ANYWHERE BUT HOME WHEN HE LEAVES THE HOSPITAL. CM DISCUSSED AVAILABILITY OF HOME HEALTH, REHAB SERVICES AND MEDICAL EQUIPMENT. PT DENIES DISCHARGE NEEDS OTHER THAN HOME HEALTH RESUMPTION WITH [facility]. CHOICE SIGNED. PT REPORTS HIS SISTER IS BRINGING PT'S WHEELCHAIR TO HOSPITAL TOMORROW SO THAT PT CAN GET UP AND OUT OF BED WHILE HERE. PT WILL NEED [place] BUS (MEDICAID) TRANSPORT DO DISCHARGE HOME, PT STATES HE HAS ALREADY TAKEN CARE OF THAT ALSO. IMPORTANT MESSAGE FROM MEDICARE PROVIDED AND EXPLAINED. CM FAXED UPDATE TO [facility] AT [phone]. PT DECLINED PLACEMENT, CORRECTION AND [facility] FACILITY. PT DENIES NEED OF REHAB PLACEMENT. PT PLANS TO RETURN HOME ALONE WITH FAMILY ASSISTANCE IF NEEDED AND WITH [facility] RESUMPTION. FOR DISCHARGE HOME, FAX DISCHARGE INFORMATION TO [facility] AT [phone], NOTIFY [facility] AT [phone]. CM TO CONTINUE TO FOLLOW AND ASSIST NEEDED. Guidance Adviser: Arley Lund DCPIA - Discharge Planning Initial Assessment Updated by RADHA: Arley Lund on 04/20/19 9:48 am * Is the patient Alert and Oriented? Yes * How many steps to enter\\exit or inside your home? RAMP * PCP DR. GOMEZ * Pharmacy [facility] ON [address] * Preadmission Environment Home Alone * ADLs Independent * Equipment Bedside Commode [facility] Bed Power Chair or Electric Scooter Trapeze Wheelchair * Other Equipment NO MEDICAL EQUIPMENT PROVIDER PREFERENCE * List name and contact numbers for known caregivers / representatives who currently or will assist patient after discharge: JOCELINE HOLLAND, SISTER, * Verbal permission to speak to the caregivers and representatives has been obtained from the patient. N/A * Community resources currently utilized Home Health * Please name any agencies selected above. [facility] REPORTS HAVING WOUND CARE SCHEDULED OUTPATIENT AT [facility] [address]. * Additional services required to return to the preadmission environment? No * Can the patient safely return to the preadmission environment? Yes * Has this patient been hospitalized within the prior 30 days at any hospital? Yes Coverage Notice Reviewer: [id number] Lund Notice Issued Date-Time: 04/20/2019 9:00 Notice Type: IM Discharge Notice Notice Delivered To: Patient Relationship to Patient: Med Dir Name: Delivery Method: HAND - Hand Delivered Dee Days: Prior Verbal Notification: Recipient Understood Notice: Yes Recipient Signature: Yes Med Rec Note Co-signed by Attending: Coverage Notice Comment: Reviewer: RADHA Lund Notice Issued Date-Time: 04/26/2019 13:10 Notice Type: Patient Choice Letter Notice Delivered To: Patient Relationship to Patient: Med Dir Name: Delivery Method: HAND - Hand Delivered Dee Days: Prior Verbal Notification: Recipient Understood Notice: Yes Recipient Signature: Yes Med Rec Note Co-signed by Attending: Coverage Notice Comment: [facility] Reviewer: [id number] Lund Notice Issued Date-Time: 04/26/2019 9:50 Notice Type: Patient Choice Letter Notice Delivered To: Patient Relationship to Patient: Med Dir Name: Delivery Method: HAND - Hand Delivered Dee Days: Prior Verbal Notification: Recipient Understood Notice: Yes Recipient Signature: Yes Med Rec Note Co-signed by Attending: Coverage Notice Comment: Reviewer: [id number] Soren Lund Notice Issued Date-Time: 04/20/2019 9:00 Notice Type: Patient Choice Letter Notice Delivered To: Patient Relationship to Patient: Med Dir Name: Delivery Method: HAND - Hand Delivered Dee Days: Prior Verbal Notification: Recipient Understood Notice: Yes Recipient Signature: Yes Med Rec Note Co-signed by Attending: Coverage Notice Comment: [facility] REFUSES CORRECTION / [facility] F[facility] Last DP export: 04/27/19 10:21 a Patient Name: VIRA HOLLAND Page [phone] at 1147 All edits/amendments must be made on the electronic document DICTATION DATE: 04/27/19 1146 GRAIN FARMER: TEGAN 04/27/19 1146 RPT#: [id number] DC DATE: STATUS: ADM IN [facility] [address] [place] [address] END OF REPORT
[2019-04-27 16:57] VITALS: BP 114/65
--- NOTE | 2019-04-27 17:56 | NUR ---
REPORTED TO [facility] REAL OF URINE OP BLOODY AND INCONT. VOIDS EVEN WITH SPCATH.
[2019-04-27 20:00] VITALS: BP 114/58
[2019-04-28] VITALS: BP 104/60
--- NOTE | 2019-04-28 01:33 | NUR ---
RESTING WITH EYES CLOSED, RESPERATIONS EVEN, NO S/S DISTRESS NOTED.
[2019-04-28 04:00] VITALS: BP 105/58
--- NOTE | 2019-04-28 06:38 | NUR ---
SYSTEM MANAGER AT BED SIDE, BATH AND LINEN CHANGE COMPLETE. REPOSITIONED IN BED FOR COMFORT.
[2019-04-28 08:48] VITALS: BP 115/61
[2019-04-28 11:58] LABS: BASOPHILS 0.4 % (0-2); EOSINOPHILS 5.6 % (0-7); HEMATOCRIT 27.4 % (42.0-54.0); HEMOGLOBIN 8.8 g/dL (13.5-17.5); IMMATURE GRANULOCYTES 1.4 % (0-5); LYMPHOCYTES 20.6 % (15-50); MCH 26.3 pg (26.0-34.0); MCHC 32.1 g/dL (31.0-37.0); MEAN PLATELET VOLUME 8.2 fL (7.4-10.4); MONOCYTES 8.8 % (2-11); NEUTROPHILS 63.2 % (40-80); PLATELET COUNT 164 10x3/uL (130-400); RBC 3.34 10x6/uL (4.20-6.10); RDW 17.3 % (11.5-14.5); WBC 7.4 10x3/uL (4.8-10.8)
[2019-04-28 12:08] LABS: CALC OSMOLALITY 289 mosm/kg (275-300); CALCIUM 8.6 mg/dL (8.5-10.1); CARBON DIOXIDE 25.2 mmol/L (21.0-32.0); CHLORIDE - SERUM 102 mmol/L (98-107); GLUCOSE 227 mg/dL (74-106); SODIUM 137 mmol/L (136-145); UREA NITROGEN 37 mg/dL (7-18); eGFR NON AFRICAN AMERICAN 79 mL/min (90-120)
[2019-04-28 13:45] VITALS: BP 117/62
--- NOTE | 2019-04-28 16:34 | MORECARE ---
CASE MANAGEMENT DISCHARGE SUMMARY PATIENT: VIRA HOLLAND UNIT: [id number] ADM DATE: 04/16/19 AGE: 68 : [birth year] SEX: M ROOM/BED: D.2111 AUTHOR: JORDANDOC PHYSICIAN: REFERRING PHYSICIAN: ROCIO FAITH MD DATE OF SERVICE: 04/28/19 Discharge Plan Patient Name: VIRA HOLLAND Facility: [facility]:[place] : 1950 Planned Disposition: Correction Facility Anticipated Discharge Date: Discharge Date: Expected LOS: Initial Reviewer: [id number] Initial Review Date: 04/20/2019 Generated: 04/28/19 5:33 pm Comments DCP- Discharge Planning Updated by [id number]: Arley Lund on 04/28/19 3:[address] Patient Name: VIRA HOLLAND Encounter No: [id number] : 1950 Primary Insurance: MEDICARE A & B Anticipated DC Date: Planned Disposition: Correction Facility External Planned Provider: [facility], MEDICARE REHAB BED DCP follow-up note: CM RECEIVED CALL FROM NATALIA BURCIAGA OF [facility], , SHE IS WORKING ON REFERRAL TO [facility], PT WILL REQUIRE GHANSHYAM SCREENING DUE TO DEPRESSION / ANXIETY DISORDER. NATALIA WILL FILL OUT GHANSHYAM ASSESSMENT AND BRING TO FOR PT AND PHYSICIAN SIGNATURES. CM WAITING GHANSHYAM SCREENING COMPLETION AND WILL [place] [facility] [place] FOR AD[place]ION DET[place] [facility] Arley Lund, MAURICE NEWSOME DCP- Discharge Planning Updated by [id number]: Arley Lund on 04/27/19 10:[address] Patient Name: VIRA HOLLAND Encounter No: [id number] : 1950 Primary Insurance: MEDICARE A & B Anticipated DC Date: Planned Disposition: Correction Facility External Planned Provider: [facility], MEDICARE REHAB BED DCP follow-up note: CM SPOKE TO TREATMENT TEAM AT MULTIDICIPLINARY TEAM MEETING. PHLEBOTOMY SERVICES REPRESENTATIVE REPORTS THAT PT IS NOT APPROPRIATE FOR INPATIENT REHAB AND WOULD BE APPROPRIATE FOR CORRECTION OR INTERMEDIATE CARE. [facility] OF INPATIENT REHAB INFORMED TEAM THAT INPATIENT REHAB DECLINES PT. CM NOTIFIED NATALIA BURCIAGA OF [facility], , WHO WILL FORWARD REFERRAL TO [facility]. CM FAXED UPDATE TO NATALIA AT [phone]. PT HAS PREVIOUSLY SIGNED CHOICE FOR [facility] AND [facility]. CM WAITING ADMISSION DETERMINATION FROM [facility]. Arley Lund, CASE MANAGEMENT DCP- Discharge Planning Updated by [id number]: Arley Lund on 04/26/19 3:[address] Patient Name: VIRA HOLLAND Encounter No: [id number] : 1950 Primary Insurance: MEDICARE A & B Anticipated DC Date: Planned Disposition: Inpatient Rehab External Planned Provider: [facility] INPATIENT [facility] DCP follow-up note: CM RECEIVED CALL FROM NATALIA OF [facility], THEY WILL NOT ACCEPT PT, OFFERED TO REFER TO [facility]. CM SPOKE TO PT IN ROOM, PT PROVIDED WITH LISTING OF CORRECTION FACILITY PROVIDERS IN [facility]. PT REVIEWED FOR OVER ONE HOUR, CALLED CM BACK TO ROOM AND REQUESTED REHAB AT [facility] INPATIENT REH[facility]. PT IN THE MEANTIME WILL DISCUSS OTHER CORRECTION FACILITY OPTIONS AND LET CM KNOW. PT ENSURES CM THAT HE WILL PARTICIPATE FULLY WITH THERAPY EVERY DAY AND KNOWS THE PROGRAM HE HAS BEEN THERE BEFORE. PT REQUESTING REHAB AT [facility] INPATIENT REHAB. CM WAITING INPATIENT REHAB PRESCREENING. Arley Lund, CASE MANAGEMENT DCP- Discharge Planning Updated by [id number]: Fatou Bernal on 04/26/19 1:[address] Patient Name: VIRA HOLLAND Encounter No: [id number] : 1950 Primary Insurance: MEDICARE A & B Resource Teacher: : LON Note: 04/26 -- AFVSS, no complaints. Labs reviewed Hemoglobin 8.6 status post 2 unit PRBC ( total of 3 units this admission ) Dr. Jenkins following, supportive transfusions at this time, iron supplementation, and will need bone marrow in the future. Appreciate Dr. Jenkins Stool for Occult Blood -negative He has hematuria, doubt that is the source of anemia, but may need cysto STD specimens obtained -and will follow-up results Add cipro (levaquin due to formulary, but prefer cipro on DC) Will to go to [place] for SNF. Will need 10 days of IV-Vanc total and 14 days of oral Cipro Check Labs in AM -- CBC w/diff and BMP. Fatou Bernal DCP- Discharge Planning Updated by [id number]: Arley Lund on 04/26/19 10:[address] Patient Name: VIRA HOLLAND Encounter No: [id number] : 1950 Primary Insurance: MEDICARE A & B Anticipated DC Date: Planned Disposition: Correction Facility External Planned Provider: [facility], MEDICARE REHAB BED DISCHARGE PLANNING NOTE: CM MET WITH PT IN ROOM TO DISCUSS DISCHARGE NEEDS AND PLANNING. PT HAS DECIDED THAT HE CANNOT SAFELY RETURN HOME AND WANTS REFERRAL TO [facility]. CHOICE SIGNED. PT STATES HE IS WILLING TO PARTICIPATE WITH THERAPY. CM FAXED REFERRALINFORMATION TO [facility] AT [phone]. CM NOTIFIED GILL AT [facility] AT [phone]. CM NOTIFIED NATALIA BURCIAGA OF [facility] WHO WILL VISIT WITH PT AND EVALUATE TODAY. CM WAITING MEDICAL STABILITY AND ADMISSION DETERMINATION FROM [facility]. MAURICE HUTCHINSON DCP- Discharge Planning Updated by [id number]: Arley Lund on 04/21/19 11:[address] Patient Name: VIRA HOLLAND Encounter No: [id number] : 1950 Primary Insurance: MEDICARE A & B Anticipated DC Date: Planned Disposition: Correction Facility External [facility] DCP follow-up note: CM RECEIVED REQUEST TO SPEAK TO PT IN ROOM. PT STATES HE IS CONSIDERING HIS OPTIONS AND KNOWS HE NEEDS HELP IN CARING FOR HIM. PT IS CONSIDERING GOING TO [facility] FOR SKILLED REHAB AND POSSIBLE [facility] PROGRAMMER CARE. CM ASKED PT TO SIGN CONSENT FOR [facility], PT REFUSED AND STATES HE IS JUST THINKING ABOUT IT RIGHT NOW AND WILL LET CM KNOW WHEN HE MAKES A DECISION. CM ADVISED PT THAT CM WILL BE CALLING [facility]ULT PROT[facility]IVE SERVICES IF PT DOES DECIDE TO GO HOME. PT STATES HE UNDERSTANDS EVERYONE'S CONCERN AND STATES AGAIN THAT HE IS CONSIDERING OPTIONS. PT IS CONSIDERING GOING TO [facility] AT DISCHARGE. HE IS REFUSING CONSENT TO SEND REFERRAL AT THIS TIME. IF PT GOES HOME, CM WILL CALL [facility]IVE SERVICES. Arley [place], CASE MANAGEMENT DCP- Discharge Planning Updated by [id number]: Arley Lund on 04/20/19 5:[address] Patient Name: VIRA HOLLAND Encounter No: [id number] : 1950 Primary Insurance: MEDICARE A & B Anticipated DC Date: Planned Disposition: Home DCP follow-up note: CM RECEIVED CALLF CAROL CINTRON FROM [facility], THEY HAVE CONSIDERED PT'S RESUMPTION AND HAVE DECIDED THEY CANNOT RESUME PT'S SITUATION HOME ALONE IS NOT SAFE. THEY HAVE NOT CALLED ADULT PROTECTIVE SERVICES. BEDSIDE NURSE EXPLAINED THIS TO PT WHO STATES "THEY GOT CAUGHT". PT STILL REFUSED ANY PLACEMENT OUTSIDE HIS HOME. PT HAS REPORTED THAT FAMILY WILL BRING WHEELCHAIR FOR HIM TO TAKE THE [place] MED[place] BUS HOME AND THEY SHOULD BRING WHEELCHAIR TONIGHT. CM TO CALL [facility] ADULT PROTECTIVE SERVICES. PT PLANS TO RETURN HOME ALONE, MEDICAID BUS TRANPSPORT. HOME HEALTH WILL NOT ACCEPT PT. Arley Lund CASE MANAGEMENT DCP- Discharge Planning Updated by [id number]: Arley Lund on 04/20/19 8:[address] Patient Name: VIRA HOLLAND Admission Status: ER Accout number: [id number] Admission Date: 04-16-2019 : 1950 Admission Diagnosis:SEPSIS, UNSPECIFIED ORGANISM Attending: IRINEO Current LOS: 4 Anticipated DC Date: Planned Disposition: Home with Home Health Primary Insurance: MEDICARE A & B PLANNED EXTERNAL PROVIDER: [facility] Discharge Planning Comments: CM RECEIVED NOTICE IN MULTIDICIPLINARY TEAM MEETING 04-19-19 THAT PT NEEDS PLACEMENT. CM MET WITH PT IN ROOM TO DISCUSS DISCHARGE PLANNING AND NEEDS. PT REPORTS LIVING AT HOME INDEPENDENTLY AND ALONE; PT REPORTS HIS SISTER LIVES [place]OSS [address] FROM HIS HOME AND HE HAS HELP AT HOME ANY TIME HE NEEDS IT. PT HAS HOSPOITAL BED WITH TRAPEZE, BEDSIDE COMMODE, WALKER, ELECTRIC AND STANDARD WHEELCHAIR. PT HAS NO MEDICAL EQUIPMENT PROVIDER PREFERENCE. PT HAS HOME HEALTH FOR NURSING AND PHYSICAL THERAPY FROM [facility] AND ALSO IS SCHEDULED FOR OUTPATIENT WOUND CARE AT THE [facility] [place] ON [address]. CM DISCUSSED DOCTORS OPINION THAT PT IS UNABLE TO CARE FOR HIMSELF AT HOME ALONE AND NEEDS PLACEMENT. PT FEELS HE CAN CONTINUE TO CARE FOR HIMSELF AND CALL HIS SISTER IF ANY NEEDS ARISE. PT FEELS THIS IS SAFE AND REFUSED ANY [facility] PLACEMENT. CM DISCUSSED POSSIBLE REHAB. PT STATES HE RECENTLY GOT OUT OF [place] AND IF HE EVER GOES ANYWHERE, IT WILL BE [place] BUT HE IS NOT GOING ANYWHERE BUT HOME WHEN HE LEAVES THE HOSPITAL. CM DISCUSSED AVAILABILITY OF HOME HEALTH, REHAB SERVICES AND MEDICAL EQUIPMENT. PT DENIES DISCHARGE NEEDS OTHER THAN HOME HEALTH RESUMPTION WITH [facility]. CHOICE SIGNED. PT REPORTS HIS SISTER IS BRINGING PT'S WHEELCHAIR TO HOSPITAL TOMORROW SO THAT PT CAN GET UP AND OUT OF BED WHILE HERE. PT WILL NEED [place] BUS (MEDICAID) TRANSPORT DO DISCHARGE HOME, PT STATES HE HAS ALREADY TAKEN CARE OF THAT ALSO. IMPORTANT MESSAGE FROM MEDICARE PROVIDED AND EXPLAINED. CM FAXED UPDATE TO [facility] AT [phone]. PT DECLINED PLACEMENT, [facility] AND [facility]ACILITY. PT DENIES NEED OF REHAB PLACEMENT. PT PLANS TO RETURN HOME ALONE WITH FAMILY ASSISTANCE IF NEEDED AND WITH [facility] RESUMPTION. FOR DISCHARGE HOME, FAX DISCHARGE INFORMATION TO [facility] AT [phone], NOTIFY [facility] AT [phone]. CM TO CONTINUE TO FOLLOW AND ASSIST NEEDED. Resource Teacher: Arley Lund DCPIA - Discharge Planning Initial Assessment Updated by [id number]: Arley Lund on 04/20/19 9:48 am * Is the patient Alert and Oriented? Yes * How many steps to enter\\exit or inside your home? RAMP * PCP DR. GOMEZ * Pharmacy [facility] ON [address] [facility] * Preadmission Environment Home Alone * ADLs Independent * Equipment Bedside Commode Hospital Bed Power Chair or Electric Scooter Trapeze Wheelchair * Other Equipment NO MEDICAL EQUIPMENT PROVIDER PREFERENCE * List name and contact numbers for known caregivers / representatives who currently or will assist patient after discharge: JOCELINE HOLLAND, SISTER, * Verbal permission to speak to the caregivers and representatives has been obtained from the patient. N/A * Community resources currently utilized Home Health * Please name any agencies selected above. [facility] REPORTS HAVING WOUND CARE SCHEDULED [facility]PATIENT AT [facility]. * Additional services required to return to the preadmission environment? No * Can the patient safely return to the preadmission environment? Yes * Has this patient been hospitalized within the prior 30 days at any hospital? Yes Coverage Notice Reviewer: RADHA Lund Notice Issued Date-Time: 04/20/2019 9:00 Notice Type: IM Discharge Notice Notice Delivered To: Patient Relationship to Patient: Cardiology Clinical Nurse Specialist Name: Delivery Method: HAND - Hand Delivered Dee Days: Prior Verbal Notification: Recipient Understood Notice: Yes Recipient Signature: Yes Med Rec Note Co-signed by Attending: Coverage Notice Comment: Reviewer: RADHA Lund Notice Issued Date-Time: 04/20/2019 9:00 Notice Type: Patient Choice Letter Notice Delivered To: Patient Relationship to Patient: Cardiology Clinical Nurse Specialist Name: Delivery Method: HAND - Hand Delivered Dee Days: Prior Verbal Notification: Recipient Understood Notice: Yes Recipient Signature: Yes Med Rec Note Co-signed by Attending: Coverage Notice Comment: [facility] REFUSES [facility] Reviewer: RADHA Lund Notice Issued Date-Time: 04/26/2019 9:50 Notice Type: Patient Choice Letter Notice Delivered To: Patient Relationship to Patient: Cardiology Clinical Nurse Specialist Name: Delivery Method: HAND - Hand Delivered Dee Days: Prior Verbal Notification: Recipient Understood Notice: Yes Recipient Signature: Yes Med Rec Note Co-signed by Attending: Coverage Notice Comment: Reviewer: RADHA Lund Notice Issued Date-Time: 04/26/2019 13:10 Notice Type: Patient Choice Letter Notice Delivered To: Patient Relationship to Patient: Cardiology Clinical Nurse Specialist Name: Delivery Method: HAND - Hand Delivered Dee Days: Prior Verbal Notification: Recipient Understood Notice: Yes Recipient Signature: Yes Med Rec Note Co-signed by Attending: Coverage Notice Comment: [facility] - [facility] Last DP export: 04/27/19 10:47 a Patient Name: VIRA HOLLAND Page [id number] at 1634 All edits/amendments must be made on the electronic document DICTATION DATE: 04/28/19 163 MAJOR GIFTS OFFICER: TEGAN 04/28/19 163 RPT#: [id number] DC DATE: STATUS: ADM IN [facility] [address] [place] [address] END OF REPORT
[2019-04-28 18:27] VITALS: BP 117/64
--- NOTE | 2019-04-28 19:10 | NUR ---
REPORT RECEIVED, WILL CONTINUE POC. PATIENT IS AAOX4, LYING IN SEMI-FOWLERS POSITIONS. NO S/S OF DISRESS OBSERVED, RR EVEN AND UNLABORED ON 2L O2 VIA NC. RT CHEST CVL, SL, DRSG C/D/I. PATIENT DENIES NEEDS AT THIS TIME. CL IN REACH, BED LOCKED AND LOWERED. WILL CTM.
[2019-04-28 20:00] VITALS: BP 122/62
--- NOTE | 2019-04-28 23:30 | NUR ---
ASSISTED [facility] WITH CLEANUP OF INCONTINENT BM. LINENS CHANGED, REPOSITIONED FOR COMFORT. CALMOSEPTINE AND NYSTATIN APPLIED TO APPROPRIATE AREAS. PATIENT DENIES NEEDS AT THIS TIME. CL IN REACH, BED LOCKED AND LOWERED. WILL CTM.
[2019-04-29 00:30] VITALS: BP 118/64
--- NOTE | 2019-04-29 00:43 | NUR ---
PATIENT REQUESTED PRN XANAX, MED ADMINISTERED PER ORDERS.
--- NOTE | 2019-04-29 03:20 | NUR ---
I have reviewed this patient and I concur with the Shift Assessment completed by the Licensed Practical Nurse today this shift.
[2019-04-29 04:42] VITALS: BP 120/66
[2019-04-29 05:11] LABS: BASOPHILS 0.6 % (0-2); EOSINOPHILS 4.1 % (0-7); HEMATOCRIT 26.4 % (42.0-54.0); HEMOGLOBIN 8.6 g/dL (13.5-17.5); IMMATURE GRANULOCYTES 1.3 % (0-5); LYMPHOCYTES 24.4 % (15-50); MCH 26.4 pg (26.0-34.0); MCHC 32.6 g/dL (31.0-37.0); MEAN PLATELET VOLUME 8.4 fL (7.4-10.4); MONOCYTES 10.2 % (2-11); NEUTROPHILS 59.4 % (40-80); PLATELET COUNT 170 10x3/uL (130-400); RBC 3.26 10x6/uL (4.20-6.10); RDW 17.7 % (11.5-14.5); WBC 6.4 10x3/uL (4.8-10.8)
[2019-04-29 05:35] LABS: ANION GAP 13.6 mmol/L (8-16); CALCIUM 8.6 mg/dL (8.5-10.1); CARBON DIOXIDE 27.5 mmol/L (21.0-32.0); CREATININE - SERUM 1.1 mg/dL (0.6-1.3); POTASSIUM - SERUM 4.1 mmol/L (3.5-5.1)
[2019-04-29] MEDS ORDERED: CIPRO500 MG PO (11:57)
[2019-04-29] MEDS ORDERED: TIAZAC/CARDIZEM CD PO (11:59)
[2019-04-29] MEDS ORDERED: BETAPACE 80 MG80 MG PO (11:59)
[2019-04-29 12:01] VITALS: BP 129/72
[2019-04-29] MEDS ORDERED: LASIX40 MG PO ×2 (12:01→12:35)
--- NOTE | 2019-04-29 12:10 | MORECARE ---
CASE MANAGEMENT DISCHARGE SUMMARY PATIENT: VIRA HOLLAND UNIT: [id number] ADM DATE: 04/16/19 AGE: 68 : [birth year] SEX: M ROOM/BED: D.2111 AUTHOR: DAVIDA ORTEGA PHYSICIAN: REFERRING PHYSICIAN: ROCIO FAITH MD DATE OF SERVICE: 04/29/19 Discharge Plan Patient Name: VIRA HOLLAND Facility: [facility]:[place] : 1950 Planned Disposition: [facility] Facility Anticipated Discharge Date: 04/29/19 Discharge Date: Expected LOS: 13 Initial Reviewer: [id number] Initial Review Date: 04/20/2019 Generated: 04/29/19 1:10 pm Comments DCP- Discharge Planning Updated by [email or web address]: Tg Yoder on 04/28/19 3:[address] Patient Name: VIRA HOLLAND Encounter No: [id number] : 1950 Primary Insurance: MEDICARE A & B Anticipated DC Date: Planned Disposition: [facility] Facility External Planned Provider: [facility], MEDICARE REHAB BED DCP follow-up note: CM RECEIVED CALL FROM NATALIA BURCIAGA OF [facility], , SHE IS WORKING ON REFERRAL TO [facility], PT WILL REQUIRE GHANSHYAM SCREENING DUE TO DEPRESSION / ANXIETY DISORDER. NATALIA WILL FILL OUT GHANSHYAM ASSESSMENT AND BRING TO FOR PT AND PHYSICIAN SIGNATURES. CM WAITING GHANSHYAM SCREENING COMPLETION AND WILL FAX TO [facility] SOON POSSIBLE FOR ADMISSION DETERMINATION FROM [facility] FOR [facility]. MAURICE Kenny DCP- Discharge Planning Updated by [id number]: Tg Yoder on 04/27/19 10:[address] Patient Name: VIRA HOLLAND Encounter No: [id number] : 1950 Primary Insurance: MEDICARE A & B Anticipated DC Date: Planned Disposition: [facility] Facility External Planned Provider: [facility], MEDICARE REHAB BED DCP follow-up note: CM SPOKE TO TREATMENT TEAM AT MULTIDICIPLINARY TEAM MEETING. SOURCER REPORTS THAT PT IS NOT APPROPRIATE FOR INPATIENT REHAB AND WOULD BE APPROPRIATE FOR ASSISTED OR [facility]. [facility] OF INPATIENT REHAB INFORMED TEAM THAT INPATIENT REHAB DECLINES PT. CM NOTIFIED NATALIA BURCIAGA [facility], , WHO WILL FORWARD [facility]. CM FAXED UPDATE TO NATALIA AT [phone]. PT HAS PREVIOUSLY SIGNED CHOICE FOR [facility]. CM WAITING ADMISSION DETERMINATION FROM [facility]. Tg Yoder, CASE MANAGEMENT DCP- Discharge Planning Updated by [id number]: Tg Yoder on 04/26/19 3:[address] Patient Name: VIRA HOLLAND Encounter No: [id number] : 1950 Primary Insurance: MEDICARE A & B Anticipated DC Date: Planned Disposition: Inpatient Rehab External Planned Provider: [facility] DCP follow-up note: CM RECEIVED CALL FROM NATALIA BARBOSA [facility], THEY WILL NOT ACCEPT PT, OFFERED TO REFER TO [facility]. CM SPOKE TO PT IN ROOM, PT PROVIDED WITH LISTING OF ASSISTED FACILITY PROVIDERS IN [facility]. PT REVIEWED FOR OVER ONE HOUR, CALLED CM BACK TO ROOM AND REQUESTED REHAB AT [facility]. PT IN THE MEANTIME WILL DISCUSS OTHER ASSISTED FACILITY OPTIONS AND LET CM KNOW. PT ENSURES CM THAT HE WILL PARTICIPATE FULLY WITH THERAPY EVERY DAY AND KNOWS THE PROGRAM HE HAS BEEN THERE BEFORE. PT REQUESTING REHAB AT [facility]IENT [facility]. CM WAITING INPATIENT REHAB PRESCREENING. Tg Yoder, CASE MANAGEMENT DCP- Discharge Planning Updated by [id number]: Fatou Bernal on 04/26/19 1:[address] Patient Name: VIRA HOLLAND Encounter No: [id number] : 1950 Primary Insurance: MEDICARE A & B Anodiser: : UR Note: 04/26 -- AFVSS, no complaints. Labs reviewed Hemoglobin 8.6 status post 2 unit PRBC ( total of 3 units this admission ) Dr. Jenkins following, supportive transfusions at this time, iron supplementation, and will need bone marrow in the future. Appreciate Dr. Jenkins Stool for Occult Blood -negative He has hematuria, doubt that is the source of anemia, but may need cysto STD specimens obtained -and will follow-up results Add cipro (levaquin due to formulary, but prefer cipro on DC) Will to go to [place] for SNF. Will need 10 days of IV-Vanc total and 14 days of oral Cipro Check Labs in AM -- CBC w/diff and BMP. Fatourafael Bernal DCP- Discharge Planning Updated by [id number]: Tg Yoder on 04/26/19 10:[address] Patient Name: VIRA HOLLAND Encounter No: [id number] : 1950 Primary Insurance: MEDICARE A & B Anticipated DC Date: Planned Disposition: [facility] Facility External Planned Provider: [facility], MEDICARE REHAB BED DISCHARGE PLANNING NOTE: CM MET WITH PT IN ROOM TO DISCUSS DISCHARGE NEEDS AND PLANNING. PT HAS DECIDED THAT HE CANNOT SAFELY RETURN HOME AND WANTS REFERRAL TO [facility]. CHOICE SIGNED. PT STATES HE IS WILLING TO PARTICIPATE WITH THERAPY. CM FAXED REFERRALINFORMATION TO [facility] AT [phone]. CM NOTIFIED GILL AT [facility] AT [phone]. CM NOTIFIED NATALIA BURCIAGA OF [facility] WHO WILL VISIT WITH PT AND EVALUATE TODAY. CM WAITING MEDICAL STABILITY AND ADMISSION DETERMINATION FROM [facility]. TG YODER CASE MANAGEMENT DCP- Discharge Planning Updated by [id number]: Tg Yoder on 04/21/19 11:[address] Patient Name: VIRA HOLLAND Encounter No: [id number] : 1950 Primary Insurance: MEDICARE A & B Anticipated DC Date: Planned Disposition: [facility] Facility External Planned Provider: [facility], MEDICARE REHAB BED DCP follow-up note: CM RECEIVED REQUEST TO SPEAK TO PT IN ROOM. PT STATES HE IS CONSIDERING HIS OPTIONS AND KNOWS HE NEEDS HELP IN CARING FOR HIM. PT IS CONSIDERING GOING TO [facility] FOR SKILLED REHAB AND POSSIBLE [facility]. CM ASKED PT TO SIGN CONSENT FOR [facility], PT REFUSED AND STATES HE IS JUST THINKING ABOUT IT RIGHT NOW AND WILL LET CM KNOW WHEN HE MAKES A DECISION. CM ADVISED PT THAT CM WILL BE CALLING [facility] IF PT DOES DECIDE TO GO HOME. PT STATES HE UNDERSTANDS EVERYONE'S CONCERN AND STATES AGAIN THAT HE IS CONSIDERING OPTIONS. PT IS CONSIDERING GOING TO [facility] AT DISCHARGE. HE IS REFUSING CONSENT TO SEND REFERRAL AT THIS TIME. IF PT GOES HOME, CM WILL CALL [facility]. Tg Yoder CASE MANAGEMENT DCP- Discharge Planning Updated by [id number]: Tg Yoder on 04/20/19 5:[address] Patient Name: VIRA HOLLAND Encounter No: [id number] : 1950 Primary Insurance: MEDICARE A & B Anticipated DC Date: Planned Disposition: Home DCP follow-up note: CM RECEIVED CALLF CAROL CINTRON FROM [facility], THEY HAVE CONSIDERED PT'S RESUMPTION AND HAVE DECIDED THEY CANNOT RESUME PT'S SITUATION HOME ALONE IS NOT SAFE. THEY HAVE NOT CALLED ADULT PROTECTIVE SERVICES. BEDSIDE NURSE EXPLAINED THIS TO PT WHO STATES "THEY GOT CAUGHT". PT STILL REFUSED ANY PLACEMENT OUTSIDE HIS HOME. PT HAS REPORTED THAT FAMILY WILL BRING WHEELCHAIR FOR HIM TO TAKE THE [place] MEDICAID BUS HOME AND THEY SHOULD BRING WHEELCHAIR TONIGHT. CM TO CALL [facility]. PT PLANS TO RETURN HOME ALONE, MEDICAID BUS TRANPSPORT. HOME HEALTH WILL NOT ACCEPT PT. MAURICE Kenny DCP- Discharge Planning Updated by [id number]: Tg Yoedr on 04/20/19 8:[address] Patient Name: VIRA HOLLAND Admission Status: ER Accout number: [id number] Admission Date: 04-16-2019 : 1950 Admission Diagnosis:SEPSIS, UNSPECIFIED ORGANISM Attending: IRINEO Current LOS: 4 Anticipated DC Date: Planned Disposition: Home with Home Health Primary Insurance: MEDICARE A & B PLANNED EXTERNAL PROVIDER: [facility] Discharge Planning Comments: CM RECEIVED NOTICE IN MULTIDICIPLINARY TEAM MEETING 04-19-19 THAT PT NEEDS PLACEMENT. CM MET WITH PT IN ROOM TO DISCUSS DISCHARGE PLANNING AND NEEDS. PT REPORTS LIVING AT HOME INDEPENDENTLY AND ALONE; PT REPORTS HIS SISTER LIVES [place]OSS [address] FROM HIS HOME AND HE HAS HELP AT HOME ANY TIME HE NEEDS IT. PT HAS HOSPOITAL BED WITH TRAPEZE, BEDSIDE COMMODE, WALKER, ELECTRIC AND STANDARD WHEELCHAIR. PT HAS NO MEDICAL EQUIPMENT PROVIDER PREFERENCE. PT HAS HOME HEALTH FOR NURSING AND PHYSICAL THERAPY FROM [facility] AND ALSO IS SCHEDULED FOR OUTPATIENT WOUND CARE AT THE [facility] IN [place] ON [address]. CM DISCUSSED DOCTORS OPINION THAT PT IS UNABLE TO CARE FOR HIMSELF AT HOME ALONE AND NEEDS PLACEMENT. PT FEELS HE CAN CONTINUE TO CARE FOR HIMSELF AND CALL HIS SISTER IF ANY NEEDS ARISE. PT FEELS THIS IS SAFE AND REFUSED ANY SNF PLACEMENT. CM DISCUSSED POSSIBLE REHAB. PT STATES HE RECENTLY GOT OUT OF [place] AND IF HE EVER GOES ANYWHERE, IT WILL BE [place] BUT HE IS NOT GOING ANYWHERE BUT HOME WHEN HE LEAVES THE HOSPITAL. CM DISCUSSED AVAILABILITY OF HOME HEALTH, REHAB SERVICES AND MEDICAL EQUIPMENT. PT DENIES DISCHARGE NEEDS OTHER THAN HOME HEALTH RESUMPTION WITH [facility]. CHOICE SIGNED. PT REPORTS HIS SISTER IS BRINGING PT'S WHEELCHAIR TO HOSPITAL TOMORROW SO THAT PT CAN GET UP AND OUT OF BED WHILE HERE. PT WILL NEED [place] BUS (MEDICAID) TRANSPORT DO DISCHARGE HOME, PT STATES HE HAS ALREADY TAKEN CARE OF THAT ALSO. IMPORTANT MESSAGE FROM MEDICARE PROVIDED AND EXPLAINED. CM FAXED UPDATE TO [facility] AT [phone]. PT DECLINED PLACEMENT, SNF AND ASSISTED FACILITY. PT DENIES NEED OF REHAB PLACEMENT. PT PLANS TO RETURN HOME ALONE WITH FAMILY ASSISTANCE IF NEEDED AND WITH [facility] RESUMPTION. FOR DISCHARGE HOME, FAX DISCHARGE INFORMATION TO [facility] AT [phone], NOTIFY [facility] AT [phone]. CM TO CONTINUE TO FOLLOW AND ASSIST NEEDED. Anodiser: Tg Yoder DCPIA - Discharge Planning Initial Assessment Updated by [id number]: Tg Yoder on 04/20/19 9:48 am * Is the patient Alert and Oriented? Yes * How many steps to enter\\exit or inside your home? RAMP * PCP DR. GOMEZ * Pharmacy [facility] ON [facility] * Preadmission Environment Home Alone * ADLs Independent * Equipment Bedside Commode Hospital Bed Power Chair or Electric Scooter Trapeze Wheelchair * Other Equipment NO MEDICAL EQUIPMENT PROVIDER PREFERENCE * List name and contact numbers for known caregivers / representatives who currently or will assist patient after discharge: JOCELINE HOLLAND, SISTER, * Verbal permission to speak to the caregivers and representatives has been obtained from the patient. N/A * Community resources currently utilized Home Health * Please name any agencies selected above. [facility] REPORTS HAVING WOUND CARE SCHEDULED OUTPATIENT AT [facility]. * Additional services required to return to the preadmission environment? No * Can the patient safely return to the preadmission environment? Yes * Has this patient been hospitalized within the prior 30 days at any hospital? Yes External Providers External Provider: DIANE Willis Next Contact Date: 04/28/2019 Service Request Date: Service Type: Resolution: Reviewer: Comments: Coverage Notice Reviewer: RADHA Yoder Notice Issued Date-Time: 04/20/2019 9:00 Notice Type: IM Discharge Notice Notice Delivered To: Patient Relationship to Patient: Extruder Operator Horizontal Name: Delivery Method: HAND - Hand Delivered Dee Days: Prior Verbal Notification: Recipient Understood Notice: Yes Recipient Signature: Yes Med Rec Note Co-signed by Attending: Coverage Notice Comment: Reviewer: RADHA Yoder Notice Issued Date-Time: 04/20/2019 9:00 Notice Type: Patient Choice Letter Notice Delivered To: Patient Relationship to Patient: Extruder Operator Horizontal Name: Delivery Method: HAND - Hand Delivered Dee Days: Prior Verbal Notification: Recipient Understood Notice: Yes Recipient Signature: Yes Med Rec Note Co-signed by Attending: Coverage Notice Comment: [facility] REFUSES SNF / ASSISTED FACILITY Reviewer: RADHA Yoder Notice Issued Date-Time: 04/26/2019 9:50 Notice Type: Patient Choice Letter Notice Delivered To: Patient Relationship to Patient: Extruder Operator Horizontal Name: Delivery Method: HAND - Hand Delivered Dee Days: Prior Verbal Notification: Recipient Understood Notice: Yes Recipient Signature: Yes Med Rec Note Co-signed by Attending: Coverage Notice Comment: Reviewer: RADHA Yoder Notice Issued Date-Time: 04/26/2019 13:10 Notice Type: Patient Choice Letter Notice Delivered To: Patient Relationship to Patient: Extruder Operator Horizontal Name: Delivery Method: HAND - Hand Delivered Dee Days: Prior Verbal Notification: Recipient Understood Notice: Yes Recipient Signature: Yes Med Rec Note Co-signed by Attending: Coverage Notice Comment: [facility] Last DP export: 04/28/19 3:34 p Patient Name: VIRA HOLLAND Page [id number] at 1210 All edits/amendments must be made on the electronic document DICTATION DATE: 04/29/19 1210 FIELD CONTACT TECHNICIAN: TEGAN 04/29/19 1210 RPT#: [id number] DC DATE: STATUS: ADM IN [facility] [address] [place] [address] END OF REPORT
--- NOTE | 2019-04-29 12:18 | MORECARE ---
CASE MANAGEMENT DISCHARGE SUMMARY PATIENT: VIRA HOLLAND UNIT: [id number] ADM DATE: 04/16/19 AGE: 68 : [birth year] SEX: M ROOM/BED: D.2111 AUTHOR: JORDAN,DOC PHYSICIAN: REFERRING PHYSICIAN: ROCIO FAITH MD DATE OF SERVICE: 04/29/19 Discharge Plan Patient Name: VIRA HOLLAND Facility: [facility]:[place] : 1950 Planned Disposition: Shelter Facility Anticipated Discharge Date: 04/29/19 Discharge Date: Expected LOS: 13 Initial Reviewer: [id number] Initial Review Date: 04/20/2019 Generated: 04/29/19 1:17 pm Comments DCP- Discharge Planning Updated by [email or web address]: Arley Lund on 04/29/19 11:[address] Patient Name: VIRA HOLLAND Admission Status: ER Accout number: [id number] Admission Date: 04-16-2019 : 1950 Admission Diagnosis:SEPSIS, UNSPECIFIED ORGANISM Attending: IRINEO Current LOS: 13 Anticipated DC Date: 04-29-2019 Planned Disposition: Shelter Facility Primary Insurance: MEDICARE A & B Discharge Planning Comments: CM SPOKE TO NATALIA BURCIAGA WHO MET WITH PT AND RECEIVED PT'S SIGNATURES FOR [facility]EN[facility]. SHE HAS INFORMED PT THAT [facility] PLANS TO ACCEPT PT FOR SKILLED CARE AT DISCHARGE. CM RECEIVED GHANSHYAM AND OBTAINED FARHAN CORADO'S SIGNATURE, FAXED TO [place] AT [phone]. [facility] PLANS TO ACCEPT PT AT DISCHARGE, PENDING [facility] SCREENING APPROVAL. CM WAITING [facility]YAM SCREENING APPROVAL TO ENTER CUSTODIAL FACILITY. Steam Blocker: Arley Lund DCP- Discharge Planning Updated by [id number]: Arley Lund on 04/28/19 3:[address] Patient Name: VIRA HOLLAND Encounter No: [id number] : 1950 Primary Insurance: MEDICARE A & B Anticipated DC Date: Planned Disposition: Shelter Facility External Planned Provider: [facility], MEDICARE REHAB BED DCP follow-up note: CM RECEIVED CALL FROM NATALIA BURCIAGA OF [facility], , SHE IS WORKING ON REFERRAL TO [facility], PT WILL REQUIRE GHANSHYAM SCREENING DUE TO DEPRESSION / ANXIETY DISORDER. NATALIA WILL FILL OUT [facility] ASSESSMENT AND BRING TO CM FOR PT AND PHYSICIAN SIGNATURES. CM WAITING [facility]YAM SCREENING COMPLETION AND WILL FAX TO [facility] SOON POSSIBLE FOR ADMISSION DETERMINATION FROM [facility] FOR [facility]. Arley Lund, CASE MANAGEMENT DCP- Discharge Planning Updated by [id number]: Arley Lund on 04/27/19 10:[address] Patient Name: VIRA HOLLAND Encounter No: [id number] : 1950 Primary Insurance: MEDICARE A & B Anticipated DC Date: Planned Disposition: Shelter Facility External Planned Provider: [facility], MEDICARE REHAB BED DCP follow-up note: CM SPOKE TO TREATMENT TEAM AT MULTIDICIPLINARY TEAM MEETING. WASHER MACHINE REPORTS THAT PT IS NOT APPROPRIATE FOR INPATIENT REHAB AND WOULD BE APPROPRIATE FOR CUSTODIAL OR HALFWAY CARE. [facility] OF INPATIENT REHAB INFORMED TEAM THAT INPATIENT REHAB DECLINES PT. CM NOTIFIED NATALIA BURCIAGA OF [facility], , WHO WILL FORWARD REFERRAL TO [facility]. CM FAXED UPDATE TO NATALIA AT [phone]. PT HAS PREVIOUSLY SIGNED CHOICE FOR [facility] AND [facility]. CM WAITING ADMISSION DETERMINATION FROM [facility]. Arley Lund CASE MANAGEMENT DCP- Discharge Planning Updated by [id number]: Arley Lund on 04/26/19 3:[address] Patient Name: VIRA HOLLAND Encounter No: [id number] : 1950 Primary Insurance: MEDICARE A & B Anticipated DC Date: Planned Disposition: Inpatient Rehab External Planned Provider: [facility] DCP follow-up note: CM RECEIVED CALL FROM NATALIA BARBOSA [facility], THEY WILL NOT ACCEPT PT, OFFERED TO REFER TO [facility]. CM SPOKE TO PT IN ROOM, PT PROVIDED WITH LISTING OF [place]AC[place] [facility] [place] PT REVIEWED FOR OVER ONE HOUR, CALLED CM BACK TO ROOM AND REQUESTED REHAB AT [facility]. PT IN THE MEANTIME WILL DISCUSS OTHER CUSTODIAL FACILITY OPTIONS AND LET CM KNOW. PT ENSURES CM THAT HE WILL PARTICIPATE FULLY WITH THERAPY EVERY DAY AND KNOWS THE PROGRAM HE HAS BEEN THERE BEFORE. PT REQUESTING REHAB AT [facility]. CM WAITING INPATIENT REHAB PRESCREENING. Arley Lund CASE MANAGEMENT DCP- Discharge Planning Updated by [id number]: Fatou Dolores on 04/26/19 1:[address] Patient Name: VIRA HOLLAND Encounter No: [id number] : 1950 Primary Insurance: MEDICARE A & B Steam Blocker: : LON Note: 04/26 -- AFVSS, no complaints. Labs reviewed Hemoglobin 8.6 status post 2 unit PRBC ( total of 3 units this admission ) Dr. Jenkins following, supportive transfusions at this time, iron supplementation, and will need bone marrow in the future. Appreciate Dr. Jenkins Stool for Occult Blood -negative He has hematuria, doubt that is the source of anemia, but may need cysto STD specimens obtained -and will follow-up results Add cipro (levaquin due to formulary, but prefer cipro on DC) Will to go to [place] for SNF. Will need 10 days of IV-Vanc total and 14 days of oral Cipro Check Labs in AM -- CBC w/diff and BMP. Fatou Bernal DCP- Discharge Planning Updated by [id number]: Arley Lund on 04/26/19 10:[address] Patient Name: VIRA HOLLAND Encounter No: [id number] : 1950 Primary Insurance: MEDICARE A & B Anticipated DC Date: Planned Disposition: Shelter Facility External Planned Provider: [facility], MEDICARE REHAB BED DISCHARGE PLANNING NOTE: CM MET WITH PT IN ROOM TO DISCUSS DISCHARGE NEEDS AND PLANNING. PT HAS DECIDED THAT HE CANNOT SAFELY RETURN HOME AND WANTS REFERRAL TO [facility]. CHOICE SIGNED. PT STATES HE IS WILLING TO PARTICIPATE WITH THERAPY. CM FAXED REFERRALINFORMATION TO [facility] AT [phone]. CM NOTIFIED [facility] AT [facility] AT [phone]. CM NOTIFIED NATALIA BURCIAGA OF [facility] WHO WILL VISIT WITH PT AND EVALUATE TODAY. CM WAITING MEDICAL STABILITY AND ADMISSION DETERMINATION FROM [facility]. MAURIEC HUTCHINSON DCP- Discharge Planning Updated by [id number]: Arley Lund on 04/21/19 11:[address] Patient Name: VIRA HOLLAND Encounter No: [id number] : 1950 Primary Insurance: MEDICARE A & B Anticipated DC Date: Planned Disposition: Shelter Facility External Planned Provider: [facility], MEDICARE REHAB BED DCP follow-up note: CM RECEIVED REQUEST TO SPEAK TO PT IN ROOM. PT STATES HE IS CONSIDERING HIS OPTIONS AND KNOWS HE NEEDS HELP IN CARING FOR HIM. PT IS CONSIDERING GOING TO [facility] FOR SKILLED REHAB AND POSSIBLE HALFWAY CARE. CM ASKED PT TO SIGN CONSENT FOR [facility], PT REFUSED AND STATES HE IS JUST THINKING ABOUT IT RIGHT NOW AND WILL LET CM KNOW WHEN HE MAKES A DECISION. CM ADVISED PT THAT CM WILL BE CALLING [facility]ULT PROTECTIVE SERVICES IF PT DOES DECIDE TO GO HOME. PT STATES HE UNDERSTANDS EVERYONE'S CONCERN AND STATES AGAIN THAT HE IS CONSIDERING OPTIONS. PT IS CONSIDERING GOING TO [facility] AT DISCHARGE. HE IS REFUSING CONSENT TO SEND REFERRAL AT THIS TIME. IF PT GOES HOME, CM WILL CALL [facility] SERVICES. Arley Lund, CASE MANAGEMENT DCP- Discharge Planning Updated by [id number]: Arley Lund on 04/20/19 5:[address] Patient Name: VIRA HOLLAND Encounter No: [id number] : 1950 Primary Insurance: MEDICARE A & B Anticipated DC Date: Planned Disposition: Home DCP follow-up note: CM RECEIVED CALLF CAROL CINTRON FROM [email or web address], THEY HAVE CONSIDERED PT'S RESUMPTION AND HAVE DECIDED THEY CANNOT RESUME PT'S SITUATION HOME ALONE IS NOT SAFE. THEY HAVE NOT CALLED ADULT PROTECTIVE SERVICES. BEDSIDE NURSE EXPLAINED THIS TO PT WHO STATES "THEY GOT CAUGHT". PT STILL REFUSED ANY PLACEMENT OUTSIDE HIS HOME. PT HAS REPORTED THAT FAMILY WILL BRING WHEELCHAIR FOR HIM TO TAKE THE [place] MED[place] BUS HOME AND THEY SHOULD BRING WHEELCHAIR TONIGHT. CM TO CALL [facility] ADULT [facility]OTECT[facility] SERVICES. PT PLANS TO RETURN HOME ALONE, MEDICAID BUS TRANPSPORT. HOME HEALTH WILL NOT ACCEPT PT. Arley Lund, CASE MANAGEMENT DCP- Discharge Planning Updated by [id number]: Arley Lund on 04/20/19 8:[address] Patient Name: VIRA HOLLAND Admission Status: ER Accout number: [id number] Admission Date: 04-16-2019 : 1950 Admission Diagnosis:SEPSIS, UNSPECIFIED ORGANISM Attending: IRINEO Current LOS: 4 Anticipated DC Date: Planned Disposition: Home with Home Health Primary Insurance: MEDICARE A & B PLANNED EXTERNAL PROVIDER: [employer] [facility] Discharge Planning Comments: CM RECEIVED NOTICE IN MULTIDICIPLINARY TEAM MEETING 04-19-19 THAT PT NEEDS PLACEMENT. CM MET WITH PT IN ROOM TO DISCUSS DISCHARGE PLANNING AND NEEDS. PT REPORTS LIVING AT HOME INDEPENDENTLY AND ALONE; PT REPORTS HIS SISTER LIVES [place]OSS [address] FROM HIS HOME AND HE HAS HELP AT HOME ANY TIME HE NEEDS IT. PT HAS HOSPOITAL BED WITH TRAPEZE, BEDSIDE COMMODE, WALKER, ELECTRIC AND STANDARD WHEELCHAIR. PT HAS NO MEDICAL EQUIPMENT PROVIDER PREFERENCE. PT HAS HOME HEALTH FOR NURSING AND PHYSICAL THERAPY FROM [facility] AND ALSO IS SCHEDULED FOR [facility]PATIENT WOUND CARE AT [facility] [place] [facility]. CM DISCUSSED DOCTORS OPINION THAT PT IS UNABLE TO CARE FOR HIMSELF AT HOME ALONE AND NEEDS PLACEMENT. PT FEELS HE CAN CONTINUE TO CARE FOR HIMSELF AND CALL HIS SISTER IF ANY NEEDS ARISE. PT FEELS THIS IS SAFE AND REFUSED ANY LONG TERM PLACEMENT. CM DISCUSSED POSSIBLE REHAB. PT STATES HE RECENTLY GOT OUT OF [place] AND IF HE EVER GOES ANYWHERE, IT WILL BE [place] BUT HE IS NOT GOING ANYWHERE BUT HOME WHEN HE LEAVES THE HOSPITAL. CM DISCUSSED AVAILABILITY OF HOME HEALTH, REHAB SERVICES AND MEDICAL EQUIPMENT. PT DENIES DISCHARGE NEEDS OTHER THAN HOME HEALTH RESUMPTION WITH [employer]. CHOICE SIGNED. PT REPORTS HIS SISTER IS BRINGING PT'S WHEELCHAIR TO HOSPITAL TOMORROW SO THAT PT CAN GET UP AND OUT OF BED WHILE HERE. PT WILL NEED [place] BUS (MEDICAID) TRANSPORT DO DISCHARGE HOME, PT STATES HE HAS ALREADY TAKEN CARE OF THAT ALSO. IMPORTANT MESSAGE FROM MEDICARE PROVIDED AND EXPLAINED. CM FAXED UPDATE TO [employer] [facility] AT [phone]. PT DECLINED PLACEMENT, LONG TERM AND CUSTODIAL FACILITY. PT DENIES NEED OF REHAB PLACEMENT. PT PLANS TO RETURN HOME ALONE WITH FAMILY ASSISTANCE IF NEEDED AND WITH [employer] [facility] RESUMPTION. FOR DISCHARGE HOME, FAX DISCHARGE INFORMATION TO [employer] [facility] AT [phone], NOTIFY [facility] AT [phone]. CM TO CONTINUE TO FOLLOW AND ASSIST NEEDED. Steam Blocker: Arley Lund DCPIA - Discharge Planning Initial Assessment Updated by [id number]: Arley Lund on 04/20/19 9:48 am * Is the patient Alert and Oriented? Yes * How many steps to enter\\exit or inside your home? RAMP * PCP DR. GOMEZ * Pharmacy [facility] ON [address] * Preadmission Environment Home Alone * ADLs Independent * Equipment Bedside [facility] Bed Power Chair or Electric Scooter Trapeze Wheelchair * Other Equipment NO MEDICAL EQUIPMENT PROVIDER PREFERENCE * List name and contact numbers for known caregivers / representatives who currently or will assist patient after discharge: JOCELINE HOLLAND, SISTER, * Verbal permission to speak to the caregivers and representatives has been obtained from the patient. N/A * Community resources currently utilized Home Health * Please name any agencies selected above. [employer] [facility] REPORTS HAVING WOUND CARE SCHEDULED OUTPATIENT AT [facility] [address]. * Additional services required to return to the preadmission environment? No * Can the patient safely return to the preadmission environment? Yes * Has this patient been hospitalized within the prior 30 days at any hospital? Yes Coverage Notice Reviewer: RADHA Lund Notice Issued Date-Time: 04/26/2019 13:10 Notice Type: Patient Choice Letter Notice Delivered To: Patient Relationship to Patient: Application Integrator Name: Delivery Method: HAND - Hand Delivered Dee Days: Prior Verbal Notification: Recipient Understood Notice: Yes Recipient Signature: Yes Med Rec Note Co-signed by Attending: Coverage Notice Comment: [facility] Reviewer: RADHA Lund Notice Issued Date-Time: 04/26/2019 9:50 Notice Type: Patient Choice Letter Notice Delivered To: Patient Relationship to Patient: Application Integrator Name: Delivery Method: HAND - Hand Delivered Dee Days: Prior Verbal Notification: Recipient Understood Notice: Yes Recipient Signature: Yes Med Rec Note Co-signed by Attending: Coverage Notice Comment: Reviewer: RADHA Lund Notice Issued Date-Time: 04/20/2019 9:00 Notice Type: Patient Choice Letter Notice Delivered To: Patient Relationship to Patient: Application Integrator Name: Delivery Method: HAND - Hand Delivered Dee Days: Prior Verbal Notification: Recipient Understood Notice: Yes Recipient Signature: Yes Med Rec Note Co-signed by Attending: Coverage Notice Comment: [employer] [facility] REFUSES LONG TERM / CUSTODIAL FACILITY Reviewer: RADHA Lund Notice Issued Date-Time: 04/20/2019 9:00 Notice Type: IM Discharge Notice Notice Delivered To: Patient Relationship to Patient: Application Integrator Name: Delivery Method: HAND - Hand Delivered Dee Days: Prior Verbal Notification: Recipient Understood Notice: Yes Recipient Signature: Yes Med Rec Note Co-signed by Attending: Coverage Notice Comment: Last DP export: 04/29/19 11:10 a Patient Name: VIRA HOLLAND Page [phone] at 1218 All edits/amendments must be made on the electronic document DICTATION DATE: 04/29/19 1217 PIGMENT GRINDER: TEGAN 04/29/19 1217 RPT#: [id number] DC DATE: STATUS: ADM IN [facility] [address] [place] [address] END OF REPORT
[2019-04-29] MEDS ORDERED: XARELTO15 MG PO (12:34)
--- NOTE | 2019-04-29 13:39 | NUR ---
Nutrition Follow-up: Eating well. Placement pending. Diet: Diabetic PO intake: 50-100% Wt: 255# (04/29); 244.7# (04/26); 254.2# (04/17) Last BM: 04/29 per chart Labs noted: Glu 165 Meds noted: Lasix, Albumin -Continue current diet as tolerated. -Monitor wt. -RD following.
[2019-04-29 14:18] VITALS: BP 117/65
--- NOTE | 2019-04-29 15:04 | NUR ---
DRESSING CHANGED TO RLE PER ORDERS. WOUND IS CLEAN AND BLEEDING AFTER REMOVING DRESSING. ELEVATED ON PILLOW, PT POSITIONED FOR COMFORT.
--- NOTE | 2019-04-29 16:14 | MORECARE ---
CASE MANAGEMENT DISCHARGE SUMMARY PATIENT: VIRA HOLLAND UNIT: [id number] ADM DATE: 04/16/19 AGE: 68 : [birth year] SEX: M ROOM/BED: D.2111 AUTHOR: JORDAN,DOC PHYSICIAN: REFERRING PHYSICIAN: ROCIO FAITH MD DATE OF SERVICE: 04/29/19 Discharge Plan Patient Name: VIRA HOLLAND Facility: [facility]:[place] : 1950 Planned Disposition: [facility] Facility Anticipated Discharge Date: 04/29/19 Discharge Date: Expected LOS: 13 Initial Reviewer: [id number] Initial Review Date: 04/20/2019 Generated: 04/29/19 5:13 pm Comments DCP- Discharge Planning Updated by [id number]: Arley Lund on 04/29/19 3:[address] Patient Name: VIRA HOLLAND Admission Status: ER Accout number: [id number] Admission Date: 04-16-2019 : 1950 Admission Diagnosis:SEPSIS, UNSPECIFIED ORGANISM Attending: IRINEO Current LOS: 13 Anticipated DC Date: 04-29-2019 Planned Disposition: [facility] Facility Primary Insurance: MEDICARE A & B Discharge Planning Comments: CM SPOKE TO NATALIA BURCIAGA WHO MET WITH PT AND RECEIVED PT'S SIGNATURES FOR GHANSHYAM SCREENING. SHE HAS INFORMED PT THAT [facility] PLANS TO ACCEPT PT FOR SKILLED CARE AT DISCHARGE. CM RECEIVED GHANSHYAM AND OBTAINED FARHAN CORADO'S SIGNATURE, FAXED TO [facility] AT [phone]. [facility] PLANS TO ACCEPT PT AT DISCHARGE, PENDING GHANSHYAM SCREENING APPROVAL. CM WAITING GHANSHYAM SCREENING APPROVAL TO ENTER LONG-TERM FACILITY. [facility] Supervisor: Arley Lund Appended by Arley Lund on 04/29/2019 16:04 SUMMER CAMP COUNSELOR: CM RECEIVED GHANSHYAM APPROVAL FOR 60 DAYS. CM FAXED [facility] APPR[facility] WITH DISCHARGE INFORMATION TO [facility] AT [phone] AND NATALIA [facility] AT [phone]. CM CONTACTED NATALIA AND REQUESTED ADMISSION TODAY. PT NOTIFIED AND IN AGREEMENT WITH DISCHARGE TO [facility] FOR REHAB SERVICES. IMPORTANT MESSAGE FROM MEDICARE PROVIDED AND EXPLAINED. CM WAITING TO FIND OUT IF [facility] WILL ACCEPT PT TODAY. IF THEY ACCEPT, NURSE REPORT TO BE CALLED TO [facility] AT [phone]. PT TO TRANSPORT VIA AMBULANCE. MAURICE KENNY MANAGEMENT DCP- Discharge Planning Updated by [id number]: Arley Lund on 04/28/19 3:[address] Patient Name: VIRA HOLLAND Encounter No: [id number] : 1950 Primary Insurance: MEDICARE A & B Anticipated DC Date: Planned Disposition: [facility] Facility External Planned Provider: [facility], MEDICARE REHAB BED DCP follow-up note: CM RECEIVED CALL FROM NATALIA [facility]URCIAGA OF [facility], , SHE IS WORKING ON REFERRAL TO [facility], PT WILL REQUIRE GHANSHYAM SCREENING DUE TO DEPRESSION / ANXIETY DISORDER. NATALIA WILL FILL OUT GHANSHYAM ASSESSMENT AND BRING TO CM FOR PT AND PHYSICIAN SIGNATURES. CM WAITING GHANSHYAM SCREENING COMPLETION AND WILL FAX TO [facility] SOON POSSIBLE FOR ADMISSION DETERMINATION FROM [facility] FOR [facility]. Arley Lund CASE MANAGEMENT DCP- Discharge Planning Updated by [id number]: Arley Lund on 04/27/19 10:[address] Patient Name: VIRA HOLLAND Encounter No: [id number] : 1950 Primary Insurance: MEDICARE A & B Anticipated DC Date: Planned Disposition: [facility] Facility External Planned Provider: [facility], MEDICARE REHAB BED DCP follow-up note: CM SPOKE TO TREATMENT TEAM AT MULTIDICIPLINARY TEAM MEETING. PRODUCT SAFETY COMPLIANCE LEADER REPORTS THAT PT IS NOT APPROPRIATE FOR INPATIENT REHAB AND WOULD BE APPROPRIATE FOR LONG-TERM OR ASSISTED CARE. [facility] OF INPATIENT REHAB INFORMED TEAM THAT INPATIENT REHAB DECLINES PT. CM NOTIFIED NTAALIA BURCIAGA OF [facility], , WHO WILL FORWARD REFERRAL TO [facility]. CM FAXED UPDATE TO NATALIA AT [phone]. PT HAS PREVIOUSLY SIGNED CHOICE FOR INPATIENT REHAB AND [facility]. CM WAITING ADMISSION DETERMINATION FROM [facility]. Arley Lund CASE MANAGEMENT DCP- Discharge Planning Updated by [id number]: Arley Lund on 04/26/19 3:[address] Patient Name: VIRA HOLLAND Encounter No: [id number] : 1950 Primary Insurance: MEDICARE A & B Anticipated DC Date: Planned Disposition: Inpatient Rehab External Planned Provider: INPATIENT REHAB DCP follow-up note: CM RECEIVED CALL FROM NATALIA BARBOSA [facility], THEY WILL NOT ACCEPT PT, OFFERED TO REFER TO [facility]. CM SPOKE TO PT IN ROOM, PT PROVIDED WITH LISTING OF LONG-TERM FACILITY PROVIDERS IN [facility]. PT REVIEWED FOR OVER ONE HOUR, CALLED CM BACK TO ROOM AND REQUESTED REHAB AT INPATIENT REHAB. PT IN THE MEANTIME WILL DISCUSS OTHER LONG-TERM FACILITY OPTIONS AND LET CM KNOW. PT ENSURES CM THAT HE WILL PARTICIPATE FULLY WITH THERAPY EVERY DAY AND KNOWS THE PROGRAM HE HAS BEEN THERE BEFORE. PT REQUESTING REHAB AT INPATIENT REHAB. CM WAITING INPATIENT REHAB PRESCREENING. Arley Lund, CASE MANAGEMENT DCP- Discharge Planning Updated by [id number]: Fatou Bernal on 04/26/19 1:[address] Patient Name: VIRA HOLLAND Encounter No: [id number] : 1950 Primary Insurance: MEDICARE A & B [facility] Supervisor: : UR Note: 04/26 -- AFVSS, no complaints. Labs reviewed Hemoglobin 8.6 status post 2 unit PRBC ( total of 3 units this admission ) Dr. Jenkins following, supportive transfusions at this time, iron supplementation, and will need bone marrow in the future. Appreciate Dr. Jenkins Stool for Occult Blood -negative He has hematuria, doubt that is the source of anemia, but may need cysto STD specimens obtained -and will follow-up results Add cipro (levaquin due to formulary, but prefer cipro on DC) Will to go to [facility] for SNF. Will need 10 days of IV-Vanc total and 14 days of oral Cipro Check Labs in AM -- CBC w/diff and BMP. Fatou Bernal DCP- Discharge Planning Updated by [id number]: Arley Lund on 04/26/19 10:[address] Patient Name: VIRA HLOLAND Encounter No: [id number] : 1950 Primary Insurance: MEDICARE A & B Anticipated DC Date: Planned Disposition: [facility] Facility External Planned Provider[facility], MEDICARE REHAB BED DISCHARGE PLANNING NOTE: CM MET WITH PT IN ROOM TO DISCUSS DISCHARGE NEEDS AND PLANNING. PT HAS DECIDED THAT HE CANNOT SAFELY RETURN HOME AND WANTS REFERRAL TO [facility]. CHOICE SIGNED. PT STATES HE IS WILLING TO PARTICIPATE WITH THERAPY. CM FAXED REFERRALINFORMATION TO [facility] AT [phone]. CM NOTIFIED [facility] AT [facility] AT [phone]. CM NOTIFIED NATALIA BURCIAGA OF [facility] WHO WILL VISIT WITH PT AND EVALUATE TODAY. CM WAITING MEDICAL STABILITY AND ADMISSION DETERMINATION FROM [facility]. MAURICE KENNY DCP- Discharge Planning Updated by [id number]: Arley Lund on 04/21/19 11:[address] Patient Name: VIRA HOLLAND Encounter No: [id number] : 1950 Primary Insurance: MEDICARE A & B Anticipated DC Date: Planned Disposition: [facility] Facility External Planned Provider: [facility], MEDICARE REHAB BED DCP follow-up note: CM RECEIVED REQUEST TO SPEAK TO PT IN ROOM. PT STATES HE IS CONSIDERING HIS OPTIONS AND KNOWS HE NEEDS HELP IN CARING FOR HIM. PT IS CONSIDERING GOING TO [facility] FOR SKILLED REHAB AND POSSIBLE COLLEGE OR UNIVERSITY FACULTY MEMBER CARE. CM ASKED PT TO SIGN CONSENT FOR [facility], PT REFUSED AND STATES HE IS JUST THINKING ABOUT IT RIGHT NOW AND WILL LET CM KNOW WHEN HE MAKES A DECISION. CM ADVISED PT THAT CM WILL BE CALLING ADULT PROTECTIVE SERVICES IF PT DOES DECIDE TO GO HOME. PT STATES HE UNDERSTANDS EVERYONE'S CONCERN AND STATES AGAIN THAT HE IS CONSIDERING OPTIONS. PT IS CONSIDERING GOING TO [facility] N[facility] AND RE[facility]AB AT DISCHARGE. HE IS REFUSING CONSENT TO SEND REFERRAL AT THIS TIME. IF PT GOES HOME, CM WILL CALL ADULT PROTECTIVE SERVICES. MAURICE Kenny DCP- Discharge Planning Updated by [id number]: Arley Lund on 04/20/19 5:[address] Patient Name: VIRA HOLLAND Encounter No: [id number] : 1950 Primary Insurance: MEDICARE A & B Anticipated DC Date: Planned Disposition: Home DCP follow-up note: CM RECEIVED CALLF CAROL CINTRON FROM [place], THEY HAVE CONSIDERED PT'S RESUMPTION AND HAVE DECIDED THEY CANNOT RESUME PT'S SITUATION HOME ALONE IS NOT SAFE. THEY HAVE NOT CALLED ADULT PROTECTIVE SERVICES. BEDSIDE NURSE EXPLAINED THIS TO PT WHO STATES "THEY GOT CAUGHT". PT STILL REFUSED ANY PLACEMENT OUTSIDE HIS HOME. PT HAS REPORTED THAT FAMILY WILL BRING WHEELCHAIR FOR HIM TO TAKE THE [employer] MEDICA[employer] BUS HOME AND THEY SHOULD BRING WHEELCHAIR TONIGHT. CM TO CALL [facility] ADULT PROTECTIVE SERVICES. PT PLANS TO RETURN HOME ALONE, MEDICAID BUS TRANPSPORT. HOME HEALTH WILL NOT ACCEPT PT. Arley Lund, CASE MANAGEMENT DCP- Discharge Planning Updated by [id number]: Arley Lund on 04/20/19 8:[address] Patient Name: VIRA HOLLAND Admission Status: ER Accout number: [id number] Admission Date: 04-16-2019 : 1950 Admission Diagnosis:SEPSIS, UNSPECIFIED ORGANISM Attending: IRINEO Current LOS: 4 Anticipated DC Date: Planned Disposition: Home with Home Health Primary Insurance: MEDICARE A & B PLANNED EXTERNAL PROVIDER: [facility] Discharge Planning Comments: CM RECEIVED NOTICE IN MULTIDICIPLINARY TEAM MEETING 04-19-19 THAT PT NEEDS PLACEMENT. CM MET WITH PT IN ROOM TO DISCUSS DISCHARGE PLANNING AND NEEDS. PT REPORTS LIVING AT HOME INDEPENDENTLY AND ALONE; PT REPORTS HIS SISTER LIVES [place]OSS [address] FROM HIS HOME AND HE HAS HELP AT HOME ANY TIME HE NEEDS IT. PT HAS HOSPOITAL BED WITH TRAPEZE, BEDSIDE COMMODE, WALKER, ELECTRIC AND STANDARD WHEELCHAIR. PT HAS NO MEDICAL EQUIPMENT PROVIDER PREFERENCE. PT HAS HOME HEALTH FOR NURSING AND PHYSICAL THERAPY FROM [facility] AND ALSO IS SCHEDULED FOR OUTPATIENT WOUND CARE AT THE [facility] IN [place] ON [address]. CM DISCUSSED DOCTORS OPINION THAT PT IS UNABLE TO CARE FOR HIMSELF AT HOME ALONE AND NEEDS PLACEMENT. PT FEELS HE CAN CONTINUE TO CARE FOR HIMSELF AND CALL HIS SISTER IF ANY NEEDS ARISE. PT FEELS THIS IS SAFE AND REFUSED ANY CARE HOME PLACEMENT. CM DISCUSSED POSSIBLE REHAB. PT STATES HE RECENTLY GOT OUT OF [place] AND IF HE EVER GOES ANYWHERE, IT WILL BE [facility] BUT HE IS NOT GOING ANYWHERE BUT HOME WHEN HE LEAVES THE HOSPITAL. CM DISCUSSED AVAILABILITY OF HOME HEALTH, REHAB SERVICES AND MEDICAL EQUIPMENT. PT DENIES DISCHARGE NEEDS OTHER THAN HOME HEALTH RESUMPTION WITH [facility]. CHOICE SIGNED. PT REPORTS HIS SISTER IS BRINGING PT'S WHEELCHAIR TO HOSPITAL TOMORROW SO THAT PT CAN GET UP AND OUT OF BED WHILE HERE. PT WILL NEED [employer] BUS (MEDICAID) TRANSPORT DO DISCHARGE HOME, PT STATES HE HAS ALREADY TAKEN CARE OF THAT ALSO. IMPORTANT MESSAGE FROM MEDICARE PROVIDED AND EXPLAINED. CM FAXED UPDATE TO [facility] AT [phone]. PT DECLINED PLACEMENT, CARE HOME AND LONG-TERM FACILITY. PT DENIES NEED OF REHAB PLACEMENT. PT PLANS TO RETURN HOME ALONE WITH FAMILY ASSISTANCE IF NEEDED AND WITH [facility] RESUMPTION. FOR DISCHARGE HOME, FAX DISCHARGE INFORMATION TO [facility] AT [phone], NOTIFY [facility] AT [phone]. CM TO CONTINUE TO FOLLOW AND ASSIST NEEDED. [facility] Supervisor: Arley Lund DCPIA - Discharge Planning Initial Assessment Updated by [id number]: Arley Lund on 04/20/19 9:48 am * Is the patient Alert and Oriented? Yes * How many steps to enter\\exit or inside your home? RAMP * PCP DR. GOMEZ * Pharmacy [facility] * Preadmission Environment Home Alone * ADLs Independent * Equipment Bedside [facility] Bed Power Chair or Electric Scooter Trapeze Wheelchair * Other Equipment NO MEDICAL EQUIPMENT PROVIDER PREFERENCE * List name and contact numbers for known caregivers / representatives who currently or will assist patient after discharge: JOCELINE HOLLAND, SISTER, * Verbal permission to speak to the caregivers and representatives has been obtained from the patient. N/A * Community resources currently utilized Home Health * Please name any agencies selected above. [facility] REPORTS HAVING WOUND CARE SCHEDULED OUTPATIENT AT [facility]. * Additional services required to return to the preadmission environment? No * Can the patient safely return to the preadmission environment? Yes * Has this patient been hospitalized within the prior 30 days at any hospital? Yes Coverage Notice Reviewer: [id number] Lund Notice Issued Date-Time: 04/20/2019 9:00 Notice Type: IM Discharge Notice Notice Delivered To: Patient Relationship to Patient: Solution Advisor Name: Delivery Method: HAND - Hand Delivered Dee Days: Prior Verbal Notification: Recipient Understood Notice: Yes Recipient Signature: Yes Med Rec Note Co-signed by Attending: Coverage Notice Comment: Reviewer: RADHA Lund Notice Issued Date-Time: 04/20/2019 9:00 Notice Type: Patient Choice Letter Notice Delivered To: Patient Relationship to Patient: Solution Advisor Name: Delivery Method: HAND - Hand Delivered Dee Days: Prior Verbal Notification: Recipient Understood Notice: Yes Recipient Signature: Yes Med Rec Note Co-signed by Attending: Coverage Notice Comment: [facility] REFUSES CARE HOME / LONG-TERM FACILITY Reviewer: [id number] Lund Notice Issued Date-Time: 04/26/2019 9:50 Notice Type: Patient Choice Letter Notice Delivered To: Patient Relationship to Patient: Solution Advisor Name: Delivery Method: HAND - Hand Delivered Dee Days: Prior Verbal Notification: Recipient Understood Notice: Yes Recipient Signature: Yes Med Rec Note Co-signed by Attending: Coverage Notice Comment: Reviewer: [id number] Lund Notice Issued Date-Time: 04/26/2019 13:10 Notice Type: Patient Choice Letter Notice Delivered To: Patient Relationship to Patient: Solution Advisor Name: Delivery Method: HAND - Hand Delivered Dee Days: Prior Verbal Notification: Recipient Understood Notice: Yes Recipient Signature: Yes Med Rec Note Co-signed by Attending: Coverage Notice Comment: [facility] - [facility] Last DP export: 04/29/19 11:18 a Patient Name: VIRA HOLLAND Page [id number] at 1614 All edits/amendments must be made on the electronic document DICTATION DATE: 04/29/191612 RUG SCRATCHER: TEGAN 04/29/191612 RPT#: [id number] DC DATE: STATUS: ADM [address] [place] [address] END OF REPORT
--- NOTE | 2019-04-29 16:47 | MORECARE ---
CASE MANAGEMENT DISCHARGE SUMMARY PATIENT: VIRA HOLLAND UNIT: [id number] ADM DATE: 04/16/19 AGE: 68 : [birth year] SEX: M ROOM/BED: D.2111 AUTHOR: JORDAN,DOC PHYSICIAN: REFERRING PHYSICIAN: ROCIO FAITH MD DATE OF SERVICE: 04/29/19 Discharge Plan Patient Name: VIRA HOLLAND Facility: [facility]:[place] : 1950 Planned Disposition: Halfway Facility Anticipated Discharge Date: 05/02/19 Discharge Date: Expected LOS: 16 Initial Reviewer: [id number] Initial Review Date: 04/20/2019 Generated: 04/29/19 5:46 pm Comments DCP- Discharge Planning Updated by [email or web address]: Tg Yoder on 04/29/19 3:[address] Patient Name: VIRA HOLLAND Admission Status: ER Accout number: [id number] Admission Date: 04-16-2019 : 1950 Admission Diagnosis:SEPSIS, UNSPECIFIED ORGANISM Attending: IRINEO Current LOS: 13 Anticipated DC Date: 04-29-2019 Planned Disposition: Halfway Facility Primary Insurance: MEDICARE A & B Discharge Planning Comments: CM SPOKE TO NATALIA BURCIAGA WHO MET WITH PT AND RECEIVED PT'S SIGNATURES FOR [facility]AN[facility] SCREENING. SHE HAS INFORMED PT THAT [facility] PLANS TO ACCEPT PT FOR SKILLED CARE AT DISCHARGE. CM RECEIVED GHANSHYAM AND OBTAINED FARHAN CORADO'S SIGNATURE, FAXED TO [facility] AT [phone]. [facility] PLANS TO ACCEPT PT AT DISCHARGE, PENDING GHANSHYAM SCREENING APPROVAL. CM WAITING GHANSHYAM SCREENING APPROVAL TO ENTER SENIOR CARE FACILITY. Consulting Intern: Tg Yoder Appended by Tg Yoder on 04/29/2019 16:04 RETAIL MERCHANDISING MANAGER: CM RECEIVED GHANSHYAM APPROVAL FOR 60 DAYS. CM FAXED [facility] [employer] WITH DISCHARGE INFORMATION TO [facility] AT [phone] AND NATALIA [facility] AT [phone]. CM CONTACTED NATALIA AND REQUESTED ADMISSION TODAY. PT NOTIFIED AND IN AGREEMENT WITH DISCHARGE TO [facility] FOR REHAB SERVICES. IMPORTANT MESSAGE FROM MEDICARE PROVIDED AND EXPLAINED. CM WAITING TO FIND OUT IF [facility] WILL ACCEPT PT TODAY. IF THEY ACCEPT, NURSE REPORT TO BE CALLED TO [facility] AT [phone]. PT TO TRANSPORT VIA AMBULANCE. TG YODER, CASE MANAGEMENT Appended by Tg Yoder on 04/29/2019 16:42 RETAIL MERCHANDISING MANAGER: CM RECEIVED MESSAGE FROM NATALIA OF [facility], , THEY ARE NOT YET ABLE TO ACCEPT PT STATING IT WILL BE 05-02-19, THEY HAVE NOT COMPLETED PAPERWORK AND THEY HAVE TO GET MEDICAID INFORMATION FIRST. STIPPLER NURSE NOTIFIED. FARHAN CORADO NOTIFIED. PT NOTIFIED. CM WAITING ON [facility] TO COMPLETE ADMISSION PAPERWORK AND TO RECEIVE MEDICAID PAPERWORK, THIS SHOULD BE COMPLETED ON 05-02-19. NATALIA TO CALL CM THURSDAY. TG YODER CASE MANAGEMENT DCP- Discharge Planning Updated by [id number]: Tg Yoder on 04/28/19 3:[address] Patient Name: VIRA HOLLAND Encounter No: [id number] : 1950 Primary Insurance: MEDICARE A & B Anticipated DC Date: Planned Disposition: Halfway Facility External Planned Provider: [facility], MEDICARE REHAB BED DCP follow-up note: CM RECEIVED CALL FROM NATALIA BURCIAGA OF [facility], , SHE IS WORKING ON REFERRAL TO [facility], PT WILL REQUIRE GHANSHYAM SCREENING DUE TO DEPRESSION / ANXIETY DISORDER. NATALIA WILL FILL OUT GHANSHYAM ASSESSMENT AND BRING TO FOR PT AND PHYSICIAN SIGNATURES. CM WAITING GHANSHYAM SCREENING COMPLETION AND WILL [place] [facility] [place] [facility]. Tg Yoder CASE MANAGEMENT DCP- Discharge Planning Updated by [id number]: Tg Yoder on 04/27/19 10:[address] Patient Name: VIRA HOLLAND Encounter No: [id number] : 1950 Primary Insurance: MEDICARE A & B Anticipated DC Date: Planned Disposition: Halfway Facility External [facility]ICARE REHAB BED DCP follow-up note: CM SPOKE TO TREATMENT TEAM AT MULTIDICIPLINARY TEAM MEETING. CLINICAL NURSE REPORTS THAT PT IS NOT APPROPRIATE FOR INPATIENT REHAB AND WOULD BE APPROPRIATE FOR SENIOR CARE OR STEREO OPERATOR CARE. [facility] OF INPATIENT REHAB INFORMED TEAM THAT INPATIENT REHAB DECLINES PT. CM NOTIFIED NATALIA BURCIAGA OF [facility], , WHO WILL FORWARD REFERRAL TO [facility]. CM FAXED UPDATE TO NATALIA AT [phone]. PT HAS PREVIOUSLY SIGNED CHOICE FOR [facility] AND [facility]. CM WAITING ADMISSION DETERMINATION FROM [facility]. Tg Yoder, CASE MANAGEMENT DCP- Discharge Planning Updated by [id number]: Tg Yoder on 04/26/19 3:[address] Patient Name: VIRA HOLLAND Encounter No: [id number] : 1950 Primary Insurance: MEDICARE A & B Anticipated DC Date: Planned Disposition: Inpatient Rehab External Planned Provider: [facility] DCP follow-up note: CM RECEIVED CALL FROM NATALIA BARBOSA [facility], THEY WILL NOT ACCEPT PT, OFFERED TO REFER TO [facility]. CM SPOKE TO PT IN ROOM, PT PROVIDED WITH LISTING OF SENIOR CARE FACILITY PROVIDERS IN [facility]. PT REVIEWED FOR OVER ONE HOUR, CALLED CM BACK TO ROOM AND REQUESTED REHAB AT [facility]. PT IN THE MEANTIME WILL DISCUSS OTHER SENIOR CARE FACILITY OPTIONS AND LET CM KNOW. PT ENSURES CM THAT HE WILL PARTICIPATE FULLY WITH THERAPY EVERY DAY AND KNOWS THE PROGRAM HE HAS BEEN THERE BEFORE. PT REQUESTING REHAB AT [facility] IN[facility]. CM WAITING INPATIENT REHAB PRESCREENING. Tg Yoder, CASE MERCEDEZ DCP- Discharge Planning Updated by [id number]: Fatou Bernal on 04/26/19 1:[address] Patient Name: VIRA HOLLAND Encounter No: [id number] : 1950 Primary Insurance: MEDICARE A & B Consulting Intern: : LON Note: 04/26 -- AFVSS, no complaints. Labs reviewed Hemoglobin 8.6 status post 2 unit PRBC ( total of 3 units this admission ) Dr. Jenkins following, supportive transfusions at this time, iron supplementation, and will need bone marrow in the future. Appreciate Dr. Jenkins Stool for Occult Blood -negative He has hematuria, doubt that is the source of anemia, but may need cysto STD specimens obtained -and will follow-up results Add cipro (levaquin due to formulary, but prefer cipro on DC) Will to go to [place] for SNF. Will need 10 days of IV-Vanc total and 14 days of oral Cipro Check Labs in AM -- CBC w/diff and BMP. Fatou Bernal DCP- Discharge Planning Updated by [id number]: Tg Yoder on 04/26/19 10:[address] Patient Name: VIRA HOLLAND Encounter No: [id number] : 1950 Primary Insurance: MEDICARE A & B Anticipated DC Date: Planned Disposition: Halfway Facility External Planned Provider: [facility], MEDICARE REHAB BED DISCHARGE PLANNING NOTE: CM MET WITH PT IN ROOM TO DISCUSS DISCHARGE NEEDS AND PLANNING. PT HAS DECIDED THAT HE CANNOT SAFELY RETURN HOME AND WANTS REFERRAL TO [facility]. CHOICE SIGNED. PT STATES HE IS WILLING TO PARTICIPATE WITH THERAPY. CM FAXED REFERRALINFORMATION TO [facility] AT [phone]. CM NOTIFIED GILL AT [facility] AT [phone]. CM NOTIFIED NATALIA BURCIAGA OF [facility] WHO WILL VISIT WITH PT AND EVALUATE TODAY. CM WAITING MEDICAL STABILITY AND ADMISSION DETERMINATION FROM [facility]. MAURICE KENNY DCP- Discharge Planning Updated by [id number]: Tg Yoder on 04/21/19 11:[address] Patient Name: VIRA HOLLAND Encounter No: [id number] : 1950 Primary Insurance: MEDICARE A & B Anticipated DC Date: Planned Disposition: Halfway Facility External Planned Provider: [facility], MEDICARE REHAB BED DCP follow-up note: CM RECEIVED REQUEST TO SPEAK TO PT IN ROOM. PT STATES HE IS CONSIDERING HIS OPTIONS AND KNOWS HE NEEDS HELP IN CARING FOR HIM. PT IS CONSIDERING GOING TO [facility] FOR SKILLED REHAB AND POSSIBLE SENIOR CARE CARE. CM ASKED PT TO SIGN CONSENT FOR [facility], PT REFUSED AND STATES HE IS JUST THINKING ABOUT IT RIGHT NOW AND WILL LET CM KNOW WHEN HE MAKES A DECISION. CM ADVISED PT THAT CM WILL BE CALLING ADULT PROTECTIVE SERVICES IF PT DOES DECIDE TO GO HOME. PT STATES HE UNDERSTANDS EVERYONE'S CONCERN AND STATES AGAIN THAT HE IS CONSIDERING OPTIONS. PT IS CONSIDERING GOING TO [facility] AT DISCHARGE. HE IS REFUSING CONSENT TO SEND REFERRAL AT THIS TIME. IF PT GOES HOME, CM WILL CALL ADULT PROTECTIVE SERVICES. Tg Yoder CASE MANAGEMENT DCP- Discharge Planning Updated by [id number]: Tg Yoder on 04/20/19 5:[address] Patient Name: VIRA HOLLAND Encounter No: [id number] : 1950 Primary Insurance: MEDICARE A & B Anticipated DC Date: Planned Disposition: Home DCP follow-up note: CM RECEIVED CALLF CAROL CINTRON FROM [employer] [facility], THEY HAVE CONSIDERED PT'S RESUMPTION AND HAVE DECIDED THEY CANNOT RESUME PT'S SITUATION HOME ALONE IS NOT SAFE. THEY HAVE NOT CALLED ADULT PROTECTIVE SERVICES. BEDSIDE NURSE EXPLAINED THIS TO PT WHO STATES "THEY GOT CAUGHT". PT STILL REFUSED ANY PLACEMENT OUTSIDE HIS HOME. PT HAS REPORTED THAT FAMILY WILL BRING WHEELCHAIR FOR HIM TO TAKE THE [place] MEDICAID BUS HOME AND THEY SHOULD BRING WHEELCHAIR TONIGHT. CM TO CALL [facility] ADULT PROTECTIVE SERVICES. PT PLANS TO RETURN HOME ALONE, MEDICAID BUS TRANPSPORT. HOME HEALTH WILL NOT ACCEPT PT. MAURICE Kenny DCP- Discharge Planning Updated by [id number]: Tg Yoder on 04/20/19 8:[address] Patient Name: VIRA HOLLAND Admission Status: ER Accout number: [id number] Admission Date: 04-16-2019 : 1950 Admission Diagnosis:SEPSIS, UNSPECIFIED ORGANISM Attending: IRINEO Current LOS: 4 Anticipated DC Date: Planned Disposition: Home with Home Health Primary Insurance: MEDICARE A & B PLANNED EXTERNAL PROVIDER: [facility] [employer] [facility] Discharge Planning Comments: CM RECEIVED NOTICE IN MULTIDICIPLINARY TEAM MEETING 04-19-19 THAT PT NEEDS PLACEMENT. CM MET WITH PT IN ROOM TO DISCUSS DISCHARGE PLANNING AND NEEDS. PT REPORTS LIVING AT HOME INDEPENDENTLY AND ALONE; PT REPORTS HIS SISTER LIVES [place]OSS [address] FROM HIS HOME AND HE HAS HELP AT HOME ANY TIME HE NEEDS IT. PT HAS HOSPOITAL BED WITH TRAPEZE, BEDSIDE COMMODE, WALKER, ELECTRIC AND STANDARD WHEELCHAIR. PT HAS NO MEDICAL EQUIPMENT PROVIDER PREFERENCE. PT HAS HOME HEALTH FOR NURSING AND PHYSICAL THERAPY FROM [employer] AND ALSO IS SCHEDULED FOR OUTPATIENT WOUND CARE AT THE [facility] IN [place] ON [address]. CM DISCUSSED DOCTORS OPINION THAT PT IS UNABLE TO CARE FOR HIMSELF AT HOME ALONE AND NEEDS PLACEMENT. PT FEELS HE CAN CONTINUE TO CARE FOR HIMSELF AND CALL HIS SISTER IF ANY NEEDS ARISE. PT FEELS THIS IS SAFE AND REFUSED ANY SENIOR CARE PLACEMENT. CM DISCUSSED POSSIBLE REHAB. PT STATES HE RECENTLY GOT OUT OF [place] AND IF HE EVER GOES ANYWHERE, IT WILL BE [place] BUT HE IS NOT GOING ANYWHERE BUT HOME WHEN HE LEAVES THE HOSPITAL. CM DISCUSSED AVAILABILITY OF HOME HEALTH, REHAB SERVICES AND MEDICAL EQUIPMENT. PT DENIES DISCHARGE NEEDS OTHER THAN HOME HEALTH RESUMPTION WITH [employer]. CHOICE SIGNED. PT REPORTS HIS SISTER IS BRINGING PT'S WHEELCHAIR TO HOSPITAL TOMORROW SO THAT PT CAN GET UP AND OUT OF BED WHILE HERE. PT WILL NEED [place] BUS (MEDICAID) TRANSPORT DO DISCHARGE HOME, PT STATES HE HAS ALREADY TAKEN CARE OF THAT ALSO. IMPORTANT MESSAGE FROM MEDICARE PROVIDED AND EXPLAINED. CM FAXED UPDATE TO [employer] [facility] AT [phone]. PT DECLINED PLACEMENT, SENIOR CARE AND SENIOR CARE FACILITY. PT DENIES NEED OF REHAB PLACEMENT. PT PLANS TO RETURN HOME ALONE WITH FAMILY ASSISTANCE IF NEEDED AND WITH [facility] RESUMPTION. FOR DISCHARGE HOME, FAX DISCHARGE INFORMATION TO [employer] [facility] AT [phone], NOTIFY [employer] AT [phone]. CM TO CONTINUE TO FOLLOW AND ASSIST NEEDED. Consulting Intern: [facility] - Discharge Planning Initial Assessment Updated by [id number]: Tg Yoder on 04/20/19 9:48 am * Is the patient Alert and Oriented? Yes * How many steps to enter\\exit or inside your home? RAMP * PCP DR. GOMEZ * Pharmacy [facility] ON [address] * Preadmission Environment Home Alone * ADLs Independent * Equipment Bedside Commode Hospital Bed Power Chair or Electric Scooter Trapeze Wheelchair * Other Equipment NO MEDICAL EQUIPMENT PROVIDER PREFERENCE * List name and contact numbers for known caregivers / representatives who currently or will assist patient after discharge: JOCELINE HOLLAND, SISTER, * Verbal permission to speak to the caregivers and representatives has been obtained from the patient. N/A * Community resources currently utilized Home Health * Please name any agencies selected above. [employer] [facility] REPORTS HAVING WOUND CARE SCHEDULED OUTPATIENT AT [facility]. * Additional services required to return to the preadmission environment? No * Can the patient safely return to the preadmission environment? Yes * Has this patient been hospitalized within the prior 30 days at any hospital? Yes Coverage Notice Reviewer: RADHA Yoder Notice Issued Date-Time: 04/26/2019 13:10 Notice Type: Patient Choice Letter Notice Delivered To: Patient Relationship to Patient: Rouge Presser Name: Delivery Method: HAND - Hand Delivered Dee Days: Prior Verbal Notification: Recipient Understood Notice: Yes Recipient Signature: Yes Med Rec Note Co-signed by Attending: Coverage Notice Comment: [facility] Reviewer: RADHA Yoder Notice Issued Date-Time: 04/26/2019 9:50 Notice Type: Patient Choice Letter Notice Delivered To: Patient Relationship to Patient: Rouge Presser Name: Delivery Method: HAND - Hand Delivered Dee Days: Prior Verbal Notification: Recipient Understood Notice: Yes Recipient Signature: Yes Med Rec Note Co-signed by Attending: Coverage Notice Comment: Reviewer: RADHA Yoder Notice Issued Date-Time: 04/20/2019 9:00 Notice Type: Patient Choice Letter Notice Delivered To: Patient Relationship to Patient: Rouge Presser Name: Delivery Method: HAND - Hand Delivered Dee Days: Prior Verbal Notification: Recipient Understood Notice: Yes Recipient Signature: Yes Med Rec Note Co-signed by Attending: Coverage Notice Comment: [facility] REFUSES SENIOR CARE / SENIOR CARE FACILITY Reviewer: RADHA Yoder Notice Issued Date-Time: 04/29/2019 16:10 Notice Type: IM Discharge Notice Notice Delivered To: Patient Relationship to Patient: Rouge Presser Name: Delivery Method: HAND - Hand Delivered Dee Days: Prior Verbal Notification: Recipient Understood Notice: Yes Recipient Signature: Yes Med Rec Note Co-signed by Attending: Coverage Notice Comment: Reviewer: RADHA Yoder Notice Issued Date-Time: 04/20/2019 9:00 Notice Type: IM Discharge Notice Notice Delivered To: Patient Relationship to Patient: Rouge Presser Name: Delivery Method: HAND - Hand Delivered Dee Days: Prior Verbal Notification: Recipient Understood Notice: Yes Recipient Signature: Yes Med Rec Note Co-signed by Attending: Coverage Notice Comment: Last DP export: 04/29/19 3:14 p Patient Name: VIRA HOLLAND Page [id number] at 1647 All edits/amendments must be made on the electronic document DICTATION DATE: 01/24/20 1646 TURKEY CLEANER: TEGAN 04/29/191645 RPT#: [id number] DC DATE: STATUS: ADM IN [facility] [address] [place] [address] END OF REPORT
--- NOTE | 2019-04-29 19:15 | NUR ---
REPORT RECEIVED. PT UP IN BED WATCHING TV, RR EVEN AND UNLABORED. NO S/SX OF DISTRESS NOTED AT THIS TIME. PT DENIES NEEDS. SRX2, CALL LIGHT IN REACH. WILL CTM.
[2019-04-29 20:00] VITALS: BP 126/62
--- NOTE | 2019-04-29 20:23 | NUR ---
OT NOTE: PT COMPLETED SELF FEEDING TASKS WITH SET UP. PT COMPLETED BUE AROM EXS. [phone] THANK YOU,BEVERLEY MALAGON
[2019-04-30 04:00] VITALS: BP 119/61
[2019-04-30 05:49] LABS: BASOPHILS 0.6 % (0-2); EOSINOPHILS 3.3 % (0-7); HEMATOCRIT 25.9 % (42.0-54.0); HEMOGLOBIN 8.5 g/dL (13.5-17.5); IMMATURE GRANULOCYTES 0.8 % (0-5); LYMPHOCYTES 26.4 % (15-50); MCH 26.2 pg (26.0-34.0); MCHC 32.8 g/dL (31.0-37.0); MCV 79.9 fL (80.0-100.0); MEAN PLATELET VOLUME 8.1 fL (7.4-10.4); NEUTROPHILS 59.9 % (40-80); PLATELET COUNT 167 10x3/uL (130-400); RBC 3.24 10x6/uL (4.20-6.10); RDW 18.3 % (11.5-14.5); WBC 7.2 10x3/uL (4.8-10.8)
[2019-04-30 06:23] LABS: CALCIUM 8.3 mg/dL (8.5-10.1); CARBON DIOXIDE 25.7 mmol/L (21.0-32.0); CREATININE - SERUM 1.1 mg/dL (0.6-1.3); POTASSIUM - SERUM 3.7 mmol/L (3.5-5.1)
[2019-04-30 10:40] VITALS: BP 120/65
--- NOTE | 2019-04-30 10:50 | NUR ---
PT AWAKE AND ORIENTED, NO COMPLAINTS OR CONCERNS THIS MORNING, REQUESTS WE WAIT UNTIL MUCH LATER IN THE DAY FOR WOUND CHANGES UNLESS ITS ABSOLUTELY NEEDED. CL IN REACH, SRX2.
[2019-04-30 14:57] VITALS: BP 119/64
--- NOTE | 2019-04-30 15:00 | NUR ---
I have reviewed this patient and I concur with the Shift Assessment completed by the Licensed Practical Nurse today this shift.
[2019-04-30 16:00] VITALS: BP 120/68
[2019-04-30 20:29] VITALS: BP 112/55
--- NOTE | 2019-04-30 22:34 | NUR ---
PAGED DR DRAKE REGARDING PTS SUPRAPUBIC CATHETER NOT WORKING PROPERLY. PT IS NOW URINATING OUT OF PENIS DESPITE FLUSHING CATHETER. DR DRAKE STATED THAT HE WILL COME CHANGE CATHETER IN AM.
[2019-05-01 05:22] VITALS: BP 110/62
[2019-05-01 06:39] LABS: BASOPHILS 0.8 % (0-2); EOSINOPHILS 4.1 % (0-7); HEMATOCRIT 26.4 % (42.0-54.0); HEMOGLOBIN 8.5 g/dL (13.5-17.5); IMMATURE GRANULOCYTES 1.2 % (0-5); LYMPHOCYTES 32.9 % (15-50); MCH 26.2 pg (26.0-34.0); MCHC 32.2 g/dL (31.0-37.0); MCV 81.2 fL (80.0-100.0); MEAN PLATELET VOLUME 8.6 fL (7.4-10.4); MONOCYTES 10.1 % (2-11); NEUTROPHILS 50.9 % (40-80); PLATELET COUNT 211 10x3/uL (130-400); RBC 3.25 10x6/uL (4.20-6.10); RDW 19.2 % (11.5-14.5)
[2019-05-01 06:40] LABS: ANION GAP 10.3 mmol/L (8-16); CALCIUM 8.8 mg/dL (8.5-10.1); CARBON DIOXIDE 27.9 mmol/L (21.0-32.0); CREATININE - SERUM 1.2 mg/dL (0.6-1.3); POTASSIUM - SERUM 4.2 mmol/L (3.5-5.1)
--- NOTE | 2019-05-01 07:28 | NUR ---
PT AWAKE AND ORIENTED, LYIGN IN BED. ASSISTED IN PULLING UP. PT IS DRY AND CATHETER IS DRAINING SMALL AMOUTNS. DR CAMPBELL TO COME IN AND FIX TODAY. COMPLAINS OF BEING TIRED AND HAVING NOT GOT GOOD SLEEP. NO FAMILY AT BEDSIDE. CL INR EACH, SRX2. DENIES DRESSING CHANGE AT THIS TIME
--- NOTE | 2019-05-01 09:18 | NUR ---
DRESSING ON LEG CAHNGED PER ORDER. PT TOLERATED WELL WITH MODERATE PAIN. CAHNGED BEDDING PT HAD URINATED FROM PENIS AGAIN, CATHETER STILL DRAINING BUT SMALL AMOUNT. CL IN REACH, SRX2.
[2019-05-01 09:50] VITALS: BP 124/64
--- NOTE | 2019-05-01 13:57 | NUR ---
PT AWAKE AND ORIENTED, LYING IN BED WATCHING T/V. ASSISTED AID WITH CHANGING PTS LINNENS HE WAS WET. DR. DRAKE STATED HE'LL BE HERE TO CAHNGE IT SHORTLY.CLIN REACH, SRX2.
[2019-05-01 14:15] VITALS: BP 109/68
--- NOTE | 2019-05-01 14:44 | NUR ---
ASSISTED DR DRAKE, CATHETER REPLACED WITH NEW TUBING, BLOOD CLOT CAME OUT QUICKLY, CATHETER NOW DRAINING APPROPRAITELY. PER Primo DRAKE, PLACED STATLOCK ON BELLY, HE STATES IT WILL DRAIN FINE WHERE IT IS AT. NO TAPE ON DRESSING COVERING INSIRTION SITE. CL INR EAH, SRX2.
--- NOTE | 2019-05-01 15:18 | NUR ---
PT SOAKED THE BED WITH URINE HE URINATED OUT FROM HIS PENIS. CONTACT DR. DRAKE FOR FURTHER INSTRUCTION.
--- NOTE | 2019-05-01 17:19 | NUR ---
I have reviewed this patient and I concur with the Shift Assessment completed by the Licensed Practical Nurse today this shift.
[2019-05-01 18:34] VITALS: BP 129/71
--- NOTE | 2019-05-01 19:15 | NUR ---
REPORT RECEIVED. PT CARE ASSUMED. PT IN BED SEMI-FOWLERS, RR EVEN AND UNLABORED. PT REFUSES TO TURN OFF OF HIS BUTTOCKS, DESPITE EDUCATING HIM ON THE BENIFITS. CALL LIGHT IN REACH WILL CTM.
[2019-05-01 20:00] VITALS: BP 115/58
[2019-05-02] VITALS: BP 132/68
--- NOTE | 2019-05-02 00:13 | NUR ---
SP CATHETER DRAINING APPROPRATELY THIS EVENING. DRESSING CHANGED PER ORDER. PT TOLERATED WELL. WILL CTM.
[2019-05-02 04:00] VITALS: BP 105/58
[2019-05-02 06:01] LABS: ANION GAP 12.4 mmol/L (8-16); CALCIUM 8.7 mg/dL (8.5-10.1); CARBON DIOXIDE 26.8 mmol/L (21.0-32.0); CREATININE - SERUM 1.1 mg/dL (0.6-1.3); POTASSIUM - SERUM 4.2 mmol/L (3.5-5.1)
[2019-05-02 06:02] LABS: BASOPHILS 1.2 % (0-2); HEMATOCRIT 26.1 % (42.0-54.0); HEMOGLOBIN 8.3 g/dL (13.5-17.5); IMMATURE GRANULOCYTES 1.2 % (0-5); MCH 26.1 pg (26.0-34.0); MCHC 31.8 g/dL (31.0-37.0); MCV 82.1 fL (80.0-100.0); MEAN PLATELET VOLUME 8.6 fL (7.4-10.4); MONOCYTES 9.7 % (2-11); NEUTROPHILS 48.9 % (40-80); PLATELET COUNT 211 10x3/uL (130-400); RBC 3.18 10x6/uL (4.20-6.10); RDW 19.3 % (11.5-14.5)
--- NOTE | 2019-05-02 07:16 | NUR ---
PT RESTING PEACEFULLY, EYES CLOSED. BREATHS EVEN, REGULAR AND UNLABORED. NO SIGNS OR SYMTPOMS OF ACUTE DISTRESS NOTED AT THIS TIME. CL INREACH, SRX2.
--- NOTE | 2019-05-02 09:51 | NUR ---
AWAKE AND ORIENTED, ALANIZ DRAINING WELL. PT IS RESTING ON AND OFF. CL INR EACH, SRX2.
[2019-05-02 09:54] VITALS: BP 126/67
--- NOTE | 2019-05-02 11:23 | NUR ---
Recommend continuing with current treatment to right leg (dakins wet to dry daily). And calmoseptine cream to buttocks, coccyx and perineal area. Pt is on an air overlay mattess. He is on a turn/reposition q 2 hour schedule. Personal care daily and as needed with any incontinent episodes. Wound care continues to monitor.
--- NOTE | 2019-05-02 11:47 | NUR ---
I have reviewed this patient and I concur with the Shift Assessment completed by the Licensed Practical Nurse today this shift.
[2019-05-02 13:00] VITALS: BP 118/64
--- NOTE | 2019-05-02 16:12 | NUR ---
PT ESCORTED OUT VIA WHEELCHAIR TO TRANSPORT VAN TO [place]. PT TRANSFERED HIMSELF WITH SLIDE BOARD.
--- NOTE | 2019-05-02 17:21 | MORECARE ---
CASE MANAGEMENT DISCHARGE SUMMARY PATIENT: VIRA HOLLAND UNIT: [id number] ADM DATE: 04/16/19 AGE: 68 : [birth year] SEX: M ROOM/BED: D.2111 AUTHOR: JORDAN,DOC PHYSICIAN: REFERRING PHYSICIAN: ROCIO FAITH MD DATE OF SERVICE: 05/02/19 Discharge Plan Patient Name: VIRA HOLLAND Facility: [facility]:[place] : 1950 Planned Disposition: Group Home Facility Anticipated Discharge Date: 05/02/19 Discharge Date: 05/02/2019 Expected LOS: 16 Initial Reviewer: [email or web address] Initial Review Date: 04/20/2019 Generated: 05/02/19 6:20 pm Comments DCP- Discharge Planning Updated by [id number]: Tg Yoder on 04/29/19 3:[address] Patient Name: VIRA HOLLAND Admission Status: ER Accout number: [id number] Admission Date: 04-16-2019 : 1950 Admission Diagnosis:SEPSIS, UNSPECIFIED ORGANISM Attending: IRINEO Current LOS: 13 Anticipated DC Date: 04-29-2019 Planned Disposition: Group Home Facility Primary Insurance: MEDICARE A & B Discharge Planning Comments: CM SPOKE TO NATALIA BURCIAGA WHO MET WITH PT AND RECEIVED PT'S SIGNATURES FOR GHANSHYAM SCREENING. SHE HAS INFORMED PT THAT [facility] PLANS TO ACCEPT PT FOR SKILLED CARE AT DISCHARGE. CM RECEIVED GHANSHYAM AND OBTAINED FARHAN CORADO'S SIGNATURE, FAXED TO GHANSHYAM [facility] AT [phone]. [facility] PLANS TO ACCEPT PT AT DISCHARGE, PENDING GHANSHYAM SCREENING APPROVAL. CM WAITING GHANSHYAM SCREENING APPROVAL TO ENTER FDC FACILITY. Exhibitor Sales: Tg Yoder Appended by Tg Yoder on 04/29/2019 16:04 FIELD SPECIALIST: CM RECEIVED GHANSHYAM APPROVAL FOR 60 DAYS. CM FAXED GHANSHYAM APPROVAL WITH DISCHARGE INFORMATION TO [facility] AT [phone] AND NATALIA [facility] AT [phone]. CM CONTACTED NATALIA AND REQUESTED ADMISSION TODAY. PT NOTIFIED AND IN AGREEMENT WITH DISCHARGE TO [facility] FOR REHAB SERVICES. IMPORTANT MESSAGE FROM MEDICARE PROVIDED AND EXPLAINED. CM WAITING TO FIND OUT IF [facility] WILL ACCEPT PT TODAY. IF THEY ACCEPT, NURSE REPORT TO BE CALLED TO [facility] AT [phone]. PT TO TRANSPORT VIA AMBULANCE. TG YODER, CASE MANAGEMENT Appended by Tg Yoder on 04/29/2019 16:42 FIELD SPECIALIST: CM RECEIVED MESSAGE FROM NATALIA OF [facility], , THEY ARE NOT YET ABLE TO ACCEPT PT STATING IT WILL BE 05-02-19, THEY HAVE NOT COMPLETED PAPERWORK AND THEY HAVE TO GET MEDICAID INFORMATION FIRST. BARROW WORKER NURSE NOTIFIED. FARHAN CORADO NOTIFIED. PT NOTIFIED. CM WAITING ON [facility] TO COMPLETE ADMISSION PAPERWORK AND TO RECEIVE MEDICAID PAPERWORK, THIS SHOULD BE COMPLETED ON 05-02-19. NATALIA TO CALL CM THURSDAY. TG YODER CASE MANAGEMENT DCP- Discharge Planning Updated by [id number]: Tg Yoder on 04/28/19 3:[address] Patient Name: VIRA HOLLAND Encounter No: [id number] : 1950 Primary Insurance: MEDICARE A & B Anticipated DC Date: Planned Disposition: Group Home Facility External Planned Provider: [facility], MEDICARE REHAB BED DCP follow-up note: CM RECEIVED CALL FROM NATALIA BURCIAGA OF [facility], , SHE IS WORKING ON REFERRAL TO [facility], PT WILL REQUIRE GHANSHYAM SCREENING DUE TO DEPRESSION / ANXIETY DISORDER. NATALIA WILL FILL OUT GHANSHYAM ASSESSMENT AND BRING TO FOR PT AND PHYSICIAN SIGNATURES. CM WAITING GHANSHYAM SCREENING COMPLETION AND WILL [facility] TO [facility] POSSIBLE FOR ADMISSION DETERMINATION [facility]. Tg Yoder CASE MANAGEMENT DCP- Discharge Planning Updated by [id number]: Tg Yoder on 04/27/19 10:[address] Patient Name: VIRA HOLLAND Encounter No: [id number] : 1950 Primary Insurance: MEDICARE A & B Anticipated DC Date: Planned Disposition: Group Home Facility External Planned Provider: [facility], MEDICARE REHAB BED DCP follow-up note: CM SPOKE TO TREATMENT TEAM AT MULTIDICIPLINARY TEAM MEETING. BENEFITS COORDINATOR REPORTS THAT PT IS NOT APPROPRIATE FOR INPATIENT REHAB AND WOULD BE APPROPRIATE FOR [facility] OR [facility] C[facility]. [facility] OF INPATIENT REHAB INFORMED TEAM THAT INPATIENT REHAB DECLINES PT. CM NOTIFIED NATALIA BURCIAGA OF [facility], , WHO WILL FORWARD REFERRAL TO [facility]. CM FAXED UPDATE TO NATALIA AT [phone]. PT HAS PREVIOUSLY SIGNED CHOICE FOR [facility] AND [facility]. CM WAITING ADMISSION DETERMINATION FROM [facility]. Tg Yoder, CASE MANAGEMENT DCP- Discharge Planning Updated by [id number]: Tg Yoder on 04/26/19 3:[address] Patient Name: VIRA HOLLAND Encounter No: [id number] : 1950 Primary Insurance: MEDICARE A & B Anticipated DC Date: Planned Disposition: Inpatient Rehab External Planned Provider: [facility] INPATIENT [facility] DCP follow-up note: CM RECEIVED CALL FROM NATALIA BARBOSA [facility], THEY WILL NOT ACCEPT PT, OFFERED TO REFER TO [facility]. CM SPOKE TO PT IN ROOM, PT PROVIDED WITH LISTING [place] [facility] [place]AC[place] [facility]. PT REVIEWED FOR OVER ONE HOUR, CALLED CM BACK TO ROOM AND REQUESTED REHAB AT [facility]. PT IN THE MEANTIME WILL DISCUSS OTHER [facility] FACILITY OPTIONS AND LET CM KNOW. PT ENSURES CM THAT HE WILL PARTICIPATE FULLY WITH THERAPY EVERY DAY AND KNOWS THE PROGRAM HE HAS BEEN THERE BEFORE. PT REQUESTING REHAB AT [facility] INPATIENT RE[facility]AB. CM WAITING INPATIENT REHAB PRESCREENING. Tg Yoder, CASE MANAGEMENT DCP- Discharge Planning Updated by [id number]: Fatou Bernal on 04/26/19 1:[address] Patient Name: VIRA HOLLAND Encounter No: [id number] : 1950 Primary Insurance: MEDICARE A & B Exhibitor Sales: : UR Note: 04/26 -- AFVSS, no complaints. Labs reviewed Hemoglobin 8.6 status post 2 unit PRBC ( total of 3 units this admission ) Dr. Jenkins following, supportive transfusions at this time, iron supplementation, and will need bone marrow in the future. Appreciate Dr. Jenkins Stool for Occult Blood -negative He has hematuria, doubt that is the source of anemia, but may need cysto STD specimens obtained -and will follow-up results Add cipro (levaquin due to formulary, but prefer cipro on DC) Will to go to [facility] for SNF. Will need 10 days of IV-Vanc total and 14 days of oral Cipro Check Labs in AM -- CBC w/diff and BMP. Fatourafael Bernal DCP- Discharge Planning Updated by [id number]: Tg Yoder on 04/26/19 10:[address] Patient Name: VIRA HOLLAND Encounter No: [id number] : 1950 Primary Insurance: MEDICARE A & B Anticipated DC Date: Planned Disposition: Group Home Facility External Planned Provider: [facility], MEDICARE REHAB BED DISCHARGE PLANNING NOTE: CM MET WITH PT IN ROOM TO DISCUSS DISCHARGE NEEDS AND PLANNING. PT HAS DECIDED THAT HE CANNOT SAFELY RETURN HOME AND WANTS REFERRAL TO [facility]. CHOICE SIGNED. PT STATES HE IS WILLING TO PARTICIPATE WITH THERAPY. CM FAXED REFERRALINFORMATION TO [facility] AT [phone]. CM NOTIFIED GILL AT [facility] AT [phone]. CM NOTIFIED NATALIA BURCIAGA OF [facility] WHO WILL VISIT WITH PT AND EVALUATE TODAY. CM WAITING MEDICAL STABILITY AND ADMISSION DETERMINATION FROM [facility]. TG YODER, CASE MANAGEMENT DCP- Discharge Planning Updated by [id number]: Tg Yoder on 04/21/19 11:[address] Patient Name: VIRA HOLLAND Encounter No: [id number] : 1950 Primary Insurance: MEDICARE A & B Anticipated DC Date: Planned Disposition: Group Home Facility External Planned Provider: [facility], MEDICARE REHAB BED DCP follow-up note: CM RECEIVED REQUEST TO SPEAK TO PT IN ROOM. PT STATES HE IS CONSIDERING HIS OPTIONS AND KNOWS HE NEEDS HELP IN CARING FOR HIM. PT IS CONSIDERING GOING TO [facility] FOR SKILLED REHAB AND POSSIBLE RESIDENTIAL CARE. CM ASKED PT TO SIGN CONSENT FOR [facility], PT REFUSED AND STATES HE IS JUST THINKING ABOUT IT RIGHT NOW AND WILL LET CM KNOW WHEN HE MAKES A DECISION. CM ADVISED PT THAT CM WILL BE CALLING ADULT PROTECTIVE SERVICES IF PT DOES DECIDE TO GO HOME. PT STATES HE UNDERSTANDS EVERYONE'S CONCERN AND STATES AGAIN THAT HE IS CONSIDERING OPTIONS. PT IS CONSIDERING GOING TO [facility] AT DISCHARGE. HE IS REFUSING CONSENT TO SEND REFERRAL AT THIS TIME. IF PT GOES HOME, CM WILL CALL ADULT PROTECTIVE SERVICES. Tg Yoder CASE MANAGEMENT DCP- Discharge Planning Updated by [id number]: Tg Yoder on 04/20/19 5:[address] Patient Name: VIRA HOLLAND Encounter No: [id number] : 1950 Primary Insurance: MEDICARE A & B Anticipated DC Date: Planned Disposition: Home DCP follow-up note: CM RECEIVED CALLF CAROL CINTRON FROM [facility], THEY HAVE CONSIDERED PT'S RESUMPTION AND HAVE DECIDED THEY CANNOT RESUME PT'S SITUATION HOME ALONE IS NOT SAFE. THEY HAVE NOT CALLED ADULT PROTECTIVE SERVICES. BEDSIDE NURSE EXPLAINED THIS TO PT WHO STATES "THEY GOT CAUGHT". PT STILL REFUSED ANY PLACEMENT OUTSIDE HIS HOME. PT HAS REPORTED THAT FAMILY WILL BRING WHEELCHAIR FOR HIM TO TAKE THE [facility] HOME AND THEY SHOULD BRING WHEELCHAIR TONIGHT. CM TO CALL [facility] ADULT PROTECTIVE SERVICES. PT PLANS TO RETURN HOME ALONE, MEDICAID BUS TRANPSPORT. HOME HEALTH WILL NOT ACCEPT PT. Tg Yoder CASE MERCEDEZ DCP- Discharge Planning Updated by [id number]: Tg Yoder on 04/20/19 8:[address] Patient Name: VIRA HOLLAND Admission Status: ER Accout number: [id number] Admission Date: 04-16-2019 : 1950 Admission Diagnosis:SEPSIS, UNSPECIFIED ORGANISM Attending: IRINEO Current LOS: 4 Anticipated DC Date: Planned Disposition: Home with Home Health Primary Insurance: MEDICARE A & B PLANNED EXTERNAL PROVIDER: [facility] Discharge Planning Comments: CM RECEIVED NOTICE IN MULTIDICIPLINARY TEAM MEETING 04-19-19 THAT PT NEEDS PLACEMENT. CM MET WITH PT IN ROOM TO DISCUSS DISCHARGE PLANNING AND NEEDS. PT REPORTS LIVING AT HOME INDEPENDENTLY AND ALONE; PT REPORTS HIS SISTER LIVES [place] [address] FROM HIS HOME AND HE HAS HELP AT HOME ANY TIME HE NEEDS IT. PT HAS HOSPOITAL BED WITH TRAPEZE, BEDSIDE COMMODE, WALKER, ELECTRIC AND STANDARD WHEELCHAIR. PT HAS NO MEDICAL EQUIPMENT PROVIDER PREFERENCE. PT HAS HOME HEALTH FOR NURSING AND PHYSICAL THERAPY FROM [facility] AND ALSO IS SCHEDULED FOR OUTPATIENT WOUND CARE AT [facility] [place] ON [address]. CM DISCUSSED DOCTORS OPINION THAT PT IS UNABLE TO CARE FOR HIMSELF AT HOME ALONE AND NEEDS PLACEMENT. PT FEELS HE CAN CONTINUE TO CARE FOR HIMSELF AND CALL HIS SISTER IF ANY NEEDS ARISE. PT FEELS THIS IS SAFE AND REFUSED ANY SENIOR CARE PLACEMENT. CM DISCUSSED POSSIBLE REHAB. PT STATES HE RECENTLY GOT OUT OF [place] AND IF HE EVER GOES ANYWHERE, IT WILL BE [place] BUT HE IS NOT GOING ANYWHERE BUT HOME WHEN HE LEAVES THE HOSPITAL. CM DISCUSSED AVAILABILITY OF HOME HEALTH, REHAB SERVICES AND MEDICAL EQUIPMENT. PT DENIES DISCHARGE NEEDS OTHER THAN HOME HEALTH RESUMPTION WITH [facility]. CHOICE SIGNED. PT REPORTS HIS SISTER IS BRINGING PT'S WHEELCHAIR TO HOSPITAL TOMORROW SO THAT PT CAN GET UP AND OUT OF BED WHILE HERE. PT WILL NEED [place] BUS (MEDICAID) TRANSPORT DO DISCHARGE HOME, PT STATES HE HAS ALREADY TAKEN CARE OF THAT ALSO. IMPORTANT MESSAGE FROM MEDICARE PROVIDED AND EXPLAINED. CM FAXED UPDATE TO [facility] AT [phone]. PT DECLINED PLACEMENT, SENIOR CARE AND [facility]DC FACILITY. PT DENIES NEED OF REHAB PLACEMENT. PT PLANS TO RETURN HOME ALONE WITH FAMILY ASSISTANCE IF NEEDED AND WITH [facility] RESUMPTION. FOR DISCHARGE HOME, FAX DISCHARGE INFORMATION TO [facility] AT [phone], NOTIFY [facility] AT [phone]. CM TO CONTINUE TO FOLLOW AND ASSIST NEEDED. Exhibitor Sales: Tg Yoder DCPIA - Discharge Planning Initial Assessment Updated by [id number]: Tg Yoder on 04/20/19 9:48 am * Is the patient Alert and Oriented? Yes * How many steps to enter\\exit or inside your home? RAMP * PCP DR. GOMEZ * Pharmacy [facility] * Preadmission Environment Home Alone * ADLs Independent * Equipment Bedside Commode Hospital Bed Power Chair or Electric Scooter Trapeze Wheelchair * Other Equipment NO MEDICAL EQUIPMENT PROVIDER PREFERENCE * List name and contact numbers for known caregivers / representatives who currently or will assist patient after discharge: JOCELINE HOLLAND, SISTER, * Verbal permission to speak to the caregivers and representatives has been obtained from the patient. N/A * Community resources currently utilized Home Health * Please name any agencies selected above. [facility] REPORTS HAVING WOUND CARE SCHEDULED [facility]PATIENT AT [facility]. * Additional services required to return to the preadmission environment? No * Can the patient safely return to the preadmission environment? Yes * Has this patient been hospitalized within the prior 30 days at any hospital? Yes Coverage Notice Reviewer: RADHA Yoder Notice Issued Date-Time: 04/20/2019 9:00 Notice Type: IM Discharge Notice Notice Delivered To: Patient Relationship to Patient: Supervisor Joiners Name: Delivery Method: HAND - Hand Delivered Dee Days: Prior Verbal Notification: Recipient Understood Notice: Yes Recipient Signature: Yes Med Rec Note Co-signed by Attending: Coverage Notice Comment: Reviewer: RADHA Yoder Notice Issued Date-Time: 04/20/2019 9:00 Notice Type: Patient Choice Letter Notice Delivered To: Patient Relationship to Patient: Supervisor Joiners Name: Delivery Method: HAND - Hand Delivered Dee Days: Prior Verbal Notification: Recipient Understood Notice: Yes Recipient Signature: Yes Med Rec Note Co-signed by Attending: Coverage Notice Comment: [facility] REFUSES SENIOR CARE / [facility] FACILITY Reviewer: RADHA Yoder Notice Issued Date-Time: 04/26/2019 9:50 Notice Type: Patient Choice Letter Notice Delivered To: Patient Relationship to Patient: Supervisor Joiners Name: Delivery Method: HAND - Hand Delivered Dee Days: Prior Verbal Notification: Recipient Understood Notice: Yes Recipient Signature: Yes Med Rec Note Co-signed by Attending: Coverage Notice Comment: Reviewer: RADHA Yoder Notice Issued Date-Time: 04/26/2019 13:10 Notice Type: Patient Choice Letter Notice Delivered To: Patient Relationship to Patient: Supervisor Joiners Name: Delivery Method: HAND - Hand Delivered Dee Days: Prior Verbal Notification: Recipient Understood Notice: Yes Recipient Signature: Yes Med Rec Note Co-signed by Attending: Coverage Notice Comment: [facility] Reviewer: RADHA Yoder Notice Issued Date-Time: 04/29/2019 16:10 Notice Type: IM Discharge Notice Notice Delivered To: Patient Relationship to Patient: Supervisor Joiners Name: Delivery Method: HAND - Hand Delivered Dee Days: Prior Verbal Notification: Recipient Understood Notice: Yes Recipient Signature: Yes Med Rec Note Co-signed by Attending: Coverage Notice Comment: Reviewer: RADHA Yoder Notice Issued Date-Time: 05/02/2019 14:10 Notice Type: IM Discharge Notice Notice Delivered To: Patient Relationship to Patient: Supervisor Joiners Name: Delivery Method: HAND - Hand Delivered Dee Days: Prior Verbal Notification: Recipient Understood Notice: Yes Recipient Signature: Yes Med Rec Note Co-signed by Attending: Coverage Notice Comment: Last DP export: 04/29/19 3:47 p Patient Name: VIRA HOLLAND Page [id number] at 1721 All edits/amendments must be made on the electronic document DICTATION DATE: 05/02/191719 ROTARY LITHOGRAPHIC PRESS OPERATOR: TEGAN 05/02/191719 RPT#: [id number] DC DATE:05/02/19 STATUS: DIS IN [facility] [address] [place] [address] END OF REPORT
--- NOTE | 2019-05-02 17:28 | MORECARE ---
CASE MANAGEMENT DISCHARGE SUMMARY PATIENT: VIRA HOLLAND UNIT: [id number] ADM DATE: 04/16/19 AGE: 68 : [birth year] SEX: M ROOM/BED: D.2111 AUTHOR: JORDAN,DOC PHYSICIAN: REFERRING PHYSICIAN: ROCIO FAITH MD DATE OF SERVICE: 05/02/19 Discharge Plan Patient Name: VIRA HOLLAND Facility: [facility]:[place] : 1950 Planned Disposition: [facility] Facility Anticipated Discharge Date: 05/02/19 Discharge Date: 05/02/2019 Expected LOS: 16 Initial Reviewer: [id number] Initial Review Date: 04/20/2019 Generated: 05/02/19 6:27 pm Comments DCP- Discharge Planning Updated by [id number]: Tg Yoder on 05/02/19 4:[address] Patient Name: VIRA HOLLAND Admission Status: ER Accout number: [id number] Admission Date: 04-16-2019 : 1950 Admission Diagnosis:SEPSIS, UNSPECIFIED ORGANISM Attending: IRINEO Current LOS: 16 Anticipated DC Date: 05-02-2019 Planned Disposition: [facility] Facility Primary Insurance: MEDICARE A & B PLANNED EXTERNAL PROVIDER: [facility], MEDICARE REHAB BED Discharge Planning Comments: CM SPOKE TO AGGIE OF [facility] WHO MET WITH PT IN ROOM AND COMPLETED ADMISSION PAPERWORK. CM PROVIDED DISCHARGE INFORMATION TO AGGIE WHO WILL ARRANGE LOAD MANAGER FOR 3:30PM. CM SPOKE TO PT WHO REPORTS ABILITY TO SIT IN WHEELCHAIR FOR TRANSPORT. IMPORTANT MESSAGE FROM MEDICARE PROVIDED AND EXPLAINED. NURSE REPORT CALLED TO [facility] BY BEDSIDE NURSE. [facility] ARRIVED AND PICKED UP PT. Housing Assistant Property Manager: Tg Yoder DCP- Discharge Planning Updated by [id number]: Tg Yoder on 04/29/19 3:[address] Patient Name: VIRA HOLLAND Admission Status: ER Accout number: [id number] Admission Date: 04-16-2019 : 1950 Admission Diagnosis:SEPSIS, UNSPECIFIED ORGANISM Attending: IRINEO Current LOS: 13 Anticipated DC Date: 04-29-2019 Planned Disposition: [facility] Facility Primary Insurance: MEDICARE A & B Discharge Planning Comments: CM SPOKE TO NATALIA BURCIAGA WHO MET WITH PT AND RECEIVED PT'S SIGNATURES FOR GHANSHYAM SCREENING. SHE HAS INFORMED PT THAT [facility] PLANS TO ACCEPT PT FOR SKILLED CARE AT DISCHARGE. CM RECEIVED GHANSHYAM AND OBTAINED FARHAN CORADO'S SIGNATURE, FAXED TO [facility] AT [phone]. [facility] PLANS TO ACCEPT PT AT DISCHARGE, PENDING [facility] SCREENING APPROVAL. CM WAITING GHAN[facility]YAM SCREENING APPROVAL TO ENTER [facility] FACILITY. Housing Assistant Property Manager: Tg Yoder Appended by Tg Yoder on 04/29/2019 16:04 ION EXCHANGE OPERATOR: CM RECEIVED GHANSHYAM APPROVAL FOR 60 DAYS. CM FAXED [facility] WITH DISCHARGE INFORMATION TO [facility] AT [phone] AND [facility] AT [phone]. CM CONTACTED NATALIA AND REQUESTED ADMISSION TODAY. PT NOTIFIED AND IN AGREEMENT WITH DISCHARGE TO [facility] FOR REHAB SERVICES. IMPORTANT MESSAGE FROM MEDICARE PROVIDED AND EXPLAINED. CM WAITING TO FIND OUT IF [facility] WILL ACCEPT PT TODAY. IF THEY ACCEPT, NURSE REPORT TO BE CALLED TO [facility] AT [phone]. PT TO TRANSPORT VIA AMBULANCE. TG YODER, CASE MANAGEMENT Appended by Tg Yoder on 04/29/2019 16:42 ION EXCHANGE OPERATOR: CM RECEIVED MESSAGE FROM NATALIA OF [facility], , THEY ARE NOT YET ABLE TO ACCEPT PT STATING IT WILL BE 05-02-19, THEY HAVE NOT COMPLETED PAPERWORK AND THEY HAVE TO GET MEDICAID INFORMATION FIRST. TRACK MANAGER NURSE NOTIFIED. FARHAN CORADO NOTIFIED. PT NOTIFIED. CM WAITING ON [facility] TO COMPLETE ADMISSION PAPERWORK AND TO RECEIVE MEDICAID PAPERWORK, THIS SHOULD BE COMPLETED ON 05-02-19. NATALIA TO CALL CM THURSDAY. TG YODER, CASE MANAGEMENT DCP- Discharge Planning Updated by [id number]: Tg Yoder on 04/28/19 3:[address] Patient Name: VIRA HOLLAND Encounter No: [id number] : 1950 Primary Insurance: MEDICARE A & B Anticipated DC Date: Planned Disposition: [facility] Facility External Planned Provider: [facility], MEDICARE REHAB BED DCP follow-up note: CM RECEIVED CALL FROM NATALIA BURCIAGA OF [facility], , SHE IS WORKING ON REFERRAL TO [facility], PT WILL REQUIRE GHANSHYAM SCREENING DUE TO DEPRESSION / ANXIETY DISORDER. NATALIA WILL FILL OUT GHANSHYAM ASSESSMENT AND BRING TO CM FOR PT AND PHYSICIAN SIGNATURES. CM WAITING GHANSHYAM SCREENING COMPLETION AND WILL FAX TO [facility] SOON POSSIBLE FOR ADMISSION DETERMINATION FROM [facility] FOR [facility]. Tg Yoder, CASE MANAGEMENT DCP- Discharge Planning Updated by [id number]: Tg Yoder on 04/27/19 10:[address] Patient Name: VIRA HOLLAND Encounter No: [id number] : 1950 Primary Insurance: MEDICARE A & B Anticipated DC Date: Planned Disposition: [facility] Facility External Planned Provider: [facility], MEDICARE REHAB BED DCP follow-up note: CM SPOKE TO TREATMENT TEAM AT MULTIDICIPLINARY TEAM MEETING. PRESS PIPE INSPECTOR REPORTS THAT PT IS NOT APPROPRIATE FOR INPATIENT REHAB AND WOULD BE APPROPRIATE FOR [facility] OR HALF-WAY CARE. IS[facility] OF INPATIENT REHAB INFORMED TEAM THAT INPATIENT REHAB DECLINES PT. CM NOTIFIED NATALIA BURCIAGA OF [facility], , WHO WILL FORWARD REFERRAL TO [facility]. CM FAXED UPDATE TO NATALIA AT [phone]. PT HAS PREVIOUSLY SIGNED CHOICE FOR [facility] AND [facility]. CM WAITING ADMISSION DETERMINATION FROM [facility]. Tg Yoder, CASE MANAGEMENT DCP- Discharge Planning Updated by [id number]: Tg Yoder on 04/26/19 3:[address] Patient Name: VIRA HOLLAND Encounter No: [id number] : 1950 Primary Insurance: MEDICARE A & B Anticipated DC Date: Planned Disposition: Inpatient Rehab External Planned Provider: [facility] DCP follow-up note: CM RECEIVED CALL FROM NATALIA BARBOSA [facility], THEY WILL NOT ACCEPT PT, OFFERED TO REFER TO [facility]. CM SPOKE TO PT IN ROOM, PT PROVIDED WITH LISTING OF [facility] FACILITY PROVIDERS IN [facility]. PT REVIEWED FOR OVER ONE HOUR, CALLED CM BACK TO ROOM AND REQUESTED REHAB AT [facility]. PT IN THE MEANTIME WILL DISCUSS OTHER [facility] FACILITY OPTIONS AND LET CM KNOW. PT ENSURES CM THAT HE WILL PARTICIPATE FULLY WITH THERAPY EVERY DAY AND KNOWS THE PROGRAM HE HAS BEEN THERE BEFORE. PT REQUESTING REHAB AT [facility] INPATIENT RE[facility]. CM WAITING INPATIENT REHAB PRESCREENING. Tg Yoder CASE MANAGEMENT DCP- Discharge Planning Updated by [id number]: Fatou Dolores on 04/26/19 1:[address] Patient Name: VIRA HOLLAND Encounter No: [id number] : 1950 Primary Insurance: MEDICARE A & B Housing Assistant Property Manager: : UR Note: 04/26 -- AFVSS, no complaints. Labs reviewed Hemoglobin 8.6 status post 2 unit PRBC ( total of 3 units this admission ) Dr. Jenkins following, supportive transfusions at this time, iron supplementation, and will need bone marrow in the future. Appreciate Dr. Jenkins Stool for Occult Blood -negative He has hematuria, doubt that is the source of anemia, but may need cysto STD specimens obtained -and will follow-up results Add cipro (levaquin due to formulary, but prefer cipro on DC) Will to go to [place] for SNF. Will need 10 days of IV-Vanc total and 14 days of oral Cipro Check Labs in AM -- CBC w/diff and BMP. Fatou Dolores DCP- Discharge Planning Updated by [id number]: Tg Yoder on 04/26/19 10:[address] Patient Name: VIRA HOLLAND Encounter No: [id number] : 1950 Primary Insurance: MEDICARE A & B Anticipated DC Date: Planned Disposition: [facility] Facility External Planned Provider: [facility], MEDICARE REHAB BED DISCHARGE PLANNING NOTE: CM MET WITH PT IN ROOM TO DISCUSS DISCHARGE NEEDS AND PLANNING. PT HAS DECIDED THAT HE CANNOT SAFELY RETURN HOME AND WANTS REFERRAL TO [facility]. CHOICE SIGNED. PT STATES HE IS WILLING TO PARTICIPATE WITH THERAPY. CM FAXED REFERRALINFORMATION TO [facility] AT [phone]. CM NOTIFIED GILL AT [facility] AT [phone]. CM NOTIFIED NATALIA BURCIAGA OF [facility] WHO WILL VISIT WITH PT AND EVALUATE TODAY. CM WAITING MEDICAL STABILITY AND ADMISSION DETERMINATION FROM [facility]. MAURICE HUTCHINSON DCP- Discharge Planning Updated by [id number]: Tg Yoder on 04/21/19 11:[address] Patient Name: VIRA HOLLAND Encounter No: [id number] : 1950 Primary Insurance: MEDICARE A & B Anticipated DC Date: Planned Disposition: [facility] Facility External Planned Provider: [facility], MEDICARE REHAB BED DCP follow-up note: CM RECEIVED REQUEST TO SPEAK TO PT IN ROOM. PT STATES HE IS CONSIDERING HIS OPTIONS AND KNOWS HE NEEDS HELP IN CARING FOR HIM. PT IS CONSIDERING GOING TO [facility] FOR SKILLED REHAB AND POSSIBLE HALF-WAY CARE. CM ASKED PT TO SIGN CONSENT FOR [facility], PT REFUSED AND STATES HE IS JUST THINKING ABOUT IT RIGHT NOW AND WILL LET CM KNOW WHEN HE MAKES A DECISION. CM ADVISED PT THAT CM WILL BE CALLING ADULT PROTECTIVE SERVICES IF PT DOES DECIDE TO GO HOME. PT STATES HE UNDERSTANDS EVERYONE'S CONCERN AND STATES AGAIN THAT HE IS CONSIDERING OPTIONS. PT IS CONSIDERING GOING TO [facility] AT DISCHARGE. HE IS REFUSING CONSENT TO SEND REFERRAL AT THIS TIME. IF PT GOES HOME, CM WILL CALL ADULT PROTECTIVE SERVICES. Tg Yoder CASE MANAGEMENT DCP- Discharge Planning Updated by [id number]: Tg Yoder on 04/20/19 5:[address] Patient Name: VIRA HOLLAND Encounter No: [id number] : 1950 Primary Insurance: MEDICARE A & B Anticipated DC Date: Planned Disposition: Home DCP follow-up note: CM RECEIVED CALLF CAROL CINTRON FROM [email or web address], THEY HAVE CONSIDERED PT'S RESUMPTION AND HAVE DECIDED THEY CANNOT RESUME PT'S SITUATION HOME ALONE IS NOT SAFE. THEY HAVE NOT CALLED ADULT PROTECTIVE SERVICES. BEDSIDE NURSE EXPLAINED THIS TO PT WHO STATES "THEY GOT CAUGHT". PT STILL REFUSED ANY PLACEMENT OUTSIDE HIS HOME. PT HAS REPORTED THAT FAMILY WILL BRING WHEELCHAIR FOR HIM TO TAKE THE [place] MEDICAID BUS HOME AND THEY SHOULD BRING WHEELCHAIR TONIGHT. CM TO CALL [facility] ADULT PROTECTIVE SERVICES. PT PLANS TO RETURN HOME ALONE, MEDICAID BUS TRANPSPORT. HOME HEALTH WILL NOT ACCEPT PT. Tg Yoder CASE MANAGEMENT DCP- Discharge Planning Updated by [id number]: Tg Yoder on 04/20/19 8:[address] Patient Name: VIRA HOLLAND Admission Status: ER Accout number: [id number] Admission Date: 04-16-2019 : 1950 Admission Diagnosis:SEPSIS, UNSPECIFIED ORGANISM Attending: IRINEO Current LOS: 4 Anticipated DC Date: Planned Disposition: Home with Home Health Primary Insurance: MEDICARE A & B PLANNED EXTERNAL PROVIDER: [facility] Discharge Planning Comments: CM RECEIVED NOTICE IN MULTIDICIPLINARY TEAM MEETING 04-19-19 THAT PT NEEDS PLACEMENT. CM MET WITH PT IN ROOM TO DISCUSS DISCHARGE PLANNING AND NEEDS. PT REPORTS LIVING AT HOME INDEPENDENTLY AND ALONE; PT REPORTS HIS SISTER LIVES [place]OSS [address] FROM HIS HOME AND HE HAS HELP AT HOME ANY TIME HE NEEDS IT. PT HAS HOSPOITAL BED WITH TRAPEZE, BEDSIDE COMMODE, WALKER, ELECTRIC AND STANDARD WHEELCHAIR. PT HAS NO MEDICAL EQUIPMENT PROVIDER PREFERENCE. PT HAS HOME HEALTH FOR NURSING AND PHYSICAL THERAPY FROM [facility] AND ALSO IS SCHEDULED FOR OUTPATIENT WOUND CARE AT THE [facility] [place] [facility] [address]. CM DISCUSSED DOCTORS OPINION THAT PT IS UNABLE TO CARE FOR HIMSELF AT HOME ALONE AND NEEDS PLACEMENT. PT FEELS HE CAN CONTINUE TO CARE FOR HIMSELF AND CALL HIS SISTER IF ANY NEEDS ARISE. PT FEELS THIS IS SAFE AND REFUSED ANY [facility] PLACEMENT. CM DISCUSSED POSSIBLE REHAB. PT STATES HE RECENTLY GOT OUT OF [place] AND IF HE EVER GOES ANYWHERE, IT WILL BE [place] BUT HE IS NOT GOING ANYWHERE BUT HOME WHEN HE LEAVES THE HOSPITAL. CM DISCUSSED AVAILABILITY OF HOME HEALTH, REHAB SERVICES AND MEDICAL EQUIPMENT. PT DENIES DISCHARGE NEEDS OTHER THAN HOME HEALTH RESUMPTION WITH [facility]. CHOICE SIGNED. PT REPORTS HIS SISTER IS BRINGING PT'S WHEELCHAIR TO HOSPITAL TOMORROW SO THAT PT CAN GET UP AND OUT OF BED WHILE HERE. PT WILL NEED [place] BUS (MEDICAID) TRANSPORT DO DISCHARGE HOME, PT STATES HE HAS ALREADY TAKEN CARE OF THAT ALSO. IMPORTANT MESSAGE FROM MEDICARE PROVIDED AND EXPLAINED. CM FAXED UPDATE TO [facility] AT [phone]. PT DECLINED PLACEMENT, [facility] AND [facility] FACILITY. PT DENIES NEED OF REHAB PLACEMENT. PT PLANS TO RETURN HOME ALONE WITH FAMILY ASSISTANCE IF NEEDED AND WITH [facility] RESUMPTION. FOR DISCHARGE HOME, FAX DISCHARGE INFORMATION TO [facility] AT [phone], NOTIFY [facility] AT [phone]. CM TO CONTINUE TO FOLLOW AND ASSIST NEEDED. Housing Assistant Property Manager: Tg Yoder DCPIA - Discharge Planning Initial Assessment Updated by [id number]: Tg Yoder on 04/20/19 9:48 am * Is the patient Alert and Oriented? Yes * How many steps to enter\\exit or inside your home? RAMP * PCP DR. GOMEZ * Pharmacy [facility] [address] * Preadmission Environment Home Alone * ADLs Independent * Equipment Bedside [facility] Bed Power Chair or Electric Scooter Trapeze Wheelchair * Other Equipment NO MEDICAL EQUIPMENT PROVIDER PREFERENCE * List name and contact numbers for known caregivers / representatives who currently or will assist patient after discharge: JOCELINE HOLLAND, SISTER, * Verbal permission to speak to the caregivers and representatives has been obtained from the patient. N/A * Community resources currently utilized Home Health * Please name any agencies selected above. [facility] REPORTS HAVING WOUND CARE SCHEDULED OUTPATIENT AT [facility] [address]. * Additional services required to return to the preadmission environment? No * Can the patient safely return to the preadmission environment? Yes * Has this patient been hospitalized within the prior 30 days at any hospital? Yes Coverage Notice Reviewer: [id number] Yoder Notice Issued Date-Time: 04/20/2019 9:00 Notice Type: Patient Choice Letter Notice Delivered To: Patient Relationship to Patient: Lamina Searcher Name: Delivery Method: HAND - Hand Delivered Dee Days: Prior Verbal Notification: Recipient Understood Notice: Yes Recipient Signature: Yes Med Rec Note Co-signed by Attending: Coverage Notice Comment: [facility] REFUSES [facility] / [facility] FAC[facility] Reviewer: RADHA Yoder Notice Issued Date-Time: 04/26/2019 9:50 Notice Type: Patient Choice Letter Notice Delivered To: Patient Relationship to Patient: Lamina Searcher Name: Delivery Method: HAND - Hand Delivered Dee Days: Prior Verbal Notification: Recipient Understood Notice: Yes Recipient Signature: Yes Med Rec Note Co-signed by Attending: Coverage Notice Comment: Reviewer: RADHA Yoder Notice Issued Date-Time: 04/26/2019 13:10 Notice Type: Patient Choice Letter Notice Delivered To: Patient Relationship to Patient: Lamina Searcher Name: Delivery Method: HAND - Hand Delivered Dee Days: Prior Verbal Notification: Recipient Understood Notice: Yes Recipient Signature: Yes Med Rec Note Co-signed by Attending: Coverage Notice Comment: [facility] Reviewer: [id number] Yoder Notice Issued Date-Time: 04/20/2019 9:00 Notice Type: IM Discharge Notice Notice Delivered To: Patient Relationship to Patient: Lamina Searcher Name: Delivery Method: HAND - Hand Delivered Dee Days: Prior Verbal Notification: Recipient Understood Notice: Yes Recipient Signature: Yes Med Rec Note Co-signed by Attending: Coverage Notice Comment: Reviewer: RADHA Yoder Notice Issued Date-Time: 04/29/2019 16:10 Notice Type: IM Discharge Notice Notice Delivered To: Patient Relationship to Patient: Lamina Searcher Name: Delivery Method: HAND - Hand Delivered Dee Days: Prior Verbal Notification: Recipient Understood Notice: Yes Recipient Signature: Yes Med Rec Note Co-signed by Attending: Coverage Notice Comment: Reviewer: RADHA Yoder Notice Issued Date-Time: 05/02/2019 14:10 Notice Type: IM Discharge Notice Notice Delivered To: Patient Relationship to Patient: Lamina Searcher Name: Delivery Method: HAND - Hand Delivered Dee Days: Prior Verbal Notification: Recipient Understood Notice: Yes Recipient Signature: Yes Med Rec Note Co-signed by Attending: Coverage Notice Comment: Reviewer: RADHA Yoder Notice Issued Date-Time: 05/02/2019 14:10 Notice Type: IM Discharge Notice Notice Delivered To: Patient Relationship to Patient: Lamina Searcher Name: Delivery Method: HAND - Hand Delivered Dee Days: Prior Verbal Notification: Recipient Understood Notice: Recipient Signature: Yes Med Rec Note Co-signed by Attending: Coverage Notice Comment: Last DP export: 05/02/19 4:21 p Patient Name: VIRA HOLLAND Page [id number] at 1728 All edits/amendments must be made on the electronic document DICTATION DATE: 05/02/191726 DESULPHURIZER OPERATOR: TEGAN 05/02/191726 RPT#: [id number] DC DATE:05/02/19 STATUS: DIS IN [id number] [place] [address] END OF REPORT
== END 2019-05-02 16:14 | DRG 871 ==
LOC: D.ER 04:16 → D.ICU 05:44 → D.M2 05:44 → D.ICU 06:25 → D.M2 04-19 07:27
PROVIDERS: Family Medicine; Internal Medicine Nephrology; Internal Medicine Pulmonary Disease; ADMIT Family Medicine; ATTEND Family Medicine
PROC: 05H533Z Insertion of Infusion Device into Right Subclavian Vein, Percutaneous Approach (ICD-10-PCS; principal; 2019-04-16)
PROC: 0T9B40Z Drainage of Bladder with Drainage Device, Percutaneous Endoscopic Approach (ICD-10-PCS; 2019-04-19)
DX: A41.9 Sepsis, unspecified organism (principal); L89.153 Pressure ulcer of sacral region, stage 3; L89.604 Pressure ulcer of unspecified heel, stage 4; J96.01 Acute respiratory failure with hypoxia; I50.31 Acute diastolic (congestive) heart failure; J18.9 Pneumonia, unspecified organism; E43 Unspecified severe protein-calorie malnutrition; L03.315 Cellulitis of perineum; N39.0 Urinary tract infection, site not specified; I42.9 Cardiomyopathy, unspecified; N17.9 Acute kidney failure, unspecified; E87.1 Hypo-osmolality and hyponatremia; I48.20 Chronic atrial fibrillation, unspecified; L03.115 Cellulitis of right lower limb; F32.2 Major depressive disorder, single episode, severe without psychotic features; Y95 Nosocomial condition; Z89.612 Acquired absence of left leg above knee; Z89.611 Acquired absence of right leg above knee; K21.9 Gastro-esophageal reflux disease without esophagitis; E83.42 Hypomagnesemia; E11.65 Type 2 diabetes mellitus with hyperglycemia; Z68.31 Body mass index [BMI] 31.0-31.9, adult; E11.628 Type 2 diabetes mellitus with other skin complications; I87.2 Venous insufficiency (chronic) (peripheral); R33.9 Retention of urine, unspecified; F41.1 Generalized anxiety disorder; D50.9 Iron deficiency anemia, unspecified; E66.9 Obesity, unspecified; N40.0 Benign prostatic hyperplasia without lower urinary tract symptoms

== ENCOUNTER 2019-10-10 03:53 | Inpatient (IN) | payer MEDICARE ==
[2019-10-10] VITALS (7 sets, daily range): BP systolic 79–151; BP diastolic 44–81; Ht 180.3 cm; Wt 93.0 kg
[~2019-10-10] VITALS: Ht 180.3 cm; Wt 93.0 kg
[~2019-10-10 03:53] MED LIST changes: +BETAPACE 80 MG80 MG PO; +CIPRO500 MG PO; +LASIX40 MG PO; +OXYBUTYNIN CHLOR5 MG PO; +TIAZAC/CARDIZEM CD PO
[2019-10-10 04:15] LABS: BASOPHILS 0.3 % (0-2); EOSINOPHILS 0.8 % (0-7); HEMATOCRIT 31.1 % (42.0-54.0); HEMOGLOBIN 10.6 g/dL (13.5-17.5); IMMATURE GRANULOCYTES 0.5 % (0-5); LYMPHOCYTES 16.3 % (15-50); MCH 27.9 pg (26.0-34.0); MCHC 34.1 g/dL (31.0-37.0); MCV 81.8 fL (80.0-100.0); MEAN PLATELET VOLUME 8.3 fL (7.4-10.4); MONOCYTES 9.9 % (2-11); NEUTROPHILS 72.2 % (40-80); PLATELET COUNT 221 10x3/uL (130-400); RDW 14.3 % (11.5-14.5); WBC 8.7 10x3/uL (4.8-10.8)
[2019-10-10 04:33] LABS: CALCIUM 8.7 mg/dL (8.5-10.1); CHLORIDE - SERUM 96 mmol/L (98-107); CREATININE - SERUM 3.6 mg/dL (0.6-1.3); POTASSIUM - SERUM 5.3 mmol/L (3.5-5.1); SODIUM 127 mmol/L (136-145); eGFR NON AFRICAN AMERICAN 18 mL/min (90-120)
[2019-10-10 04:38] LABS: APTT 42.2 SECONDS (22.8-39.4); INR 1.63 (0.85-1.17); PROTIME 19.1 SECONDS (11.6-15.0)
[2019-10-10 04:40] LABS: BILIRUBIN NEGATIVE (NEGATIVE); GLUCOSE NEGATIVE (NEGATIVE); KETONE NEGATIVE (NEGATIVE); NITRITE NEGATIVE (NEGATIVE); SPECIFIC GRAVITY 1.015 (1.005-1.020); UROBILINOGEN NORMAL (NORMAL)
[2019-10-10 04:41] LABS: BACTERIA MANY /hpf (NEGATIVE); EPITHELIAL CELLS 0-5 /hpf (0-5)
[2019-10-10 04:47] LABS: ALBUMIN 3.3 g/dL (3.4-5.0); ALKALINE PHOSPHATASE 170 U/L (30-120); ALT (SGPT) 13 U/L (10-68); BILIRUBIN - TOTAL 0.76 mg/dL (0.2-1.3); C-REACTIVE PROTEIN 5.1 mg/dL (0.0-0.9); CREATINE KINASE 27 UL (21-232); LIPASE 159 U/L (73-393); MAGNESIUM - SERUM 2.3 mg/dL (1.8-2.4); PRO BNP 1484 pg/mL (0-125); PROTEIN - SERUM 7.9 g/dL (6.4-8.2)
[2019-10-10 04:58] LABS: CALC OSMOLALITY 300 mosm/kg (275-300); GLUCOSE 120 mg/dL (74-106); TROPONIN-I < 0.017 ng/mL (0.000-0.060)
[2019-10-10 04:59] LABS: UREA NITROGEN 139 mg/dL (7-18)
[2019-10-10] MEDS ORDERED: LIDODERM 5 %1 PATCH TRANSDERM (05:07)
[2019-10-10] MEDS ORDERED: ZOLOFT25 MG PO (05:09)
[2019-10-10] MEDS ORDERED: PRINIVIL10 MG PO (05:10)
[2019-10-10] MEDS ORDERED: MECLIZINE HCL25 MG PO (05:11)
--- NOTE | 2019-10-10 06:04 | NUR ---
NO MONITORS AVAILABLE AT THIS TIME
--- NOTE | 2019-10-10 07:42 | NUR ---
PT SITTING UP IN BED. NO ACUTE DISTRESS. PT DENIES N/V AT THIS TIME. DENIES PAIN AT THIS TIME. IV WITH NS @ 200ML/HR INFUSING VIA PUMP. SITE WITHOUT REDNESS OR EDEMA. DRESSING INTACT TO RIGHT LOWER EXTREMITY. DENIES FURTHER NEEDS AT THIS TIME. CL WITHIN REACH. ENCOURAGED TO CALL WITH NEEDS. CONTINUE POC
--- NOTE | 2019-10-10 14:57 | NUR ---
OT NOTE: PT STATED HIS BUTTOCKS IS SORE SECONDARY TO BED SORE. PT COMPELTED BUE AROM AXS TOLERATED. PT COMPLETED SIMPLE HYGIENE TASKS WITH SETUP. PT STATED HE HAS DIARRHEA. [phone] THANK YOU,BEVERLEY MALAGON
--- NOTE | 2019-10-10 15:14 | NUR ---
PT HAS NUMEROUS SKIN ISSUES. BUTTOCKS/PETER AREA RED/EXCORIATED FROM MOISTURE (DIARRHEA). RIGHT AND LEFT ISCHIUM HAS 2CM X 2CM STAGE 2 PRESSURE INJURIES. RECOMMENDED CALMOSEPTINE CREAM FOR SKIN PROTECTION. PT IS INCONTINENT OF BOWELS AND HAS A SUPRAPUBIC CATH. PT NEEDS TO REPOSITION Q 2 HOURS WHILE IN BED. HE HAS BEEN PLACED ON AN AIROVERLAY MATTRESS. 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 RIGHT LOWER LEG IS SCALY AND SCARRED WITH SEVERAL OPEN AREAS THAT WEEP AND BLEED. PT STATES THE LEG LOOKS BETTER THAN IT DID INITIALLY AND IT IS NOTED THAT THERE IS PINK HEALED TISSUE IN SPOTS ALL OVER THE LOWER LEG. THE RIGHT PLANTAR HAS A DRIED DARK BLISTER (6CM X 6CM). HE USES THIS FOOT WHEN UP IN HIS WHEEL CHAIR. RECOMMENDED RIGHT LOWER LEG WOUNDS BE COVERED WITH ADAPTIC, ABD PADS AND SECURED WITH KERLIX - WRAPPING TO INCLUDE THE RIGHT PLANTAR FOOT. WOUND CARE WILL CONTINUE MONITORING.
[2019-10-11 05:20] VITALS: BP 119/97
[2019-10-11 05:35] LABS: BASOPHILS 0.6 % (0-2); EOSINOPHILS 2.9 % (0-7); HEMATOCRIT 27.8 % (42.0-54.0); HEMOGLOBIN 9.3 g/dL (13.5-17.5); IMMATURE GRANULOCYTES 0.6 % (0-5); LYMPHOCYTES 26.3 % (15-50); MCHC 33.5 g/dL (31.0-37.0); MCV 80.8 fL (80.0-100.0); MEAN PLATELET VOLUME 8.2 fL (7.4-10.4); MONOCYTES 11.7 % (2-11); NEUTROPHILS 57.9 % (40-80); PLATELET COUNT 191 10x3/uL (130-400); RBC 3.44 10x6/uL (4.20-6.10); RDW 14.4 % (11.5-14.5); WBC 7.1 10x3/uL (4.8-10.8)
[2019-10-11 05:56] LABS: ALBUMIN 2.9 g/dL (3.4-5.0); BILIRUBIN - TOTAL 0.58 mg/dL (0.2-1.3); CALCIUM 8.5 mg/dL (8.5-10.1)
[2019-10-11 06:05] LABS: ANION GAP 15.5 mmol/L (8-16); CARBON DIOXIDE 20.6 mmol/L (21.0-32.0); CREATININE - SERUM 2.2 mg/dL (0.6-1.3); POTASSIUM - SERUM 4.1 mmol/L (3.5-5.1)
--- NOTE | 2019-10-11 07:15 | NUR ---
I have reviewed this patient and I concur with the Shift Assessment completed by the Licensed Practical Nurse today this shift.
[2019-10-11 08:30] VITALS: BP 106/53
--- NOTE | 2019-10-11 08:45 | NUR ---
HE REFUSES TO TURN OFF HIS BACKSIDE. I HAVE TRIED TO EDUCATE HIM ABOUT HIS AND HE STATES HE "HAS BEEN TOLD 1 MILLION TIMES' I APPLIED MOMO TO HIS BACKSIDE. HE HAD A BM AND DID NOT KNOW IT. THE CALL LIGHT IS WITHIN REACH.
[2019-10-11 14:25] VITALS: BP 101/55; BP 127/79
--- NOTE | 2019-10-11 18:25 | NUR ---
OT NOTE: (AM) PT COMPLETED BUE AROM EXS WHILE SITTING UPRIGHT IN BED. (PM) PT COMPLETED BUE AROM EXS TOLERATED . PT STATED R SHOULDER IS PAINFUL. NURSING AWARE. PT COMPLETED POSITIONING WITH SBA. PT COMPLETED SIMPLE HAND/FACE HYGIENE WITH SETUP. PT EXHIBITED SELF LIMITING BEHAVIOR. PT STATED THAT SIDE ROLLING TO RELIEVE PRESSURE ACTUALLY IS THE PROBLEM. LOWERY EDUCATED PT ABOUT RELIEVING PRESSURE ON GLUTEUS HARJINDER BY SIDE ROLLING AND ITS ROLE IN FACILITATION OF HEALING. [phone] THANK YOU,BEVERLEY MALAGON
[2019-10-11 18:33] VITALS: BP 91/52
[2019-10-11 20:00] VITALS: BP 88/44
--- NOTE | 2019-10-11 20:00 | NUR ---
A&0 X 4. SUPINE IN BED. PT AGITATED HE CANNOT HAVE HIS XANAX DUE TO MODERATELY LOW BP. PT ALSO VOICED HE WAS UPSET HIS LIGHT WAS ON AND IT TOOK, "HOURS," FOR IT TO BE ACKNOWLEDGED. INFORMED PT HIS CALL LIGHT WAS NOT ON WHEN I ENTERED ROOM. ASSESSED REMOTE, CALL LIGHT IS FUNCTIONING PROPERLY. INFORMED PT TO BE SURE HE PRESSES CALL BUTTON FIRMLY OR HE MAY PRESS IT AGAIN FOR GOOD MEASURE IF HE CHOOSES. PT STATES HE IS, "SOAKED IN SHIT." SUPPLIES/LINEN GATHERED FOR PETER CARE AND BEDCHANGE. NO BM EVIDENT. INFORMED PT HE MAY FEEL THE CALMOSEPTINE ON HIS BUTTOCK AND WHITE PADS. MORE CALMOSEPTINE APPLIED TO EXCORIATED BUTTOCK. CTM.
[2019-10-12] VITALS: BP 82/32
[2019-10-12 04:00] VITALS: BP 81/47
[2019-10-12 06:12] LABS: BASOPHILS 0.3 % (0-2); EOSINOPHILS 1.7 % (0-7); HEMATOCRIT 28.1 % (42.0-54.0); HEMOGLOBIN 9.4 g/dL (13.5-17.5); IMMATURE GRANULOCYTES 0.5 % (0-5); LYMPHOCYTES 24.2 % (15-50); MCH 27.1 pg (26.0-34.0); MCHC 33.5 g/dL (31.0-37.0); MEAN PLATELET VOLUME 8.5 fL (7.4-10.4); MONOCYTES 12.4 % (2-11); NEUTROPHILS 60.9 % (40-80); PLATELET COUNT 205 10x3/uL (130-400); RBC 3.47 10x6/uL (4.20-6.10); RDW 14.5 % (11.5-14.5); WBC 7.8 10x3/uL (4.8-10.8)
[2019-10-12 06:22] LABS: ALBUMIN 2.7 g/dL (3.4-5.0); ANION GAP 12.9 mmol/L (8-16); BILIRUBIN - TOTAL 0.63 mg/dL (0.2-1.3); CALCIUM 8.5 mg/dL (8.5-10.1); CARBON DIOXIDE 24.5 mmol/L (21.0-32.0); CREATININE - SERUM 1.7 mg/dL (0.6-1.3); POTASSIUM - SERUM 3.4 mmol/L (3.5-5.1); PROTEIN - SERUM 6.9 g/dL (6.4-8.2)
[2019-10-12 09:50] VITALS: BP 101/65
--- NOTE | 2019-10-12 11:24 | NUR ---
resting in bed, no distress noted, dressing to r leg, iv infusing, cont to monitor diarrhea and sugars
--- NOTE | 2019-10-12 13:46 | NUR ---
Nutrition consult: Visited with pt re: diet advancement. Pt is hungry and wants his diet advanced. KATLINN spoke with Dr. Ortiz and FARHAN Chowdhury who approved pt to advance to kidney freindly moderate protein diet. RDN changed diet order to ADA consistent CHO, 65 gm protein Labs reviewed Wt: 204# Thank you for the consult. KATLINN following.
--- NOTE | 2019-10-12 13:53 | NUR ---
OT NOTE: BED MOB WITH MOD ASSIST; TOILETING WITH MOD ASSIST X 2; ATTEMPTED ROM EXS BUT PT REQURIED MODERATE REST BREAKS. POORLY MOTIVATED AND RUQUIRES MOD CUES FOR PARTICIPATION. KEMI WOODY, OTR/L [phone]
--- NOTE | 2019-10-12 17:16 | NUR ---
OT NOTE: (AM) PT COMPLETED BED MOBILITY TASKS OF SIDE ROLLING WITH MOD A. PT REQUIRED MOD A FOR POSITIONING. PT REFUSED PILLOWS WITH POSITIONING TO DECREASE PRESSURE ON BUTTOCKS. PT REQUIRED TOTAL A WITH LB HYGIENE WITH BM. (PM) PT COMPLETED BUE AROM TOLERATED. PT HAS C/O PAIN IN R SHOULDER . NURSING AWARE. PT STATED IT HAS HURT FOR SEVERAL MONTHS. PT COMPLETED SIMPLE HAND HYGIENE WITH SET UP. PT EXHIBITED SELF LIMITING BEHAVIOR WITH OFF LOADING TECHNIQUES. [phone] THANK YOU,BEVERLEY MALAGON
[2019-10-12 18:15] VITALS: BP 87/52
[2019-10-12 20:00] VITALS: BP 99/56
--- NOTE | 2019-10-12 20:08 | NUR ---
DRESSING CHANGED TO RIGHT LEG, DEJON WELL, NO S/S OF INFECTION
[2019-10-13] VITALS: BP 114/63
--- NOTE | 2019-10-13 00:42 | NUR ---
REC'D. CHGE OF SHIFT WALKING ROUNDS INCONTINENT OF LARGE BM.LINENS CHGED.PERICARE GIVEN.WILL CONTINUE TO MONITOR FOR ANY CHGES AND FOLLOW CURRENT PLAIN OF CARE.
--- NOTE | 2019-10-13 03:57 | NUR ---
I have reviewed this patient and I concur with the Shift Assessment completed by the Licensed Practical Nurse today this shift.
[2019-10-13 04:00] VITALS: BP 94/55
[2019-10-13 05:35] LABS: BASOPHILS 0.3 % (0-2); EOSINOPHILS 3.6 % (0-7); HEMATOCRIT 29.4 % (42.0-54.0); HEMOGLOBIN 9.9 g/dL (13.5-17.5); IMMATURE GRANULOCYTES 0.4 % (0-5); LYMPHOCYTES 27.4 % (15-50); MCH 27.6 pg (26.0-34.0); MCHC 33.7 g/dL (31.0-37.0); MCV 81.9 fL (80.0-100.0); MEAN PLATELET VOLUME 8.5 fL (7.4-10.4); MONOCYTES 14.4 % (2-11); NEUTROPHILS 53.9 % (40-80); PLATELET COUNT 190 10x3/uL (130-400); RBC 3.59 10x6/uL (4.20-6.10); RDW 14.1 % (11.5-14.5)
[2019-10-13 06:22] LABS: ALBUMIN 2.7 g/dL (3.4-5.0); ANION GAP 10.2 mmol/L (8-16); BILIRUBIN - TOTAL 0.39 mg/dL (0.2-1.3); CALCIUM 8.4 mg/dL (8.5-10.1); CARBON DIOXIDE 27.6 mmol/L (21.0-32.0); CREATININE - SERUM 1.3 mg/dL (0.6-1.3); PROTEIN - SERUM 6.9 g/dL (6.4-8.2)
[2019-10-13 06:34] LABS: POTASSIUM - SERUM 2.8 mmol/L (3.5-5.1)
--- NOTE | 2019-10-13 07:30 | NUR ---
REC'D IN BED AWAKE AND ALERT. RESP EVEN AND UNLABORED WITH NO DISTRESS NOTED. CAN EXPRESS NEEDS AND WANTS. NO C/O NOTED OR VOICED. ASSESSMENT COMPLETED. C/L IN REACH AT BEDSIDE.
[2019-10-13 08:00] VITALS: BP 95/58
[2019-10-13 12:00] VITALS: BP 123/65
--- NOTE | 2019-10-13 14:15 | NUR ---
OT NOTE: PT COMPLETED SIDE ROLLING WITH MIN A. PT COMPLETED POSITIONING TO OFF BEAR WT ON BUTTOCKS WITH MOD A. PT COMPLETED FACE HYGIENE WITH SETUP. PT REQUESTED TO SPEAK WITH DC CAMPAIGN CONSULTANT. [phone] THANK YOU,BEVERLEY MALAGON
[2019-10-13 16:00] VITALS: BP 122/69
--- NOTE | 2019-10-13 17:30 | NUR ---
REFUSED TO LET NURSE TO CHANGE DRESSING AT THIS TIME. C/L IN REACH AT BEDSIDE
[2019-10-13 20:00] VITALS: BP 131/69
--- NOTE | 2019-10-13 20:19 | NUR ---
I have reviewed this patient and I concur with the Shift Assessment completed by the Licensed Practical Nurse today this shift.
[2019-10-14] VITALS: BP 111/55
[2019-10-14 04:00] VITALS: BP 145/83
[2019-10-14 06:29] LABS: BASOPHILS 0.7 % (0-2); EOSINOPHILS 5.3 % (0-7); HEMATOCRIT 28.3 % (42.0-54.0); HEMOGLOBIN 9.3 g/dL (13.5-17.5); IMMATURE GRANULOCYTES 0.8 % (0-5); LYMPHOCYTES 28.4 % (15-50); MCH 27.3 pg (26.0-34.0); MCHC 32.9 g/dL (31.0-37.0); MEAN PLATELET VOLUME 8.7 fL (7.4-10.4); MONOCYTES 15.4 % (2-11); NEUTROPHILS 49.4 % (40-80); PLATELET COUNT 190 10x3/uL (130-400); RBC 3.41 10x6/uL (4.20-6.10); RDW 14.3 % (11.5-14.5); WBC 5.9 10x3/uL (4.8-10.8)
[2019-10-14 06:40] LABS: ALBUMIN 2.5 g/dL (3.4-5.0); BILIRUBIN - TOTAL 0.29 mg/dL (0.2-1.3); CALCIUM 8.1 mg/dL (8.5-10.1); CARBON DIOXIDE 27.9 mmol/L (21.0-32.0); CREATININE - SERUM 1.1 mg/dL (0.6-1.3); PROTEIN - SERUM 6.6 g/dL (6.4-8.2)
[2019-10-14 06:41] LABS: ANION GAP 11.7 mmol/L (8-16); POTASSIUM - SERUM 3.6 mmol/L (3.5-5.1)
[2019-10-14 09:51] VITALS: BP 130/76
--- NOTE | 2019-10-14 14:26 | NUR ---
OT NOTE: PT COMPLETED SIDE ROLLING WITH MIN A. PT COMPLETED POSITIONING TO OFF SET PRESSURE ON BUTTOCKS. PT COMPLETED FACE HYGIENE WITH SETUP. PT REQUIRED EXTENSIVE CUES FOR INCREASED PARTICIPATION. [phone] THANK YOU,BEVERLEY MALAGON
[2019-10-14 14:57] VITALS: BP 99/55
[2019-10-14 17:40] VITALS: BP 140/69
--- NOTE | 2019-10-14 17:56 | NUR ---
I have reviewed this patient and I concur with the Shift Assessment completed by the Licensed Practical Nurse today this shift.
[2019-10-14 20:00] VITALS: BP 124/60
[2019-10-15 07:40] LABS: HEMATOCRIT 27.9 % (42.0-54.0); HEMOGLOBIN 9.4 g/dL (13.5-17.5); LYMPHOCYTES 32.8 % (15-50); MCH 27.9 pg (26.0-34.0); MCHC 33.7 g/dL (31.0-37.0); MCV 82.8 fL (80.0-100.0); MEAN PLATELET VOLUME 8.7 fL (7.4-10.4); NEUTROPHILS 54.1 % (40-80); PLATELET COUNT 223 10x3/uL (130-400); RBC 3.37 10x6/uL (4.20-6.10); RDW 13.7 % (11.5-14.5); WBC 6.7 10x3/uL (4.8-10.8)
[2019-10-15 07:51] LABS: ALBUMIN 2.5 g/dL (3.4-5.0); BILIRUBIN - TOTAL 0.36 mg/dL (0.2-1.3); CALCIUM 7.6 mg/dL (8.5-10.1); CARBON DIOXIDE 25.9 mmol/L (21.0-32.0); CREATININE - SERUM 1.1 mg/dL (0.6-1.3)
[2019-10-15 07:53] LABS: ANION GAP 12.6 mmol/L (8-16); POTASSIUM - SERUM 4.5 mmol/L (3.5-5.1)
[2019-10-15 08:51] VITALS: BP 98/52
[2019-10-15 14:02] VITALS: BP 115/56
[2019-10-15 17:09] VITALS: BP 117/69
--- NOTE | 2019-10-15 18:34 | NUR ---
HE IS CALLING EVERY FEW MINUTES WANTING CREAM ON HIS BOTTOM. HIS BOTTOM IS BLOODY AND WE ARE PUTTING MOMO ON IT. HAS A SP CATH, HIS RIGHT DRESSING IS CLEAN, DRY AND INTACT. HE WILL ONLY TURN TO THE RIGHT SIDE ABOUT 10%. THE CALL LIGHT IS WITHIN REACH.
--- NOTE | 2019-10-15 19:45 | NUR ---
PT INCONTINENT OF LOOSE STOOL. BUTTOCKS EXTREMELY EXCORIATED AND BLEEDING. CLEANED PT GENTLY POSSIBLE AND APPLIED CALMOSEPTINE CREAM. CHANGED PADS AND REPOSITIONED PT. NO OTHER NEEDS. WILL REASSESS AND CONTINUE TO MONITOR.
[2019-10-15 20:00] VITALS: BP 132/73
--- NOTE | 2019-10-15 22:30 | NUR ---
PT CONTINUOUSLY INCONTINENT OF LOOSE STOOLS. HAVE CHANGED PT 3 MORE TIMES SINCE 1944. APPLYING CALMOSEPTINE CREAM EACH TIME. REPOSITIONED PT. WILL CONTINUE TO MONITOR.
--- NOTE | 2019-10-16 03:44 | NUR ---
PT CONTINUES TO BE INCONTINENT OF STOOL. CLEANED PT AND APPLIED CALMOSEPTINE TO EXCORIATED BUTTOCKS. WILL CONTINUE TO MONITOR.
[2019-10-16 04:00] VITALS: BP 88/45
--- NOTE | 2019-10-16 08:30 | NUR ---
PT LAYING IN BED WITH EYES OPEN, STATES "MY BUTT IS ON FIRE GET THIS OFF NOW!", CLEANED PT, BOTTOM IS EXTREMELY RED, EXORITED, AND BLEEDING DUE TO MULTIPLE LOOSE STOOLS. IV LOCATED TO LEFT FOREARM CURRENTLY SL. CURRENTLY RCVING 2L VIA NC. NO S/S OF DISTRESS, DENIES FURTHER NEEDS AT THIS TIME, WILL CONT TO MONITOR.
[2019-10-16 08:59] VITALS: BP 96/54
[2019-10-16 11:03] LABS: HEMOGLOBIN 9.4 g/dL (13.5-17.5); LYMPHOCYTES 25.3 % (15-50); MCH 27.6 pg (26.0-34.0); MCHC 33.6 g/dL (31.0-37.0); MCV 82.4 fL (80.0-100.0); MEAN PLATELET VOLUME 7.8 fL (7.4-10.4); NEUTROPHILS 61.8 % (40-80); PLATELET COUNT 188 10x3/uL (130-400); RDW 13.9 % (11.5-14.5); WBC 7.1 10x3/uL (4.8-10.8)
[2019-10-16 11:19] LABS: ALBUMIN 2.3 g/dL (3.4-5.0); ANION GAP 12.1 mmol/L (8-16); BILIRUBIN - TOTAL 0.35 mg/dL (0.2-1.3); CALCIUM 7.4 mg/dL (8.5-10.1); CARBON DIOXIDE 23.2 mmol/L (21.0-32.0); CREATININE - SERUM 1.1 mg/dL (0.6-1.3); POTASSIUM - SERUM 4.3 mmol/L (3.5-5.1); PROTEIN - SERUM 6.3 g/dL (6.4-8.2)
[2019-10-16 12:52] VITALS: BP 99/55
[2019-10-16 17:04] VITALS: BP 115/58
[2019-10-16 20:00] VITALS: BP 116/65
[2019-10-17 04:00] VITALS: BP 104/56
[2019-10-17 06:30] LABS: BASOPHILS 0.8 % (0-2); EOSINOPHILS 5.7 % (0-7); HEMATOCRIT 26.4 % (42.0-54.0); HEMOGLOBIN 8.6 g/dL (13.5-17.5); IMMATURE GRANULOCYTES 1.2 % (0-5); LYMPHOCYTES 30.7 % (15-50); MCH 27.2 pg (26.0-34.0); MCHC 32.6 g/dL (31.0-37.0); MCV 83.5 fL (80.0-100.0); MEAN PLATELET VOLUME 8.4 fL (7.4-10.4); MONOCYTES 12.4 % (2-11); NEUTROPHILS 49.2 % (40-80); PLATELET COUNT 164 10x3/uL (130-400); RBC 3.16 10x6/uL (4.20-6.10); RDW 14.7 % (11.5-14.5); WBC 6.5 10x3/uL (4.8-10.8)
[2019-10-17 06:46] LABS: ALBUMIN 2.3 g/dL (3.4-5.0); ANION GAP 10.1 mmol/L (8-16); BILIRUBIN - TOTAL 0.36 mg/dL (0.2-1.3); CALCIUM 7.7 mg/dL (8.5-10.1); CARBON DIOXIDE 25.5 mmol/L (21.0-32.0); CREATININE - SERUM 1.1 mg/dL (0.6-1.3); POTASSIUM - SERUM 4.6 mmol/L (3.5-5.1); PROTEIN - SERUM 6.4 g/dL (6.4-8.2)
[2019-10-17 09:05] VITALS: BP 129/74
[2019-10-17 11:07] VITALS: BP 110/53
--- NOTE | 2019-10-17 13:29 | NUR ---
dressing changed to right lower ext. after cleaned with wound cleanser telfa gauze, abd x 3 and 1 box 4x4 used and wrapped with imelda x 2 . several open areas noted with healed areas also. bottom of right foot noted with half dollar size blackeachar noted. wrapped with imelda and padded with 4x4s. tolerated without complaints of pain. call light in reach
--- NOTE | 2019-10-17 14:15 | NUR ---
Nutrition follow-up: Diet: Regular 65 g protein PO intake 75-100% of meals Extreme diarrhea recorded with excoriated bottom Pt on protonix BID 40 gm; recommend discontinuing due to diarrhea RDN following.
--- NOTE | 2019-10-17 16:40 | NUR ---
PERFORMED BED CHANGE, PT IN CONTINENT OF STOOL. PT C/O SEVERE PAIN ON BUTTOCKS. PT HAS SKIN TEARS ON RIGHT, LEFT AND MIDDDLE OF SACRAL AREA, DIME SIZE. GENTLY CLEANED AREA AND APPLIED CALMOSEPTINE TO AREA. PT DENIES FURTHER NEEDS. WILL CONTINUE TO MONITOR.
[2019-10-17 18:04] VITALS: BP 120/65
[2019-10-17 20:00] VITALS: BP 111/59
--- NOTE | 2019-10-17 20:20 | NUR ---
ASSESSMENT PER FLOW SHEET, VS OBTAINED PER AUNDREA QIU, SALINE LOCK IN LEFT WRIST INTACT WITH NO REDNESS OR EDEMA, PT REPORTS FLATUS, HAD SMALL BM, ALANIZ CATH INTACT DRAINING YELLOW URINE, PT CLEANED UP WITH WIPES, CALMOSEPTINE APPLIED, COMPLETE BEDDING CHANGE DONE, CLEAN GOWN APPLIED, DRESSING IN RIGHT LEG CDI WITH NO DRAINAGE NOTED, INFORMED PT THAT I WILL BE BACK SHORTLY TO ADM 9PM MED, PT VERBALIZES UNDERSTANDING, REQUESTS PAIN MED WHEN I COME BACK, BED IN LOW POSITION, SIDE RAILS X 2, CALL LIGHT IN REACH
--- NOTE | 2019-10-17 21:10 | NUR ---
PT RESTING WITH EYES CLOSED, AROUSES TO SOFT VERBAL STIMULATION, OBTAINED FSBS, INFORMED PT THAT I WILL BE BACK WITH MEDS, PT VERBALIZES UNDERSTANDING, REQUESTED AND SERVED POPSICLE, DENIES FURTHER NEEDS
--- NOTE | 2019-10-17 22:06 | NUR ---
PT RESTING WITH EYES CLOSED, AROUSES TO SOFT VERBAL STIMULATION, ADM 2100 MEDS PER MD ORDERS SEE EMAR, PT DENIES FURTHER NEEDS, BED IN LOW POSITION, SIDE RAILS X 2, CALL LIGHT IN REACH
--- NOTE | 2019-10-17 23:01 | NUR ---
PT RESTING WITH EYES CLOSED, RESP QUIET, NO DISTRESS NOTED, LEFT UNDISTURBED AT THIS TIME
--- NOTE | 2019-10-18 00:10 | NUR ---
PT RESTING WITH EYES CLOSED, RESP QUIET, NO DISTRESS NOTED, LEFT UNDISTURBED AT THIS TIME, BED IN LOW POSITION, SIDE RAILS X 2, CALL LIGHT IN REACH
[2019-10-18 01:03] VITALS: BP 105/57
--- NOTE | 2019-10-18 01:03 | NUR ---
PT PARTS SALESPERSON LIGHT, VS OBTAINED, REQUESTED AND SERVED POPSICLE, DENIES FURTHER NEEDS OR PAIN
--- NOTE | 2019-10-18 03:51 | NUR ---
PT SCUDDING INSPECTOR LIGHT, PT C/O FEELING "NAUSEATED", SALINE LOCK FLUSHED WITH NO DIFFICULTY, ADM ZOFRAN DILUTED IN 5MLS OF NS SIVP PER MD ORDERS, SEE EMAR, SALINE LOCK FLUSHED, REPOSITIONED PT IN BED PER HIS REQUEST, EMPTIED ALANIZ CATH, DENIES FURTHER NEEDS, BED IN LOW POSITION, SIDE RAILS X 2, CALL LIGHT IN REACH
[2019-10-18 04:00] VITALS: BP 115/56
--- NOTE | 2019-10-18 04:42 | NUR ---
PT RESTING WITH EYES CLOSED, RESP QUIET, NO DISTRESS NOTED, LEFT UNDISTURBED AT THIS TIME
[2019-10-18 05:25] LABS: HEMATOCRIT 27.2 % (42.0-54.0); LYMPHOCYTES 35.4 % (15-50); MCH 27.5 pg (26.0-34.0); MCHC 33.1 g/dL (31.0-37.0); MCV 83.2 fL (80.0-100.0); MEAN PLATELET VOLUME 8.2 fL (7.4-10.4); NEUTROPHILS 46.9 % (40-80); PLATELET COUNT 180 10x3/uL (130-400); RBC 3.27 10x6/uL (4.20-6.10); RDW 14.2 % (11.5-14.5); WBC 5.2 10x3/uL (4.8-10.8)
[2019-10-18 05:43] LABS: ALBUMIN 2.3 g/dL (3.4-5.0); ALKALINE PHOSPHATASE 163 U/L (30-120); ALT (SGPT) 17 U/L (10-68); BILIRUBIN - TOTAL 0.34 mg/dL (0.2-1.3); CALC OSMOLALITY 267 mosm/kg (275-300); CALCIUM 7.9 mg/dL (8.5-10.1); CARBON DIOXIDE 24.3 mmol/L (21.0-32.0); CHLORIDE - SERUM 102 mmol/L (98-107); GLUCOSE 121 mg/dL (74-106); MAGNESIUM - SERUM 1.4 mg/dL (1.8-2.4); PHOSPHOROUS 2.7 mg/dL (2.5-4.9); POTASSIUM - SERUM 4.5 mmol/L (3.5-5.1); PROTEIN - SERUM 6.2 g/dL (6.4-8.2); SODIUM 132 mmol/L (136-145); UREA NITROGEN 18 mg/dL (7-18); eGFR NON AFRICAN AMERICAN 79 mL/min (90-120)
--- NOTE | 2019-10-18 06:34 | NUR ---
PT RESTING WITH EYES CLOSED, AROUSES TO SOFT VERBAL STIMULATION, ADM 0600 MEDS PER MD ORDERS, SEE EMAR, DENIES NEEDS OR PAIN
[2019-10-18 09:35] VITALS: BP 126/62
--- NOTE | 2019-10-18 10:57 | MORECARE ---
CASE MANAGEMENT DISCHARGE SUMMARY PATIENT: VIRA HOLLAND UNIT: [id number] ADM DATE: 10/10/19 AGE: 69 : 52 SEX: M ROOM/BED: D.2210 AUTHOR: DAVIDA ORTEGA PHYSICIAN: REFERRING PHYSICIAN: DIOMEDES SINGER MD DATE OF SERVICE: 10/18/19 Discharge Plan Patient Name: VIRA HOLLAND Facility: [facility]:[place] : 1950 Planned Disposition: Custodial Facility Anticipated Discharge Date: Discharge Date: Expected LOS: Initial Reviewer: [email or web address] Initial Review Date: 10/10/2019 Generated: 10/18/19 11:57 am External Providers External Provider: [facility] Next Contact Date: Service Request Date: Service Type: Resolution: Reviewer: Comments: Patient Name: VIRA HOLLAND Page [phone] at 1057 All edits/amendments must be made on the electronic document DICTATION DATE: 10/18/19 1057 GRINDING WHEEL OPERATOR: TEGAN 10/18/19 1057 RPT#: [id number] NH DATE: STATUS: ADM IN [facility] [address] [place] [address] END OF REPORT
--- NOTE | 2019-10-18 11:00 | NUR ---
PT LAYING IN BED A&O X4. PIV IN LEFT WRIST, SALINE LOCKED, NO REDNESS OR SWELLING. PT ON 2L NC. DRESSING ON RLE, C/D/I. LLE BKA. PRESSURE ULCER ON COCCYX, 2CM X 3CM ON RIGHT SIDE, 2CM X 2CM ON LEFT SIDE, 1CM X 4CM IN MIDDLE, ALL STAGE 2. APPLIED CAMOSEPTINE LOTION. PT C/O PAIN 10/13, PROVIDED PAIN MEDS PER ORDER. PT ON TELEMETRY, 70HR SR. PT HAS SUPRAPUBIC ALANIZ, PATENT, CONCENTRATED URINE. EDUCATED PT ON CL, VERBALIZED UNDERSTANDING. BED LOW, RAILS X2. WILL CONTINUE TO MONITOR.
[2019-10-18 13:17] VITALS: BP 109/77
--- NOTE | 2019-10-18 15:00 | NUR ---
SURGEON REMOVED SUPRAPUBIC ALANIZ, RERMOVED 10ML SALINE FROM BALLOON. PT TOLERATED WELL. PLACED NEW SUPRAPUBIC ALANIZ WITH NO COMPLICATIONS, 16FT. INSERTED 10ML INTO BALLOON. WILL CONTINUE TO MONITOR.
[2019-10-18] MEDS ORDERED: MIDODRINE HCL5 MG PO (15:43)
[2019-10-18] MEDS ORDERED: PROTONIX40 MG PO (15:44)
[2019-10-18] MEDS ORDERED: CELEXA20 MG PO (15:45)
--- NOTE | 2019-10-18 17:37 | NUR ---
ADMINISTERED MEDICATION, NO DIFFICULTIES. PT UPRIGHT IN BED EATING DINNER. DENIES ANY NEEDS AT THIS TIME.
[2019-10-18 20:00] VITALS: BP 137/68
--- NOTE | 2019-10-19 03:08 | NUR ---
I have reviewed this patient and I concur with the Shift Assessment completed by the Licensed Practical Nurse today this shift.
[2019-10-19 04:00] VITALS: BP 124/81
[2019-10-19 06:59] LABS: LYMPHOCYTES 40.2 % (15-50); MCH 27.7 pg (26.0-34.0); MCHC 33.3 g/dL (31.0-37.0); MCV 83.1 fL (80.0-100.0); MEAN PLATELET VOLUME 8.3 fL (7.4-10.4); NEUTROPHILS 42.2 % (40-80); PLATELET COUNT 191 10x3/uL (130-400); RBC 3.25 10x6/uL (4.20-6.10); RDW 14.4 % (11.5-14.5); WBC 4.7 10x3/uL (4.8-10.8)
[2019-10-19 07:12] LABS: ALBUMIN 2.4 g/dL (3.4-5.0); ALKALINE PHOSPHATASE 184 U/L (30-120); ALT (SGPT) 19 U/L (10-68); BILIRUBIN - TOTAL 0.29 mg/dL (0.2-1.3); CALC OSMOLALITY 271 mosm/kg (275-300); CALCIUM 8.3 mg/dL (8.5-10.1); CARBON DIOXIDE 23.3 mmol/L (21.0-32.0); CHLORIDE - SERUM 103 mmol/L (98-107); GLUCOSE 140 mg/dL (74-106); MAGNESIUM - SERUM 1.5 mg/dL (1.8-2.4); PHOSPHOROUS 2.5 mg/dL (2.5-4.9); POTASSIUM - SERUM 4.8 mmol/L (3.5-5.1); PROTEIN - SERUM 6.5 g/dL (6.4-8.2); SODIUM 134 mmol/L (136-145); UREA NITROGEN 19 mg/dL (7-18); eGFR NON AFRICAN AMERICAN 79 mL/min (90-120)
[2019-10-19 09:07] VITALS: BP 145/74
--- NOTE | 2019-10-19 10:16 | MORECARE ---
CASE MANAGEMENT DISCHARGE SUMMARY PATIENT: VIRA HOLLAND UNIT: [id number] ADM DATE: 10/10/19 AGE: 69 : 52 SEX: M ROOM/BED: D.2210 AUTHOR: DAVIDA ORTEGA PHYSICIAN: REFERRING PHYSICIAN: DIOMEDES SINGER MD DATE OF SERVICE: 10/19/19 Discharge Plan Patient Name: VIRA HOLLAND [facility] : 1950 Planned Disposition: Nursing Facility [facility] Cert Anticipated Discharge Date: Discharge Date: Expected LOS: Initial Reviewer: [email or web address] Initial Review Date: 10/10/2019 Generated: 10/19/19 11:15 am DCPIA - Discharge Planning Initial Assessment Updated by [email or web address]: Sita Mcneill on 10/19/19 10:14 am * Is the patient Alert and Oriented? Yes * P[facility] * [facility] * Preadmission Environment [facility]isted [facility] * Facility Name [facility] * ADLs Partial Dependent * Partial ADLs (Assistance needed) Medication Management Toileting Transfers * List name and contact numbers for known caregivers / representatives who currently or will assist patient after discharge: JOCELINE HOLLAND (SISTER) * Verbal permission to speak to the caregivers and representatives has been obtained from the patient. N/A * Additional services required to return to the preadmission environment? No * Can the patient safely return to the preadmission environment? Yes * Has this patient been hospitalized within the prior 30 days at any hospital? No Last DP export: 10/18/19 9:57 a Patient Name: VIRA HOLLAND Page [phone] at 1016 All edits/amendments must be made on the electronic document DICTATION DATE: 10/19/19 1015 DISPATCHER AUTOMOBILE RENTAL: TEGAN 10/19/19 1015 RPT#: [id number] DC DATE: STATUS: ADM IN [facility] [address] [place] [address] END OF REPORT
--- NOTE | 2019-10-19 10:24 | MORECARE ---
CASE MANAGEMENT DISCHARGE SUMMARY PATIENT: VIRA HOLLAND UNIT: [id number] ADM DATE: 10/10/19 AGE: 69 : 52 SEX: M ROOM/BED: D.2210 AUTHOR: JORDAN,DOC PHYSICIAN: REFERRING PHYSICIAN: DIOMEDES SINGER MD DATE OF SERVICE: 10/19/19 Discharge Plan Patient Name: VIRA HOLLAND Facility: [facility]:[place] : 1950 Planned Disposition: Nursing Facility [facility] Cert Anticipated Discharge Date: Discharge Date: Expected LOS: Initial Reviewer: [email or web address] Initial Review Date: 10/10/2019 Generated: 10/19/19 11:23 am Comments DCP- Discharge Planning Updated by [email or web address]: Sita Mcneill on 10/19/19 9:[address] Patient Name: VIRA HOLLAND Admission Status: ER Accout number: [id number] Admission Date: 10-10-2019 : 1950 Admission Diagnosis:NAUSEA WITH VOMITING, UNSPECIFIED Attending: DIOMEDES SINGER Current LOS: 9 Anticipated DC Date: Planned Disposition: Nursing Facility [facility] Cert Primary Insurance: MEDICARE A & B Discharge Planning Comments: CM met with patient to complete initial dc planning assessment. CM educated patient on the CM role and verbal consent given by patient to complete assessment. Patient lives at [facility] in a chcf bed with. At discharge patient plans to return to [place], but will be going back to a skilled bed and feels this is a safe discharge. He stated that he will call his sister and let her know about him being discharged. IMM served and explained. JOVAN also signed. Patient denied known discharge needs at this time. CM will continue to follow and will assist as needed with dc plans/needs. [employer] Director: Sita Mcneill DCPIA - Discharge Planning Initial Assessment Updated by [email or web address]: Sita Mcneill on 10/19/19 10:14 am * Is the patient Alert and Oriented? Yes * PCP [facility] * [facility] * Preadmission Environment [facility] * Facility Name [facility] * ADLs Partial Dependent * Partial ADLs (Assistance needed) Medication Management Toileting Transfers * List name and contact numbers for known caregivers / representatives who currently or will assist patient after discharge: JOCELINE HOLLAND (SISTER) * Verbal permission to speak to the caregivers and representatives has been obtained from the patient. N/A * Additional services required to return to the preadmission environment? No * Can the patient safely return to the preadmission environment? Yes * Has this patient been hospitalized within the prior 30 days at any hospital? No Coverage Notice Reviewer: [email or web address] Soren Mcneill Notice Issued Date-Time: 10/19/2019 10:00 Notice Type: IM Discharge Notice Notice Delivered To: Patient Relationship to Patient: Hand Molder Name: Delivery Method: HAND - Hand Delivered Dee Days: Prior Verbal Notification: Recipient Understood Notice: Yes Recipient Signature: Yes Med Rec Note Co-signed by Attending: Coverage Notice Comment: Reviewer: [id number] Mcneill Notice Issued Date-Time: 10/19/2019 10:00 Notice Type: Patient Choice Letter Notice Delivered To: Patient Relationship to Patient: Hand Molder Name: Delivery Method: HAND - Hand Delivered Dee Days: Prior Verbal Notification: Recipient Understood Notice: Yes Recipient Signature: Yes Med Rec Note Co-signed by Attending: Coverage Notice Comment: jovan Sullivan DP export: 10/19/19 9:16 a Patient Name: VIRA HOLLAND Page [phone] at 1024 All edits/amendments must be made on the electronic document DICTATION DATE: 10/19/19 1023 MANAGER CLUB: TEGAN 10/19/19 1023 RPT#: [id number] DC DATE: STATUS: ADM IN [facility] [address] [place] [address] END OF REPORT
--- NOTE | 2019-10-19 12:26 | MORECARE ---
CASE MANAGEMENT DISCHARGE SUMMARY PATIENT: VIRA HOLLAND UNIT: [id number] ADM DATE: 10/10/19 AGE: 69 : 52 SEX: M ROOM/BED: D.2210 AUTHOR: JORDAN,DOC PHYSICIAN: REFERRING PHYSICIAN: DIOMEDES SINGER MD DATE OF SERVICE: 10/19/19 Discharge Plan Patient Name: VIRA HOLLAND Facility: [facility]:[place] : 1950 Planned Disposition: Nursing Facility [facility] Cert Anticipated Discharge Date: Discharge Date: Expected LOS: Initial Reviewer: [email or web address] Initial Review Date: 10/10/2019 Generated: 10/19/19 1:26 pm Comments DCP- Discharge Planning Updated by [email or web address]: Sita Mcneill on 10/19/19 11:[address] patient will be transported via EMS DCP- Discharge Planning Updated by [email or web address]: Sita Mcneill on 10/19/19 9:[address] Patient Name: VIRA HOLLAND Admission Status: ER Accout number: [id number] Admission Date: 10-10-2019 : 1950 Admission Diagnosis:NAUSEA WITH VOMITING, UNSPECIFIED Attending: DIOMEDES SINGER Current LOS: 9 Anticipated DC Date: Planned Disposition: Nursing Facility [facility] Primary Insurance: MEDICARE A & B Discharge Planning Comments: CM met with patient to complete initial dc planning assessment. CM educated patient on the CM role and verbal consent given by patient to complete assessment. Patient lives at [facility] in a prison bed with. At discharge patient plans to return to [place], but will be going back to a skilled bed and feels this is a safe discharge. He stated that he will call his sister and let her know about him being discharged. IMM served and explained. JOVAN also signed. Patient denied known discharge needs at this time. CM will continue to follow and will assist as needed with dc plans/needs. Geospatial Scientist: Sita Mcneill DCPIA - Discharge Planning Initial Assessment Updated by [email or web address]: Sita Mcneill on 10/19/19 10:14 am * Is the patient Alert and Oriented? Yes * PCP [facility] * [facility] * Preadmission Environment [facility] * Facility Name [facility] * ADLs Partial Dependent * Partial ADLs (Assistance needed) Medication Management Toileting Transfers * List name and contact numbers for known caregivers / representatives who currently or will assist patient after discharge: JOCELINE HOLLAND (SISTER) * Verbal permission to speak to the caregivers and representatives has been obtained from the patient. N/A * Additional services required to return to the preadmission environment? No * Can the patient safely return to the preadmission environment? Yes * Has this patient been hospitalized within the prior 30 days at any hospital? No Coverage Notice Reviewer: [id number] Mcneill Notice Issued Date-Time: 10/19/2019 10:00 Notice Type: IM Discharge Notice Notice Delivered To: Patient Relationship to Patient: Petal Shaper Hand Name: Delivery Method: HAND - Hand Delivered Dee Days: Prior Verbal Notification: Recipient Understood Notice: Yes Recipient Signature: Yes Med Rec Note Co-signed by Attending: Coverage Notice Comment: Reviewer: [id number] Mcneill Notice Issued Date-Time: 10/19/2019 10:00 Notice Type: Patient Choice Letter Notice Delivered To: Patient Relationship to Patient: Petal Shaper Hand Name: Delivery Method: HAND - Hand Delivered Dee Days: Prior Verbal Notification: Recipient Understood Notice: Yes Recipient Signature: Yes Med Rec Note Co-signed by Attending: Coverage Notice Comment: jovan Sullivan DP export: 10/19/19 9:24 a Patient Name: VIRA HOLLAND Page [phone] at 1226 All edits/amendments must be made on the electronic document DICTATION DATE: 10/19/19 1226 PICKET LABOR UNION: TEGAN 10/19/19 1226 RPT#: [id number] DC DATE: STATUS: ADM IN [facility] [address] [place] [address] END OF REPORT
--- NOTE | 2019-10-19 13:06 | NUR ---
I have reviewed this patient and I concur with the Shift Assessment completed by the Licensed Practical Nurse today this shift.
--- NOTE | 2019-10-19 14:43 | NUR ---
DISCHARGED PATIENT BACK TO [facility] BY AMBULANCE VIA STRETCHER. DISCONTINUED IV, CATHETER TIP INTACT. WENT OVER DISCHARGE INSTRUCTIONS WITH PATIENT, VERBALZIED UNDERSTANDING. DENIES ANYTHING FURTHER.
[2019-10-19 16:10] LABS: AEROBE ID Final report (()); RESULT 1 Citrobacter braakii (())
--- NOTE | 2019-10-20 01:31 | MORECARE ---
CASE MANAGEMENT DISCHARGE SUMMARY PATIENT: VIRA HOLLAND UNIT: [id number] ADM DATE: 10/10/19 AGE: 69 : 54 SEX: M ROOM/BED: D.2210 AUTHOR: JORDAN,DOC PHYSICIAN: REFERRING PHYSICIAN: DIOMEDES SINGER MD DATE OF SERVICE: 10/20/19 Discharge Plan Patient Name: VIRA HOLLAND Facility: [facility]:[place] : 1950 Planned Disposition: Nursing Facility [facility] Cert Anticipated Discharge Date: Discharge Date: 10/19/2019 Expected LOS: Initial Reviewer: [email or web address] Initial Review Date: 10/10/2019 Generated: 10/20/19 2:30 am Comments DCP- Discharge Planning Updated by [email or web address]: Sita Mcneill on 10/19/19 11:[address] patient will be transported via EMS DCP- Discharge Planning Updated by [email or web address]: Sita Mcneill on 10/19/19 9:[address] Patient Name: VIRA HOLLAND Admission Status: ER Accout number: [id number] Admission Date: 10-10-2019 : 1950 Admission Diagnosis:NAUSEA WITH VOMITING, UNSPECIFIED Attending: DIOMEDES SINGER Current LOS: 9 Anticipated DC Date: Planned Disposition: Nursing Facility [facility] Cert Primary Insurance: MEDICARE A & B Discharge Planning Comments: CM met with patient to complete initial dc planning assessment. CM educated patient on the CM role and verbal consent given by patient to complete assessment. 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 At discharge patient plans to return to [place], but will be going back to a skilled bed and feels this is a safe discharge. He stated that he will call his sister and let her know about him being discharged. IMM served and explained. JOVAN also signed. Patient denied known discharge needs at this time. CM will continue to follow and will assist as needed with dc plans/needs. Military Technology Manager: Sita Mcneill DCPIA - Discharge Planning Initial Assessment Updated by [email or web address]: Sita Mcneill on 10/19/19 10:14 am * Is the patient Alert and Oriented? Yes * PCP [facility] * [facility] * Preadmission Environment [facility] * Facility Name [facility] * ADLs Partial Dependent * Partial ADLs (Assistance needed) Medication Management Toileting Transfers * List name and contact numbers for known caregivers / representatives who currently or will assist patient after discharge: JOCELINE HOLLAND (SISTER) * Verbal permission to speak to the caregivers and representatives has been obtained from the patient. N/A * Additional services required to return to the preadmission environment? No * Can the patient safely return to the preadmission environment? Yes * Has this patient been hospitalized within the prior 30 days at any hospital? No Coverage Notice Reviewer: [email or web address] Soren Mcneill Notice Issued Date-Time: 10/19/2019 10:00 Notice Type: IM Discharge Notice Notice Delivered To: Patient Relationship to Patient: Public Health Representative Name: Delivery Method: HAND - Hand Delivered Dee Days: Prior Verbal Notification: Recipient Understood Notice: Yes Recipient Signature: Yes Med Rec Note Co-signed by Attending: Coverage Notice Comment: Reviewer: [email or web address] Mcneill Notice Issued Date-Time: 10/19/2019 10:00 Notice Type: Patient Choice Letter Notice Delivered To: Patient Relationship to Patient: Public Health Representative Name: Delivery Method: HAND - Hand Delivered Dee Days: Prior Verbal Notification: Recipient Understood Notice: Yes Recipient Signature: Yes Med Rec Note Co-signed by Attending: Coverage Notice Comment: jovan whitten Last DP export: 10/19/19 11:26 a Patient Name: VIRA HOLLAND Page [phone] at 0131 All edits/amendments must be made on the electronic document DICTATION DATE: 10/20/19129 SUPPORT DIRECTOR: TEGAN 10/20/19 013 RPT#: [id number] DC DATE:10/19/19 STATUS: DIS IN [facility] [address] [place] [address] END OF REPORT
== END 2019-10-19 14:44 | DRG 699 ==
LOC: D.ER 03:53 → D.MS 05:02
PROVIDERS: Family Medicine; Family Medicine Adult Medicine; ADMIT Family Medicine; ATTEND Family Medicine
DX: T83.518A Infection and inflammatory reaction due to other urinary catheter, initial encounter (principal); N17.9 Acute kidney failure, unspecified; N39.0 Urinary tract infection, site not specified; E87.1 Hypo-osmolality and hyponatremia; Y84.9 Medical procedure, unspecified as the cause of abnormal reaction of the patient, or of later complication, without mention of misadventure at the time of the procedure; E86.0 Dehydration; E11.65 Type 2 diabetes mellitus with hyperglycemia; E87.5 Hyperkalemia; I11.0 Hypertensive heart disease with heart failure; I50.9 Heart failure, unspecified; N40.0 Benign prostatic hyperplasia without lower urinary tract symptoms; F32.9 Major depressive disorder, single episode, unspecified; Z89.512 Acquired absence of left leg below knee

== ENCOUNTER 2019-10-31 09:43 | Emergency (ER) | payer MEDICARE ==
[~2019-10-31] VITALS: Ht 180.3 cm; Wt 95.5 kg
[~2019-10-31 09:43] MED LIST changes: +CELEXA20 MG PO; +LIDODERM 5 %1 PATCH TRANSDERM; +MECLIZINE HCL25 MG PO; +MIDODRINE HCL5 MG PO; +PRINIVIL10 MG PO; +ZOLOFT25 MG PO
[2019-10-31 09:54] VITALS: Ht 180.3 cm; Wt 95.5 kg
[2019-10-31 10:41] LABS: BASOPHILS 1.5 % (0-2); EOSINOPHILS 2.6 % (0-7); HEMATOCRIT 30.9 % (42.0-54.0); HEMOGLOBIN 9.9 g/dL (13.5-17.5); IMMATURE GRANULOCYTES 1.8 % (0-5); LYMPHOCYTES 28.9 % (15-50); MCV 84.2 fL (80.0-100.0); MEAN PLATELET VOLUME 7.7 fL (7.4-10.4); MONOCYTES 10.4 % (2-11); NEUTROPHILS 54.8 % (40-80); RBC 3.67 10x6/uL (4.20-6.10); RDW 14.8 % (11.5-14.5); WBC 7.3 10x3/uL (4.8-10.8)
[2019-10-31 10:57] LABS: PLATELET COUNT 242 10x3/uL (130-400)
[2019-10-31 11:04] LABS: ALBUMIN 2.8 g/dL (3.4-5.0); BILIRUBIN - TOTAL 0.59 mg/dL (0.2-1.3); CALCIUM 9.1 mg/dL (8.5-10.1); CREATININE - SERUM 1.3 mg/dL (0.6-1.3); PROTEIN - SERUM 7.7 g/dL (6.4-8.2)
[2019-10-31 11:05] LABS: INR 1.39 (0.85-1.17)
[2019-10-31 11:06] LABS: APTT 42.5 SECONDS (22.8-39.4)
[2019-10-31 11:15] LABS: ANION GAP 10.9 mmol/L (8-16); POTASSIUM - SERUM 4.9 mmol/L (3.5-5.1)
[2019-10-31 14:00] VITALS: BP 102/54
== END 2019-10-31 14:13 ==
LOC: D.ER 09:43
PROVIDERS: Family Medicine
DX: Z48.00 Encounter for change or removal of nonsurgical wound dressing (principal); E11.9 Type 2 diabetes mellitus without complications; Z79.4 Long term (current) use of insulin